=== PATIENT | female | born 1980 | race Caucasian/White ===

== ENCOUNTER 2016-12-12 12:02 | Inpatient (IN) | payer MEDICAID, OTHER ==
[2016-12-12] MEDS ORDERED: Sodium Chloride 0.9% 1,000 ML IV ONE ×2 (14:38→16:51)
--- NOTE | 2016-12-12 15:02 | RAD ---
HISTORY: lethargy COMPARISON: No prior. TECHNIQUE: Chest PA and lateral FINDINGS: LUNGS: No active pulmonary disease. PLEURA: No significant pleural effusion identified. No pneumothorax apparent. CARDIOVASCULAR: Normal. OSSEOUS STRUCTURES: No significant abnormalities. VISUALIZED UPPER ABDOMEN: Normal. OTHER FINDINGS: None. IMPRESSION: No active disease.
--- NOTE | 2016-12-12 15:08 | C.PDOC ---
History Of Present Illness 36 y/o transgender, genetically male, presents to the ED complaining of leg weakness and body aches x 2 weeks. Patient reports seen here 2 weeks prior for right shoulder injury s/p falling in apartment. Imaging studies at the time revealed no acute findings and patient reports that shoulder pain has resolved. Patient notes difficulty ambulating secondary to thigh pain and weakness. Denies trauma, numbness, or other complaints. Time Seen by Provider: 12/12/16 14:24 Chief Complaint (Nursing): Lower Extremity Problem/Injury Onset/Duration Of Symptoms: Days (14), Gradual, Persistent Current Symptoms Are (Timing): Still Present Recent travel outside of the [place]: No Past Medical History Reviewed: Historical Data, Nursing Documentation, Vital Signs Vital Signs: Last Vital Signs Temp 97.6 F 12/12/16 16:54 Pulse 86 12/12/16 16:54 Resp 18 12/12/16 16:54 BP 115/72 12/12/16 16:54 Pulse Ox 100 12/12/16 17:08 - Medical History PMH: No Chronic Diseases Surgical History: No Surg Hx Family History: States: Unknown Family Hx - Social History Hx Tobacco Use: No Hx Alcohol Use: No Hx Substance Use: No - Immunization History Hx Tetanus Toxoid Vaccination: No Hx Influenza Vaccination: No Hx Pneumococcal Vaccination: No Review Of Systems Except As Marked, All Systems Reviewed And Found Negative. Constitutional: Positive for: Other (body aches, subjective fevers, vomiting "every night and every morning after breakfast") Musculoskeletal: Positive for: Leg Pain Neurological: Positive for: Weakness (lower extremities). Negative for: Numbness Physical Exam - Physical Exam Appears: Non-toxic, No Acute Distress, Chronically Ill, Other (thin) Skin: Warm, Dry, No Rash Head: Atraumatic, Normacephalic Eye(s): bilateral: Normal Inspection, PERRL, EOMI Neck: Normal ROM, Supple Chest: Symmetrical Cardiovascular: Rhythm Regular Respiratory: Normal Breath Sounds, No Rales, No Rhonchi, No Wheezing Gastrointestinal/Abdominal: Normal Exam, Soft, No Tenderness Back: Normal Inspection, No CVA Tenderness, No Vertebral Tenderness Extremity: Normal ROM, No Tenderness, Capillary Refill (< 2 seconds), No Deformity, No Swelling, Other (patient is able to sit and stand w/ obvious discomfort) Pulses: Left Dorsalis Pedis: Normal, Right Dorsalis Pedis: Normal Neurological/Psych: Oriented x3, Normal Speech, Normal Cognition, Normal Sensation ED Course And Treatment - Laboratory Results Result Diagrams: 12/12/16 15:25 12/12/16 15:19 Lab Interpretation: Abnormal (d-dimer 402 slight elev) ECG: Interpreted By Me ECG Rhythm: Sinus Rhythm ECG Interpretation: Normal Rate From EC O2 Sat by Pulse Oximetry: 100 (ra) Pulse Ox Interpretation: Normal - Radiology CXR: Interpreted by Me CXR Interpretation: Yes: No Acute Disease - Other Rad Chest X-Ray X-Ray: Viewed By Me, Read By Radiologist (Jareth Salazar MD) Interpretation: FINDINGS: LUNGS: No active pulmonary disease. PLEURA: No significant pleural effusion identified. No pneumothorax apparent. CARDIOVASCULAR: Normal. OSSEOUS STRUCTURES: No significant abnormalities. VISUALIZED UPPER ABDOMEN: Normal. OTHER FINDINGS: None. IMPRESSION: No active disease. Reevaluation Time: 17:13 Reassessment Condition: Improved (thigh pain improved, again denies any diuretic use, no transgender steroid use in >5 yrs.) - Physician Consult Information Outcome Of Conversation: 1715: d/w Dr. Lora- Hospitalist [employer]- ok to Med Surg Obs. continue hydration, consider neuro eval. Medical Decision Making Medical Decision Making: Plan: * EKG * CXR * Blood Work * D-Dimer * Troponin * Urinalysis * Urine HCG * Toradol, Ultram, IV Fluids dehydration due to ? vomiting, normal glu and renal fxn. Disposition Doctor Will See Patient In The: Hospital Counseled Patient/Family Regarding: Studies Performed, Diagnosis - Disposition Disposition: HOSPITALIZED Disposition Time: 17:04 Condition: FAIR - Clinical Impression Clinical Impression: Leg pain, bilateral, Dehydration - Scribe Statement The provider has reviewed the documentation as recorded by the Scribe (Fiordaliza Miller) Provider Attestation: All medical record entries made by the Scribe were at my direction and personally dictated by me. I have reviewed the chart and agree that the record accurately reflects my personal performance of the history, physical exam, medical decision making, and the department course for this patient. I have also personally directed, reviewed, and agree with the discharge instructions and disposition.
[2016-12-12] MEDS ORDERED: Sodium Chloride 0.9% 1,000 ML ONE (15:12)
[2016-12-12 15:30] LABS: BASO # 0.1 K/uL (0.0-0.2); BASO % 0.8 % (0.0-2.0); EOS # 0.1 K/uL (0.0-0.7); EOS % 0.4 % (0.0-4.0); HEMATOCRIT 34.2 % (34.0-47.0); LYMPH # 1.8 K/uL (1.0-4.3); LYMPH % 10.2 % (20.0-40.0); MEAN CELL VOLUME 90.1 fL (81.0-99.0); MEAN CORPUSCULAR HEMOGLOBIN 30.1 pg (27.0-31.0); MEAN CORPUSCULAR HGB CONC 33.4 g/dL (33.0-37.0); MEAN PLATELET VOLUME 7.6 fL (7.2-11.7); MONO % 11.1 % (0.0-10.0); WHITE BLOOD COUNT 17.6 K/uL (4.8-10.8)
[2016-12-12 15:40] LABS: CHLORIDE 93 mmol/L (98-107)
[2016-12-12 15:41] LABS: POTASSIUM 4.2 mmol/L (3.6-5.2)
[2016-12-12 15:43] LABS: ALB/GLOB RATIO 0.6 (1.0-2.1); ALKALINE PHOSPHATASE 201 U/L (38-126); AST/SGOT 35 U/L (14-36); BILIRUBIN,TOTAL 1.7 mg/dL (0.2-1.3); BLOOD UREA NITROGEN 10 mg/dL (7-17); CARBON DIOXIDE 22 mmol/L (22-30); GFR AFRICAN-AMERICAN > 60; TOTAL PROTEIN 7.8 g/dL (6.3-8.3)
[2016-12-12 15:44] LABS: ALCOHOL SERUM < 10 mg/dl (0-10); ALT/SGPT 23 U/L (9-52); CALCIUM 7.7 mg/dl (8.6-10.4); GLUCOSE,RANDOM 222 mg/dL (65-105)
[2016-12-12 15:48] LABS: SODIUM 126 mmol/L (132-148)
[2016-12-12 17:39] LABS: RBC URINE 3 /hpf (0-3); URINE BACTERIA RARE (<OCC); URINE BILIRUBIN 1+ (NEGATIVE); URINE BLOOD NEGATIVE (NEGATIVE); URINE GLUCOSE (UA) NORMAL (Normal); URINE HYALINE CAST >20 /lpf (0-2); URINE KETONE NEGATIVE (NEGATIVE); URINE LEUKOCYTE ESTERASE NEG Leu/uL (Negative); URINE PROTEIN 2+ mg/dL (NEGATIVE); WBC URINE 25 /hpf (0-5)
[2016-12-12 17:40] LABS: URINE COLOR YELLOW (YELLOW)
--- NOTE | 2016-12-12 22:06 | CP.PCM.HP ---
History of Present Illness - History of Present Illness History of Present Illness: Internal Medicine H&P Dr. Lora CC: Weakness/Inability to walk x 2 weeks HPI: This is a 36yo female with a PMH notable for DM presenting with weakness and an inability to walk x 2 weeks. The patient also notes that she has right ear pain, throat pain, fever, vomiting, chills, and trouble swallowing. She is unable to provide an adequate timeline for these additional complaints. The patient is Serbian speaking only. Telecommunication was used for the patient encounter with site interpreter Jeremy Mcdaniels #[id number]. The patient provided vague details about the extent of her lower extremity weakness and pain. Initially the patient described a stabbing pain located on the plantar aspect of her left foot, but when questioned, the patient continued to describe left hip and knee pain which extended into B/L hip and knee pain. She states that she has been unable to ascend and descend stairs and finally the pain has become too much for her to bear. The patient has never had an occurrence like this before. The patient notes that weight bearing and motion make the pain worse. The patient describes no relieving factors. The patient notes a fall on 11/28/16. This fall is unrelated to her weakness. The patient says that she slipped on ice and injured her right shoulder. She was seen in the [facility] ED for this incident. The patient notes no time of day when the weakness is more pronounced. The patient denies all skin changes. With respect to the ear pain, the patient notes that she has tinnitus and pain especially at night without associated hearing issues. The patient notes that she had a tactile fever. She did not take her temperature at home. The patient reports 8 episodes of vomiting in the last week. The patient last vomited this morning at 8am. The vomitus was non-bilious and non-bloody. She has had 0 emetic episodes since, and she has been able to tolerate PO intake during that time. The patient denies headache, chest pain, shortness of breath , abdominal pain, changes in bowel/bladder, skin rash, skin changes, pruritis, extremity paresthesias, and any insect/animal bites. PMH: DM Sur10/29/16 Cyst removal right posterior shoulder Allergy: NKDA Social: Originally from [place]. Immigated to [place] ([facility] 7 years ago No travel outside [place] since immigration no family in [place] Social EtOH Denies Tobacco/Illicit Drugs Occupation: [employer] PMD: None Present on Admission - Present on Admission Any Indicators Present on Admission: No History of DVT/PE: No History of Uncontrolled Diabetes: No Urinary Catheter: No Decubitus Ulcer Present: No Review of Systems - Constitutional Constitutional: Chills, Fever, Weakness. absent: Headache - EENT Eyes: absent: Blurred Vision, Change in Vision Ears: Ear Pain, Tinnitus. absent: Decreased Hearing, Ear Discharge, Abnormal Hearing, Disequilibrium Nose/Mouth/Throat: Sore Throat. absent: Mouth Lesions, Facial Pain, Neck Pain - Cardiovascular Cardiovascular: absent: Chest Pain, Chest Pain with Activity, Pedal Edema - Respiratory Respiratory: absent: Cough, Dyspnea, Hemoptysis - Gastrointestinal Gastrointestinal: Nausea, Vomiting. absent: Abdominal Pain, Constipation, Diarrhea - Genitourinary Genitourinary: absent: Change in Urinary Stream, Difficulty Urinating - Musculoskeletal Musculoskeletal: Abnormal Gait, Arthralgias, Muscle Weakness, Myalgias. absent : Atrophy, Deformity, Joint Swelling, Neck Pain - Integumentary Integumentary: absent: Lesions, Pruritus, Rash, Skin Pain, Skin Ulcer, Sores, Jaundice - Neurological Neurological: Weakness. absent: Numbness, Focal Weakness, Frequent Falls, Headaches - Endocrine Endocrine: absent: Cold Intolorance, Heat Intolorance Past Patient History - Infectious Disease Hx of Infectious Diseases: None - Past Social History Smoking Status: Never Smoked - ENDOCRINE/METABOLIC Hx Endocrine Disorders: Yes Hx Diabetes Mellitus Type 2: Yes - MUSCULOSKELETAL/RHEUMATOLOGICAL Hx Falls: Yes - PSYCHIATRIC Hx Substance Use: No - SURGICAL HISTORY Hx Surgeries: No Meds Allergies/Adverse Reactions: Allergies Allergy/AdvReac Type Severity Reaction Status Date / Time No Known Allergies Allergy Verified 12/12/16 12:26 Physical Exam - Constitutional Appears: Non-toxic, No Acute Distress - Head Exam Head Exam: ATRAUMATIC, NORMAL INSPECTION, NORMOCEPHALIC - Eye Exam Eye Exam: EOMI, Normal appearance Pupil Exam: NORMAL ACCOMODATION - ENT Exam ENT Exam: Mucous Membranes Moist, Normal Exam, Normal External Ear Exam, Normal Oropharynx, TM's Normal Bilaterally. absent: Mucous Membranes Dry - Neck Exam Neck exam: Positive for: Full Rom, Normal Inspection. Negative for: Lymphadenopathy - Respiratory Exam Respiratory Exam: Clear to Auscultation Bilateral, NORMAL BREATHING PATTERN. absent: Rales, Rhonchi, Wheezes, Respiratory Distress - Cardiovascular Exam Cardiovascular Exam: REGULAR RHYTHM, RRR, +S1, +S2. absent: Diastolic murmur, Systolic Murmur - GI/Abdominal Exam GI & Abdominal Exam: Normal Bowel Sounds, Soft. absent: Distended, Firm, Guarding, Hernia, Tenderness - Extremities Exam Extremities exam: Positive for: calf tenderness, full ROM, normal capillary refill, normal inspection, pedal edema, tenderness, pedal pulses present. Negative for: joint swelling Additional comments: 1+ edema b/l pain with passive ROM Patient able to weight bear fully on both lower extremities Patient able to stand on tip-toes [place] B/L Sensation intact throughout all distal dermatomes B/L Motor Strength intact distally 5/5 B/L Right Leg: Tenderness on bony prominences (Greater trochanter, medal/lateral epicondyle, medial/lateral maleoli, calcaneous) Tenderness about gastroc, quad, and hamstring muscle groups Limited A/P-ROM 2/2 to pain Left Leg: Tenderness on bony prominences (Greater trochanter, medal/lateral epicondyle, medial/lateral maleoli, calcaneous) Tenderness about gastroc, quad, and hamstring muscle groups Limited A/P-ROM 2/2 to pain - Neurological Exam Neurological exam: Alert, CN II-XII Intact - Skin Skin Exam: Dry, Intact, Normal Color, Warm Results - Vital Signs Recent Vital Signs: Last Vital Signs Temp 97.6 F 12/12/16 16:54 Pulse 86 12/12/16 16:54 Resp 18 12/12/16 16:54 BP 115/72 12/12/16 16:54 Pulse Ox 100 12/12/16 17:14 - Labs Result Diagrams: 12/12/16 15:25 12/12/16 15:19 Labs: Laboratory Results - last 24 hr 12/12/16 21:06 POC Glucose (mg/dL) 224 H Assessment & Plan - Assessment and Plan (Free Text) Plan: 1.) B/L Lower Extremity Pain/Weakness- Likely 2/2 to Osteoarthritis vs Myositis vs Myopathy vs dehydration - AM Labs: CBC/CMP/Mg/Phos/Iron Panel/Sodium Random Urine/Creatinine Random Urine/Urine Osm/Folate/A1C/Hep Panel/Lactic Acid/Serum Osm/Testosterone/Aldolase /Uric Acid/B12/ ESR/CRP/HIV/B1/JOYCE/Lyme titer/RPR/Rheumatoid Factor - Blood Culture Ordered - Urine Culture Ordered - Throat Culture Ordered - Rapid Strep Ordered - Neuro Consult- Dr. Mix - Endo Consult- Dr. Spring - Rheumatology Consult- Dr. Wiggins - Imaging - B/L 2 view knees - 1 view pelvis - B/L Arterial and Venous Dopplers - Lumbar Spine XR - Pain Control- Morphine 1mg IV q4 prn pain 8-10 - IV Abx- Ceftriaxone 1g IV q24 - D-Dimer elevated at 402 - CPK normal at 38 - troponin negative x1 - negative urine tox screen 2.) Dehydration - s/p 2 1L boluses of NS in ED - monitor - currently normotensive without tachycardia 3.) DM - accucheck ACHS - Insulin sliding scale Low - diabetic diet 4.) Hypotonic Hyponatremia - corrected Na = 126 - Serum osm calc= 268 - f/u urine studies - BNP elevated at 908 5.) Prophylaxis - DVT- lovenox 40mg SC daily - GI- Pepcid 20mg PO daily - Nausea- Zofran 4mg q4 prn nausea Ferny Hunt PGY1 - Date & Time Date: 12/12/16 Time: 20:31 Decision To Admit - Pt Status Changed To: Hospital Disposition Of: Observation - . Bed Request Type: Regular Admitting Physician: Ragini Lora
[2016-12-12] MEDS: (Novolin R) Insulin Human Regular 100 units/ml vial SC SCH (22:35)
[2016-12-13 07:50] LABS: BASO # 0.1 K/uL (0.0-0.2); BASO % 0.4 % (0.0-2.0); EOS # 0.1 K/uL (0.0-0.7); EOS % 0.4 % (0.0-4.0); HEMATOCRIT 31.5 % (34.0-47.0); LYMPH # 2.6 K/uL (1.0-4.3); LYMPH % 13.1 % (20.0-40.0); MEAN CELL VOLUME 88.8 fL (81.0-99.0); MEAN CORPUSCULAR HEMOGLOBIN 30.3 pg (27.0-31.0); MEAN CORPUSCULAR HGB CONC 34.1 g/dL (33.0-37.0); MEAN PLATELET VOLUME 7.5 fL (7.2-11.7); MONO # 2.2 K/uL (0.0-0.8); RED CELL DISTRIBUTION WIDTH 14.8 % (11.5-14.5); WHITE BLOOD COUNT 20.2 K/uL (4.8-10.8)
[2016-12-13 08:01] LABS: IRON 30 ug/dL (37-170)
[2016-12-13 08:05] LABS: CHLORIDE 98 mmol/L (98-107); POTASSIUM 4.5 mmol/L (3.6-5.2); SODIUM 128 mmol/L (132-148)
[2016-12-13 08:07] LABS: ALB/GLOB RATIO 0.5 (1.0-2.1); ALKALINE PHOSPHATASE 169 U/L (38-126); AST/SGOT 31 U/L (14-36); BILIRUBIN,TOTAL 1.8 mg/dL (0.2-1.3); BLOOD UREA NITROGEN 9 mg/dL (7-17); CARBON DIOXIDE 22 mmol/L (22-30); GFR AFRICAN-AMERICAN > 60; TOTAL PROTEIN 7.6 g/dL (6.3-8.3)
[2016-12-13 08:08] LABS: ALT/SGPT 25 U/L (9-52); CALCIUM 7.3 mg/dl (8.6-10.4); GLUCOSE,RANDOM 165 mg/dL (65-105); URIC ACID 5.2 mg/dL (2.2-7.5)
[2016-12-13] MEDS: (Novolin R) Insulin Human Regular 100 units/ml vial SC SCH ×4 (08:22→21:47)
[2016-12-13 08:33] LABS: THYROID STIMULATING HORMONE 1.55 mIU/L (0.46-4.68)
[2016-12-13 08:36] LABS: RBC URINE 1 /hpf (0-3); URINE BILIRUBIN NEGATIVE (NEGATIVE); URINE BLOOD NEGATIVE (NEGATIVE); URINE COLOR Amber (YELLOW); URINE GLUCOSE (UA) NORMAL (Normal); URINE HYALINE CAST 0-2 /lpf (0-2); URINE KETONE NEGATIVE (NEGATIVE); URINE LEUKOCYTE ESTERASE NEG Leu/uL (Negative); URINE PROTEIN 1+ mg/dL (NEGATIVE); WBC URINE 4 /hpf (0-5)
[2016-12-13 09:07] LABS: FOLATE 3.9 ng/mL
[2016-12-13 09:39] LABS: OSMOLALITY,SERUM 272 mosm/kg (272-300)
[2016-12-13 09:59] LABS: CREATININE, RANDOM URINE 148.1 mg/dL
[2016-12-13] MEDS: Enoxaparin 40 mg Syringe SC SCH (10:07)
[2016-12-13] MEDS: Ferrous Sulfate 300 mg/5 mL Liq UD PO SCH ×2 (10:31→17:24)
[2016-12-13 11:10] LABS: TESTOSTERONE 63.3 ng/mL
[2016-12-13] MEDS ORDERED: Iodixanol 320 MG/ML 100 ML BOTTLE IV ONE (11:17)
[2016-12-13] MEDS ORDERED: MethylPREDNISolone 40 mg Vial IVP SCH (11:30)
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
--- NOTE | 2016-12-13 12:29 | RAD ---
PROCEDURE: Radiographs of the pelvis. HISTORY: b/l hip pain COMPARISON: None. FINDINGS: BONES: Pelvic Bones: Unremarkable. Hips: Bilateral superolateral hip joint space narrowing with acetabular and femoral head tiny coalescence subchondral cyst left greater than right there is shallow convexity to the superior femoral head neck junctions this morphology can be seen with femoral acetabular impingement syndromes. Right hip varus orientation JOINTS: Sacroiliac Joints: Unremarkable. Pubic Symphysis: Minimal sclerotic arthropathic changes here OTHER FINDINGS: None. IMPRESSION: Bilateral hip osteoarthrosis -possible femoral acetabular impingement - per morphology. No fracture apparent
--- NOTE | 2016-12-13 12:30 | RAD ---
PROCEDURE: Bilateral Knee Radiographs. HISTORY: knee pain COMPARISON: None. FINDINGS: BONES: Right Knee: Normal. No fracture. Left Knee: Normal. No fracture. JOINTS: Right Knee: Normal. No osteoarthritis. Left knee: Normal. No osteoarthritis. SOFT TISSUES: Right Knee: Normal. Left Knee: Normal. JOINT EFFUSION: Right Knee: None. Left Knee: None. OTHER FINDINGS: None. IMPRESSION: Normal radiographs of the knees.
--- NOTE | 2016-12-13 12:34 | RAD ---
PROCEDURE: Radiographs of the Lumbar Spine. HISTORY: b/l leg pain COMPARISON: No prior. FINDINGS: BONES: Normal alignment. No listhesis. No fracture. Right L4-5 facet hypertrophic arthrosis and right L5 transverse process transitional appearing DISC SPACES: Unremarkable. OTHER FINDINGS: Apparent vascular calcifications noted in this young patient 36 years of age. Correlate clinically IMPRESSION: No fracture. Right facet L4-5 hypertrophic arthrosis and other findings as above.
--- NOTE | 2016-12-13 12:53 | CT ---
CT chest pulmonary angiogram History: Elevated D-dimer. Comparison: None available. Technique: Multiple contiguous axial images were performed through the chest with the use of intravenous contrast according to a chest pulmonary angiogram protocol. Subsequently, sagittal and coronal reformatted images were obtained. Findings: Suboptimal evaluation for pulmonary emboli given the suboptimal contrast timing bolus. Repeat study and or further evaluation with dedicated V/Q study is recommended for further evaluation. For example, extensive low attenuation is seen throughout segmental vessels in the right upper lobe, right middle lobe as well as a portion of the right lower lobe. In addition, questionable filling defects are noted in the anterior left upper lobe as well as posterior left lower lobe. Right lung: Few scattered ground-glass and tree-in-bud nodular opacities seen within the posterior aspect of the inferior right upper lobe. Additional patchy ground-glass opacities in the right middle lobe. More dense focal consolidative changes in the posterior aspect of the right lower lobe. Left lun millimeter pulmonary nodule in the lateral aspect of the left upper lobe and more inferiorly an additional 4 millimeter pulmonary nodule in the right left upper lobe. Mild atelectatic changes in the left lower lobe. Trachea thru central airways are patent. No significant axillary adenopathy. Heterogeneous thyroid. 2 centimeter prevascular lymph node. Additional prominent mediastinal lymph nodes including a 2.5 x 2.3 centimeter and left paratracheal and 2.3 x 1.7 centimeter right paratracheal lymph node. No pleural or pericardial effusion. Prominent liver with fatty infiltration. Prominent spleen. Splenule. Nodular thickening of the adrenal glands. Pancreas preserved. Degenerative changes in the spine. Visualized aorta grossly preserved. Incidentally noted is a peripheral low attenuation lesion measuring 1.2 centimeters demonstrating a Hounsfield unit attenuation of 22 in the midpole of the right kidney, indeterminate. Correlation with renal ultrasound may be helpful if clinically indicated. Impression: 1. Suboptimal evaluation for pulmonary emboli given the suboptimal contrast timing bolus. Repeat study and or further evaluation with dedicated V/Q study is recommended for further evaluation. For example, extensive low attenuation is seen throughout segmental vessels in the right upper lobe, right middle lobe as well as a portion of the right lower lobe. In addition, questionable filling defects are noted in the anterior left upper lobe as well as posterior left lower lobe. 2. Few scattered ground-glass and tree-in-bud nodular opacities seen within the posterior aspect of the inferior right upper lobe. Additional patchy ground-glass opacities in the right middle lobe. More dense focal consolidative changes in the posterior aspect of the right lower lobe. 3. 3 millimeter pulmonary nodule in the lateral aspect of the left upper lobe and more inferiorly an additional 4 millimeter pulmonary nodule in the right left upper lobe. Mild atelectatic changes in the left lower lobe. 4. 2 centimeter prevascular lymph node. Additional prominent mediastinal lymph nodes including a 2.5 x 2.3 centimeter and left paratracheal and 2.3 x 1.7 centimeter right paratracheal lymph node. 5. Prominent liver with fatty infiltration. Prominent spleen. Splenule. 6. Nodular thickening of the adrenal glands. 7. Incidentally noted is a peripheral low attenuation lesion measuring 1.2 centimeters demonstrating a Hounsfield unit attenuation of 22 in the midpole of the right kidney, indeterminate. Correlation with renal ultrasound may be helpful if clinically indicated.
--- NOTE | 2016-12-13 13:06 | CARD ---
APPROVED REPORT EKG Measurement Heart [id number] <Conclusion> Normal sinus rhythm Normal ECG
[2016-12-13] MEDS: Sodium Chloride 0.9% 1,000 ML IV SCH ×2 (13:43→20:43)
[2016-12-13] MEDS ORDERED: Saccharomyces Boulardi 250 mg Cap PO SCH (14:00)
--- NOTE | 2016-12-13 14:16 | CON ---
DATE: 12/13/2016 ROOM: 566 This is a 36-year-old transgender female sent here with generalized body weakness and especially in t he lower extremities and is being referred for transgender status at this time. PAST MEDICAL HISTORY: The patient is genetically male and has received hormonal replacement in the p ast and is currently a transgender female by orientation and choice. She also has history of type 2 d iabetes and hypertension and currently taking metformin at 500 mg b.i.d. FAMILY HISTORY: Positive for hypertension and heart disease. SOCIAL HISTORY: The patient has a supportive family. No known substance use. REVIEW OF SYSTEMS: Admits to generalized body weakness with episodic bouts of dizziness and lighthea dedness. No chest pains or palpitations or PNDs. Her oral intake is satisfactory otherwise with occ asional bouts of dyspepsia ____ alterations of bowel or urinary patterns. PHYSICAL EXAMINATION: GENERAL: This is an average built female, in no apparent distress. VITAL SIGNS: Blood pressure of 150/80, pulse of 70 beats per minute and regular, temperature ____, r espirations 20. Height is 5 feet, weight is 120 pounds. HEENT: Head normocephalic. Eyes anicteric with pink conjunctivae. Fundoscopy not possible at this time. Ears, nose and throat otherwise normal. NECK: Supple. Thyroid gland is normal size. No carotid bruits or any cervical adenopathy. CARDIOPULMONARY: Some adynamic precordium. S1, S2 is rapid and regular. LUNGS: Clear to auscultation. ABDOMEN: Flat, soft with positive bowel sounds. EXTREMITIES: No peripheral edema. Pulses are +2 bilaterally. LABORATORIES: Her chemistries showed a BUN of 10, sodium 126, potassium 4.2, chloride 93, CO2 22, gl ucose 222 and creatinine 0.9. Her proBNP is 908. ASSESSMENT: This is a 36-year-old transgender female admitted here with a sudden fall and supervenin g lower extremity ____ and is being referred now for ____ and management. PLAN OF MANAGEMENT: We will obtain baseline hemoglobin A1c to confirm prior glycemic control and sta rt her right away on oral hypoglycemic drug therapy ____. We will also order a comprehensive hormona l profile ____ and free testosterone and a serum estradiol level with an LH, FSH ____ also to be ____ serum cortisol level will also be ____. We will follow and advise accordingly ____ evidence of ____ of diuretic therapy . Daiana Spring MD cc: [id number] TT: 12/13/2016 11:08:25 Confirmation # [id number] Dictation # [id number] en
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
[2016-12-13] MEDS: Piperacill/Tazo 3.375gm in Dex 50 ML IVPB SCH ×2 (15:07→20:43)
--- NOTE | 2016-12-13 17:32 | US ---
HISTORY: Hepatitis C COMPARISON: None. TECHNIQUE: Sonographic evaluation of the abdomen. FINDINGS: LIVER: Measures 18.3 cm. Hepatopedal blood flow. Fatty infiltration manifest ultrasonographically as increased echogenicity of the liver parenchyma. No mass. No intrahepatic bile duct dilatation. GALLBLADDER: Sludge identified within the gallbladder. No stones identified. COMMON BILE DUCT: Measures 4.3 mm. No stones. No dilatation. PANCREAS: Unremarkable as visualized. No mass. No ductal dilatation. Portions of the distal body and tail obscured by RIGHT KIDNEY: Measures 6.1 x 12.7cm. Normal echogenicity. No calculus, mass, or hydronephrosis. LEFT KIDNEY: Measures 5.8 x 15cm. Normal echogenicity. No calculus, mass, or hydronephrosis. SPLEEN: Splenomegaly. Orthogonal measurements 6.8 x 16.9 cm. AORTA: No aneurysmal dilatation. IVC: Unremarkable. OTHER FINDINGS: Overlying bowel gas None. IMPRESSION: Mildly enlarged liver hepatic steatosis. Splenomegaly.
[2016-12-13 17:54] LABS: RAPID PLASMA REAGIN REACTIVE (NONREACTIVE)
--- NOTE | 2016-12-13 18:40 | CP.PCM.CON ---
History of Present Illness - History of Present Illness History of Present Illness: 36 yo with hx DM admitted for severe weakness and possible myopathy referred for ID eval for bacteremia + RPR source unclear at this time Started on appropriate IV antibiotics PMH noted - + DM Hep C Transexual male==> female / male genitals in tact Ex IVDU FH N/C NKA Review of Systems - Constitutional Constitutional: As Per HPI - EENT Eyes: absent: As Per HPI, Blind Spots, Blurred Vision, Change in Vision, Decreased Night Vision, Diplopia, Discharge, Dry Eye, Exophthalmos, Floaters, Irritation, Itchy Eyes, Loss of Peripheral Vision, Pain, Photophobia, Requires Corrective Lenses, Sees Flashes, Spots in Vision, Tunnel Vision, Other Visual Disturbances, Loss of Vision, Other Ears: absent: As Per HPI, Decreased Hearing, Ear Discharge, Ear Pain, Tinnitus, Abnormal Hearing, Disequilibrium, Dizziness, Other Nose/Mouth/Throat: absent: As Per HPI, Epistaxis, Nasal Congestion, Nasal Discharge, Nasal Obstruction, Nasal Trauma, Nose Pain, Post Nasal Drip, Sinus Pain, Sinus Pressure, Bleeding Gums, Change in Voice, Dental Pain, Dry Mouth, Dysphagia, Halitosis, Hoarsness, Lip Swelling, Mouth Lesions, Mouth Pain, Odynophagia, Sore Throat, Throat Swelling, Tongue Swelling, Facial Pain, Neck Pain, Neck Mass, Other - Breasts Breasts: absent: As Per HPI, Change in Shape, Mass, Pain, Nipple Discharge, Nipple Inversion, Skin Changes, Swelling, Other - Cardiovascular Cardiovascular: absent: As Per HPI, Acrocyanosis, Chest Pain, Chest Pain at Rest , Chest Pain with Activity, Claudication, Diaphoresis, Dyspnea, Dyspnea on Exertion, Edema, Irregular Heart Rhythm, Pain Radiating to Arm/Neck/Jaw, Leg Edema, Leg Ulcers, Lightheadedness, Orthopnea, Palpitations, Paroxysmal Nocturnal Dyspnea, Pedal Edema, Radiating Pain, Rapid Heart Rate, Slow Heart Rate, Syncope, Other - Respiratory Respiratory: absent: As Per HPI, Cough, Dyspnea, Hemoptysis, Dyspnea on Exertion , Wheezing, Snoring, Stridor, Pain on Inspiration, Chest Congestion, Excessive Mucous Production, Change in Mucous Color, Pain with Coughing, Other - Gastrointestinal Gastrointestinal: absent: As Per HPI, Abdominal Pain, Belching, Bloating, Change in Bowel Habits, Change in Stool Character, Coffee Ground Emesis, Constipation, Cramping, Diarrhea, Dyspepsia, Dysphagia, Early Satiety, Excessive Flatus, Fecal Incontinence, Heartburn, Hematemesis, Hematochezia, Loose Stools, Melena, Nausea, Odynophagia, Temesmus, Vomiting, Other - Genitourinary Genitourinary: absent: As Per HPI, Change in Urinary Stream, Difficulty Urinating, Dysuria, Flank Pain, Hematuria, Pyuria, Nocturia, Urinary Incontinence, Urinary Frequency, Urinary Hesitance, Urinary Urgency, Voiding Freq/Small Amts, Freq UTI, Hx Renal/Bladder Calculi, Hx /Renal Surgery, Bladder Distension, Other - Reproductive: Female Reproductive:Female: absent: As Per HPI, Amenorrhea, Amenorrhea/ Control, Currently Menstual, Cycle <21 Days, Cycle >35 Days, Cycle Variable, Menses 1-7 Days, Menses >/= 8 Days, Menses Variable, Cycle > 4 Weeks Between, No Menses for 6 Months, Heavy Menses, Light Menses, Normal Menses, Spotting Between Cycles , S/P Hysterectomy, Menopausal, Post Menopausal, Premenarche, Abnormal Vaginal Bleeding, Dysmenorrhea, Dyspareunia, Genital Lesions, Genital Pruritis, Pelvic Pain, Prolapse Symptoms, Sexual Dysfunction, Vaginal Discharge, Vaginal Dryness , Vaginal Odor, Vaginal Pruritis, Other - Menstruation Menstruation: absent: As Per HPI, Amenorrhea, Amenorrhea/ Control, Currently Menstual, Cycle <21 Days, Cycle >35 Days, Cycle Variable, Menses 1-7 Days, Menses >/= 8 Days, Menses Variable, Cycle > 4 Weeks Between, No Menses for 6 Months, Heavy Menses, Light Menses, Normal Menses, Spotting Between Cycles , S/P Hysterectomy, Menopausal, Post Menopausal, Premenarche, Abnormal Vaginal Bleeding, Dysmenorrhea, Other - Musculoskeletal Musculoskeletal: absent: As Per HPI, Abnormal Gait, Arthralgias, Atrophy, Back Pain, Deformity, Joint Swelling, Limited Range of Motion, Loss of Height, Muscle Cramps, Muscle Weakness, Myalgias, Neck Pain, Numbness, Radiating Pain into Limb, Stiffness, Tingling, Other - Integumentary Integumentary: absent: As Per HPI, Acne, Alopecia, Bleeding Lesions, Change in Hair, Change in Nails, Change in Pigmentation, Changing Lesions, Dry Skin, Erythema, Furuncle, Hirsutism, Lesions, New Lesions, Non-Healing Lesions, Photosensitivity, Pruritus, Rash, Skin Pain, Skin Ulcer, Sores, Striae, Swelling , Unusual Bruising, Wounds, Jaundice, Other - Neurological Neurological: absent: As Per HPI, Abnormal Gait, Abnormal Hearing, Abnormal Movements, Abnormal Speech, Behavioral Changes, Burning Sensations, Confusion, Convulsions, Disequilibrium, Dizziness, Numbness, Focal Weakness, Frequent Falls , Headaches, Lack of Coordination, Loss of Vision, Memory Loss, Paresthesias, Radicular Pain, Restless Legs, Sensory Deficit, Syncope, Tingling, Tremor, Vertigo, Weakness, Other Visual Disturbances, Other - Psychiatric Psychiatric: absent: As Per HPI, Abnormal Sleep Pattern, Anhedonia, Anxiety, Auditory Hallucinations, Behavioral Changes, Change in Appetite, Change in Libido, Confusion, Depression, Difficulty Concentrating, Hallucinations, Homicidal Ideation, Hopelessness, Irritability, Memory Loss, Mood Swings, Panic Attacks, Paranoia, Suicidal Ideation, Visual Hallucinations, Tactile Hallucinations, Other - Endocrine Endocrine: absent: As Per HPI, Change in Body Appearance, Change in Libido, Cold Intolorance, Deepening of Voice, Excessive Sweating, Fatigue, Flushing, Heat Intolorance, Increase in Ring/Shoe/Hat Size, Palpitations, Polydipsia, Polyphagia, Polyuria, Other - Hematologic/Lymphatic Hematologic: absent: As Per HPI, Easy Bleeding, Easy Bruising, Lymphadenopathy, Other Past Patient History - Infectious Disease Hx of Infectious Diseases: None - Past Medical History & Family History Past Medical History?: Yes - Past Social History Smoking Status: Never Smoked - CARDIAC Hx Hypertension: Yes - PULMONARY Hx Respiratory Disorders: No Hx Asthma: No Hx Bronchitis: No Hx Chronic Obstructive Pulmonary Disease (COPD): No Hx Emphysema: No Hx Lung Cancer: No Hx Pneumonia: No Hx Pulmonary Edema: No Hx Pulmonary Embolism: No Hx Respiratory Aspiration: No Hx Respiratory Tract Infection: No Hx Sleep Apnea: No Hx Tuberculosis: No - NEUROLOGICAL Hx Neurological Disorder: No Hx Alzheimer's Disease: No HX Cerebrovascular Accident: No Hx Dementia: No Hx Dizziness: No Hx Meningitis: No Hx Migraine: No Hx Multiple Sclerosis: No Hx Paralysis: No Hx Parkinson's Disease: No Hx Seizures: Yes (Epilepsy) Hx Syncope: No Hx Transient Ischemic Attacks (TIA): No Hx Vertigo: No - HEENT Hx HEENT Problems: No Hx Blind: No Hx Cataracts: No Hx Deafness: No Hx Difficulty Chewing: No Hx Epistaxis: No Hx Glaucoma: No Hx Macular Degeneration: No Hx Sinusitis: No - RENAL Hx Chronic Kidney Disease: No Hx Dialysis: No Hx Kidney Stones: No Hx Neurogenic Bladder: No Hx Pyelonephritis: No Hx Renal (Kidney) Cancer: No Hx Renal Failure: No - ENDOCRINE/METABOLIC Hx Diabetes Mellitus Type 1: Yes - HEMATOLOGICAL/ONCOLOGICAL Hx Blood Disorders: No Hx AIDS: No Hx Anemia: No Hx Blood Transfusions: No Hx Blood Transfusion Reaction: No Hx Bruising: No Hx Cancer: No Hx Chemotherapy: No Hx Cirrhosis: No Hx Gum Bleeding: No Hx Hemophilia: No Hx Hepatitis A: No Hx Hepatitis B: No Hx Hepatitis C: No Hx Human Immunodeficiency Virus (HIV): No Hx Leukemia: No Hx Metastesis: No Hx Shingles: No Hx Sickle Cell Disease: No Hx Unexplained Bleeding: No Hx von Willebrand's Disease: No - INTEGUMENTARY Hx Dermatological Problems: No Hx Basil Cell: No Hx Rg: No Hx Cellulitis: No Hx Eczema: No Hx Melanoma: No Hx Psoriasis: No Hx Squamous Cell: No - MUSCULOSKELETAL/RHEUMATOLOGICAL Hx Falls: Yes - GASTROINTESTINAL Hx Gastrointestinal Disorders: No Hx Bowel Surgery: No Hx Clostridium Difficile: No Hx Colitis: No Hx Colostomy: No Hx Constipation: No Hx Crohn's Disease: No Hx Diarrhea: No Hx Diverticulitis: No Hx Esophageal Varices: No Hx Fatty Liver Disease: No Hx Gall Bladder Disease: No Hx Gastritis: No Hx Gastroesophageal Reflux: No Hx Hemorrhoids: No Hx Ileostomy: No Hx Irritable Bowel: No Hx Liver Failure: No Hx Nausea: No Hx Pancreatitis: No HX Swallowing Problems: No Hx Ulcer: No Hx Vomiting: No - GENITOURINARY/GYNECOLOGICAL Hx Genitourinary Disorders: No Hx Bladder Cancer: No Hx Bladder Stone: No Hx Cervical Cancer: No Hx Hematuria: No Hx Incontinence: No Hx Ovarian Cancer: No Hx Postmenopausal Bleeding: No Hx Reproductive Disorders: No Hx Sexually Transmitted Disorders: No Hx Uterine Cancer: No Hx Urinary Tract Infection: No - PSYCHIATRIC Hx Substance Use: No - SURGICAL HISTORY Hx Surgeries: No - ANESTHESIA Hx Anesthesia: Yes Hx Anesthesia Reactions: No Hx Malignant Hyperthermia: No Has any member of the family had a problem w/ anesthesia?: No Meds Allergies/Adverse Reactions: Allergies Allergy/AdvReac Type Severity Reaction Status Date / Time No Known Allergies Allergy Verified 12/12/16 12:26 - Medications Medications: Current Medications Docusate Sodium (Colace) 100 mg PO BID [facility] Last Admin: 12/13/16 17:25 Dose: 100 mg Enoxaparin Sodium (Lovenox) 40 mg SC DAILY [facility] Last Admin: 12/13/16 10:07 Dose: 40 mg Escitalopram Oxalate (Lexapro) 10 mg PO DAILY [facility] Last Admin: 12/13/16 17:25 Dose: 10 mg Famotidine (Pepcid) 20 mg PO DAILY [facility] Last Admin: 12/13/16 10:07 Dose: 20 mg Ferrous Sulfate (Feosol Liq) 300 mg PO BID [facility] Last Admin: 12/13/16 17:24 Dose: 300 mg Gabapentin (Neurontin) 100 mg PO TID [facility] Last Admin: 12/13/16 17:25 Dose: 100 mg Sodium Chloride (Sodium Chloride 0.9%) 1,000 mls @ 100 mls/hr IV .Q10H [facility] Last Admin: 12/13/16 13:43 Dose: 100 mls/hr Piperacillin Sod/Tazobactam Sod (Zosyn 3.375 Gm Iv Premix) 50 mls @ 100 mls/hr IVPB Q6H [facility] Last Admin: 12/13/16 15:07 Dose: 100 mls/hr Vancomycin HCl 1 gm/ Sodium (Chloride) 250 mls @ 166.667 mls/hr IVPB Q12H [facility] Influenza Virus Vaccine (Afluria) 45 mcg IM .ONCE ONE Stop: 12/14/16 10:01 Insulin Human Regular (Novolin R) 0 unit SC ACHS [facility] PRN Reason: Protocol Last Admin: 12/13/16 17:24 Dose: 2 unit Morphine Sulfate (Morphine) 1 mg IVP Q4 PRN PRN Reason: Pain, severe (8-10) Last Admin: 12/13/16 08:21 Dose: 1 mg Ondansetron HCl (Zofran Inj) 8 mg IVP Q6H PRN PRN Reason: Nausea/Vomiting Pneumococcal Polyvalent Vaccine (Pneumovax 23 Vaccine) 0.5 ml IM .ONCE ONE Stop: 12/14/16 10:01 Saccharomyces Boulardii (Florastor) 250 mg PO DAILY [facility] Last Admin: 12/13/16 17:26 Dose: 250 mg Trazodone HCl (Desyrel) 50 mg PO [facility] Physical Exam - Constitutional Appears: Non-toxic, Chronically Ill - Head Exam Head Exam: NORMOCEPHALIC - Eye Exam Eye Exam: PERRL. absent: Scleral icterus - ENT Exam ENT Exam: Mucous Membranes Dry, Normal External Ear Exam, Normal Oropharynx - Neck Exam Neck exam: Negative for: Lymphadenopathy, Thyromegaly - Respiratory Exam Respiratory Exam: Decreased Breath Sounds, Clear to Auscultation Bilateral - Cardiovascular Exam Cardiovascular Exam: REGULAR RHYTHM, +S1, +S2 - GI/Abdominal Exam GI & Abdominal Exam: Diminished Bowel Sounds, Soft. absent: Tenderness - Rectal Exam Rectal Exam: Deferred - Exam Exam: NORMAL INSPECTION - Extremities Exam Extremities exam: Negative for: pedal edema - Back Exam Back exam: absent: CVA tenderness (L), CVA tenderness (R) - Neurological Exam Neurological exam: Alert, CN II-XII Intact, Oriented x3, Reflexes Normal - Psychiatric Exam Psychiatric exam: Normal Mood - Skin Skin Exam: Dry Results - Vital Signs Recent Vital Signs: Last Vital Signs Temp 97.8 F 12/13/16 15:31 Pulse 87 12/13/16 15:31 Resp 18 12/13/16 15:31 BP 149/92 H 12/13/16 15:31 Pulse Ox 97 12/13/16 15:31 - Labs Result Diagrams: 12/13/16 07:27 12/13/16 07:27 Labs: Laboratory Results - last 24 hr 12/12/16 12/13/16 12/13/16 21:06 07:27 07:57 WBC 20.2 H RBC 3.55 L Hgb 10.8 L Hct 31.5 L MCV 88.8 MCH 30.3 MCHC 34.1 RDW 14.8 H Plt Count 192 MPV 7.5 Neut % (Auto) 75.1 H Lymph % (Auto) 13.1 L [place] % (Auto) 11.0 H Eos % (Auto) 0.4 Baso % (Auto) 0.4 Neut # 15.1 H Lymph # 2.6 [place] # 2.2 H Eos # 0.1 Baso # 0.1 ESR 108 H Sodium 128 L Potassium 4.5 Chloride 98 Carbon Dioxide 22 Anion Gap 13 BUN 9 Creatinine 0.5 L Est GFR ( Amer) > 60 Est GFR (Non-Af Amer) > 60 POC Glucose (mg/dL) 224 H Random Glucose 165 H Hemoglobin A1c 7.6 H Serum Osmolality 272 Lactic Acid 1.3 Uric Acid 5.2 Calcium 7.3 L Iron 30 L TIBC 209 L % Saturation 14 L Ferritin 423.0 Total Bilirubin 1.8 H AST 31 ALT 25 Alkaline Phosphatase 169 H C-React Prot High Sens > 15.00 H Total Protein 7.6 Albumin 2.6 L Globulin 5.0 H Albumin/Globulin Ratio 0.5 L Vitamin B12 839 Folate 3.9 Procalcitonin TSH 3rd Generation 1.55 Testosterone Level 63.3 Urine Color Mariya Urine Clarity Hazy Urine pH 5.0 Ur Specific Agate 1.014 Urine Protein 1+ H Urine Glucose (UA) Normal Urine Ketones Negative Urine Blood Negative Urine Nitrate Negative Urine Bilirubin Negative Urine Urobilinogen 4.0 H Ur Leukocyte Esterase Neg Urine WBC (Auto) 4 Urine RBC (Auto) 1 Ur Squamous Epith Cells < 1 Hyaline Casts 0-2 Urine Osmolality 397 Ur Random Creatinine 148.1 Ur Random Sodium 17 Rheum Arthritis Panel Negative JOYCE 6 Profile Negative RPR Titer 1:4 H RPR Reactive H Hepatitis A IgM Ab Negative Hep Bs Antigen Negative Hep B Core IgM Ab Negative Hepatitis C Antibody Reactive H 12/13/16 12/13/16 12/13/16 08:35 13:32 16:58 WBC RBC Hgb Hct MCV MCH MCHC RDW Plt Count MPV Neut % (Auto) Lymph % (Auto) [place] % (Auto) Eos % (Auto) Baso % (Auto) Neut # Lymph # [place] # Eos # Baso # ESR Sodium Potassium Chloride Carbon Dioxide Anion Gap BUN Creatinine Est GFR ( Amer) Est GFR (Non-Af Amer) POC Glucose (mg/dL) 197 H 245 H 236 H Random Glucose Hemoglobin A1c Serum Osmolality Lactic Acid Uric Acid Calcium Iron TIBC % Saturation Ferritin Total Bilirubin AST ALT Alkaline Phosphatase C-React Prot High Sens Total Protein Albumin Globulin Albumin/Globulin Ratio Vitamin B12 Folate Procalcitonin TSH 3rd Generation Testosterone Level Urine Color Urine Clarity Urine pH Ur Specific Agate Urine Protein Urine Glucose (UA) Urine Ketones Urine Blood Urine Nitrate Urine Bilirubin Urine Urobilinogen Ur Leukocyte Esterase Urine WBC (Auto) Urine RBC (Auto) Ur Squamous Epith Cells Hyaline Casts Urine Osmolality Ur Random Creatinine Ur Random Sodium Rheum Arthritis Panel JOYCE 6 Profile RPR Titer RPR Hepatitis A IgM Ab Hep Bs Antigen Hep B Core IgM Ab Hepatitis C Antibody 12/13/16 Unknown WBC RBC Hgb Hct MCV MCH MCHC RDW Plt Count MPV Neut % (Auto) Lymph % (Auto) [place] % (Auto) Eos % (Auto) Baso % (Auto) Neut # Lymph # [place] # Eos # Baso # ESR Sodium Potassium Chloride Carbon Dioxide Anion Gap BUN Creatinine Est GFR ( Amer) Est GFR (Non-Af Amer) POC Glucose (mg/dL) Random Glucose Hemoglobin A1c Serum Osmolality Lactic Acid Uric Acid Calcium Iron TIBC % Saturation Ferritin Total Bilirubin AST ALT Alkaline Phosphatase C-React Prot High Sens Total Protein Albumin Globulin Albumin/Globulin Ratio Vitamin B12 Folate Procalcitonin 0.59 H TSH 3rd Generation Testosterone Level Urine Color Urine Clarity Urine pH Ur Specific Agate Urine Protein Urine Glucose (UA) Urine Ketones Urine Blood Urine Nitrate Urine Bilirubin Urine Urobilinogen Ur Leukocyte Esterase Urine WBC (Auto) Urine RBC (Auto) Ur Squamous Epith Cells Hyaline Casts Urine Osmolality Ur Random Creatinine Ur Random Sodium Rheum Arthritis Panel JOYCE 6 Profile RPR Titer RPR Hepatitis A IgM Ab Hep Bs Antigen Hep B Core IgM Ab Hepatitis C Antibody Assessment & Plan (1) Dehydration Status: Acute (2) Leg pain, bilateral Status: Acute - Assessment and Plan (Free Text) Assessment: r/o endocarditis Hep C + RPR await fta-abs await id and sensi HIV pending dr james on consult
[2016-12-14] MEDS: Piperacill/Tazo 3.375gm in Dex 50 ML IVPB SCH ×4 (02:05→21:27)
[2016-12-14] MEDS: Sodium Chloride 0.9% 1,000 ML IV SCH ×2 (06:19→15:45)
[2016-12-14 07:24] LABS: BASO % 0.1 % (0.0-2.0); HEMATOCRIT 30.9 % (34.0-47.0); LYMPH # 1.8 K/uL (1.0-4.3); LYMPH % 10.1 % (20.0-40.0); MEAN CELL VOLUME 88.4 fL (81.0-99.0); MEAN CORPUSCULAR HEMOGLOBIN 31.2 pg (27.0-31.0); MEAN CORPUSCULAR HGB CONC 35.3 g/dL (33.0-37.0); MEAN PLATELET VOLUME 7.4 fL (7.2-11.7); MONO # 1.3 K/uL (0.0-0.8); MONO % 7.5 % (0.0-10.0); RED CELL DISTRIBUTION WIDTH 15.3 % (11.5-14.5); WHITE BLOOD COUNT 17.7 K/uL (4.8-10.8)
[2016-12-14 07:35] LABS: CHLORIDE 102 mmol/L (98-107); POTASSIUM 4.5 mmol/L (3.6-5.2); SODIUM 132 mmol/L (132-148)
[2016-12-14 07:37] LABS: ALB/GLOB RATIO 0.6 (1.0-2.1); ALKALINE PHOSPHATASE 162 U/L (38-126); AST/SGOT 24 U/L (14-36); BILIRUBIN,TOTAL 1.5 mg/dL (0.2-1.3); BLOOD UREA NITROGEN 12 mg/dL (7-17); CARBON DIOXIDE 22 mmol/L (22-30); GFR AFRICAN-AMERICAN > 60; TOTAL PROTEIN 6.5 g/dL (6.3-8.3)
[2016-12-14 07:38] LABS: ALT/SGPT 23 U/L (9-52); CALCIUM 7.5 mg/dl (8.6-10.4); GLUCOSE,RANDOM 301 mg/dL (65-105)
[2016-12-14 08:08] LABS: CORTISOL AM 10.2 ug/dL (4.46-22.7)
[2016-12-14 08:13] LABS: ESTRADIOL (E2) 125.1 pg/mL
[2016-12-14] MEDS: (Novolin R) Insulin Human Regular 100 units/ml vial SC SCH ×4 (08:21→21:26)
[2016-12-14 08:49] LABS: FSH 7.1 mIU/mL
--- NOTE | 2016-12-14 09:59 | VASCLAB ---
PROCEDURE: Lower Extremity Venous Duplex Exam. HISTORY: elevated d-dimer + b/l leg pain PRIORS: None. TECHNIQUE: Bilateral common femoral, femoral, popliteal and posterior tibial, peroneal and great saphenous veins were evaluated. Flow was assessed with color Doppler, compressibility, assessment of phasic flow and augmentation response. Report prepared by Michael Cary, CARMEN, RVT FINDINGS: RIGHT: 1. Common Femoral Vein: 1.1. Compressibility - Fully compressible: Thrombus - None : Flow - Phasic: Augmentation -Normal: Reflux - None. 2. Femoral Vein: 2.1. Compressibility - Fully compressible: Thrombus - None : Flow - Phasic: Augmentation -Normal: Reflux - None. 3. Popliteal Vein: 3.1. Compressibility - Fully compressible: Thrombus - None : Flow - Phasic: Augmentation -Normal: Reflux - None. 4. Posterior Tibial Vein: 4.1. Compressibility - Fully compressible: Thrombus - None: Flow - Phasic: Augmentation -Normal: Reflux - None. 5. Peroneal Vein: 5.1. Compressibility - Fully compressible: Thrombus - None: Flow - Phasic: Augmentation -Normal: Reflux - None. 6. Great Saphenous Vein: 6.1. Compressibility - Fully compressible: Thrombus - None: Flow - Phasic: Augmentation - Normal: Reflux - None. LEFT: 1. Common Femoral Vein: 1.1. Compressibility - Fully compressible: Thrombus - None: Flow - Phasic: Augmentation -Normal: Reflux - None. 2. Femoral Vein: 2.1. Compressibility - Fully compressible: Thrombus - None: Flow - Phasic: Augmentation -Normal: Reflux - None. 3. Popliteal Vein: 3.1. Compressibility - Fully compressible: Thrombus - None : Flow - Phasic: Augmentation -Normal: Reflux - None. 4. Posterior Tibial Vein: 4.1. Compressibility - Fully compressible: Thrombus - None: Flow - Phasic: Augmentation -Normal: Reflux - None. 5. Peroneal Vein: 5.1. Compressibility - Fully compressible: Thrombus - None: Flow - Phasic: Augmentation -Normal: Reflux - None. 6. Great Saphenous Vein: 6.1. Compressibility - Fully compressible: Thrombus - None: Flow - Phasic: Augmentation - Normal: Reflux - None. OTHER FINDINGS: Right: None significant. Left: None significant. IMPRESSION: Right: No evidence of deep or superficial vein thrombosis of the right lower extremity. Normal valve function noted of the right side. Left: No evidence of deep or superficial vein thrombosis of the left lower extremity. Normal valve function noted of the left side.
[2016-12-14] MEDS ORDERED: Influenza Virus Vaccine 45 mcg/0.5 ml Syr IM ONE (10:00)
[2016-12-14] MEDS ORDERED: Pneumococcal 23-Valent Vaccine IM ONE (10:00)
--- NOTE | 2016-12-14 11:30 | PN ---
DATE: 12/14/2016 LOCATION: [address] [place] [address]. This is a 36-year-old ____ gender female presenting here with dehydration and lower extremity weaknes s and she is now being evaluated to have dehydration with lower extremity weakness, and is also being followed closely for management of hyponatremia as noted thereof. She remains clinically euadrenal at this time. Her cortisol level is 10 with an estrogen level of 175. Her other hormones are pending and have been sent to a reference lab for further test otherwise. Will follow and advise accordingly. Daiana Spring MD cc: [id number] TT: 12/14/2016 11:29:06 Confirmation # [id number] Dictation # [id number] mn
[2016-12-14] MEDS: Ferrous Sulfate 300 mg/5 mL Liq UD PO SCH ×2 (12:10→18:08)
[2016-12-14] MEDS: Saccharomyces Boulardi 250 mg Cap PO SCH (12:11)
[2016-12-14] MEDS: Enoxaparin 40 mg Syringe SC SCH (12:11)
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
[2016-12-14] MEDS: GlipiZIDE 10 mg SR Tab PO SCH (15:46)
--- NOTE | 2016-12-14 16:18 | VASCLAB ---
STUDY DESCRIPTION: HISTORY: b/l leg pain PRIORS: None. TECHNIQUE: Pulse volume recording waveforms and segmental pressures of bilateral lower extremities at multiple levels were obtained. Ankle Brachial Indices (ABIs) were calculated. Report prepared by CARMEN Islas, RVT RIGHT LOWER EXTREMITY: * Brachial artery: Pressure - 128 mmHg. * High thigh: Pressure - 154 mmHg: Ratio - 1.20: PVR waveform - Pulsatile * Low thigh: Pressure - 155 mmHg: Ratio - 1.21 PVR waveform: Pulsatile * Calf: Pressure - 167 mmHg: Ratio - 1.30 PVR waveform: Pulsatile * Posterior tibial Artery: Pressure - 161 mmHg: Ratio - 1.26 PVR waveform: Pulsatile * Dorsalis pedis Artery: Pressure - 155 mmHg: Ratio - 1.21 PVR waveform: Pulsatile * Great toe: Pressure - Not optimally obtained. Ankle brachial index (XAVI): 1.26 LEFT LOWER EXTREMITY: * Brachial artery: Pressure - 123 mmHg. * High thigh: Pressure - 151 mmHg: Ratio - 1.18: PVR waveform - Pulsatile * Low thigh: Pressure - 158 mmHg: Ratio - 1.23 PVR waveform: Pulsatile * Calf: Pressure - 154 mmHg: Ratio - 1.20 PVR waveform: Pulsatile * Posterior tibial Artery: Pressure - 157 mmHg: Ratio - 1.23 PVR waveform: Pulsatile * Dorsalis pedis Artery: Pressure - 148 mmHg: Ratio - 1.16 PVR waveform: Pulsatile * Great toe: Pressure - Not optimally obtained. Ankle brachial index (XAVI): 1.23 OTHER FINDINGS: Right: None. Left: None. IMPRESSION: Right: There was no evidence of hemodynamically significant arterial insufficiency in the right lower extremity. Left: There was no evidence of hemodynamically significant arterial insufficiency in the left lower extremity.
--- NOTE | 2016-12-14 18:37 | PCM.PYCHPN ---
Psychiatric Progress Note - Psychiatric Progress Note Patient seen today, length of contact: 16 min Patient Chief Complaint: "A little better" Problems Identified/Issues Discussed: She is seen, chart reviewed, translation is done by staff No new complaints No SEs from meds Not suicidal-homicidal. Affect is slightly brighter. Support given. Medication Change: No Medical Record Reviewed: Yes Mental Status Examination - Cognitive Function Orientation: Person, Place, Situation, Time Memory: Intact Attention: Poor Concentration: Poor Association: WNL Fund of Knowledge: Poor - Mood Mood: Depressed - Affect Affect: Constricted - Speech Speech: Appropriate - Formal Thought Process Formal Thought Process: No Impairment - Suicidal Ideation Suicidal Ideation: No - Homicidal Ideation Homicidal Ideation: No Goal/Treatment Plan - Goal/Treatment Plan Need for Continued Stay: Discharge may exacerbated symptoms, Other (medical w/u) Progress Toward Problem(s) and Goals/Treatment Plan: Lexapro for depression Gabapentin for anxiety Monitor sxs Support and psychoeducation Refer to outpt clinic at [facility]
[2016-12-14] MEDS ORDERED: Penicillin G Benzathine 2.4 Mill Unit/4 ml Syr IM ONE (19:15)
--- NOTE | 2016-12-14 19:19 | CP.PCM.PN ---
Subjective - Date & Time of Evaluation Date of Evaluation: 12/14/16 Time of Evaluation: 07:00 - Subjective Subjective: less depressed afebrile RPR + however FTA-ABS pending await results states no hx syphilis and never treated source of bacteremia unclear await I andD of organism may need echo /TREVOR Objective - Vital Signs/Intake and Output Vital Signs (last 24 hours): Temp Pulse Resp BP Pulse Ox 97.2 F L 69 20 111/71 92 L 12/14/16 16:00 12/14/16 16:00 12/14/16 16:00 12/14/16 16:00 12/14/16 16:00 - Medications Medications: Current Medications Docusate Sodium (Colace) 100 mg PO BID [facility] Last Admin: 12/14/16 18:08 Dose: 100 mg Enoxaparin Sodium (Lovenox) 40 mg SC DAILY [facility] Last Admin: 12/14/16 12:11 Dose: 40 mg Escitalopram Oxalate (Lexapro) 10 mg PO DAILY [facility] Last Admin: 12/14/16 12:11 Dose: 10 mg Famotidine (Pepcid) 20 mg PO DAILY [facility] Last Admin: 12/14/16 12:11 Dose: 20 mg Ferrous Sulfate (Feosol Liq) 300 mg PO BID [facility] Last Admin: 12/14/16 18:08 Dose: 300 mg Gabapentin (Neurontin) 100 mg PO TID [facility] Last Admin: 12/14/16 18:08 Dose: 100 mg Glipizide (Glucotrol Xl) 10 mg PO ACBD [facility] Last Admin: 12/14/16 15:46 Dose: 10 mg Sodium Chloride (Sodium Chloride 0.9%) 1,000 mls @ 100 mls/hr IV .Q10H [facility] Last Admin: 12/14/16 15:45 Dose: Not Given Piperacillin Sod/Tazobactam Sod (Zosyn 3.375 Gm Iv Premix) 50 mls @ 100 mls/hr IVPB Q6H [facility] Last Admin: 12/14/16 14:55 Dose: 100 mls/hr Vancomycin HCl 1 gm/ Sodium (Chloride) 250 mls @ 166.667 mls/hr IVPB Q12H [facility] Last Admin: 12/14/16 15:46 Dose: 166.667 mls/hr Insulin Human Regular (Novolin R) 0 unit SC ACHS [facility] PRN Reason: Protocol Last Admin: 12/14/16 18:09 Dose: 3 unit Morphine Sulfate (Morphine) 1 mg IVP Q4 PRN PRN Reason: Pain, severe (8-10) Last Admin: 12/14/16 15:56 Dose: 1 mg Ondansetron HCl (Zofran Inj) 8 mg IVP Q6H PRN PRN Reason: Nausea/Vomiting Saccharomyces Boulardii (Florastor) 250 mg PO BID [facility] Last Admin: 12/14/16 12:11 Dose: 250 mg Trazodone HCl (Desyrel) 50 mg PO HS [facility] Last Admin: 12/13/16 21:16 Dose: 50 mg - Labs Labs: 12/14/16 07:11 12/14/16 07:11 - Constitutional Appears: Non-toxic - Head Exam Head Exam: NORMOCEPHALIC - Eye Exam Eye Exam: absent: Scleral icterus - ENT Exam ENT Exam: Mucous Membranes Dry - Neck Exam Neck Exam: absent: Lymphadenopathy - Respiratory Exam Respiratory Exam: Decreased Breath Sounds - Cardiovascular Exam Cardiovascular Exam: REGULAR RHYTHM - GI/Abdominal Exam GI & Abdominal Exam: Distended, Soft Assessment and Plan (1) Dehydration Status: Acute (2) Leg pain, bilateral Status: Acute - Assessment and Plan (Free Text) Assessment: r/o endocarditis r/o syphilis ? acute HCV severe myalgia/ weakness
--- NOTE | 2016-12-14 22:42 | CON ---
DATE: 12/14/2016 HISTORY OF PRESENT ILLNESS: This is a 36-year-old transgender ____ and came to the Emergency Room wi th generalized weakness and body aches for 2 weeks. The patient also had a right shoulder injury fro m a fall in the apartment and no acute findings were obtained on the imaging and called to evaluate t he patient. PAST MEDICAL HISTORY: No chronic disease. Blood pressure was 115/72. X-ray was done, did not show any active pulmonary disease. RPR was posit daisha. I was called to evaluate the patient. REVIEW OF SYSTEMS: A 10-point review of systems was negative except pain in the right shoulder. PHYSICAL EXAMINATION: HEENT: Normocephalic, atraumatic. NECK: Supple. NEUROLOGIC: Awake, oriented to self. Cranial nerves II through XII were tested. Pupils reactive. Spontaneous movement of all the extremities noted. Deep tendon reflexes 1+. Both plantars are downg oing. Sensory appears intact. Cerebellar gait deferred. IMPRESSION: Generalized weakness and the patient RPR positive. The patient also has diabetes and he patitis C. We will do CAT scan of the head without contrast and further management after the results of above te sts. Arnaldo Burch MD cc: [id number] TT: 12/14/2016 22:41:00 Confirmation # [id number] Dictation # [id number]
[2016-12-15] MEDS: Piperacill/Tazo 3.375gm in Dex 50 ML IVPB SCH ×4 (02:10→20:00)
[2016-12-15] MEDS: Sodium Chloride 0.9% 1,000 ML IV SCH ×3 (03:06→21:40)
[2016-12-15] MEDS: (Novolin R) Insulin Human Regular 100 units/ml vial SC SCH ×4 (08:00→21:37)
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
[2016-12-15 09:21] LABS: BASO % 0.2 % (0.0-2.0); EOS # 0.1 K/uL (0.0-0.7); EOS % 0.9 % (0.0-4.0); HEMATOCRIT 30.3 % (34.0-47.0); LYMPH # 2.3 K/uL (1.0-4.3); LYMPH % 20.2 % (20.0-40.0); MEAN CELL VOLUME 90.9 fL (81.0-99.0); MEAN CORPUSCULAR HEMOGLOBIN 31.5 pg (27.0-31.0); MEAN CORPUSCULAR HGB CONC 34.6 g/dL (33.0-37.0); MEAN PLATELET VOLUME 7.4 fL (7.2-11.7); MONO # 1.4 K/uL (0.0-0.8); MONO % 12.2 % (0.0-10.0); RED CELL DISTRIBUTION WIDTH 15.4 % (11.5-14.5); WHITE BLOOD COUNT 11.4 K/uL (4.8-10.8)
[2016-12-15 09:38] LABS: CHLORIDE 103 mmol/L (98-107); SODIUM 134 mmol/L (132-148)
[2016-12-15 09:40] LABS: GFR AFRICAN-AMERICAN > 60
[2016-12-15] MEDS: Enoxaparin 40 mg Syringe SC SCH (09:40)
[2016-12-15] MEDS: Ferrous Sulfate 300 mg/5 mL Liq UD PO SCH ×2 (09:40→17:43)
[2016-12-15 09:41] LABS: ALB/GLOB RATIO 0.6 (1.0-2.1); ALKALINE PHOSPHATASE 142 U/L (38-126); ALT/SGPT 25 U/L (9-52); AST/SGOT 38 U/L (14-36); BILIRUBIN,TOTAL 1.2 mg/dL (0.2-1.3); BLOOD UREA NITROGEN 13 mg/dL (7-17); CALCIUM 7.7 mg/dl (8.6-10.4); CARBON DIOXIDE 25 mmol/L (22-30); GLUCOSE,RANDOM 116 mg/dL (65-105); TOTAL PROTEIN 6.8 g/dL (6.3-8.3)
[2016-12-15] MEDS: GlipiZIDE 10 mg SR Tab PO SCH ×2 (09:41→16:42)
--- NOTE | 2016-12-15 10:00 | CT ---
PROCEDURE: CT HEAD WITHOUT CONTRAST. HISTORY: weakness COMPARISON: None available. TECHNIQUE: Axial computed tomography images were obtained through the head/brain without intravenous contrast. Radiation dose: Total exam DLP = 836.09 mGy-cm. FINDINGS: HEMORRHAGE: No acute parenchymal, subarachnoid or extra-axial hemorrhage. BRAIN: Mild generalized volume loss. There is a small arachnoid cyst seen in the left anterior middle cranial fossa with associated with some scalloping of the adjacent inner table. . VENTRICLES: No evidence of obstructive hydrocephalus. Incidental note made of a tiny cavum velum interpositum CALVARIUM: The no acute calvarial fracture seen. PARANASAL SINUSES: Unremarkable as visualized. No significant inflammatory changes. MASTOID AIR CELLS: Unremarkable as visualized. No inflammatory changes. OTHER FINDINGS: None. IMPRESSION: No acute intracranial hemorrhage. Mild generalized volume loss. Small arachnoid cyst left middle cranial fossa.
[2016-12-15 10:31] LABS: RBC URINE 2 /hpf (0-3); URINE BACTERIA RARE (<OCC); URINE BILIRUBIN NEGATIVE (NEGATIVE); URINE BLOOD NEGATIVE (NEGATIVE); URINE COLOR Amber (YELLOW); URINE GLUCOSE (UA) 3+ mg/dL (Normal); URINE KETONE NEGATIVE (NEGATIVE); URINE LEUKOCYTE ESTERASE TRACE Leu/uL (Negative); URINE PROTEIN NEGATIVE (NEGATIVE); WBC URINE 17 /hpf (0-5)
--- NOTE | 2016-12-15 12:20 | CP.PCM.PCO ---
Assessment & Plan - Assessment and Plan (Free Text) Assessment: NEURO COMMUNICATION NOTE ADDENDUM: LOWER EXTREMITY WEAKNESS LIKELY SECONDARY TO A COMBINATION OF ELECTROLYTE DISTURBANCES, DIABETES SUPERIMPOSED UNDERLYING NEW DIAGNOSED LYMES WHICH CAN GIVE MYALGIAS AND LOWER EXTREMITY WEAKNESS. RPR IS POSITIVE, FTA ABS PENDING. RECOMMEND: 1. PHYSICAL THERAPY WITH MYOFACIAL RELEASE TECHNIQUES TO THE LOWER EXTREMITIES. 2. INCREASE GABAPENTIN TO 300MG PO BID AND ADD BACLOFEN 20 MG PO BID. 3. OUT PATIENT EMG/NCV TO ASSESS MYOPATHY. IF SYMPTOMS GETS WORSE THEN LOWER EXTREMITY BIOPSY. WILL SIGN OFF FOR NOW, RECONSULT NEURO HAIR DESIGNER NEEDED. THANK YOU Sirena BALLARD MD.
--- NOTE | 2016-12-15 13:52 | PN ---
DATE: 12/15/2016 ____. This is a 36-year-old transgender female presenting here with dehydration and lower extremity weaknes s and is now being followed closely for metabolic management. Her repeat estradiol level showed a va lue of 125 with an FSH of 7.1 and LH of 3.2. The thyroid studies are normal as noted. ASSESSMENT: This is a 36-year-old female, transgender in orientation, who presents here with general ized body weakness and lower extremity pain and is now being evaluated by neurology for further manag ement thereof. Her glycemic values are much improved at this time and the latest chemistries showed a BUN of 13, sodium 134, potassium 4.0, chloride 103, CO2 25, glucose 116, and creatinine 0.6. So, at this time, we will continue the same dosing regimen as ordered and continue the glipizide give n as 10 mg b.i.d. before meals as ordered. We will titrate incrementally as indicated to optimize me tabolic control. We will follow. Daiana Spring MD cc: [id number] TT: 12/15/2016 13:51:30 Confirmation # [id number] Dictation # [id number]
--- NOTE | 2016-12-15 14:22 | CARD ---
APPROVED REPORT EXAM: Two-dimensional and M-mode echocardiogram with Doppler and color Doppler. Other Information Quality : [employer] : INDICATION R/O ENDOCARDITIS RISK FACTORS Diabetes M-Mode DIMENSIONS RVDd1.70 (2.1-3.2cm)Left Atrium (MM)3.13 (2.5-4.0cm) IVSd0.70 (0.7-1.1cm)Aortic Root2.98 (2.2-3.7cm) LVDd4.98 (4.0-5.6cm)Aortic Cusp Exc.1.76 (1.5-2.0cm) PWd0.85 (0.7-1.1cm)FS (%) 63 % LVDs1.85 (2.0-3.8cm)LVEF (%)91 (>50%) Mitral Valve MV E Vfmdqxdh059.8cm/sMV A Gqkomidc311.4cm/sE/A ratio1.3 TDI E/Lateral E'0.0E/Medial E'0.0 Tricuspid Valve TR Peak [id number]/sTR Peak [id number] <Conclusion> normal size la,lv & ra rv. normal lv wall motion,thickness,systolic & diastolic function with lvef of more than 70%. mildly thickened mitral leaflets with mild mr. mild tr with calculated pulmonary systolic pressures of 40 mm of hg, c/w mild pulmonary hypertension. normal aortic & pv. no pericardial effusion. normal size aortic root.
[2016-12-15] MEDS: Saccharomyces Boulardi 250 mg Cap PO SCH ×2 (14:34→21:35)
[2016-12-16] MEDS: Piperacill/Tazo 3.375gm in Dex 50 ML IVPB SCH ×4 (01:37→19:51)
[2016-12-16 07:36] LABS: CHLORIDE 103 mmol/L (98-107)
[2016-12-16 07:37] LABS: POTASSIUM 3.5 mmol/L (3.6-5.2); SODIUM 135 mmol/L (132-148)
[2016-12-16 07:38] LABS: BASO # 0.1 K/uL (0.0-0.2); BASO % 0.4 % (0.0-2.0); EOS % 0.2 % (0.0-4.0); HEMATOCRIT 31.1 % (34.0-47.0); LYMPH # 2.9 K/uL (1.0-4.3); LYMPH % 22.1 % (20.0-40.0); MEAN CELL VOLUME 88.7 fL (81.0-99.0); MEAN CORPUSCULAR HEMOGLOBIN 30.7 pg (27.0-31.0); MEAN CORPUSCULAR HGB CONC 34.7 g/dL (33.0-37.0); MEAN PLATELET VOLUME 7.1 fL (7.2-11.7); MONO # 1.8 K/uL (0.0-0.8); MONO % 13.5 % (0.0-10.0); RED CELL DISTRIBUTION WIDTH 15.3 % (11.5-14.5)
[2016-12-16 07:39] LABS: GFR AFRICAN-AMERICAN > 60
[2016-12-16 07:40] LABS: ALB/GLOB RATIO 0.5 (1.0-2.1); ALKALINE PHOSPHATASE 138 U/L (38-126); ALT/SGPT 25 U/L (9-52); AST/SGOT 41 U/L (14-36); BILIRUBIN,TOTAL 1.5 mg/dL (0.2-1.3); BLOOD UREA NITROGEN 7 mg/dL (7-17); CARBON DIOXIDE 23 mmol/L (22-30); GLUCOSE,RANDOM 87 mg/dL (65-105); PHOSPHOROUS 4.3 mg/dL (2.5-4.5)
[2016-12-16 07:41] LABS: CALCIUM 7.7 mg/dl (8.6-10.4); MAGNESIUM 1.3 mg/dL (1.6-2.3)
[2016-12-16] MEDS: (Novolin R) Insulin Human Regular 100 units/ml vial SC SCH ×4 (08:00→22:06)
[2016-12-16] MEDS: GlipiZIDE 10 mg SR Tab PO SCH ×3 (08:00→16:40)
[2016-12-16] MEDS: Sodium Chloride 0.9% 1,000 ML IV SCH ×2 (09:00→19:50)
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
[2016-12-16] MEDS: Enoxaparin 40 mg Syringe SC SCH (10:07)
[2016-12-16] MEDS: Saccharomyces Boulardi 250 mg Cap PO SCH ×2 (10:07→17:50)
[2016-12-16] MEDS: Ferrous Sulfate 300 mg/5 mL Liq UD PO SCH ×2 (10:09→17:50)
--- NOTE | 2016-12-16 12:08 | PCM.PYCHPN ---
Psychiatric Progress Note - Psychiatric Progress Note Patient seen today, length of contact: 16 min Patient Chief Complaint: "I am not well yet" Problems Identified/Issues Discussed: She is seen, chart reviewed, translation is done by staff Improving Support given Sx management discussed Not ranulfo/homi No SEs from meds Medication Change: No Medical Record Reviewed: Yes Mental Status Examination - Cognitive Function Orientation: Person, Place, Situation, Time Memory: Intact Attention: Poor Concentration: Poor Association: WNL Fund of Knowledge: Poor - Mood Mood: Depressed - Affect Affect: Constricted - Speech Speech: Appropriate - Formal Thought Process Formal Thought Process: No Impairment - Suicidal Ideation Suicidal Ideation: No - Homicidal Ideation Homicidal Ideation: No Goal/Treatment Plan - Goal/Treatment Plan Need for Continued Stay: Discharge may exacerbated symptoms, Other (medical w/u) Progress Toward Problem(s) and Goals/Treatment Plan: Lexapro for depression Gabapentin for anxiety Monitor sxs Support and psychoeducation Refer to outpt clinic at [facility]
[2016-12-16] MEDS ORDERED: Tuberculin 5 Units/0.1 ml Inj ID ONE (16:15)
--- NOTE | 2016-12-16 17:18 | CP.PCM.PN ---
Subjective - Date & Time of Evaluation Date of Evaluation: 12/16/16 Time of Evaluation: 08:00 - Subjective Subjective: + MRSA bacteremia / sepsis r/o endocarditis consider TREVOR Objective - Vital Signs/Intake and Output Vital Signs (last 24 hours): Temp Pulse Resp BP Pulse Ox 99.5 F 76 20 147/93 H 95 12/16/16 15:35 12/16/16 15:35 12/16/16 15:35 12/16/16 15:35 12/16/16 15:35 Intake and Output: 12/16/16 12/16/16 06:59 18:59 Intake Total 1400 Balance 1400 - Medications Medications: Current Medications Baclofen (Lioresal) 20 mg PO BID [facility] Last Admin: 12/16/16 12:00 Dose: 20 mg Docusate Sodium (Colace) 100 mg PO BID [facility] Last Admin: 12/16/16 10:07 Dose: 100 mg Enoxaparin Sodium (Lovenox) 40 mg SC DAILY [facility] Last Admin: 12/16/16 10:07 Dose: 40 mg Escitalopram Oxalate (Lexapro) 10 mg PO DAILY [facility] Last Admin: 12/16/16 10:08 Dose: 10 mg Famotidine (Pepcid) 20 mg PO DAILY [facility] Last Admin: 12/16/16 10:08 Dose: 20 mg Ferrous Sulfate (Feosol Liq) 300 mg PO BID [facility] Last Admin: 12/16/16 10:09 Dose: 300 mg Gabapentin (Neurontin) 300 mg PO TID [facility] Last Admin: 12/16/16 14:05 Dose: 300 mg Glipizide (Glucotrol Xl) 10 mg PO ACBD [facility] Last Admin: 12/16/16 16:40 Dose: Not Given Sodium Chloride (Sodium Chloride 0.9%) 1,000 mls @ 100 mls/hr IV .Q10H [facility] Last Admin: 12/16/16 09:00 Dose: Not Given Piperacillin Sod/Tazobactam Sod (Zosyn 3.375 Gm Iv Premix) 50 mls @ 100 mls/hr IVPB Q6H [facility] Last Admin: 12/16/16 14:02 Dose: 100 mls/hr Vancomycin HCl 1 gm/ Sodium (Chloride) 250 mls @ 166.667 mls/hr IVPB Q12H [facility] Last Admin: 12/16/16 15:50 Dose: 166.667 mls/hr Insulin Human Regular (Novolin R) 0 unit SC ACHS [facility] PRN Reason: Protocol Last Admin: 12/16/16 16:40 Dose: Not Given Morphine Sulfate (Morphine) 1 mg IVP Q4 PRN PRN Reason: Pain, severe (8-10) Last Admin: 12/16/16 01:34 Dose: 1 mg Ondansetron HCl (Zofran Inj) 8 mg IVP Q6H PRN PRN Reason: Nausea/Vomiting Saccharomyces Boulardii (Florastor) 250 mg PO BID [facility] Last Admin: 12/16/16 10:07 Dose: 250 mg Trazodone HCl (Desyrel) 50 mg PO HS [facility] Last Admin: 12/15/16 21:35 Dose: 50 mg - Labs Labs: 12/16/16 07:25 12/16/16 07:25 - Constitutional Appears: Non-toxic, Chronically Ill - Head Exam Head Exam: NORMOCEPHALIC - Eye Exam Eye Exam: PERRL. absent: Scleral icterus - ENT Exam ENT Exam: Mucous Membranes Dry, Normal External Ear Exam - Neck Exam Neck Exam: absent: Lymphadenopathy - Respiratory Exam Respiratory Exam: Decreased Breath Sounds, Clear to Ausculation Bilateral - Cardiovascular Exam Cardiovascular Exam: REGULAR RHYTHM, +S1, +S2 - GI/Abdominal Exam GI & Abdominal Exam: Distended, Soft Assessment and Plan (1) Dehydration Status: Acute (2) Leg pain, bilateral Status: Acute (3) MRSA (methicillin resistant Staphylococcus aureus) septicemia Status: Acute
[2016-12-17] MEDS: Piperacill/Tazo 3.375gm in Dex 50 ML IVPB SCH ×4 (02:17→21:02)
[2016-12-17 07:47] LABS: BASO % 0.3 % (0.0-2.0); EOS # 0.1 K/uL (0.0-0.7); EOS % 1.3 % (0.0-4.0); HEMATOCRIT 27.5 % (34.0-47.0); LYMPH % 28.6 % (20.0-40.0); MEAN CELL VOLUME 88.6 fL (81.0-99.0); MEAN CORPUSCULAR HEMOGLOBIN 31.1 pg (27.0-31.0); MEAN CORPUSCULAR HGB CONC 35.1 g/dL (33.0-37.0); MONO # 1.1 K/uL (0.0-0.8); MONO % 16.1 % (0.0-10.0); RED CELL DISTRIBUTION WIDTH 14.9 % (11.5-14.5); WHITE BLOOD COUNT 7.1 K/uL (4.8-10.8)
[2016-12-17 08:15] LABS: CHLORIDE 102 mmol/L (98-107)
[2016-12-17 08:16] LABS: POTASSIUM 3.6 mmol/L (3.6-5.2); SODIUM 135 mmol/L (132-148)
[2016-12-17 08:18] LABS: AST/SGOT 42 U/L (14-36); BILIRUBIN,TOTAL 1.5 mg/dL (0.2-1.3); CARBON DIOXIDE 25 mmol/L (22-30); GFR AFRICAN-AMERICAN > 60
[2016-12-17 08:19] LABS: ALB/GLOB RATIO 0.5 (1.0-2.1); ALKALINE PHOSPHATASE 113 U/L (38-126); ALT/SGPT 27 U/L (9-52); BLOOD UREA NITROGEN 4 mg/dL (7-17); CALCIUM 7.3 mg/dl (8.6-10.4); GLUCOSE,RANDOM 95 mg/dL (65-105); MAGNESIUM 1.3 mg/dL (1.6-2.3); TOTAL PROTEIN 7.5 g/dL (6.3-8.3)
[2016-12-17] MEDS: (Novolin R) Insulin Human Regular 100 units/ml vial SC SCH ×4 (08:32→21:51)
[2016-12-17] MEDS: GlipiZIDE 10 mg SR Tab PO SCH ×2 (08:47→17:10)
[2016-12-17] MEDS: Sodium Chloride 0.9% 1,000 ML IV SCH (08:47)
[2016-12-17] MEDS: Saccharomyces Boulardi 250 mg Cap PO SCH ×2 (10:23→18:50)
[2016-12-17] MEDS: Ferrous Sulfate 300 mg/5 mL Liq UD PO SCH ×2 (10:23→18:23)
[2016-12-17] MEDS: Enoxaparin 40 mg Syringe SC SCH (10:23)
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
[2016-12-17] MEDS ORDERED: Heparin25000 units/250ml 1/2NS 250 ML IV PRN (12:48)
--- NOTE | 2016-12-17 15:32 | PCM.SURG1 ---
Surgeon's Initial Post Op Note - Surgeon's Notes Surgeon: Isi Corncob Pipes Assembler: Sivakumar Type of Anesthesia: Local Pre-Operative Diagnosis: IV antibiotics Operative Findings: Patent left brasilic vein. Post-Operative Diagnosis: IV antibiotics Operation Performed: LEft basilic vein 4F 40cm SL PICC placed. Specimen/Specimens Removed: None Estimated Blood Loss: EBL {In ML}: 1 Date of Surgery/Procedure: 12/17/16 Time of Surgery/Procedure: 15:20
[2016-12-17] MEDS: Enoxaparin 60 mg Syringe SC SCH (18:23)
--- NOTE | 2016-12-17 19:07 | MRI ---
PROCEDURE: MRI BRAIN WITHOUT CONTRAST HISTORY: right blurry vision COMPARISON: Comparison is made to the previous CT dated 12/14/2016 TECHNIQUE: Multiplanar, multisequence MR images of the brain were obtained without intravenous contrast enhancement. FINDINGS: Limited assessment of bifrontal lobes due to artifact. HEMORRHAGE: None DWI: No evidence of diffusion restriction in the visualized portion of the brain. BRAIN PARENCHYMA: Extra-axial cyst seen at the anterior aspect of the left middle fossa likely represent arachnoid cyst. No atrophy or chronic microvascular ischemic changes. VENTRICLES: Unremarkable. No hydrocephalus. CRANIUM: Unremarkable. ORBITS: Grossly unremarkable. PARANASAL SINUSES/MASTOIDS: Clear VASCULAR SYSTEM: Skull base flow voids intact. OTHER FINDINGS: None. IMPRESSION: Limited study due to artifact at the anterior portion of the head. No evidence of acute or subacute infarct in the visualized portion of the brain. If clinically warranted follow-up reassessment by CT may be obtained.
[2016-12-18 02:17] LABS: RBC URINE 1 /hpf (0-3); URINE BILIRUBIN NEGATIVE (NEGATIVE); URINE BLOOD NEGATIVE (NEGATIVE); URINE COLOR Yellow (YELLOW); URINE GLUCOSE (UA) NORMAL (Normal); URINE KETONE NEGATIVE (NEGATIVE); URINE LEUKOCYTE ESTERASE NEG Leu/uL (Negative); URINE PROTEIN NEGATIVE (NEGATIVE); WBC URINE 5 /hpf (0-5)
[2016-12-18] MEDS: Piperacill/Tazo 3.375gm in Dex 50 ML IVPB SCH ×2 (02:38→08:52)
[2016-12-18] MEDS: Enoxaparin 60 mg Syringe SC SCH ×2 (05:49→18:00)
[2016-12-18 07:55] LABS: BASO # 0.1 K/uL (0.0-0.2); BASO % 0.8 % (0.0-2.0); EOS # 0.1 K/uL (0.0-0.7); EOS % 1.5 % (0.0-4.0); HEMATOCRIT 27.4 % (34.0-47.0); LYMPH # 1.4 K/uL (1.0-4.3); MEAN CELL VOLUME 89.6 fL (81.0-99.0); MEAN CORPUSCULAR HEMOGLOBIN 31.9 pg (27.0-31.0); MEAN CORPUSCULAR HGB CONC 35.5 g/dL (33.0-37.0); MEAN PLATELET VOLUME 7.4 fL (7.2-11.7); MONO # 0.9 K/uL (0.0-0.8); MONO % 14.2 % (0.0-10.0); RED CELL DISTRIBUTION WIDTH 15.4 % (11.5-14.5); WHITE BLOOD COUNT 6.1 K/uL (4.8-10.8)
[2016-12-18 08:06] LABS: CHLORIDE 104 mmol/L (98-107); POTASSIUM 3.9 mmol/L (3.6-5.2); SODIUM 138 mmol/L (132-148)
[2016-12-18 08:08] LABS: AST/SGOT 34 U/L (14-36); BILIRUBIN,TOTAL 1.6 mg/dL (0.2-1.3); GFR AFRICAN-AMERICAN > 60
[2016-12-18 08:09] LABS: ALB/GLOB RATIO 0.6 (1.0-2.1); ALKALINE PHOSPHATASE 106 U/L (38-126); ALT/SGPT 29 U/L (9-52); BLOOD UREA NITROGEN 5 mg/dL (7-17); CALCIUM 7.6 mg/dl (8.6-10.4); CARBON DIOXIDE 27 mmol/L (22-30); GLUCOSE,RANDOM 86 mg/dL (65-105); MAGNESIUM 1.5 mg/dL (1.6-2.3); PHOSPHOROUS 4.5 mg/dL (2.5-4.5); TOTAL PROTEIN 6.7 g/dL (6.3-8.3)
[2016-12-18] MEDS: (Novolin R) Insulin Human Regular 100 units/ml vial SC SCH ×4 (08:12→21:44)
[2016-12-18] MEDS: GlipiZIDE 10 mg SR Tab PO SCH ×2 (08:52→18:01)
--- NOTE | 2016-12-18 09:43 | VASCLAB ---
PROCEDURE: Right Upper Extremity Venous Duplex Exam HISTORY: swelling PRIORS: None. TECHNIQUE: Right upper extremity, internal jugular, subclavian, axillary, brachial, ulnar, radial, basilic and upper cephalic veins were evaluated. Flow was assessed with color Doppler, compressibility, assessment of phasic flow and augmentation response. Report prepared by CARMEN Islas, RVT FINDINGS: RIGHT: 1. Internal Jugular: 1.1. Compressibility - Fully compressible: Thrombus - None : Flow - Phasic: Augmentation -Normal: Reflux - None. 2. Subclavian: 2.1. Compressibility - Fully compressible: Thrombus - None : Flow - Phasic: Augmentation -Normal: Reflux - None. 3. Axillary: 3.1. Compressibility - Fully compressible: Thrombus - None : Flow - Phasic: Augmentation -Normal: Reflux - None. 4. Brachial: 4.1. Compressibility - Fully compressible: Thrombus - None: Flow - Phasic: Augmentation -Normal: Reflux - None. 5. Ulnar: 5.1. Compressibility - Fully compressible: Thrombus - None: Flow - Phasic: Augmentation -Normal: Reflux - None. 6. Radial: 6.1. Compressibility - Fully compressible: Thrombus - None: Flow - Phasic: Augmentation - Normal: Reflux - None. 7. Cephalic: 7.1. Compressibility - Partial: Thrombus - Acute: Flow - Reduced : Augmentation -None: Reflux - None. 8. Basilic: 8.1. Compressibility - Fully compressible: Thrombus - None: Flow - Phasic: Augmentation -Normal: Reflux - None. OTHER FINDINGS: Right: RN Saritha notified about the finding. IMPRESSION: Right: Acute localized thrombosis of the right cephalic vein at the antecubital fossa with reduction of the venous return. Normal venous flow noted in the left internal jugular and left subclavian veins.
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
[2016-12-18] MEDS: Saccharomyces Boulardi 250 mg Cap PO SCH ×2 (09:53→18:00)
[2016-12-18] MEDS: Ferrous Sulfate 300 mg/5 mL Liq UD PO SCH ×2 (09:53→18:00)
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
--- NOTE | 2016-12-18 11:53 | CP.PCM.PN ---
Subjective - Date & Time of Evaluation Date of Evaluation: 12/18/16 Time of Evaluation: 08:00 - Subjective Subjective: + RPR may have false + lyme secondary to spirochete infection IM benzathene pcn for 3 weeks cont iv vanco Objective - Vital Signs/Intake and Output Vital Signs (last 24 hours): Temp Pulse Resp BP Pulse Ox 98.7 F 80 20 151/92 H 96 12/18/16 08:16 12/18/16 08:16 12/18/16 08:16 12/18/16 08:16 12/18/16 08:16 Intake and Output: 12/18/16 12/18/16 06:59 18:59 Intake Total 1150 Output Total 400 Balance 750 - Medications Medications: Current Medications Baclofen (Lioresal) 20 mg PO BID [facility] Last Admin: 12/18/16 09:53 Dose: 20 mg Docusate Sodium (Colace) 100 mg PO BID [facility] Last Admin: 12/18/16 09:53 Dose: 100 mg Enoxaparin Sodium (Lovenox) 50 mg SC Q12H [facility] Last Admin: 12/18/16 05:49 Dose: 50 mg Escitalopram Oxalate (Lexapro) 10 mg PO DAILY [facility] Last Admin: 12/18/16 09:53 Dose: 10 mg Famotidine (Pepcid) 20 mg PO DAILY [facility] Last Admin: 12/18/16 09:53 Dose: 20 mg Ferrous Sulfate (Feosol Liq) 300 mg PO BID [facility] Last Admin: 12/18/16 09:53 Dose: 300 mg Gabapentin (Neurontin) 300 mg PO TID [facility] Last Admin: 12/18/16 09:53 Dose: 300 mg Glipizide (Glucotrol Xl) 10 mg PO ACBD [facility] Last Admin: 12/18/16 08:52 Dose: 10 mg Piperacillin Sod/Tazobactam Sod (Zosyn 3.375 Gm Iv Premix) 50 mls @ 100 mls/hr IVPB Q6H [facility] Last Admin: 12/18/16 08:52 Dose: 100 mls/hr Vancomycin HCl 1 gm/ Sodium (Chloride) 250 mls @ 166.667 mls/hr IVPB Q12H [facility] Last Admin: 12/18/16 04:03 Dose: 166.667 mls/hr Insulin Human Regular (Novolin R) 0 unit SC ACHS [facility] PRN Reason: Protocol Last Admin: 12/18/16 08:12 Dose: Not Given Morphine Sulfate (Morphine) 1 mg IVP Q4 PRN PRN Reason: Pain, severe (8-10) Last Admin: 12/16/16 01:34 Dose: 1 mg Ondansetron HCl (Zofran Inj) 8 mg IVP Q6H PRN PRN Reason: Nausea/Vomiting Saccharomyces Boulardii (Florastor) 250 mg PO BID [facility] Last Admin: 12/18/16 09:53 Dose: 250 mg Trazodone HCl (Desyrel) 50 mg PO HS [facility] Last Admin: 12/17/16 21:53 Dose: 50 mg - Labs Labs: 12/18/16 07:51 12/18/16 07:51 Assessment and Plan (1) Dehydration Status: Acute (2) Leg pain, bilateral Status: Acute (3) MRSA (methicillin resistant Staphylococcus aureus) septicemia Status: Acute
[2016-12-19] MEDS: Enoxaparin 60 mg Syringe SC SCH ×2 (05:50→18:22)
[2016-12-19 07:53] LABS: BASO % 0.6 % (0.0-2.0); EOS # 0.1 K/uL (0.0-0.7); EOS % 1.1 % (0.0-4.0); HEMATOCRIT 26.4 % (34.0-47.0); LYMPH # 1.8 K/uL (1.0-4.3); LYMPH % 27.1 % (20.0-40.0); MEAN CELL VOLUME 89.8 fL (81.0-99.0); MEAN CORPUSCULAR HGB CONC 35.6 g/dL (33.0-37.0); MEAN PLATELET VOLUME 7.2 fL (7.2-11.7); MONO % 15.1 % (0.0-10.0); RED CELL DISTRIBUTION WIDTH 15.6 % (11.5-14.5); WHITE BLOOD COUNT 6.8 K/uL (4.8-10.8)
[2016-12-19] MEDS: (Novolin R) Insulin Human Regular 100 units/ml vial SC SCH ×4 (08:14→22:00)
[2016-12-19 08:15] LABS: CHLORIDE 101 mmol/L (98-107)
[2016-12-19 08:16] LABS: POTASSIUM 3.7 mmol/L (3.6-5.2); SODIUM 134 mmol/L (132-148)
[2016-12-19 08:18] LABS: ALB/GLOB RATIO 0.4 (1.0-2.1); ALKALINE PHOSPHATASE 105 U/L (38-126); ALT/SGPT 26 U/L (9-52); AST/SGOT 35 U/L (14-36); BILIRUBIN,TOTAL 0.8 mg/dL (0.2-1.3); BLOOD UREA NITROGEN 4 mg/dL (7-17); CARBON DIOXIDE 27 mmol/L (22-30); GFR AFRICAN-AMERICAN > 60; TOTAL PROTEIN 7.6 g/dL (6.3-8.3)
[2016-12-19 08:19] LABS: CALCIUM 7.1 mg/dl (8.6-10.4); GLUCOSE,RANDOM 74 mg/dL (65-105); MAGNESIUM 1.5 mg/dL (1.6-2.3); PHOSPHOROUS 3.4 mg/dL (2.5-4.5)
[2016-12-19] MEDS: GlipiZIDE 10 mg SR Tab PO SCH ×2 (08:45→16:42)
[2016-12-19] MEDS: Saccharomyces Boulardi 250 mg Cap PO SCH ×2 (10:31→18:23)
[2016-12-19] MEDS: Ferrous Sulfate 300 mg/5 mL Liq UD PO SCH ×2 (10:31→18:22)
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
[2016-12-19] MEDS: Penicillin G Benzathine 2.4 Mill Unit/4 ml Syr IM SCH (14:55)
[2016-12-19 18:29] LABS: DACLATASVIR RESISTANCE NOT PREDICTED (()); ELBASVIR RESISTANCE NOT PREDICTED (()); HCV NS5A SUBTYPE 1a (()); LIPIDASVIR RESISTANCE NOT PREDICTED (()); OMBITASVIR RESISTANCE NOT PREDICTED (()); VELPATASVIR RESISTANCE NOT PREDICTED (())
--- NOTE | 2016-12-19 19:39 | CP.PCM.PN ---
Subjective - Date & Time of Evaluation Date of Evaluation: 12/19/16 Time of Evaluation: 10:00 - Subjective Subjective: rx in progress chronic hep c syphilis - r/o latent ? bacteremia/ endocarditis check vanco level Objective - Vital Signs/Intake and Output Vital Signs (last 24 hours): Temp Pulse Resp BP Pulse Ox 97.8 F 80 20 146/91 H 96 12/19/16 16:21 12/19/16 19:16 12/19/16 16:21 12/19/16 16:21 12/19/16 16:21 - Medications Medications: Current Medications Baclofen (Lioresal) 20 mg PO BID [facility] Last Admin: 12/19/16 18:22 Dose: 20 mg Docusate Sodium (Colace) 100 mg PO BID [facility] Last Admin: 12/19/16 18:22 Dose: 100 mg Enoxaparin Sodium (Lovenox) 50 mg SC Q12H [facility] Last Admin: 12/19/16 18:22 Dose: 50 mg Escitalopram Oxalate (Lexapro) 10 mg PO DAILY [facility] Last Admin: 12/19/16 10:31 Dose: 10 mg Famotidine (Pepcid) 20 mg PO DAILY [facility] Last Admin: 12/19/16 10:31 Dose: 20 mg Ferrous Sulfate (Feosol Liq) 300 mg PO BID [facility] Last Admin: 12/19/16 18:22 Dose: 300 mg Gabapentin (Neurontin) 300 mg PO TID [facility] Last Admin: 12/19/16 18:22 Dose: 300 mg Glipizide (Glucotrol Xl) 10 mg PO ACBD [facility] Last Admin: 12/19/16 16:42 Dose: 10 mg Vancomycin HCl 1 gm/ Sodium (Chloride) 250 mls @ 166.667 mls/hr IVPB Q12H [facility] Last Admin: 12/19/16 16:42 Dose: 166.667 mls/hr Insulin Human Regular (Novolin R) 0 unit SC ACHS [facility] PRN Reason: Protocol Last Admin: 12/19/16 17:26 Dose: Not Given Morphine Sulfate (Morphine) 1 mg IVP Q4 PRN PRN Reason: Pain, severe (8-10) Last Admin: 12/19/16 15:05 Dose: 1 mg Ondansetron HCl (Zofran Inj) 8 mg IVP Q6H PRN PRN Reason: Nausea/Vomiting Penicillin G Benzathine (Bicillin L-A Inj) 2,400,000 units IM QWK [facility] Stop: 01/01/17 14:46 Last Admin: 12/19/16 14:55 Dose: 2,400,000 units Saccharomyces Boulardii (Florastor) 250 mg PO BID [facility] Last Admin: 12/19/16 18:23 Dose: 250 mg Trazodone HCl (Desyrel) 50 mg PO HS [facility] Last Admin: 12/18/16 21:42 Dose: 50 mg - Labs Labs: 12/19/16 07:37 12/19/16 07:37 Assessment and Plan (1) Dehydration Status: Acute (2) Leg pain, bilateral Status: Acute (3) MRSA (methicillin resistant Staphylococcus aureus) septicemia Status: Acute
[2016-12-20 07:22] LABS: BASO % 0.6 % (0.0-2.0); EOS # 0.1 K/uL (0.0-0.7); EOS % 1.1 % (0.0-4.0); HEMATOCRIT 26.9 % (34.0-47.0); LYMPH # 1.8 K/uL (1.0-4.3); LYMPH % 22.5 % (20.0-40.0); MEAN CELL VOLUME 90.8 fL (81.0-99.0); MEAN CORPUSCULAR HEMOGLOBIN 31.6 pg (27.0-31.0); MEAN CORPUSCULAR HGB CONC 34.7 g/dL (33.0-37.0); MEAN PLATELET VOLUME 6.8 fL (7.2-11.7); MONO # 1.1 K/uL (0.0-0.8); MONO % 13.7 % (0.0-10.0); RED CELL DISTRIBUTION WIDTH 15.6 % (11.5-14.5); WHITE BLOOD COUNT 7.8 K/uL (4.8-10.8)
[2016-12-20 07:39] LABS: CHLORIDE 96 mmol/L (98-107)
[2016-12-20 07:40] LABS: POTASSIUM 3.5 mmol/L (3.6-5.2); SODIUM 136 mmol/L (132-148)
[2016-12-20 07:42] LABS: AST/SGOT 38 U/L (14-36); BILIRUBIN,TOTAL 0.7 mg/dL (0.2-1.3); BLOOD UREA NITROGEN 3 mg/dL (7-17); CARBON DIOXIDE 28 mmol/L (22-30); GFR AFRICAN-AMERICAN > 60; TOTAL PROTEIN 6.8 g/dL (6.3-8.3)
[2016-12-20 07:43] LABS: ALB/GLOB RATIO 0.5 (1.0-2.1); ALKALINE PHOSPHATASE 113 U/L (38-126); ALT/SGPT 21 U/L (9-52); CALCIUM 7.4 mg/dl (8.6-10.4); GLUCOSE,RANDOM 60 mg/dL (65-105)
[2016-12-20] MEDS ORDERED: Potassium Chloride 20 mEq ER Tab PO ONE (07:50)
[2016-12-20] MEDS: (Novolin R) Insulin Human Regular 100 units/ml vial SC SCH ×4 (08:05→21:58)
[2016-12-20] MEDS: GlipiZIDE 10 mg SR Tab PO SCH (08:05)
[2016-12-20] MEDS ORDERED: Potassium Chloride 20 mEq ER Tab PO STA (10:04)
[2016-12-20] MEDS ORDERED: GlipiZIDE 5 mg SR Tab PO SCH (10:21)
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
[2016-12-20] MEDS: Saccharomyces Boulardi 250 mg Cap PO SCH ×2 (10:31→17:22)
[2016-12-20] MEDS: Ferrous Sulfate 300 mg/5 mL Liq UD PO SCH ×2 (10:31→17:22)
[2016-12-20] MEDS: Enoxaparin 60 mg Syringe SC SCH ×2 (10:34→21:55)
[2016-12-20] MEDS ORDERED: Dextrose 50% SYRINGE Inj (50 ml) IV STA (11:51)
[2016-12-21 07:32] LABS: BASO % 0.6 % (0.0-2.0); EOS # 0.1 K/uL (0.0-0.7); EOS % 1.7 % (0.0-4.0); LYMPH # 1.7 K/uL (1.0-4.3); LYMPH % 24.6 % (20.0-40.0); MEAN CELL VOLUME 90.6 fL (81.0-99.0); MEAN CORPUSCULAR HEMOGLOBIN 31.5 pg (27.0-31.0); MEAN CORPUSCULAR HGB CONC 34.8 g/dL (33.0-37.0); MEAN PLATELET VOLUME 6.9 fL (7.2-11.7); MONO % 13.9 % (0.0-10.0); RED CELL DISTRIBUTION WIDTH 16.2 % (11.5-14.5); WHITE BLOOD COUNT 6.9 K/uL (4.8-10.8)
[2016-12-21 07:40] LABS: CHLORIDE 98 mmol/L (98-107); POTASSIUM 3.8 mmol/L (3.6-5.2); SODIUM 131 mmol/L (132-148)
[2016-12-21 07:42] LABS: GFR AFRICAN-AMERICAN > 60
[2016-12-21 07:43] LABS: ALB/GLOB RATIO 0.5 (1.0-2.1); ALKALINE PHOSPHATASE 99 U/L (38-126); ALT/SGPT 20 U/L (9-52); AST/SGOT 35 U/L (14-36); BILIRUBIN,TOTAL 0.7 mg/dL (0.2-1.3); BLOOD UREA NITROGEN 3 mg/dL (7-17); CARBON DIOXIDE 28 mmol/L (22-30); GLUCOSE,RANDOM 117 mg/dL (65-105); TOTAL PROTEIN 7.3 g/dL (6.3-8.3)
[2016-12-21 07:44] LABS: CALCIUM 7.6 mg/dl (8.6-10.4)
[2016-12-21] MEDS: (Novolin R) Insulin Human Regular 100 units/ml vial SC SCH ×4 (08:44→23:26)
[2016-12-21] MEDS: Ferrous Sulfate 300 mg/5 mL Liq UD PO SCH ×2 (09:36→17:13)
[2016-12-21] MEDS: Enoxaparin 60 mg Syringe SC SCH ×2 (09:36→21:28)
[2016-12-21] MEDS: Saccharomyces Boulardi 250 mg Cap PO SCH ×2 (09:36→17:13)
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
[2016-12-21 18:24] LABS: C DIFF TOXIN A B NEGATIVE (NEGATIVE)
[2016-12-21 19:38] LABS: FECAL LEUKOCYTES NEGATIVE (NEGATIVE)
[2016-12-22 07:18] LABS: BASO # 0.1 K/uL (0.0-0.2); BASO % 0.9 % (0.0-2.0); EOS # 0.1 K/uL (0.0-0.7); EOS % 2.2 % (0.0-4.0); LYMPH % 31.7 % (20.0-40.0); MEAN CELL VOLUME 88.9 fL (81.0-99.0); MEAN CORPUSCULAR HEMOGLOBIN 31.4 pg (27.0-31.0); MEAN CORPUSCULAR HGB CONC 35.4 g/dL (33.0-37.0); MONO # 0.8 K/uL (0.0-0.8); NRBC % 0.1 % (0.0-2.0); RED CELL DISTRIBUTION WIDTH 16.1 % (11.5-14.5); WHITE BLOOD COUNT 6.2 K/uL (4.8-10.8)
[2016-12-22 07:38] LABS: CHLORIDE 94 mmol/L (98-107); SODIUM 135 mmol/L (132-148)
[2016-12-22 07:39] LABS: POTASSIUM 3.9 mmol/L (3.6-5.2)
[2016-12-22 07:41] LABS: ALB/GLOB RATIO 0.4 (1.0-2.1); ALKALINE PHOSPHATASE 110 U/L (38-126); ALT/SGPT 26 U/L (9-52); AST/SGOT 37 U/L (14-36); BILIRUBIN,TOTAL 0.7 mg/dL (0.2-1.3); BLOOD UREA NITROGEN 3 mg/dL (7-17); CARBON DIOXIDE 28 mmol/L (22-30); GFR AFRICAN-AMERICAN > 60; GLUCOSE,RANDOM 149 mg/dL (65-105); TOTAL PROTEIN 7.8 g/dL (6.3-8.3)
[2016-12-22 07:42] LABS: CALCIUM 7.4 mg/dl (8.6-10.4)
[2016-12-22] MEDS: (Novolin R) Insulin Human Regular 100 units/ml vial SC SCH ×4 (07:51→21:27)
[2016-12-22] MEDS: Ferrous Sulfate 300 mg/5 mL Liq UD PO SCH ×2 (10:46→18:03)
[2016-12-22] MEDS: Saccharomyces Boulardi 250 mg Cap PO SCH ×2 (10:46→18:03)
[2016-12-22] MEDS: Enoxaparin 60 mg Syringe SC SCH ×2 (10:47→21:28)
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
[2016-12-23 07:44] LABS: BASO # 0.1 K/uL (0.0-0.2); BASO % 1.2 % (0.0-2.0); EOS # 0.1 K/uL (0.0-0.7); EOS % 1.6 % (0.0-4.0); HEMATOCRIT 26.6 % (34.0-47.0); LYMPH # 1.8 K/uL (1.0-4.3); LYMPH % 27.8 % (20.0-40.0); MEAN CELL VOLUME 88.6 fL (81.0-99.0); MEAN CORPUSCULAR HEMOGLOBIN 32.1 pg (27.0-31.0); MEAN CORPUSCULAR HGB CONC 36.2 g/dL (33.0-37.0); MONO # 0.9 K/uL (0.0-0.8); MONO % 14.5 % (0.0-10.0); NRBC % 0.1 % (0.0-2.0); RED CELL DISTRIBUTION WIDTH 16.4 % (11.5-14.5); WHITE BLOOD COUNT 6.4 K/uL (4.8-10.8)
[2016-12-23 07:56] LABS: CHLORIDE 97 mmol/L (98-107)
[2016-12-23 07:57] LABS: POTASSIUM 3.8 mmol/L (3.6-5.2); SODIUM 138 mmol/L (132-148)
[2016-12-23 07:59] LABS: ALB/GLOB RATIO 0.4 (1.0-2.1); ALKALINE PHOSPHATASE 99 U/L (38-126); ALT/SGPT 27 U/L (9-52); AST/SGOT 32 U/L (14-36); BLOOD UREA NITROGEN 4 mg/dL (7-17); CARBON DIOXIDE 31 mmol/L (22-30); GFR AFRICAN-AMERICAN > 60; GLUCOSE,RANDOM 130 mg/dL (65-105)
[2016-12-23 08:00] LABS: CALCIUM 7.8 mg/dl (8.6-10.4)
[2016-12-23] MEDS: (Novolin R) Insulin Human Regular 100 units/ml vial SC SCH ×4 (08:39→21:34)
[2016-12-23] MEDS: Ferrous Sulfate 300 mg/5 mL Liq UD PO SCH ×2 (09:50→17:30)
[2016-12-23] MEDS: Enoxaparin 60 mg Syringe SC SCH ×2 (09:53→21:30)
[2016-12-23] MEDS: Saccharomyces Boulardi 250 mg Cap PO SCH ×2 (09:54→17:31)
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
[2016-12-24 07:31] LABS: BASO # 0.1 K/uL (0.0-0.2); BASO % 0.8 % (0.0-2.0); EOS # 0.1 K/uL (0.0-0.7); EOS % 0.7 % (0.0-4.0); LYMPH # 1.8 K/uL (1.0-4.3); MEAN CORPUSCULAR HGB CONC 35.9 g/dL (33.0-37.0); MEAN PLATELET VOLUME 7.4 fL (7.2-11.7); MONO # 1.3 K/uL (0.0-0.8); MONO % 14.2 % (0.0-10.0); NRBC % 0.2 % (0.0-2.0)
[2016-12-24 07:58] LABS: CHLORIDE 94 mmol/L (98-107)
[2016-12-24 07:59] LABS: POTASSIUM 3.7 mmol/L (3.6-5.2); SODIUM 132 mmol/L (132-148)
[2016-12-24 08:02] LABS: ALB/GLOB RATIO 0.4 (1.0-2.1); ALKALINE PHOSPHATASE 110 U/L (38-126); ALT/SGPT 23 U/L (9-52); AST/SGOT 34 U/L (14-36); BLOOD UREA NITROGEN 5 mg/dL (7-17); CARBON DIOXIDE 29 mmol/L (22-30); GFR AFRICAN-AMERICAN > 60; GLUCOSE,RANDOM 155 mg/dL (65-105); TOTAL PROTEIN 7.9 g/dL (6.3-8.3)
[2016-12-24 08:03] LABS: CALCIUM 7.4 mg/dl (8.6-10.4)
[2016-12-24] MEDS: (Novolin R) Insulin Human Regular 100 units/ml vial SC SCH ×4 (08:12→21:36)
[2016-12-24] MEDS: Enoxaparin 60 mg Syringe SC SCH ×2 (11:35→21:28)
[2016-12-24] MEDS: Saccharomyces Boulardi 250 mg Cap PO SCH ×2 (11:36→17:48)
[2016-12-24] MEDS: Ferrous Sulfate 300 mg/5 mL Liq UD PO SCH (11:37)
--- NOTE | 2016-12-24 12:09 | RAD ---
HISTORY: cough COMPARISON: Chest x-ray performed 12/12/16 TECHNIQUE: Chest, one view. FINDINGS: Left-sided PICC extends expected location of the proximal right atrium. Examination limited by habitus and hypoinflation. LUNGS: Subsegmental bibasilar atelectasis. Please note that chest x-ray has limited sensitivity for the detection of pulmonary masses. PLEURA: No significant pleural effusion identified. No definite pneumothorax . CARDIOVASCULAR: Cardiomegaly. OSSEOUS STRUCTURES: No acute osseous abnormality identified. VISUALIZED UPPER ABDOMEN: Unremarkable. OTHER FINDINGS: None. IMPRESSION: Left-sided PICC extends expected location of the proximal right atrium. Cardiomegaly. Subsegmental bibasilar atelectasis.
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
--- NOTE | 2016-12-24 14:00 | SPECPROC ---
PROCEDURE: Date of procedure: 12/17/2016 Procedure: 1. Placement of a left arm PICC with ultrasound and fluoroscopic guidance, CPT 69366 2. PICC tip confirmation with spot radiograph and is in the superior vena cava Medications: 1 percent lidocaine HISTORY: Bacteremia requiring long-term IV antibiotics TECHNIQUE: Following informed consent and procedure time-out, the patient placed supine on the interventional table and the left arm prepped and draped in the usual sterile fashion. Ultrasound showed a patent and compressible left basilic vein. After the skin was anesthetized with lidocaine, the basilic vein was accessed with micro micropuncture technique using ultrasound guidance. A guidewire was then advanced under fluoroscopic guidance into the superior vena cava. An image documenting ultrasound guidance for vascular access was permanently saved. The length of the single-lumen 4 Lebanese PICC was trimmed to 40 centimeters and advanced through a peel-away sheath. The PICC was position with tip of PICC confirm a spot radiograph the superior vena cava. The PICC was secured to the patient's skin. The PICC was flushed. A biopatch and sterile dressing was applied. IMPRESSION: Placement of a single-lumen 4 Lebanese PICC left basilic vein trimmed to 40 cm. The tip of the PICC is confirmed with spot radiograph and is in the superior vena cava.
[2016-12-24] MEDS ORDERED: Vancomycin 125 MG/5 ML SOLN (ORAL/RECTAL) PO SCH (18:00)
[2016-12-24] MEDS: Vancomycin 125 MG/5 ML SOLN (ORAL/RECTAL) PO SCH ×2 (18:05→21:37)
--- NOTE | 2016-12-24 19:08 | CP.PCM.PN ---
Subjective - Date & Time of Evaluation Date of Evaluation: 12/24/16 Time of Evaluation: 06:00 - Subjective Subjective: No acute complaints or events today. She does complain of chronic generalized weakness. Objective - Vital Signs/Intake and Output Vital Signs (last 24 hours): Temp Pulse Resp BP Pulse Ox 100.6 F H 71 20 111/69 97 12/24/16 15:25 12/24/16 18:52 12/24/16 15:25 12/24/16 15:25 12/24/16 15:25 Intake and Output: 12/24/16 12/25/16 18:59 06:59 Intake Total 750 Balance 750 - Medications Medications: Current Medications Baclofen (Lioresal) 20 mg PO BID [facility] Last Admin: 12/24/16 17:49 Dose: 20 mg Clonazepam (Klonopin) 1 mg PO HS [facility] Last Admin: 12/23/16 21:30 Dose: 1 mg Docusate Sodium (Colace) 100 mg PO BID [facility] Last Admin: 12/24/16 17:48 Dose: 100 mg Enoxaparin Sodium (Lovenox) 50 mg SC Q12H [facility] Last Admin: 12/24/16 11:35 Dose: 50 mg Escitalopram Oxalate (Lexapro) 10 mg PO DAILY [facility] Last Admin: 12/24/16 11:36 Dose: 10 mg Famotidine (Pepcid) 20 mg PO DAILY [facility] Last Admin: 12/24/16 11:37 Dose: 20 mg Ferrous Sulfate (Feosol) 325 mg PO TID [facility] Last Admin: 12/24/16 17:48 Dose: 325 mg Gabapentin (Neurontin) 300 mg PO TID [facility] Last Admin: 12/24/16 17:50 Dose: 300 mg Vancomycin HCl 1,250 mg/ (Sodium Chloride) 250 mls @ 166.6 mls/hr IVPB Q12H [facility] Last Admin: 12/24/16 12:13 Dose: 166.6 mls/hr Insulin Human Regular (Novolin R) 0 unit SC ACHS [facility] PRN Reason: Protocol Last Admin: 12/24/16 16:30 Dose: Not Given Ondansetron HCl (Zofran Inj) 8 mg IVP Q6H PRN PRN Reason: Nausea/Vomiting Penicillin G Benzathine (Bicillin L-A Inj) 2,400,000 units IM QWK [facility] Stop: 01/01/17 14:46 Last Admin: 12/19/16 14:55 Dose: 2,400,000 units Saccharomyces Boulardii (Florastor) 250 mg PO BID [facility] Last Admin: 12/24/16 17:48 Dose: 250 mg Trazodone HCl (Desyrel) 50 mg PO HS [facility] Last Admin: 12/23/16 21:30 Dose: 50 mg Vancomycin HCl (Vancocin (Oral Or Rectal Use)) 125 mg PO QID [facility] Stop: 12/30/16 23:55 - Labs Labs: 12/24/16 07:00 12/24/16 07:00 - Constitutional Appears: Non-toxic - Head Exam Head Exam: NORMOCEPHALIC - Eye Exam Eye Exam: absent: Scleral icterus - Neck Exam Neck Exam: absent: Lymphadenopathy - Respiratory Exam Respiratory Exam: Decreased Breath Sounds, Prolonged Expiratory Phase - Cardiovascular Exam Cardiovascular Exam: Tachycardia, REGULAR RHYTHM, +S1, +S2 - GI/Abdominal Exam GI & Abdominal Exam: Distended, Soft. absent: Tenderness - Rectal Exam Rectal Exam: Deferred Assessment and Plan (1) Dehydration Status: Acute (2) Leg pain, bilateral Status: Acute (3) MRSA (methicillin resistant Staphylococcus aureus) septicemia Status: Acute
[2016-12-25] MEDS: metroNIDAZOLE IV 500 mg/100 ml 100 ML IVPB SCH ×3 (07:17→22:38)
[2016-12-25 07:38] LABS: BASO # 0.1 K/uL (0.0-0.2); BASO % 1.2 % (0.0-2.0); EOS # 0.1 K/uL (0.0-0.7); EOS % 1.2 % (0.0-4.0); HEMATOCRIT 26.7 % (34.0-47.0); LYMPH # 2.6 K/uL (1.0-4.3); LYMPH % 23.9 % (20.0-40.0); MEAN CELL VOLUME 90.3 fL (81.0-99.0); MEAN CORPUSCULAR HEMOGLOBIN 31.7 pg (27.0-31.0); MEAN CORPUSCULAR HGB CONC 35.1 g/dL (33.0-37.0); MEAN PLATELET VOLUME 7.6 fL (7.2-11.7); MONO # 1.4 K/uL (0.0-0.8); MONO % 12.7 % (0.0-10.0); NRBC % 0.1 % (0.0-2.0); WHITE BLOOD COUNT 10.7 K/uL (4.8-10.8)
[2016-12-25] MEDS: (Novolin R) Insulin Human Regular 100 units/ml vial SC SCH ×4 (07:48→21:54)
[2016-12-25 08:18] LABS: CHLORIDE 99 mmol/L (98-107); POTASSIUM 3.5 mmol/L (3.6-5.2); SODIUM 133 mmol/L (132-148)
[2016-12-25 08:21] LABS: ALB/GLOB RATIO 0.5 (1.0-2.1); ALKALINE PHOSPHATASE 88 U/L (38-126); ALT/SGPT 20 U/L (9-52); AST/SGOT 32 U/L (14-36); BILIRUBIN,TOTAL 1.1 mg/dL (0.2-1.3); BLOOD UREA NITROGEN 6 mg/dL (7-17); CALCIUM 6.8 mg/dl (8.6-10.4); CARBON DIOXIDE 22 mmol/L (22-30); GFR AFRICAN-AMERICAN > 60; GLUCOSE,RANDOM 108 mg/dL (65-105); TOTAL PROTEIN 7.3 g/dL (6.3-8.3)
[2016-12-25] MEDS ORDERED: Sodium Chloride 0.9% 1,000 ML IV ONE (09:11)
[2016-12-25] MEDS: Saccharomyces Boulardi 250 mg Cap PO SCH ×2 (10:35→18:29)
[2016-12-25] MEDS: Vancomycin 125 MG/5 ML SOLN (ORAL/RECTAL) PO SCH ×4 (10:35→21:53)
[2016-12-25] MEDS: Enoxaparin 60 mg Syringe SC SCH ×2 (10:38→21:55)
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
[2016-12-25] MEDS ORDERED: Penicillin G Benzathine 2.4 Mill Unit/4 ml Syr IM SCH (14:45)
[2016-12-25] MEDS ORDERED: Iohexol 240 (50 ml) PO ONE (17:25)
[2016-12-25] MEDS ORDERED: Iohexol 350mg/ml 100 ML ONE (18:30)
--- NOTE | 2016-12-25 20:29 | CT ---
EXAM: CT Abdomen and Pelvis With Intravenous Contrast. CLINICAL HISTORY: 36 years old, female; Pain and signs and symptoms; Other: Diarrhea; Abdominal pain; Generalized; Mass, lump, or swelling in the chest; Chest wall pain TECHNIQUE: Axial computed tomography images of the abdomen and pelvis with intravenous contrast. This CT exam was performed using one or more of the following dose reduction techniques: automated exposure control, adjustment of the mA and/or kV according to patient size, and/or use of iterative reconstruction technique. Coronal and sagittal reformatted images were created and reviewed. CONTRAST: 100 mL of visipaque 320 administered intravenously. COMPARISON: There are no prior studies for comparison. FINDINGS: Lower thorax: Refer to following report for chest findings ABDOMEN: Liver: There is fatty infiltration of the liver. Gallbladder and bile ducts: Gallbladder is partially distended. Common bile duct is unremarkable. There is minimal pericholecystic fluid/edema. Pancreas: Pancreas is unremarkable. Spleen: The spleen is enlarged. There is an accessory spleen in the left upper quadrant. Adrenals: Adrenals are unremarkable. Kidneys and ureters: There is a low attenuation right renal lesion not a simple cyst by CT criteria.Kidneys and ureters are otherwise unremarkable. Stomach and bowel: Stomach is almost empty. Rotation is normal. There is no obstruction. Small bowel is mildly distended with fluid, contrast and air. There is mild distal small bowel fold thickening. There is terminal ileal wall thickening. Appendix is unremarkable. There is colonic wall thickening at the hepatic flexure. There is descending colon wall thickening. There is marked sigmoid wall thickening. Appendix: See stomach and bowel PELVIS: Bladder: There is bladder wall thickening. Reproductive: Seminal vesicles and prostate are unremarkable. ABDOMEN and PELVIS: Intraperitoneal space: There is no free air. There is no definite free fluid in the pelvis. Bones/joints: There are degenerative changes in the spine. There is L5 spondylolysis without spondylolisthesis. There is L5-S1 disc bulging. Soft tissues: There are injection sites in the abdominal wall. There is abdominal wall edema. Vasculature: There are vascular calcifications. Lymph nodes: There is adenopathy in the root of the mesentery. There is shotty para-aortic adenopathy. IMPRESSION: Enterocolitis; shotty adenopathy; fatty liver; splenomegaly; bladder wall thickening, underdistention versus inflammation; minimal pericholecystic fluid Additional findings as described above. EXAM: CT Chest With Intravenous Contrast. CLINICAL HISTORY: 36 years old, female; Pain and signs and symptoms; Other: Diarrhea; Abdominal pain; Generalized; Mass, lump, or swelling in the chest; Chest wall pain TECHNIQUE: Axial computed tomography images of the chest with intravenous contrast. This CT exam was performed using one or more of the following dose reduction techniques: automated exposure control, adjustment of the mA and/or kV according to patient size, and/or use of iterative reconstruction technique. Coronal and sagittal reformatted images were created and reviewed. CONTRAST: 100 mL of visipaque 320 administered intravenously. EXAM DATE/TIME: 12/25/2016 11:25 AM COMPARISON: CTA chest 12/13/16 not available for review FINDINGS: Lungs and pleural spaces: Trachea and main bronchi are patent. There are asymmetric groundglass opacities in both upper lobes. There is minimal patchy opacity in the middle lobe. There is a 3.3 mm nodule in the lingula. There is airspace disease at both lung bases. There is bilateral dependent atelectasis bilaterally. There is elevation of right diaphragm. There are bilateral pleural effusions. Heart and Vasculature: Heart size is at the upper limits of normal. There is fluid in the pericardial recesses. There are coronary artery calcifications. There is no aneurysm or dissection. Technique limits evaluation of pulmonary arteries. Filling defect in the left lower lobe pulmonary artery cannot be excluded. Mediastinum: There is mediastinal and right hilar adenopathy. There is a 2.2 x 1.5 cm right hilar node, image 46 series 3. There is a 2.4 x 2.3 cm right paratracheal node, image 36 series 3. Thyroid: Thyroid is unremarkable Bones/joints: Bony structures are unremarkable. Soft tissues: There is a 4.6 x 7 x 6.5 cm complex heterogeneous mass in the right chest wall inferior to the clavicle. There is involvement/infiltration of the overlying muscles. Lymph nodes: There is shotty right axillary adenopathy. Upper abdomen: Refer to prior report for abdominal findings Tubes, lines and devices: There is a left PICC line with the tip at the cavoatrial junction. IMPRESSION: 4.6 x 7 x 6.5 cm complex right upper chest wall mass infection/abscess versus neoplasm; bilateral pleural effusions with bibasilar airspace disease; mediastinal and right hilar adenopathy ; PICC line; possible filling defect in the left lower lobe pulmonary artery Additional findings as described above.
[2016-12-26] MEDS: metroNIDAZOLE IV 500 mg/100 ml 100 ML IVPB SCH ×3 (06:12→22:30)
[2016-12-26 07:27] LABS: BASO # 0.1 K/uL (0.0-0.2); BASO % 1.1 % (0.0-2.0); EOS # 0.2 K/uL (0.0-0.7); EOS % 2.7 % (0.0-4.0); HEMATOCRIT 24.9 % (34.0-47.0); LYMPH # 1.5 K/uL (1.0-4.3); LYMPH % 21.4 % (20.0-40.0); MEAN CELL VOLUME 90.9 fL (81.0-99.0); MEAN CORPUSCULAR HEMOGLOBIN 31.7 pg (27.0-31.0); MEAN CORPUSCULAR HGB CONC 34.9 g/dL (33.0-37.0); MEAN PLATELET VOLUME 7.4 fL (7.2-11.7); MONO # 1.1 K/uL (0.0-0.8); MONO % 16.2 % (0.0-10.0); NRBC % 0.1 % (0.0-2.0); WHITE BLOOD COUNT 6.9 K/uL (4.8-10.8)
[2016-12-26] MEDS: (Novolin R) Insulin Human Regular 100 units/ml vial SC SCH ×4 (07:51→22:00)
[2016-12-26 08:05] LABS: CHLORIDE 99 mmol/L (98-107)
[2016-12-26 08:06] LABS: POTASSIUM 3.3 mmol/L (3.6-5.2); SODIUM 133 mmol/L (132-148)
[2016-12-26 08:08] LABS: ALB/GLOB RATIO 0.4 (1.0-2.1); ALKALINE PHOSPHATASE 82 U/L (38-126); ALT/SGPT 19 U/L (9-52); AST/SGOT 34 U/L (14-36); BILIRUBIN,TOTAL 1.4 mg/dL (0.2-1.3); BLOOD UREA NITROGEN 6 mg/dL (7-17); CARBON DIOXIDE 21 mmol/L (22-30); GFR AFRICAN-AMERICAN > 60; TOTAL PROTEIN 7.9 g/dL (6.3-8.3)
[2016-12-26 08:09] LABS: CALCIUM 7.1 mg/dl (8.6-10.4); GLUCOSE,RANDOM 123 mg/dL (65-105); MAGNESIUM 1.6 mg/dL (1.6-2.3)
[2016-12-26] MEDS: Saccharomyces Boulardi 250 mg Cap PO SCH ×2 (09:51→17:50)
[2016-12-26] MEDS: Enoxaparin 60 mg Syringe SC SCH (09:51)
[2016-12-26] MEDS: Vancomycin 125 MG/5 ML SOLN (ORAL/RECTAL) PO SCH ×3 (09:51→22:35)
[2016-12-26] MEDS: Penicillin G Benzathine 2.4 Mill Unit/4 ml Syr IM SCH (09:52)
[2016-12-26] MEDS ORDERED: Potassium Chloride 20 mEq/15 ml LIQ UD PO ONE (10:15)
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
--- NOTE | 2016-12-26 15:09 | CP.PCM.CON ---
History of Present Illness - History of Present Illness History of Present Illness: Surgery consult note Re: "mass of chest" HPI: Patient is a 36 transgender female who is biologically male who presents with 5 day history hard, painful, swollen mass to right chest. States she feels like she cannot lift her right arm from the pain. Denies fever, chills, abdominal pain, nausea, vomiting, leg pain. Admits to recent diarrhea. PMH: DM, Hep C, untreated syphilis, MRSA, C diff PSH: abscess of back Social hx: Lives in [place]. Denies smoking. Admits to drinking ETOH socially (3-4 beers). Denies IVDA Meds: Metformin Allergies: NKDA Review of Systems - Review of Systems All systems: reviewed and no additional remarkable complaints except Past Patient History - Infectious Disease Hx of Infectious Diseases: None - Past Medical History & Family History Past Medical History?: Yes - Past Social History Smoking Status: Never Smoked - CARDIAC Hx Hypertension: Yes - PULMONARY Hx Respiratory Disorders: No Hx Asthma: No Hx Bronchitis: No Hx Chronic Obstructive Pulmonary Disease (COPD): No Hx Emphysema: No Hx Lung Cancer: No Hx Pneumonia: No Hx Pulmonary Edema: No Hx Pulmonary Embolism: No Hx Respiratory Aspiration: No Hx Respiratory Tract Infection: No Hx Sleep Apnea: No Hx Tuberculosis: No - NEUROLOGICAL Hx Neurological Disorder: No Hx Alzheimer's Disease: No HX Cerebrovascular Accident: No Hx Dementia: No Hx Dizziness: No Hx Meningitis: No Hx Migraine: No Hx Multiple Sclerosis: No Hx Paralysis: No Hx Parkinson's Disease: No Hx Seizures: Yes (Epilepsy) Hx Syncope: No Hx Transient Ischemic Attacks (TIA): No Hx Vertigo: No - HEENT Hx HEENT Problems: No Hx Blind: No Hx Cataracts: No Hx Deafness: No Hx Difficulty Chewing: No Hx Epistaxis: No Hx Glaucoma: No Hx Macular Degeneration: No Hx Sinusitis: No - RENAL Hx Chronic Kidney Disease: No Hx Dialysis: No Hx Kidney Stones: No Hx Neurogenic Bladder: No Hx Pyelonephritis: No Hx Renal (Kidney) Cancer: No Hx Renal Failure: No - ENDOCRINE/METABOLIC Hx Diabetes Mellitus Type 1: Yes - HEMATOLOGICAL/ONCOLOGICAL Hx Blood Disorders: No Hx AIDS: No Hx Anemia: No Hx Blood Transfusions: No Hx Blood Transfusion Reaction: No Hx Bruising: No Hx Cancer: No Hx Chemotherapy: No Hx Cirrhosis: No Hx Gum Bleeding: No Hx Hemophilia: No Hx Hepatitis A: No Hx Hepatitis B: No Hx Hepatitis C: No Hx Human Immunodeficiency Virus (HIV): No Hx Leukemia: No Hx Metastesis: No Hx Shingles: No Hx Sickle Cell Disease: No Hx Unexplained Bleeding: No Hx von Willebrand's Disease: No - INTEGUMENTARY Hx Dermatological Problems: No Hx Basil Cell: No Hx Rg: No Hx Cellulitis: No Hx Eczema: No Hx Melanoma: No Hx Psoriasis: No Hx Squamous Cell: No - MUSCULOSKELETAL/RHEUMATOLOGICAL Hx Falls: Yes - GASTROINTESTINAL Hx Gastrointestinal Disorders: No Hx Bowel Surgery: No Hx Clostridium Difficile: No Hx Colitis: No Hx Colostomy: No Hx Constipation: No Hx Crohn's Disease: No Hx Diarrhea: No Hx Diverticulitis: No Hx Esophageal Varices: No Hx Fatty Liver Disease: No Hx Gall Bladder Disease: No Hx Gastritis: No Hx Gastroesophageal Reflux: No Hx Hemorrhoids: No Hx Ileostomy: No Hx Irritable Bowel: No Hx Liver Failure: No Hx Nausea: No Hx Pancreatitis: No HX Swallowing Problems: No Hx Ulcer: No Hx Vomiting: No - GENITOURINARY/GYNECOLOGICAL Hx Genitourinary Disorders: No Hx Bladder Cancer: No Hx Bladder Stone: No Hx Cervical Cancer: No Hx Hematuria: No Hx Incontinence: No Hx Ovarian Cancer: No Hx Postmenopausal Bleeding: No Hx Reproductive Disorders: No Hx Sexually Transmitted Disorders: No Hx Uterine Cancer: No Hx Urinary Tract Infection: No - PSYCHIATRIC Hx Substance Use: No - SURGICAL HISTORY Hx Surgeries: No - ANESTHESIA Hx Anesthesia: Yes Hx Anesthesia Reactions: No Hx Malignant Hyperthermia: No Has any member of the family had a problem w/ anesthesia?: No Meds Allergies/Adverse Reactions: Allergies Allergy/AdvReac Type Severity Reaction Status Date / Time No Known Allergies Allergy Verified 12/12/16 12:26 - Medications Medications: Current Medications Baclofen (Lioresal) 20 mg PO BID [facility] Last Admin: 12/26/16 09:51 Dose: 20 mg Clonazepam (Klonopin) 1 mg PO HS [facility] Last Admin: 12/25/16 21:55 Dose: 1 mg Enoxaparin Sodium (Lovenox) 50 mg SC Q12H [facility] Last Admin: 12/26/16 09:51 Dose: 50 mg Escitalopram Oxalate (Lexapro) 10 mg PO DAILY [facility] Last Admin: 12/26/16 09:51 Dose: 10 mg Famotidine (Pepcid) 20 mg PO DAILY [facility] Last Admin: 12/26/16 09:51 Dose: 20 mg Ferrous Sulfate (Feosol) 325 mg PO TID [facility] Last Admin: 12/26/16 14:39 Dose: 325 mg Gabapentin (Neurontin) 300 mg PO TID [facility] Last Admin: 12/26/16 14:39 Dose: 300 mg Vancomycin HCl 1,250 mg/ (Sodium Chloride) 250 mls @ 166.6 mls/hr IVPB Q12H [facility] Last Admin: 12/26/16 11:16 Dose: 166.6 mls/hr Metronidazole (Flagyl) 100 mls @ 100 mls/hr IVPB Q8H [facility] Last Admin: 12/26/16 14:40 Dose: 100 mls/hr Insulin Human Regular (Novolin R) 0 unit SC ACHS [facility] PRN Reason: Protocol Last Admin: 12/26/16 12:01 Dose: Not Given Ondansetron HCl (Zofran Inj) 8 mg IVP Q6H PRN PRN Reason: Nausea/Vomiting Penicillin G Benzathine (Bicillin L-A Inj) 2,400,000 units IM QWK [facility] Stop: 01/01/17 14:46 Last Admin: 12/26/16 09:52 Dose: 2,400,000 units Saccharomyces Boulardii (Florastor) 250 mg PO BID [facility] Last Admin: 12/26/16 09:51 Dose: 250 mg Trazodone HCl (Desyrel) 50 mg PO HS [facility] Last Admin: 12/25/16 21:56 Dose: 50 mg Vancomycin HCl (Vancocin (Oral Or Rectal Use)) 125 mg PO QID [facility] Stop: 12/30/16 23:55 Last Admin: 12/26/16 09:51 Dose: 125 mg Physical Exam - Head Exam Head Exam: ATRAUMATIC, NORMOCEPHALIC - Eye Exam Eye Exam: Normal appearance - ENT Exam ENT Exam: Mucous Membranes Moist - Neck Exam Neck exam: Positive for: Normal Inspection - Respiratory Exam Respiratory Exam: NORMAL BREATHING PATTERN - Cardiovascular Exam Cardiovascular Exam: RRR - GI/Abdominal Exam GI & Abdominal Exam: Soft - Rectal Exam Rectal Exam: Deferred - Extremities Exam Extremities exam: Positive for: normal inspection - Skin Additional comments: 4x4 hard, indurated tender mass on right chest below right clavicle. No punctum visualized. No drainage seen. Results - Vital Signs Recent Vital Signs: Last Vital Signs Temp 98.2 F 12/26/16 08:00 Pulse 72 12/26/16 10:30 Resp 20 12/26/16 08:00 BP 133/83 12/26/16 08:00 Pulse Ox 96 12/26/16 08:00 - Labs Result Diagrams: 12/26/16 07:08 12/26/16 07:08 Labs: Laboratory Results - last 24 hr 12/25/16 12/25/16 12/25/16 16:27 21:11 Unknown WBC RBC Hgb Hct MCV MCH MCHC RDW Plt Count MPV Neut % (Auto) Lymph % (Auto) Bartholomew % (Auto) Eos % (Auto) Baso % (Auto) Neut # Lymph # Bartholomew # Eos # Baso # Sodium Potassium Chloride Carbon Dioxide Anion Gap BUN Creatinine Est GFR ( Amer) Est GFR (Non-Af Amer) POC Glucose (mg/dL) 151 H 169 H Random Glucose Calcium Phosphorus Magnesium Total Bilirubin AST ALT Alkaline Phosphatase Lactate Dehydrogenase Total Protein Albumin Globulin Albumin/Globulin Ratio C. difficile Ag & Toxin Negative 12/26/16 12/26/16 12/26/16 07:08 07:12 11:50 WBC 6.9 RBC 2.74 L Hgb 8.7 L Hct 24.9 L MCV 90.9 MCH 31.7 H MCHC 34.9 RDW 17.0 H Plt Count 119 L MPV 7.4 Neut % (Auto) 58.6 Lymph % (Auto) 21.4 Bartholomew % (Auto) 16.2 H Eos % (Auto) 2.7 Baso % (Auto) 1.1 Neut # 4.0 Lymph # 1.5 Bartholomew # 1.1 H Eos # 0.2 Baso # 0.1 Sodium 133 Potassium 3.3 L Chloride 99 Carbon Dioxide 21 L Anion Gap 16 BUN 6 L Creatinine 0.7 Est GFR ( Amer) > 60 Est GFR (Non-Af Amer) > 60 POC Glucose (mg/dL) 113 H 160 H Random Glucose 123 H Calcium 7.1 L Phosphorus 4.0 Magnesium 1.6 Total Bilirubin 1.4 H AST 34 ALT 19 Alkaline Phosphatase 82 Lactate Dehydrogenase 379 Total Protein 7.9 Albumin 2.4 L Globulin 5.5 H Albumin/Globulin Ratio 0.4 L C. difficile Ag & Toxin Assessment & Plan - Assessment and Plan (Free Text) Assessment: Mass of right chest Plan: OR tomorrow for incision and drainage of mass NPO Pain management IV abx d/w dr reji Knight [id number]
[2016-12-27] MEDS: metroNIDAZOLE IV 500 mg/100 ml 100 ML IVPB SCH ×2 (06:03→22:46)
[2016-12-27 07:08] LABS: INR 1.4
[2016-12-27 07:11] LABS: CHLORIDE 103 mmol/L (98-107)
[2016-12-27 07:12] LABS: POTASSIUM 3.8 mmol/L (3.6-5.2); SODIUM 135 mmol/L (132-148)
[2016-12-27 07:14] LABS: ALB/GLOB RATIO 0.4 (1.0-2.1); AST/SGOT 31 U/L (14-36); CARBON DIOXIDE 20 mmol/L (22-30); GFR AFRICAN-AMERICAN > 60; TOTAL PROTEIN 7.8 g/dL (6.3-8.3)
[2016-12-27 07:15] LABS: ALKALINE PHOSPHATASE 85 U/L (38-126); ALT/SGPT 26 U/L (9-52); BLOOD UREA NITROGEN 9 mg/dL (7-17); CALCIUM 7.1 mg/dl (8.6-10.4); GLUCOSE,RANDOM 124 mg/dL (65-105)
[2016-12-27 07:18] LABS: LYME DISEASE SCREEN 0.57 (0.00-0.90)
[2016-12-27 07:21] LABS: BASO # 0.1 K/uL (0.0-0.2); EOS # 0.2 K/uL (0.0-0.7); EOS % 3.6 % (0.0-4.0); HEMATOCRIT 25.3 % (34.0-47.0); LYMPH # 1.3 K/uL (1.0-4.3); LYMPH % 25.7 % (20.0-40.0); MEAN CELL VOLUME 92.2 fL (81.0-99.0); MEAN CORPUSCULAR HEMOGLOBIN 31.5 pg (27.0-31.0); MEAN CORPUSCULAR HGB CONC 34.2 g/dL (33.0-37.0); MEAN PLATELET VOLUME 7.3 fL (7.2-11.7); MONO # 0.9 K/uL (0.0-0.8); MONO % 17.4 % (0.0-10.0); NRBC % 0.1 % (0.0-2.0); RED CELL DISTRIBUTION WIDTH 17.3 % (11.5-14.5)
[2016-12-27] MEDS: (Novolin R) Insulin Human Regular 100 units/ml vial SC SCH ×4 (07:42→21:46)
[2016-12-27] MEDS: Sodium Chloride 0.9% 1,000 ML IV SCH ×2 (08:37→21:20)
[2016-12-27] MEDS: Saccharomyces Boulardi 250 mg Cap PO SCH ×2 (10:12→18:00)
[2016-12-27] MEDS: Vancomycin 125 MG/5 ML SOLN (ORAL/RECTAL) PO SCH ×4 (10:13→21:42)
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
[2016-12-27 12:00] LABS: CARDIOLIPIN AB (IGA) <11 APL (<=11)
[2016-12-27] MEDS ORDERED: Vancomycin 1 gm/D5W 200 ml 200 ML IVPB ONE (13:52)
[2016-12-27] MEDS ORDERED: Etomidate 20 mg/10ml Inj IV ONE (13:55)
[2016-12-27] MEDS ORDERED: Lactated Ringer's 1,000 ML IV ONE (13:55)
[2016-12-27] MEDS ORDERED: Midazolam 2 MG/2 ML VIAL ONE (13:56)
[2016-12-27] MEDS ORDERED: Propofol 10 mg/ml Inj (20 ML) ONE (13:57)
[2016-12-27] MEDS ORDERED: HYDROmorphone 0.5 mg/0.5 ml ISec IVP PRN (14:38)
--- NOTE | 2016-12-27 14:42 | PCM.SURG1 ---
Surgeon's Initial Post Op Note - Surgeon's Notes Surgeon: Buck Tar Heat Exchanger Cleaner: PGY3, Dolly MSIII Type of Anesthesia: General Endo, General LMA Pre-Operative Diagnosis: R Chest wall fluid collection Operative Findings: chest wall hematoma, 20cc old blood Post-Operative Diagnosis: R Chest wall hematoma Operation Performed: I&D of R Chest wall hematoma Specimen/Specimens Removed: Wound culture Estimated Blood Loss: EBL {In ML}: 30 Blood Products Given: N/A Drains Used: No Drains Post-Op Condition: Good Date of Surgery/Procedure: 12/27/16 Time of Surgery/Procedure: 13:45
[2016-12-27] MEDS: Lactated Ringer's 1,000 ML IV SCH (15:00)
--- NOTE | 2016-12-27 19:38 | CP.PCM.PN ---
Subjective - Date & Time of Evaluation Date of Evaluation: 12/27/16 Time of Evaluation: 09:00 - Subjective Subjective: blood c/s still positive may need to remove/ replace line will redraw blood cultures check vanco levels Objective - Vital Signs/Intake and Output Vital Signs (last 24 hours): Temp Pulse Resp BP Pulse Ox 98.7 F 72 7 L 135/67 98 12/27/16 15:45 12/27/16 17:03 12/27/16 15:45 12/27/16 16:29 12/27/16 16:29 - Medications Medications: Current Medications Baclofen (Lioresal) 20 mg PO BID [facility] Last Admin: 12/27/16 10:12 Dose: Not Given Clonazepam (Klonopin) 1 mg PO HS [facility] Last Admin: 12/26/16 22:31 Dose: 1 mg Enoxaparin Sodium (Lovenox) 50 mg SC Q12H [facility] Last Admin: 12/26/16 09:51 Dose: 50 mg Escitalopram Oxalate (Lexapro) 10 mg PO DAILY [facility] Last Admin: 12/27/16 10:12 Dose: Not Given Famotidine (Pepcid) 20 mg PO DAILY [facility] Last Admin: 12/27/16 10:13 Dose: Not Given Ferrous Sulfate (Feosol) 325 mg PO TID [facility] Last Admin: 12/27/16 13:23 Dose: Not Given Gabapentin (Neurontin) 300 mg PO TID [facility] Last Admin: 12/27/16 13:23 Dose: Not Given Vancomycin HCl 1,250 mg/ (Sodium Chloride) 250 mls @ 166.6 mls/hr IVPB Q12H [facility] Last Admin: 12/27/16 11:34 Dose: 166.6 mls/hr Metronidazole (Flagyl) 100 mls @ 100 mls/hr IVPB Q8H [facility] Last Admin: 12/27/16 06:03 Dose: 100 mls/hr Sodium Chloride (Sodium Chloride 0.9%) 1,000 mls @ 150 mls/hr IV .Q6H40M [facility] Stop: 12/27/16 23:55 Last Admin: 12/27/16 08:37 Dose: 150 mls/hr Lactated Ringer's (Lactated Ringer's) 1,000 mls @ 100 mls/hr IV .Q10H [facility] Insulin Human Regular (Novolin R) 0 unit SC ACHS [facility] PRN Reason: Protocol Last Admin: 12/27/16 11:37 Dose: Not Given Morphine Sulfate (Morphine) 4 mg IVP Q4H PRN PRN Reason: Pain, severe (8-10) Morphine Sulfate (Morphine) 2 mg IVP Q4 PRN PRN Reason: Pain, moderate (4-7) Ondansetron HCl (Zofran Inj) 8 mg IVP Q6H PRN PRN Reason: Nausea/Vomiting Penicillin G Benzathine (Bicillin L-A Inj) 2,400,000 units IM QWK [facility] Stop: 01/01/17 14:46 Last Admin: 12/26/16 09:52 Dose: 2,400,000 units Saccharomyces Boulardii (Florastor) 250 mg PO BID [facility] Last Admin: 12/27/16 10:12 Dose: Not Given Trazodone HCl (Desyrel) 50 mg PO HS [facility] Last Admin: 12/26/16 22:31 Dose: 50 mg Vancomycin HCl (Vancocin (Oral Or Rectal Use)) 125 mg PO QID [facility] Stop: 12/30/16 23:55 Last Admin: 12/27/16 13:23 Dose: Not Given - Labs Labs: 12/27/16 06:55 12/27/16 06:55 PT 15.3 SECONDS (9.7-12.2) H 12/27/16 06:55 INR 1.4 12/27/16 06:55 APTT 41 SECONDS (21-34) H 12/27/16 06:55 Assessment and Plan (1) Dehydration Status: Acute (2) Leg pain, bilateral Status: Acute (3) MRSA (methicillin resistant Staphylococcus aureus) septicemia Status: Acute
[2016-12-27] MEDS: Enoxaparin 60 mg Syringe SC SCH (21:39)
[2016-12-27] MEDS ORDERED: Morphine 4 MG/ML VIAL IVP PRN (23:02)
[2016-12-28] MEDS: Lactated Ringer's 1,000 ML IV SCH (03:16)
[2016-12-28] MEDS: metroNIDAZOLE IV 500 mg/100 ml 100 ML IVPB SCH ×3 (06:15→22:02)
[2016-12-28 07:30] LABS: BASO # 0.1 K/uL (0.0-0.2); BASO % 1.5 % (0.0-2.0); EOS # 0.2 K/uL (0.0-0.7); EOS % 3.3 % (0.0-4.0); HEMATOCRIT 23.6 % (34.0-47.0); LYMPH % 28.7 % (20.0-40.0); MEAN CELL VOLUME 91.9 fL (81.0-99.0); MEAN CORPUSCULAR HEMOGLOBIN 32.2 pg (27.0-31.0); MEAN CORPUSCULAR HGB CONC 35.1 g/dL (33.0-37.0); MEAN PLATELET VOLUME 7.2 fL (7.2-11.7); MONO % 14.1 % (0.0-10.0); NRBC % 0.1 % (0.0-2.0); RED CELL DISTRIBUTION WIDTH 17.3 % (11.5-14.5)
[2016-12-28 07:40] LABS: POTASSIUM 3.9 mmol/L (3.6-5.2)
[2016-12-28 07:43] LABS: ALB/GLOB RATIO 0.4 (1.0-2.1); BILIRUBIN,TOTAL 0.4 mg/dL (0.2-1.3); CALCIUM 6.9 mg/dl (8.6-10.4)
[2016-12-28] MEDS: (Novolin R) Insulin Human Regular 100 units/ml vial SC SCH ×4 (08:54→22:08)
[2016-12-28] MEDS: Enoxaparin 60 mg Syringe SC SCH ×2 (09:03→22:02)
[2016-12-28] MEDS: Saccharomyces Boulardi 250 mg Cap PO SCH ×2 (09:04→19:00)
--- NOTE | 2016-12-28 09:59 | CP.PCM.PN ---
Subjective - Date & Time of Evaluation Date of Evaluation: 12/28/16 Time of Evaluation: 09:56 - Subjective Subjective: Surgery: Dr. Jane Patient doing ok today. Pain controlled. Per nursing no acute events overnight. Patient tolerated diet. dressing became moderately saturated. Objective - Vital Signs/Intake and Output Vital Signs (last 24 hours): Temp Pulse Resp BP Pulse Ox 99.1 F 93 H 20 172/108 H 96 12/28/16 08:49 12/28/16 08:49 12/28/16 08:49 12/28/16 08:49 12/28/16 08:49 - Medications Medications: Current Medications Baclofen (Lioresal) 20 mg PO BID [facility] Last Admin: 12/28/16 09:04 Dose: 20 mg Clonazepam (Klonopin) 1 mg PO HS [facility] Last Admin: 12/27/16 21:45 Dose: 1 mg Enoxaparin Sodium (Lovenox) 50 mg SC Q12H [facility] Last Admin: 12/28/16 09:03 Dose: 50 mg Escitalopram Oxalate (Lexapro) 10 mg PO DAILY [facility] Last Admin: 12/28/16 09:04 Dose: 10 mg Famotidine (Pepcid) 20 mg PO DAILY [facility] Last Admin: 12/28/16 09:04 Dose: 20 mg Ferrous Sulfate (Feosol) 325 mg PO TID [facility] Last Admin: 12/28/16 09:03 Dose: 325 mg Gabapentin (Neurontin) 300 mg PO TID [facility] Last Admin: 12/28/16 09:04 Dose: 300 mg Vancomycin HCl 1,250 mg/ (Sodium Chloride) 250 mls @ 166.6 mls/hr IVPB Q12H [facility] Last Admin: 12/27/16 23:13 Dose: 166.6 mls/hr Metronidazole (Flagyl) 100 mls @ 100 mls/hr IVPB Q8H [facility] Last Admin: 12/28/16 06:15 Dose: 100 mls/hr Lactated Ringer's (Lactated Ringer's) 1,000 mls @ 100 mls/hr IV .Q10H [facility] Last Admin: 12/28/16 03:16 Dose: Not Given Insulin Human Regular (Novolin R) 0 unit SC ACHS [facility] PRN Reason: Protocol Last Admin: 12/28/16 08:54 Dose: Not Given Morphine Sulfate (Morphine) 2 mg IVP Q4 PRN PRN Reason: Pain, moderate (4-7) Last Admin: 12/27/16 22:30 Dose: 2 mg Morphine Sulfate (Morphine Sulfate) 4 mg IVP Q4H PRN PRN Reason: Pain, severe (8-10) Ondansetron HCl (Zofran Inj) 8 mg IVP Q6H PRN PRN Reason: Nausea/Vomiting Penicillin G Benzathine (Bicillin L-A Inj) 2,400,000 units IM QWK [facility] Stop: 01/01/17 14:46 Last Admin: 12/26/16 09:52 Dose: 2,400,000 units Saccharomyces Boulardii (Florastor) 250 mg PO BID [facility] Last Admin: 12/28/16 09:04 Dose: 250 mg Trazodone HCl (Desyrel) 50 mg PO HS [facility] Last Admin: 12/27/16 21:36 Dose: 50 mg Vancomycin HCl (Vancocin (Oral Or Rectal Use)) 125 mg PO QID [facility] Stop: 12/30/16 23:55 Last Admin: 12/27/16 21:42 Dose: 125 mg - Labs Labs: 12/28/16 07:06 12/28/16 07:06 PT 15.3 SECONDS (9.7-12.2) H 12/27/16 06:55 INR 1.4 12/27/16 06:55 APTT 41 SECONDS (21-34) H 12/27/16 06:55 - Constitutional Appears: Non-toxic, No Acute Distress - Head Exam Head Exam: ATRAUMATIC, NORMOCEPHALIC - Eye Exam Eye Exam: EOMI, Normal appearance - ENT Exam ENT Exam: Mucous Membranes Moist - Respiratory Exam Respiratory Exam: NORMAL BREATHING PATTERN. absent: Respiratory Distress Additional comments: chest wall apex on right dressing moderately saturated w/ blood tinged fluid. overlying dressing and gauze removed. Incision is clean w/o evidence of active drainage. Dressing changed. - Cardiovascular Exam Cardiovascular Exam: REGULAR RHYTHM. absent: Tachycardia Assessment and Plan - Assessment and Plan (Free Text) Assessment: 36 y/o F s/p I&D of chest wall abscess POD1 Plan: -daily packing changes -f/u culture -cont abx per ID -medical management per primary -no further surgical intervention at this time -will follow -further recs per Dr. Buck Lauren PGY1
[2016-12-28] MEDS ORDERED: Lactated Ringer's 1,000 ML IV SCH (11:42)
[2016-12-28] MEDS: Dextrose 5%/0.45% NS 1,000 ML IV SCH ×2 (13:54→22:09)
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
[2016-12-28] MEDS: Vancomycin 125 MG/5 ML SOLN (ORAL/RECTAL) PO SCH ×3 (15:31→22:04)
--- NOTE | 2016-12-28 16:27 | CP.PCM.PN ---
Subjective - Date & Time of Evaluation Date of Evaluation: 12/28/16 Time of Evaluation: 09:00 - Subjective Subjective: events noted MRSA bacteremia persists PICC is out IV Vanco d/c'd Tygacil started prognosis remains guarded Objective - Vital Signs/Intake and Output Vital Signs (last 24 hours): Temp Pulse Resp BP Pulse Ox 99.1 F 93 H 20 121/76 96 12/28/16 08:49 12/28/16 10:00 12/28/16 08:49 12/28/16 08:49 12/28/16 08:49 - Medications Medications: Current Medications Baclofen (Lioresal) 20 mg PO BID [facility] Last Admin: 12/28/16 09:04 Dose: 20 mg Clonazepam (Klonopin) 1 mg PO HS [facility] Last Admin: 12/27/16 21:45 Dose: 1 mg Enoxaparin Sodium (Lovenox) 50 mg SC Q12H [facility] Last Admin: 12/28/16 09:03 Dose: 50 mg Escitalopram Oxalate (Lexapro) 10 mg PO DAILY [facility] Last Admin: 12/28/16 09:04 Dose: 10 mg Famotidine (Pepcid) 20 mg PO DAILY [facility] Last Admin: 12/28/16 09:04 Dose: 20 mg Ferrous Sulfate (Feosol) 325 mg PO TID [facility] Last Admin: 12/28/16 13:54 Dose: 325 mg Gabapentin (Neurontin) 300 mg PO TID [facility] Last Admin: 12/28/16 13:55 Dose: 300 mg Metronidazole (Flagyl) 100 mls @ 100 mls/hr IVPB Q8H [facility] Last Admin: 12/28/16 15:01 Dose: 100 mls/hr Dextrose/Sodium Chloride (Dextrose 5%/0.45% Ns 1000 Ml) 1,000 mls @ 150 mls/hr IV .Q6H40M [facility] Last Admin: 12/28/16 13:54 Dose: 150 mls/hr Tigecycline 100 mg/ Sodium (Chloride) 100 mls @ 100 mls/hr IV ONCE ONE Stop: 12/28/16 16:59 Tigecycline 50 mg/ Sodium (Chloride) 100 mls @ 100 mls/hr IV Q12H [facility] Insulin Human Regular (Novolin R) 0 unit SC ACHS [facility] PRN Reason: Protocol Last Admin: 12/28/16 13:54 Dose: Not Given Morphine Sulfate (Morphine) 2 mg IVP Q4 PRN PRN Reason: Pain, moderate (4-7) Last Admin: 12/27/16 22:30 Dose: 2 mg Morphine Sulfate (Morphine Sulfate) 4 mg IVP Q4H PRN PRN Reason: Pain, severe (8-10) Ondansetron HCl (Zofran Inj) 8 mg IVP Q6H PRN PRN Reason: Nausea/Vomiting Penicillin G Benzathine (Bicillin L-A Inj) 2,400,000 units IM QWK [facility] Stop: 01/01/17 14:46 Last Admin: 12/26/16 09:52 Dose: 2,400,000 units Saccharomyces Boulardii (Florastor) 250 mg PO BID [facility] Last Admin: 12/28/16 09:04 Dose: 250 mg Trazodone HCl (Desyrel) 50 mg PO HS [facility] Last Admin: 12/27/16 21:36 Dose: 50 mg Vancomycin HCl (Vancocin (Oral Or Rectal Use)) 125 mg PO QID [facility] - Labs Labs: 12/28/16 07:06 12/28/16 07:06 PT 15.3 SECONDS (9.7-12.2) H 12/27/16 06:55 INR 1.4 12/27/16 06:55 APTT 41 SECONDS (21-34) H 12/27/16 06:55 Assessment and Plan (1) Dehydration Status: Acute (2) Leg pain, bilateral Status: Acute (3) MRSA (methicillin resistant Staphylococcus aureus) septicemia Status: Acute
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
[2016-12-29] MEDS: Dextrose 5%/0.45% NS 1,000 ML IV SCH ×5 (02:29→22:20)
[2016-12-29 04:07] LABS: B2 GLYCOPROTEIN I AB(IGA) <9 SAU (<=20); B2 GLYCOPROTEIN I AB(IGG) <9 SGU (<=20); B2 GLYCOPROTEIN I AB(IGM) <9 SMU (<=20)
[2016-12-29 04:24] LABS: CARDIOLIPIN AB (IGA) <11 APL (<=11)
[2016-12-29 04:51] LABS: PHOSPHATIDYLSERINE AB IGA <20 U/mL (<20); PHOSPHATIDYLSERINE AB IGM <25 U/mL (<25)
[2016-12-29] MEDS: metroNIDAZOLE IV 500 mg/100 ml 100 ML IVPB SCH ×3 (06:35→22:19)
[2016-12-29] MEDS: (Novolin R) Insulin Human Regular 100 units/ml vial SC SCH ×4 (08:12→21:50)
[2016-12-29 08:14] LABS: BASO # 0.1 K/uL (0.0-0.2); BASO % 2.2 % (0.0-2.0); EOS # 0.2 K/uL (0.0-0.7); HEMATOCRIT 25.3 % (34.0-47.0); LYMPH # 1.8 K/uL (1.0-4.3); LYMPH % 28.4 % (20.0-40.0); MEAN CELL VOLUME 91.8 fL (81.0-99.0); MEAN CORPUSCULAR HEMOGLOBIN 30.8 pg (27.0-31.0); MEAN CORPUSCULAR HGB CONC 33.6 g/dL (33.0-37.0); MEAN PLATELET VOLUME 7.1 fL (7.2-11.7); MONO # 0.9 K/uL (0.0-0.8); MONO % 13.9 % (0.0-10.0); RED CELL DISTRIBUTION WIDTH 17.2 % (11.5-14.5); WHITE BLOOD COUNT 6.3 K/uL (4.8-10.8)
[2016-12-29 08:45] LABS: POTASSIUM 3.8 mmol/L (3.6-5.2)
[2016-12-29 08:47] LABS: BILIRUBIN,TOTAL 0.4 mg/dL (0.2-1.3)
[2016-12-29 08:48] LABS: ALB/GLOB RATIO 0.4 (1.0-2.1); CALCIUM 6.8 mg/dl (8.6-10.4)
[2016-12-29] MEDS: Saccharomyces Boulardi 250 mg Cap PO SCH ×3 (09:57→18:19)
[2016-12-29] MEDS: Enoxaparin 60 mg Syringe SC SCH ×2 (09:58→21:47)
--- NOTE | 2016-12-29 10:21 | CP.PCM.PN ---
Subjective - Date & Time of Evaluation Date of Evaluation: 12/29/16 Time of Evaluation: 10:19 - Subjective Subjective: Surgery: Dr. Jane Patient more awake today and conversant. Patient denies pain to surgical area unless palpated. Denies f/c/n/v. Tolerating diet. Per nursing no acute events overnight. Objective - Vital Signs/Intake and Output Vital Signs (last 24 hours): Temp Pulse Resp BP Pulse Ox 98.3 F 77 20 152/89 H 97 12/29/16 08:01 12/29/16 08:01 12/29/16 08:01 12/29/16 08:01 12/29/16 08:01 Intake and Output: 12/29/16 12/29/16 06:59 18:59 Intake Total 1320 Output Total 600 Balance 720 - Medications Medications: Current Medications Baclofen (Lioresal) 20 mg PO BID [facility] Last Admin: 12/29/16 09:56 Dose: 20 mg Clonazepam (Klonopin) 1 mg PO HS [facility] Last Admin: 12/28/16 22:09 Dose: Not Given Enoxaparin Sodium (Lovenox) 50 mg SC Q12H [facility] Last Admin: 12/29/16 09:58 Dose: 50 mg Escitalopram Oxalate (Lexapro) 10 mg PO DAILY [facility] Last Admin: 12/29/16 09:56 Dose: 10 mg Famotidine (Pepcid) 20 mg PO DAILY [facility] Last Admin: 12/29/16 09:56 Dose: 20 mg Ferrous Sulfate (Feosol) 325 mg PO TID [facility] Last Admin: 12/29/16 09:56 Dose: 325 mg Gabapentin (Neurontin) 300 mg PO TID [facility] Last Admin: 12/29/16 09:56 Dose: 300 mg Metronidazole (Flagyl) 100 mls @ 100 mls/hr IVPB Q8H [facility] Last Admin: 12/29/16 06:35 Dose: 100 mls/hr Dextrose/Sodium Chloride (Dextrose 5%/0.45% Ns 1000 Ml) 1,000 mls @ 150 mls/hr IV .Q6H40M [facility] Last Admin: 12/29/16 09:56 Dose: 150 mls/hr Tigecycline 50 mg/ Sodium (Chloride) 100 mls @ 100 mls/hr IV Q12H [facility] Last Admin: 12/29/16 04:03 Dose: 100 mls/hr Insulin Human Regular (Novolin R) 0 unit SC ACHS [facility] PRN Reason: Protocol Last Admin: 12/29/16 08:12 Dose: Not Given Morphine Sulfate (Morphine) 2 mg IVP Q4 PRN PRN Reason: Pain, moderate (4-7) Last Admin: 12/27/16 22:30 Dose: 2 mg Morphine Sulfate (Morphine Sulfate) 4 mg IVP Q4H PRN PRN Reason: Pain, severe (8-10) Ondansetron HCl (Zofran Inj) 8 mg IVP Q6H PRN PRN Reason: Nausea/Vomiting Penicillin G Benzathine (Bicillin L-A Inj) 2,400,000 units IM QWK [facility] Stop: 01/01/17 14:46 Last Admin: 12/26/16 09:52 Dose: 2,400,000 units Saccharomyces Boulardii (Florastor) 250 mg PO BID [facility] Last Admin: 12/29/16 10:00 Dose: 250 mg Trazodone HCl (Desyrel) 50 mg PO HS [facility] Last Admin: 12/28/16 22:09 Dose: Not Given Vancomycin HCl (Vancocin (Oral Or Rectal Use)) 125 mg PO QID [facility] Last Admin: 12/28/16 22:04 Dose: 125 mg - Labs Labs: 12/29/16 08:06 12/29/16 08:06 PT 15.3 SECONDS (9.7-12.2) H 12/27/16 06:55 INR 1.4 12/27/16 06:55 APTT 41 SECONDS (21-34) H 12/27/16 06:55 - Constitutional Appears: Non-toxic, No Acute Distress - Head Exam Head Exam: ATRAUMATIC, NORMOCEPHALIC - Eye Exam Eye Exam: EOMI, Normal appearance - ENT Exam ENT Exam: Mucous Membranes Moist - Respiratory Exam Respiratory Exam: NORMAL BREATHING PATTERN. absent: Respiratory Distress Additional comments: packing chaged on apex right chest incision. area is clean and dry w/o drainage. - Cardiovascular Exam Cardiovascular Exam: REGULAR RHYTHM. absent: Tachycardia Assessment and Plan - Assessment and Plan (Free Text) Assessment: 36 y/o female s/p I&D of right chest wall hematoma POD1 Plan: -culture shows Gram + cocci -cont abx -change packing daily -no further surgical intervention at this time -further recs per Dr. Buck Laurne PGY1
[2016-12-29] MEDS: Vancomycin 125 MG/5 ML SOLN (ORAL/RECTAL) PO SCH ×4 (10:25→21:49)
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
[2016-12-30] MEDS: Dextrose 5%/0.45% NS 1,000 ML IV SCH ×3 (05:03→18:50)
[2016-12-30] MEDS: metroNIDAZOLE IV 500 mg/100 ml 100 ML IVPB SCH ×4 (06:02→22:11)
--- NOTE | 2016-12-30 06:55 | CP.PCM.PN ---
Subjective - Date & Time of Evaluation Date of Evaluation: 12/30/16 Time of Evaluation: 06:52 - Subjective Subjective: Surgery: Dr. Jane Patient seen and examined this am. patient resting comfortably. Denies pain the apex of chest wall on right. Tolerating diet. Denies f/c. Objective - Vital Signs/Intake and Output Vital Signs (last 24 hours): Temp Pulse Resp BP Pulse Ox 97.8 F 74 20 157/100 H 98 12/30/16 00:00 12/30/16 00:00 12/30/16 00:00 12/30/16 00:00 12/30/16 00:00 Intake and Output: 12/29/16 12/30/16 18:59 06:59 Intake Total 1320 Output Total 650 Balance 670 - Medications Medications: Current Medications Baclofen (Lioresal) 20 mg PO BID [facility] Last Admin: 12/29/16 18:19 Dose: 20 mg Clonazepam (Klonopin) 1 mg PO HS [facility] Last Admin: 12/29/16 21:49 Dose: 1 mg Enoxaparin Sodium (Lovenox) 50 mg SC Q12H [facility] Last Admin: 12/29/16 21:47 Dose: 50 mg Escitalopram Oxalate (Lexapro) 10 mg PO DAILY [facility] Last Admin: 12/29/16 09:56 Dose: 10 mg Famotidine (Pepcid) 20 mg PO DAILY [facility] Last Admin: 12/29/16 09:56 Dose: 20 mg Ferrous Sulfate (Feosol) 325 mg PO TID [facility] Last Admin: 12/29/16 18:19 Dose: 325 mg Gabapentin (Neurontin) 300 mg PO TID [facility] Last Admin: 12/29/16 18:19 Dose: 300 mg Metronidazole (Flagyl) 100 mls @ 100 mls/hr IVPB Q8H [facility] Last Admin: 12/30/16 06:02 Dose: 100 mls/hr Dextrose/Sodium Chloride (Dextrose 5%/0.45% Ns 1000 Ml) 1,000 mls @ 150 mls/hr IV .Q6H40M [facility] Last Admin: 12/30/16 05:03 Dose: 150 mls/hr Tigecycline 50 mg/ Sodium (Chloride) 100 mls @ 100 mls/hr IV Q12H [facility] Last Admin: 12/30/16 04:54 Dose: 100 mls/hr Insulin Human Regular (Novolin R) 0 unit SC ACHS [facility] PRN Reason: Protocol Last Admin: 12/29/16 21:50 Dose: Not Given Morphine Sulfate (Morphine) 2 mg IVP Q4 PRN PRN Reason: Pain, moderate (4-7) Last Admin: 12/27/16 22:30 Dose: 2 mg Morphine Sulfate (Morphine Sulfate) 4 mg IVP Q4H PRN PRN Reason: Pain, severe (8-10) Ondansetron HCl (Zofran Inj) 4 mg IVP Q6H PRN PRN Reason: Nausea/Vomiting Penicillin G Benzathine (Bicillin L-A Inj) 2,400,000 units IM QWK [facility] Stop: 01/01/17 14:46 Last Admin: 12/26/16 09:52 Dose: 2,400,000 units Saccharomyces Boulardii (Florastor) 250 mg PO BID [facility] Last Admin: 12/29/16 18:19 Dose: 250 mg Trazodone HCl (Desyrel) 50 mg PO HS [facility] Last Admin: 12/29/16 21:46 Dose: 50 mg Vancomycin HCl (Vancocin (Oral Or Rectal Use)) 125 mg PO QID [facility] Last Admin: 12/29/16 21:49 Dose: 125 mg - Labs Labs: 12/29/16 08:06 12/29/16 08:06 PT 15.3 SECONDS (9.7-12.2) H 12/27/16 06:55 INR 1.4 12/27/16 06:55 APTT 41 SECONDS (21-34) H 12/27/16 06:55 - Constitutional Appears: Non-toxic, No Acute Distress - Head Exam Head Exam: ATRAUMATIC, NORMOCEPHALIC - Eye Exam Eye Exam: EOMI, Normal appearance - ENT Exam ENT Exam: Mucous Membranes Moist - Respiratory Exam Respiratory Exam: NORMAL BREATHING PATTERN. absent: Respiratory Distress Additional comments: Right chest apex dressing w/ SA fluid drainage. Packing and dressing changed. Incision appears clean w/o sign of infxn - Cardiovascular Exam Cardiovascular Exam: REGULAR RHYTHM. absent: Tachycardia - Extremities Exam Extremities Exam: absent: Calf Tenderness - Skin Skin Exam: Dry, Intact, Warm Assessment and Plan - Assessment and Plan (Free Text) Assessment: 36 y/o F s/p I&D of right chest wall hematoma POD3 Plan: -cont daily packing changes -cont abx per ID -medical managment per primary team -no further surgical intervention at this time -further recs per Dr. Buck Lauren PGY1
[2016-12-30] MEDS: (Novolin R) Insulin Human Regular 100 units/ml vial SC SCH ×4 (08:30→22:13)
[2016-12-30 08:43] LABS: BASO # 0.1 K/uL (0.0-0.2); BASO % 2.2 % (0.0-2.0); EOS # 0.2 K/uL (0.0-0.7); EOS % 3.3 % (0.0-4.0); HEMATOCRIT 26.3 % (34.0-47.0); LYMPH # 1.5 K/uL (1.0-4.3); MEAN CELL VOLUME 90.6 fL (81.0-99.0); MEAN CORPUSCULAR HEMOGLOBIN 31.3 pg (27.0-31.0); MEAN CORPUSCULAR HGB CONC 34.5 g/dL (33.0-37.0); MEAN PLATELET VOLUME 7.2 fL (7.2-11.7); MONO # 0.9 K/uL (0.0-0.8); NRBC % 0.1 % (0.0-2.0); RED CELL DISTRIBUTION WIDTH 17.3 % (11.5-14.5); WHITE BLOOD COUNT 5.5 K/uL (4.8-10.8)
[2016-12-30 09:02] LABS: POTASSIUM 3.7 mmol/L (3.6-5.2)
[2016-12-30 09:04] LABS: ALB/GLOB RATIO 0.4 (1.0-2.1); BILIRUBIN,TOTAL 0.4 mg/dL (0.2-1.3)
[2016-12-30 09:05] LABS: CALCIUM 7.1 mg/dl (8.6-10.4); MAGNESIUM 1.7 mg/dL (1.6-2.3); PHOSPHOROUS 4.6 mg/dL (2.5-4.5)
[2016-12-30] MEDS: Saccharomyces Boulardi 250 mg Cap PO SCH ×2 (10:09→18:05)
[2016-12-30] MEDS: Enoxaparin 60 mg Syringe SC SCH ×2 (10:16→22:11)
[2016-12-30] MEDS: Vancomycin 125 MG/5 ML SOLN (ORAL/RECTAL) PO SCH ×4 (10:46→22:14)
--- NOTE | 2016-12-30 14:21 | CP.PCM.CON ---
History of Present Illness - History of Present Illness History of Present Illness: Consultation requested for evaluation and management of elevated creatinine. Patient presented 12/12/16 with report of weakness, decreased ability to walk, generalized pain,fever, nausea, and vomiting. Initial labs significant for normal renal function. Patients course complicated by finding of +hep c, +rpr and fta-abs, + bacteremia/sepsis, endocarditis, cdiff, dvt and pe. Patient treated with IV abx and po abx. required chest I and D of mass. Patient reports no known history of renal disease, no history of hematuria or proteinuria. No history of prostatic disease or nephrolithiasis. Review of Systems - Constitutional Constitutional: Fatigue, Fever, Lethargy, Malaise - EENT Eyes: absent: Blurred Vision, Change in Vision, Loss of Peripheral Vision Nose/Mouth/Throat: Dry Mouth, Sore Throat. absent: Nasal Congestion, Tongue Swelling - Cardiovascular Cardiovascular: absent: Dyspnea, Edema, Palpitations - Respiratory Respiratory: absent: Cough, Dyspnea, Dyspnea on Exertion - Gastrointestinal Gastrointestinal: Cramping, Diarrhea, Nausea, Vomiting. absent: Abdominal Pain - Genitourinary Genitourinary: absent: Change in Urinary Stream, Difficulty Urinating, Hematuria - Musculoskeletal Musculoskeletal: Arthralgias, Muscle Weakness. absent: Neck Pain - Integumentary Integumentary: Dry Skin. absent: Skin Ulcer - Neurological Neurological: absent: Convulsions, Memory Loss, Syncope - Psychiatric Psychiatric: Depression. absent: Anxiety, Confusion - Hematologic/Lymphatic Hematologic: absent: Easy Bleeding, Easy Bruising Past Patient History - Infectious Disease Hx of Infectious Diseases: None - Past Medical History & Family History Past Medical History?: Yes - Past Social History Smoking Status: Never Smoked - CARDIAC Hx Hypertension: Yes - PULMONARY Hx Respiratory Disorders: No Hx Asthma: No Hx Bronchitis: No Hx Chronic Obstructive Pulmonary Disease (COPD): No Hx Emphysema: No Hx Lung Cancer: No Hx Pneumonia: No Hx Pulmonary Edema: No Hx Pulmonary Embolism: No Hx Respiratory Aspiration: No Hx Respiratory Tract Infection: No Hx Sleep Apnea: No Hx Tuberculosis: No - NEUROLOGICAL Hx Neurological Disorder: No Hx Alzheimer's Disease: No HX Cerebrovascular Accident: No Hx Dementia: No Hx Dizziness: No Hx Meningitis: No Hx Migraine: No Hx Multiple Sclerosis: No Hx Paralysis: No Hx Parkinson's Disease: No Hx Seizures: Yes (Epilepsy) Hx Syncope: No Hx Transient Ischemic Attacks (TIA): No Hx Vertigo: No - HEENT Hx HEENT Problems: No Hx Blind: No Hx Cataracts: No Hx Deafness: No Hx Difficulty Chewing: No Hx Epistaxis: No Hx Glaucoma: No Hx Macular Degeneration: No Hx Sinusitis: No - RENAL Hx Chronic Kidney Disease: No Hx Dialysis: No Hx Kidney Stones: No Hx Neurogenic Bladder: No Hx Pyelonephritis: No Hx Renal (Kidney) Cancer: No Hx Renal Failure: No - ENDOCRINE/METABOLIC Hx Diabetes Mellitus Type 1: Yes - HEMATOLOGICAL/ONCOLOGICAL Hx Blood Disorders: No Hx AIDS: No Hx Anemia: No Hx Blood Transfusions: No Hx Blood Transfusion Reaction: No Hx Bruising: No Hx Cancer: No Hx Chemotherapy: No Hx Cirrhosis: No Hx Gum Bleeding: No Hx Hemophilia: No Hx Hepatitis A: No Hx Hepatitis B: No Hx Hepatitis C: No Hx Human Immunodeficiency Virus (HIV): No Hx Leukemia: No Hx Metastesis: No Hx Shingles: No Hx Sickle Cell Disease: No Hx Unexplained Bleeding: No Hx von Willebrand's Disease: No - INTEGUMENTARY Hx Dermatological Problems: No Hx Basil Cell: No Hx Rg: No Hx Cellulitis: No Hx Eczema: No Hx Melanoma: No Hx Psoriasis: No Hx Squamous Cell: No - MUSCULOSKELETAL/RHEUMATOLOGICAL Hx Falls: Yes - GASTROINTESTINAL Hx Gastrointestinal Disorders: No Hx Bowel Surgery: No Hx Clostridium Difficile: No Hx Colitis: No Hx Colostomy: No Hx Constipation: No Hx Crohn's Disease: No Hx Diarrhea: No Hx Diverticulitis: No Hx Esophageal Varices: No Hx Fatty Liver Disease: No Hx Gall Bladder Disease: No Hx Gastritis: No Hx Gastroesophageal Reflux: No Hx Hemorrhoids: No Hx Ileostomy: No Hx Irritable Bowel: No Hx Liver Failure: No Hx Nausea: No Hx Pancreatitis: No HX Swallowing Problems: No Hx Ulcer: No Hx Vomiting: No - GENITOURINARY/GYNECOLOGICAL Hx Genitourinary Disorders: No Hx Bladder Cancer: No Hx Bladder Stone: No Hx Cervical Cancer: No Hx Hematuria: No Hx Incontinence: No Hx Ovarian Cancer: No Hx Postmenopausal Bleeding: No Hx Reproductive Disorders: No Hx Sexually Transmitted Disorders: No Hx Uterine Cancer: No Hx Urinary Tract Infection: No - PSYCHIATRIC Hx Substance Use: No - SURGICAL HISTORY Hx Surgeries: No - ANESTHESIA Hx Anesthesia: Yes Hx Anesthesia Reactions: No Hx Malignant Hyperthermia: No Has any member of the family had a problem w/ anesthesia?: No Meds Allergies/Adverse Reactions: Allergies Allergy/AdvReac Type Severity Reaction Status Date / Time No Known Allergies Allergy Verified 12/12/16 12:26 - Medications Medications: Current Medications Baclofen (Lioresal) 20 mg PO BID [facility] Last Admin: 12/30/16 10:08 Dose: 20 mg Clonazepam (Klonopin) 1 mg PO HS [facility] Last Admin: 12/29/16 21:49 Dose: 1 mg Enoxaparin Sodium (Lovenox) 50 mg SC Q12H [facility] Last Admin: 12/30/16 10:16 Dose: 50 mg Escitalopram Oxalate (Lexapro) 10 mg PO DAILY [facility] Last Admin: 12/30/16 10:08 Dose: 10 mg Famotidine (Pepcid) 20 mg PO DAILY [facility] Last Admin: 12/30/16 10:08 Dose: 20 mg Ferrous Sulfate (Feosol) 325 mg PO TID [facility] Last Admin: 12/30/16 13:12 Dose: 325 mg Gabapentin (Neurontin) 300 mg PO TID [facility] Last Admin: 12/30/16 13:12 Dose: 300 mg Metronidazole (Flagyl) 100 mls @ 100 mls/hr IVPB Q8H [facility] Last Admin: 12/30/16 06:02 Dose: 100 mls/hr Dextrose/Sodium Chloride (Dextrose 5%/0.45% Ns 1000 Ml) 1,000 mls @ 150 mls/hr IV .Q6H40M [facility] Last Admin: 12/30/16 05:03 Dose: 150 mls/hr Tigecycline 50 mg/ Sodium (Chloride) 100 mls @ 100 mls/hr IV Q12H [facility] Last Admin: 12/30/16 04:54 Dose: 100 mls/hr Insulin Human Regular (Novolin R) 0 unit SC ACHS [facility] PRN Reason: Protocol Last Admin: 12/30/16 12:06 Dose: Not Given Morphine Sulfate (Morphine) 2 mg IVP Q4 PRN PRN Reason: Pain, moderate (4-7) Last Admin: 12/27/16 22:30 Dose: 2 mg Morphine Sulfate (Morphine Sulfate) 4 mg IVP Q4H PRN PRN Reason: Pain, severe (8-10) Ondansetron HCl (Zofran Inj) 4 mg IVP Q6H [facility] Last Admin: 12/30/16 13:12 Dose: 4 mg Penicillin G Benzathine (Bicillin L-A Inj) 2,400,000 units IM QWK [facility] Stop: 01/01/17 14:46 Last Admin: 12/26/16 09:52 Dose: 2,400,000 units Saccharomyces Boulardii (Florastor) 250 mg PO BID [facility] Last Admin: 12/30/16 10:09 Dose: 250 mg Trazodone HCl (Desyrel) 50 mg PO HS [facility] Last Admin: 12/29/16 21:46 Dose: 50 mg Vancomycin HCl (Vancocin (Oral Or Rectal Use)) 125 mg PO QID [facility] Last Admin: 12/30/16 13:12 Dose: 125 mg Physical Exam - Constitutional Appears: Non-toxic, Unkempt, Older Than Stated Age - Head Exam Head Exam: ATRAUMATIC, NORMAL INSPECTION - Eye Exam Eye Exam: EOMI, Normal appearance - ENT Exam ENT Exam: Mucous Membranes Dry Additional comments: poor dentition - Neck Exam Neck exam: Negative for: Lymphadenopathy, Thyromegaly - Respiratory Exam Respiratory Exam: absent: Rales, Rhonchi, Wheezes - Cardiovascular Exam Cardiovascular Exam: +S1, +S2, Systolic Murmur. absent: JVD - GI/Abdominal Exam GI & Abdominal Exam: Normal Bowel Sounds, Soft. absent: Tenderness - Extremities Exam Extremities exam: Negative for: joint swelling, pedal edema - Back Exam Back exam: absent: CVA tenderness (L), CVA tenderness (R), tenderness - Neurological Exam Neurological exam: Alert, Oriented x3 - Psychiatric Exam Psychiatric exam: Depressed, Flat Affect - Skin Skin Exam: Dry, Normal Color Results - Vital Signs Recent Vital Signs: Last Vital Signs Temp 97.8 F 12/30/16 08:00 Pulse 97 H 12/30/16 08:00 Resp 20 12/30/16 08:00 BP 136/98 H 12/30/16 08:00 Pulse Ox 97 12/30/16 08:00 - Labs Result Diagrams: 12/30/16 08:27 12/30/16 08:27 Labs: Laboratory Results - last 24 hr 12/29/16 12/29/16 12/29/16 13:56 16:27 21:46 WBC RBC Hgb Hct MCV MCH MCHC RDW Plt Count MPV Neut % (Auto) Lymph % (Auto) [place] % (Auto) Eos % (Auto) Baso % (Auto) Neut # Lymph # [place] # Eos # Baso # Sodium Potassium Chloride Carbon Dioxide Anion Gap BUN Creatinine Est GFR ( Amer) Est GFR (Non-Af Amer) POC Glucose (mg/dL) 194 H 201 H Random Glucose Calcium Phosphorus Magnesium Total Bilirubin AST ALT Alkaline Phosphatase Total Protein Albumin Globulin Albumin/Globulin Ratio Random Vancomycin 25.12 12/30/16 12/30/16 12/30/16 07:17 08:27 11:41 WBC 5.5 RBC 2.90 L Hgb 9.1 L Hct 26.3 L MCV 90.6 MCH 31.3 H MCHC 34.5 RDW 17.3 H Plt Count 140 MPV 7.2 Neut % (Auto) 50.5 Lymph % (Auto) 28.0 [place] % (Auto) 16.0 H Eos % (Auto) 3.3 Baso % (Auto) 2.2 H Neut # 2.8 Lymph # 1.5 [place] # 0.9 H Eos # 0.2 Baso # 0.1 Sodium 137 Potassium 3.7 Chloride 106 Carbon Dioxide 17 L Anion Gap 18 BUN 16 Creatinine 2.8 H Est GFR ( Amer) 23 Est GFR (Non-Af Amer) 19 POC Glucose (mg/dL) 209 H 167 H Random Glucose 189 H Calcium 7.1 L Phosphorus 4.6 H Magnesium 1.7 Total Bilirubin 0.4 AST 21 ALT 6 L D Alkaline Phosphatase 73 Total Protein 7.0 Albumin 2.0 L Globulin 5.0 H Albumin/Globulin Ratio 0.4 L Random Vancomycin Assessment & Plan (1) Dehydration Status: Acute (2) MRSA (methicillin resistant Staphylococcus aureus) septicemia Status: Acute (3) Acute kidney injury Status: Acute (4) C. difficile colitis Status: Acute (5) Diabetes Status: Acute (6) Anemia Status: Acute (7) Syphilis Status: Acute (8) Hep C w/o coma, chronic Status: Acute (9) Endocarditis Status: Acute - Assessment and Plan (Free Text) Assessment: Acute kidney injury multifactorial: Patient appears volume depleted clinically Recent contrast exposure - contrast induced nephropathy Nephrotoxicity due to prolonged vanco exposure Interstitial nephritis possible as well Initial eval to include renal ultrasound, ua, urine for na protein and creatinine, check c3, c4, urine eos Hold vanco IV Start IVF Strict I and O Serial chemistry
[2016-12-30] MEDS: Sodium Chloride 0.9% 1,000 ML IV SCH (14:45)
--- NOTE | 2016-12-30 14:54 | CP.PCM.PN ---
Subjective - Date & Time of Evaluation Date of Evaluation: 12/30/16 Time of Evaluation: 09:00 - Subjective Subjective: s/p chest wall drainage of hematoma recent blood c/s still + MRSA chest wall hematoma and picc line cath tip also + MRSA now with worsening renal failure off IV Vanco etiology of diarrhea unclear- repeat c diff neg renal on board iv antibiotics renewed Objective - Vital Signs/Intake and Output Vital Signs (last 24 hours): Temp Pulse Resp BP Pulse Ox 97.8 F 97 H 20 136/98 H 97 12/30/16 08:00 12/30/16 08:00 12/30/16 08:00 12/30/16 08:00 12/30/16 08:00 Intake and Output: 12/30/16 12/30/16 06:59 18:59 Intake Total 1320 Output Total 650 Balance 670 - Medications Medications: Current Medications Baclofen (Lioresal) 20 mg PO BID [facility] Last Admin: 12/30/16 10:08 Dose: 20 mg Clonazepam (Klonopin) 1 mg PO HS [facility] Last Admin: 12/29/16 21:49 Dose: 1 mg Enoxaparin Sodium (Lovenox) 50 mg SC Q12H [facility] Last Admin: 12/30/16 10:16 Dose: 50 mg Escitalopram Oxalate (Lexapro) 10 mg PO DAILY [facility] Last Admin: 12/30/16 10:08 Dose: 10 mg Famotidine (Pepcid) 20 mg PO DAILY [facility] Last Admin: 12/30/16 10:08 Dose: 20 mg Ferrous Sulfate (Feosol) 325 mg PO TID [facility] Last Admin: 12/30/16 13:12 Dose: 325 mg Gabapentin (Neurontin) 300 mg PO TID [facility] Last Admin: 12/30/16 13:12 Dose: 300 mg Metronidazole (Flagyl) 100 mls @ 100 mls/hr IVPB Q8H [facility] Last Admin: 12/30/16 06:02 Dose: 100 mls/hr Dextrose/Sodium Chloride (Dextrose 5%/0.45% Ns 1000 Ml) 1,000 mls @ 150 mls/hr IV .Q6H40M [facility] Last Admin: 12/30/16 05:03 Dose: 150 mls/hr Tigecycline 50 mg/ Sodium (Chloride) 100 mls @ 100 mls/hr IV Q12H [facility] Last Admin: 12/30/16 04:54 Dose: 100 mls/hr Sodium Chloride (Sodium Chloride 0.9%) 1,000 mls @ 75 mls/hr IV .[id number] [facility] Insulin Human Regular (Novolin R) 0 unit SC ACHS [facility] PRN Reason: Protocol Last Admin: 12/30/16 12:06 Dose: Not Given Morphine Sulfate (Morphine) 2 mg IVP Q4 PRN PRN Reason: Pain, moderate (4-7) Last Admin: 12/27/16 22:30 Dose: 2 mg Morphine Sulfate (Morphine Sulfate) 4 mg IVP Q4H PRN PRN Reason: Pain, severe (8-10) Ondansetron HCl (Zofran Inj) 4 mg IVP Q6H [facility] Last Admin: 12/30/16 13:12 Dose: 4 mg Penicillin G Benzathine (Bicillin L-A Inj) 2,400,000 units IM QWK [facility] Stop: 01/01/17 14:46 Last Admin: 12/26/16 09:52 Dose: 2,400,000 units Saccharomyces Boulardii (Florastor) 250 mg PO BID [facility] Last Admin: 12/30/16 10:09 Dose: 250 mg Trazodone HCl (Desyrel) 50 mg PO HS [facility] Last Admin: 12/29/16 21:46 Dose: 50 mg Vancomycin HCl (Vancocin (Oral Or Rectal Use)) 125 mg PO QID [facility] Last Admin: 12/30/16 13:12 Dose: 125 mg - Labs Labs: 12/30/16 08:27 12/30/16 08:27 PT 15.3 SECONDS (9.7-12.2) H 12/27/16 06:55 INR 1.4 12/27/16 06:55 APTT 41 SECONDS (21-34) H 12/27/16 06:55 - Constitutional Appears: Non-toxic, Chronically Ill - Head Exam Head Exam: NORMOCEPHALIC - Eye Exam Eye Exam: absent: Scleral icterus - ENT Exam ENT Exam: Mucous Membranes Dry, Normal External Ear Exam - Neck Exam Neck Exam: absent: Lymphadenopathy - Respiratory Exam Respiratory Exam: Decreased Breath Sounds, Clear to Ausculation Bilateral - Cardiovascular Exam Cardiovascular Exam: REGULAR RHYTHM, +S1, +S2 - GI/Abdominal Exam GI & Abdominal Exam: Distended, Soft. absent: Tenderness - Rectal Exam Rectal Exam: Deferred - Exam Exam: NORMAL INSPECTION - Extremities Exam Extremities Exam: absent: Calf Tenderness, Pedal Edema - Back Exam Back Exam: absent: CVA tenderness (L), CVA tenderness (R) - Neurological Exam Neurological Exam: Alert, Awake, Oriented x3 - Psychiatric Exam Psychiatric exam: Normal Mood - Skin Skin Exam: Dry Assessment and Plan (1) Dehydration Status: Acute (2) Leg pain, bilateral Status: Acute (3) MRSA (methicillin resistant Staphylococcus aureus) septicemia Status: Acute - Assessment and Plan (Free Text) Assessment: presented 12/12/16 with report of weakness, decreased ability to walk, generalized pain,fever, nausea, and vomiting. Initial labs significant for normal renal function. Patients course complicated by finding of +hep c, +rpr and fta-abs, + bacteremia/sepsis, endocarditis, cdiff, dvt and pe. Patient treated with IV abx and po abx. required chest I and D of mass. cultures still + MRSA may need to switch to cubicin
[2016-12-30 17:54] LABS: RBC URINE 2 /hpf (0-3); URINE BACTERIA FEW (<OCC); URINE BILIRUBIN NEGATIVE (NEGATIVE); URINE BLOOD NEGATIVE (NEGATIVE); URINE COLOR Yellow (YELLOW); URINE GLUCOSE (UA) NORMAL (Normal); URINE KETONE NEGATIVE (NEGATIVE); URINE LEUKOCYTE ESTERASE TRACE Leu/uL (Negative); URINE PROTEIN NEGATIVE (NEGATIVE); URINE UROBILINOGEN NORMAL mg/dL (0.2-1.0); WBC URINE 5 /hpf (0-5)
--- NOTE | 2016-12-30 18:45 | US ---
PROCEDURE: Ultrasound of the Kidneys HISTORY: acute renal failure COMPARISON: None available. TECHNIQUE: Sonogram of the kidneys. FINDINGS: RIGHT KIDNEY: Measures: 13.2 x 5.6 x 6.4 cm. The kidneys are echogenic. No stone, solid mass lesion or hydronephrosis visualized. LEFT KIDNEY: Measures: 14.8 x 5.9 x 5.6 cm. The kidneys are echogenic. No stone, solid mass lesion or hydronephrosis visualized. OTHER FINDINGS: Trace amount of free fluid seen in the abdomen. IMPRESSION: Echogenic kidneys suggestive of medical renal disease. No evidence of hydronephrosis. Trace amount of free fluid seen in the abdomen.
[2016-12-31] MEDS: Dextrose 5%/0.45% NS 1,000 ML IV SCH ×3 (04:35→14:10)
[2016-12-31] MEDS: Sodium Chloride 0.9% 1,000 ML IV SCH (04:35)
[2016-12-31] MEDS: metroNIDAZOLE IV 500 mg/100 ml 100 ML IVPB SCH ×3 (06:13→22:03)
[2016-12-31 06:20] LABS: BASO # 0.1 K/uL (0.0-0.2); BASO % 0.9 % (0.0-2.0); EOS # 0.2 K/uL (0.0-0.7); EOS % 2.7 % (0.0-4.0); HEMATOCRIT 26.6 % (34.0-47.0); LYMPH # 2.1 K/uL (1.0-4.3); LYMPH % 31.5 % (20.0-40.0); MEAN CELL VOLUME 91.5 fL (81.0-99.0); MEAN CORPUSCULAR HGB CONC 33.9 g/dL (33.0-37.0); MEAN PLATELET VOLUME 7.2 fL (7.2-11.7); MONO # 1.2 K/uL (0.0-0.8); MONO % 17.3 % (0.0-10.0); NRBC % 0.1 % (0.0-2.0); RED CELL DISTRIBUTION WIDTH 18.1 % (11.5-14.5); WHITE BLOOD COUNT 6.8 K/uL (4.8-10.8)
[2016-12-31 06:35] LABS: POTASSIUM 4.1 mmol/L (3.6-5.2)
[2016-12-31 06:37] LABS: ALB/GLOB RATIO 0.4 (1.0-2.1); BILIRUBIN,TOTAL 0.8 mg/dL (0.2-1.3); TOTAL PROTEIN 7.1 g/dL (6.3-8.3)
[2016-12-31 06:38] LABS: CALCIUM 7.2 mg/dl (8.6-10.4); MAGNESIUM 1.7 mg/dL (1.6-2.3); PHOSPHOROUS 5.2 mg/dL (2.5-4.5)
[2016-12-31] MEDS: (Novolin R) Insulin Human Regular 100 units/ml vial SC SCH ×4 (07:40→21:51)
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
[2016-12-31 07:46] LABS: RBC URINE < 1 /hpf (0-3); URINE BACTERIA OCC (<OCC); URINE BILIRUBIN NEGATIVE (NEGATIVE); URINE BLOOD NEGATIVE (NEGATIVE); URINE COLOR Yellow (YELLOW); URINE GLUCOSE (UA) NORMAL (Normal); URINE KETONE NEGATIVE (NEGATIVE); URINE LEUKOCYTE ESTERASE TRACE Leu/uL (Negative); URINE PROTEIN NEGATIVE (NEGATIVE); URINE UROBILINOGEN NORMAL mg/dL (0.2-1.0); WBC URINE 6 /hpf (0-5)
--- NOTE | 2016-12-31 08:03 | CP.PCM.PN ---
Subjective - Date & Time of Evaluation Date of Evaluation: 12/31/16 Time of Evaluation: 07:05 - Subjective Subjective: General Surgery Pt S&E, NAEO. No complaints at this time. Dressing and packing changed. Objective - Vital Signs/Intake and Output Vital Signs (last 24 hours): Temp Pulse Resp BP Pulse Ox 98.2 F 81 20 125/85 98 12/31/16 07:41 12/31/16 07:41 12/31/16 07:41 12/31/16 07:41 12/31/16 07:41 Intake and Output: 12/31/16 12/31/16 06:59 18:59 Intake Total 300 Balance 300 - Medications Medications: Current Medications Baclofen (Lioresal) 20 mg PO BID [facility] Last Admin: 12/30/16 18:10 Dose: 20 mg Clonazepam (Klonopin) 1 mg PO HS [facility] Last Admin: 12/30/16 22:13 Dose: 1 mg Enoxaparin Sodium (Lovenox) 50 mg SC Q12H [facility] Last Admin: 12/30/16 22:11 Dose: 50 mg Escitalopram Oxalate (Lexapro) 10 mg PO DAILY [facility] Last Admin: 12/30/16 10:08 Dose: 10 mg Famotidine (Pepcid) 20 mg PO DAILY [facility] Last Admin: 12/30/16 10:08 Dose: 20 mg Ferrous Sulfate (Feosol) 325 mg PO TID [facility] Last Admin: 12/30/16 18:05 Dose: 325 mg Gabapentin (Neurontin) 300 mg PO TID [facility] Last Admin: 12/30/16 18:15 Dose: 300 mg Metronidazole (Flagyl) 100 mls @ 100 mls/hr IVPB Q8H [facility] Last Admin: 12/31/16 06:13 Dose: 100 mls/hr Dextrose/Sodium Chloride (Dextrose 5%/0.45% Ns 1000 Ml) 1,000 mls @ 150 mls/hr IV .Q6H40M [facility] Last Admin: 12/31/16 04:35 Dose: Not Given Tigecycline 50 mg/ Sodium (Chloride) 100 mls @ 100 mls/hr IV Q12H [facility] Last Admin: 12/31/16 04:29 Dose: 100 mls/hr Sodium Chloride (Sodium Chloride 0.9%) 1,000 mls @ 75 mls/hr IV .[id number] [facility] Last Admin: 12/31/16 04:35 Dose: Not Given Insulin Human Regular (Novolin R) 0 unit SC ACHS [facility] PRN Reason: Protocol Last Admin: 12/31/16 07:40 Dose: Not Given Morphine Sulfate (Morphine) 2 mg IVP Q4 PRN PRN Reason: Pain, moderate (4-7) Last Admin: 12/27/16 22:30 Dose: 2 mg Morphine Sulfate (Morphine Sulfate) 4 mg IVP Q4H PRN PRN Reason: Pain, severe (8-10) Ondansetron HCl (Zofran Inj) 4 mg IVP Q6H [facility] Last Admin: 12/30/16 17:40 Dose: 4 mg Penicillin G Benzathine (Bicillin L-A Inj) 2,400,000 units IM QWK [facility] Stop: 01/01/17 14:46 Last Admin: 12/26/16 09:52 Dose: 2,400,000 units Saccharomyces Boulardii (Florastor) 250 mg PO BID [facility] Last Admin: 12/30/16 18:05 Dose: 250 mg Trazodone HCl (Desyrel) 50 mg PO HS [facility] Last Admin: 12/30/16 22:11 Dose: 50 mg Vancomycin HCl (Vancocin (Oral Or Rectal Use)) 125 mg PO QID [facility] Last Admin: 12/30/16 22:14 Dose: 125 mg - Labs Labs: 12/31/16 06:07 12/31/16 06:07 PT 15.3 SECONDS (9.7-12.2) H 12/27/16 06:55 INR 1.4 12/27/16 06:55 APTT 41 SECONDS (21-34) H 12/27/16 06:55 - Constitutional Appears: Non-toxic, No Acute Distress - Head Exam Head Exam: ATRAUMATIC, NORMOCEPHALIC - Eye Exam Eye Exam: EOMI. absent: Scleral icterus - Respiratory Exam Respiratory Exam: NORMAL BREATHING PATTERN. absent: Respiratory Distress Additional comments: Right chest apex dressing w/ SA fluid drainage. Packing and dressing changed. Incision clean. - Neurological Exam Neurological Exam: Alert, Awake - Skin Skin Exam: Dry, Warm Assessment and Plan - Assessment and Plan (Free Text) Assessment: 36M to F s/p I&D of right chest wall hematoma POD4 Plan: - cont daily packing changes - cont abx per ID D/W Dr Buck Lamar PGY3
[2016-12-31] MEDS: Vancomycin 125 MG/5 ML SOLN (ORAL/RECTAL) PO SCH ×4 (09:55→21:51)
[2016-12-31] MEDS: Enoxaparin 60 mg Syringe SC SCH ×2 (09:55→21:50)
[2016-12-31] MEDS: Saccharomyces Boulardi 250 mg Cap PO SCH ×2 (09:57→17:29)
[2016-12-31] MEDS ORDERED: Sodium Chloride 0.9% 1,000 ML IV SCH (12:58)
--- NOTE | 2016-12-31 13:15 | CP.PCM.PN ---
Subjective - Date & Time of Evaluation Date of Evaluation: 12/31/16 Time of Evaluation: 13:13 - Subjective Subjective: Very lethargic- cannot converse with patient Uo- moderate- ? recorded Renal US- no hydro; + echogenic kidneys Creat about same- being hydrated for LOYDA Objective - Vital Signs/Intake and Output Vital Signs (last 24 hours): Temp Pulse Resp BP Pulse Ox 98.2 F 81 20 125/85 98 12/31/16 07:41 12/31/16 11:01 12/31/16 07:41 12/31/16 07:41 12/31/16 07:41 Intake and Output: 12/31/16 12/31/16 06:59 18:59 Intake Total 300 Balance 300 - Medications Medications: Current Medications Baclofen (Lioresal) 20 mg PO BID [facility] Last Admin: 12/31/16 09:56 Dose: 20 mg Clonazepam (Klonopin) 1 mg PO HS [facility] Last Admin: 12/30/16 22:13 Dose: 1 mg Enoxaparin Sodium (Lovenox) 50 mg SC Q12H [facility] Last Admin: 12/31/16 09:55 Dose: 50 mg Escitalopram Oxalate (Lexapro) 10 mg PO DAILY [facility] Last Admin: 12/31/16 09:56 Dose: 10 mg Famotidine (Pepcid) 20 mg PO DAILY [facility] Last Admin: 12/31/16 09:56 Dose: 20 mg Ferrous Sulfate (Feosol) 325 mg PO TID [facility] Last Admin: 12/31/16 09:56 Dose: 325 mg Gabapentin (Neurontin) 300 mg PO TID [facility] Last Admin: 12/31/16 09:56 Dose: 300 mg Metronidazole (Flagyl) 100 mls @ 100 mls/hr IVPB Q8H [facility] Last Admin: 12/31/16 06:13 Dose: 100 mls/hr Dextrose/Sodium Chloride (Dextrose 5%/0.45% Ns 1000 Ml) 1,000 mls @ 150 mls/hr IV .Q6H40M [facility] Last Admin: 12/31/16 09:56 Dose: 150 mls/hr Tigecycline 50 mg/ Sodium (Chloride) 100 mls @ 100 mls/hr IV Q12H [facility] Last Admin: 12/31/16 04:29 Dose: 100 mls/hr Insulin Human Regular (Novolin R) 0 unit SC ACHS [facility] PRN Reason: Protocol Last Admin: 12/31/16 11:57 Dose: Not Given Morphine Sulfate (Morphine Sulfate) 4 mg IVP Q4H PRN PRN Reason: Pain, severe (8-10) Ondansetron HCl (Zofran Inj) 4 mg IVP Q6H [facility] Last Admin: 12/31/16 09:57 Dose: Not Given Penicillin G Benzathine (Bicillin L-A Inj) 2,400,000 units IM QWK [facility] Stop: 01/01/17 14:46 Last Admin: 12/26/16 09:52 Dose: 2,400,000 units Saccharomyces Boulardii (Florastor) 250 mg PO BID [facility] Last Admin: 12/31/16 09:57 Dose: 250 mg Trazodone HCl (Desyrel) 50 mg PO HS [facility] Last Admin: 12/30/16 22:11 Dose: 50 mg Vancomycin HCl (Vancocin (Oral Or Rectal Use)) 125 mg PO QID [facility] Last Admin: 12/31/16 09:55 Dose: 125 mg - Labs Labs: 12/31/16 06:07 12/31/16 06:07 PT 15.3 SECONDS (9.7-12.2) H 12/27/16 06:55 INR 1.4 12/27/16 06:55 APTT 41 SECONDS (21-34) H 12/27/16 06:55 - Constitutional Appears: Older Than Stated Age, Chronically Ill - Head Exam Head Exam: ATRAUMATIC, NORMAL INSPECTION - Neck Exam Neck Exam: absent: Tenderness - Respiratory Exam Respiratory Exam: Clear to Ausculation Bilateral, NORMAL BREATHING PATTERN - Cardiovascular Exam Cardiovascular Exam: REGULAR RHYTHM, +S1 - GI/Abdominal Exam GI & Abdominal Exam: Soft. absent: Tenderness - Extremities Exam Extremities Exam: Pedal Edema. absent: Tenderness - Neurological Exam Neurological Exam: Altered, CN II-XII Intact - Skin Skin Exam: Dry, Warm Assessment and Plan (1) Acute kidney injury Status: Acute (2) C. difficile colitis Status: Acute (3) Diabetes Status: Acute (4) Endocarditis Status: Acute (5) Syphilis Status: Acute (6) C. difficile enteritis Status: Acute - Assessment and Plan (Free Text) Plan: Consider stopping gabapentin IV hydration- decrease amount f/u serial labs Treat SBE
[2017-01-01] MEDS: Dextrose 5%/0.45% NS 1,000 ML IV SCH (00:02)
[2017-01-01 03:45] LABS: CREATININE, RANDOM URINE 46 mg/dL (20-320)
[2017-01-01] MEDS: metroNIDAZOLE IV 500 mg/100 ml 100 ML IVPB SCH (06:18)
[2017-01-01 07:37] LABS: POTASSIUM 4.3 mmol/L (3.6-5.2)
[2017-01-01 07:39] LABS: BILIRUBIN,TOTAL 0.5 mg/dL (0.2-1.3)
[2017-01-01 07:40] LABS: ALB/GLOB RATIO 0.4 (1.0-2.1); BASO # 0.1 K/uL (0.0-0.2); EOS % 0.3 % (0.0-4.0); HEMATOCRIT 26.9 % (34.0-47.0); LYMPH # 1.8 K/uL (1.0-4.3); MEAN CELL VOLUME 92.1 fL (81.0-99.0); MEAN CORPUSCULAR HEMOGLOBIN 30.8 pg (27.0-31.0); MEAN CORPUSCULAR HGB CONC 33.4 g/dL (33.0-37.0); MEAN PLATELET VOLUME 7.2 fL (7.2-11.7); NRBC % 0.1 % (0.0-2.0); RED CELL DISTRIBUTION WIDTH 18.6 % (11.5-14.5); TOTAL PROTEIN 7.5 g/dL (6.3-8.3); WHITE BLOOD COUNT 5.6 K/uL (4.8-10.8)
[2017-01-01 07:41] LABS: CALCIUM 7.3 mg/dl (8.6-10.4)
[2017-01-01] MEDS: (Novolin R) Insulin Human Regular 100 units/ml vial SC SCH ×4 (07:47→22:15)
--- NOTE | 2017-01-01 08:32 | CT ---
PROCEDURE: CT HEAD WITHOUT CONTRAST. HISTORY: Altered mental status COMPARISON: None available. TECHNIQUE: Axial computed tomography images were obtained through the head/brain without intravenous contrast. Radiation dose: Total exam DLP = 841 mGy-cm. FINDINGS: HEMORRHAGE: No intracranial hemorrhage. BRAIN: No mass effect or edema. Mild generalized volume loss. Punctate right basal ganglia calcification. VENTRICLES: Incidental note is made of a tiny cavum velum interpositum. CALVARIUM: Unremarkable. PARANASAL SINUSES: Unremarkable as visualized. No significant inflammatory changes. MASTOID AIR CELLS: Unremarkable as visualized. No inflammatory changes. OTHER FINDINGS: None. IMPRESSION: Mild generalized volume loss. Small arachnoid cyst seen in the left anterior middle cranial fossa with associated scalloping of the adjacent inner table. If focal neurologic deficit persists, consider MRI.
--- NOTE | 2017-01-01 08:34 | CP.PCM.PN ---
Subjective - Date & Time of Evaluation Date of Evaluation: 01/01/17 Time of Evaluation: 06:45 - Subjective Subjective: General Surgery Pt S&E, NAEO. Not answering questions at this time. Dressing and packing changed. Objective - Vital Signs/Intake and Output Vital Signs (last 24 hours): Temp Pulse Resp BP Pulse Ox 99.1 F 81 20 164/90 H 98 01/01/17 08:00 01/01/17 08:00 01/01/17 08:00 01/01/17 08:00 01/01/17 08:00 Intake and Output: 01/01/17 01/01/17 06:59 18:59 Intake Total 1360 Output Total 1300 Balance 60 - Medications Medications: Current Medications Baclofen (Lioresal) 20 mg PO BID [facility] Last Admin: 12/31/16 17:28 Dose: 20 mg Clonazepam (Klonopin) 1 mg PO HS [facility] Last Admin: 12/31/16 21:51 Dose: Not Given Enoxaparin Sodium (Lovenox) 50 mg SC Q12H [facility] Last Admin: 12/31/16 21:50 Dose: 50 mg Escitalopram Oxalate (Lexapro) 10 mg PO DAILY [facility] Last Admin: 12/31/16 09:56 Dose: 10 mg Famotidine (Pepcid) 20 mg PO DAILY [facility] Last Admin: 12/31/16 09:56 Dose: 20 mg Ferrous Sulfate (Feosol) 325 mg PO TID [facility] Last Admin: 12/31/16 17:28 Dose: 325 mg Metronidazole (Flagyl) 100 mls @ 100 mls/hr IVPB Q8H [facility] Last Admin: 01/01/17 06:18 Dose: 100 mls/hr Tigecycline 50 mg/ Sodium (Chloride) 100 mls @ 100 mls/hr IV Q12H [facility] Last Admin: 01/01/17 03:26 Dose: 100 mls/hr Dextrose/Sodium Chloride (Dextrose 5%/0.45% Ns 1000 Ml) 1,000 mls @ 100 mls/hr IV .Q10H [facility] Last Admin: 01/01/17 00:02 Dose: 100 mls/hr Insulin Human Regular (Novolin R) 0 unit SC ACHS [facility] PRN Reason: Protocol Last Admin: 01/01/17 07:47 Dose: Not Given Morphine Sulfate (Morphine Sulfate) 4 mg IVP Q4H PRN PRN Reason: Pain, severe (8-10) Ondansetron HCl (Zofran Inj) 4 mg IVP Q6H [facility] Last Admin: 01/01/17 04:56 Dose: Not Given Penicillin G Benzathine (Bicillin L-A Inj) 2,400,000 units IM QWK [facility] Stop: 01/01/17 14:46 Last Admin: 12/26/16 09:52 Dose: 2,400,000 units Saccharomyces Boulardii (Florastor) 250 mg PO BID [facility] Last Admin: 12/31/16 17:29 Dose: 250 mg Trazodone HCl (Desyrel) 50 mg PO HS [facility] Last Admin: 12/31/16 21:52 Dose: Not Given Vancomycin HCl (Vancocin (Oral Or Rectal Use)) 125 mg PO QID [facility] Last Admin: 12/31/16 21:51 Dose: Not Given - Labs Labs: 01/01/17 07:15 01/01/17 07:15 PT 15.3 SECONDS (9.7-12.2) H 12/27/16 06:55 INR 1.4 12/27/16 06:55 APTT 41 SECONDS (21-34) H 12/27/16 06:55 - Constitutional Appears: Non-toxic, No Acute Distress - Head Exam Head Exam: ATRAUMATIC, NORMOCEPHALIC - Eye Exam Eye Exam: EOMI. absent: Scleral icterus - Respiratory Exam Respiratory Exam: NORMAL BREATHING PATTERN. absent: Respiratory Distress Additional comments: Right chest apex dressing with minimal fluid drainage. Packing and dressing changed. Incision clean. - Neurological Exam Neurological Exam: Alert, Awake - Skin Skin Exam: Dry, Warm Assessment and Plan - Assessment and Plan (Free Text) Assessment: 36M to F s/p I&D of right chest wall hematoma POD#5 Plan: - cont daily packing changes using less packing each day D/W Dr Buck Lamar PGY3
[2017-01-01] MEDS: Saccharomyces Boulardi 250 mg Cap PO SCH ×3 (09:31→18:52)
[2017-01-01] MEDS: Enoxaparin 60 mg Syringe SC SCH ×3 (09:31→21:26)
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
--- NOTE | 2017-01-01 11:03 | MRI ---
PROCEDURE: MRI BRAIN WITHOUT CONTRAST HISTORY: Altered mental status COMPARISON: Noncontrast head CT from 01/01/2017 TECHNIQUE: Multiplanar, multisequence MR images of the brain were obtained without intravenous contrast enhancement. FINDINGS: HEMORRHAGE: None DWI: No evidence of an acute or early subacute infarction. BRAIN PARENCHYMA: There is normal parenchymal signal intensity. There is a 3.5 x 2.0 cm arachnoid cyst in the left middle cranial fossa. There is no extra-axial fluid collection. VENTRICLES: There is moderate global parenchymal volume loss and proportionate enlargement of the ventricles and cortical sulci. CRANIUM: There is T1 hypointense signal in the visualized bone marrow. ORBITS: Within normal limits. PARANASAL SINUSES/MASTOIDS: Predominantly clear. VASCULAR SYSTEM: There are normal signal voids in the larger intracranial arteries. OTHER FINDINGS: None. IMPRESSION: 1. No acute intracranial abnormality. 2. Moderate global parenchymal volume loss, advanced for the patient's age. 3. 3.5 x 2.0 cm left middle cranial fossa arachnoid cyst. 4. Diffuse low signal in the visualized bone marrow could be related to anemia of chronic disease or chronic smoking.
--- NOTE | 2017-01-01 12:42 | CP.PCM.PN ---
Subjective - Date & Time of Evaluation Date of Evaluation: 01/01/17 Time of Evaluation: 09:00 - Subjective Subjective: events noted agree with LP Neuro on board Objective - Vital Signs/Intake and Output Vital Signs (last 24 hours): Temp Pulse Resp BP Pulse Ox 98.4 F 83 8 L 156/100 H 98 01/01/17 09:30 01/01/17 12:03 01/01/17 09:30 01/01/17 12:03 01/01/17 09:30 Intake and Output: 01/01/17 01/01/17 06:59 18:59 Intake Total 1360 Output Total 1300 400 Balance 60 -400 - Medications Medications: Current Medications Baclofen (Lioresal) 20 mg PO BID [facility] Last Admin: 01/01/17 10:56 Dose: Not Given Enoxaparin Sodium (Lovenox) 50 mg SC Q12H [facility] Last Admin: 01/01/17 10:51 Dose: 50 mg Escitalopram Oxalate (Lexapro) 10 mg PO DAILY [facility] Last Admin: 01/01/17 10:55 Dose: Not Given Famotidine (Pepcid) 20 mg PO DAILY [facility] Last Admin: 01/01/17 10:56 Dose: Not Given Ferrous Sulfate (Feosol) 325 mg PO TID [facility] Last Admin: 01/01/17 10:55 Dose: Not Given Tigecycline 50 mg/ Sodium (Chloride) 100 mls @ 100 mls/hr IV Q12H [facility] Last Admin: 01/01/17 03:26 Dose: 100 mls/hr Dextrose/Sodium Chloride (Dextrose 5%/0.45% Ns 1000 Ml) 1,000 mls @ 100 mls/hr IV .Q10H [facility] Last Admin: 01/01/17 00:02 Dose: 100 mls/hr Insulin Human Regular (Novolin R) 0 unit SC ACHS [facility] PRN Reason: Protocol Last Admin: 01/01/17 11:47 Dose: Not Given Ondansetron HCl (Zofran Inj) 4 mg IVP Q6H [facility] Last Admin: 01/01/17 04:56 Dose: Not Given Penicillin G Benzathine (Bicillin L-A Inj) 2,400,000 units IM QWK [facility] Stop: 01/01/17 14:46 Last Admin: 12/26/16 09:52 Dose: 2,400,000 units Saccharomyces Boulardii (Florastor) 250 mg PO BID [facility] Last Admin: 01/01/17 10:55 Dose: Not Given - Labs Labs: 01/01/17 07:15 01/01/17 07:15 PT 15.3 SECONDS (9.7-12.2) H 12/27/16 06:55 INR 1.4 12/27/16 06:55 APTT 41 SECONDS (21-34) H 12/27/16 06:55 Assessment and Plan (1) Dehydration Status: Acute (2) Leg pain, bilateral Status: Acute (3) MRSA (methicillin resistant Staphylococcus aureus) septicemia Status: Acute
--- NOTE | 2017-01-01 13:28 | CP.PCM.PN ---
Subjective - Date & Time of Evaluation Date of Evaluation: 01/01/17 Time of Evaluation: 13:26 - Subjective Subjective: seen and examined, events noted progressive ams worsening renal function, renal us unremarkable, no proteinuria/hematuria. low complements, temo neg, hep B neg. HepC ab +,pending viral load vancomycin ?trough was high 3 days ago. Pt currntly on tygecil. uop recorded good amount Objective - Vital Signs/Intake and Output Vital Signs (last 24 hours): Temp Pulse Resp BP Pulse Ox 98.4 F 83 8 L 156/100 H 98 01/01/17 09:30 01/01/17 12:03 01/01/17 09:30 01/01/17 12:03 01/01/17 09:30 Intake and Output: 01/01/17 01/01/17 06:59 18:59 Intake Total 1360 Output Total 1300 400 Balance 60 -400 - Medications Medications: Current Medications Baclofen (Lioresal) 20 mg PO BID [facility] Last Admin: 01/01/17 10:56 Dose: Not Given Enoxaparin Sodium (Lovenox) 50 mg SC Q12H [facility] Last Admin: 01/01/17 10:51 Dose: 50 mg Escitalopram Oxalate (Lexapro) 10 mg PO DAILY [facility] Last Admin: 01/01/17 10:55 Dose: Not Given Famotidine (Pepcid) 20 mg PO DAILY [facility] Last Admin: 01/01/17 10:56 Dose: Not Given Ferrous Sulfate (Feosol) 325 mg PO TID [facility] Last Admin: 01/01/17 10:55 Dose: Not Given Tigecycline 50 mg/ Sodium (Chloride) 100 mls @ 100 mls/hr IV Q12H [facility] Last Admin: 01/01/17 03:26 Dose: 100 mls/hr Dextrose/Sodium Chloride (Dextrose 5%/0.45% Ns 1000 Ml) 1,000 mls @ 100 mls/hr IV .Q10H [facility] Last Admin: 01/01/17 00:02 Dose: 100 mls/hr Insulin Human Regular (Novolin R) 0 unit SC ACHS [facility] PRN Reason: Protocol Last Admin: 01/01/17 11:47 Dose: Not Given Ondansetron HCl (Zofran Inj) 4 mg IVP Q6H [facility] Last Admin: 01/01/17 13:02 Dose: Not Given Penicillin G Benzathine (Bicillin L-A Inj) 2,400,000 units IM QWK [facility] Stop: 01/01/17 14:46 Last Admin: 12/26/16 09:52 Dose: 2,400,000 units Saccharomyces Boulardii (Florastor) 250 mg PO BID [facility] Last Admin: 01/01/17 10:55 Dose: Not Given - Labs Labs: 01/01/17 07:15 01/01/17 07:15 PT 15.3 SECONDS (9.7-12.2) H 12/27/16 06:55 INR 1.4 12/27/16 06:55 APTT 41 SECONDS (21-34) H 12/27/16 06:55 - Constitutional Appears: Older Than Stated Age, Confused, Chronically Ill - Head Exam Head Exam: NORMAL INSPECTION - Eye Exam Eye Exam: Normal appearance - ENT Exam ENT Exam: Mucous Membranes Moist, Normal Exam - Neck Exam Neck Exam: Normal Inspection - Respiratory Exam Respiratory Exam: Clear to Ausculation Bilateral, NORMAL BREATHING PATTERN - Cardiovascular Exam Cardiovascular Exam: REGULAR RHYTHM - GI/Abdominal Exam GI & Abdominal Exam: Distended, Soft, Normal Bowel Sounds - Extremities Exam Extremities Exam: Normal Inspection Assessment and Plan (1) Acute kidney injury Status: Acute (2) Anemia Status: Acute (3) Diabetes Status: Acute (4) Endocarditis Status: Acute (5) Hep C w/o coma, chronic Status: Acute (6) Syphilis Status: Acute - Assessment and Plan (Free Text) Assessment: -check urine eosinophils, repeat ua. may need to consider renal biopsy. change to bicarb containing iv fluids
[2017-01-01] MEDS: Sodium Bicarbonate 8.4% 75 MEQ in Dextrose 5% In Water 1,000 ML IV SCH (13:53)
[2017-01-01 14:09] LABS: RBC URINE 1 /hpf (0-3); URINE BACTERIA RARE (<OCC); URINE BILIRUBIN NEGATIVE (NEGATIVE); URINE BLOOD NEGATIVE (NEGATIVE); URINE COLOR Yellow (YELLOW); URINE GLUCOSE (UA) NORMAL (Normal); URINE KETONE NEGATIVE (NEGATIVE); URINE LEUKOCYTE ESTERASE TRACE Leu/uL (Negative); URINE PROTEIN NEGATIVE (NEGATIVE); URINE UROBILINOGEN NORMAL mg/dL (0.2-1.0); WBC URINE 5 /hpf (0-5)
[2017-01-02] MEDS: Sodium Bicarbonate 8.4% 75 MEQ in Dextrose 5% In Water 1,000 ML IV SCH ×3 (05:25→21:20)
[2017-01-02] MEDS: (Novolin R) Insulin Human Regular 100 units/ml vial SC SCH ×4 (08:30→21:16)
[2017-01-02] MEDS ORDERED: Petrolatum Oint Foilpak (5 gm) TOP PRN (08:54)
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
[2017-01-02] MEDS: Enoxaparin 60 mg Syringe SC SCH ×2 (09:41→21:16)
[2017-01-02] MEDS: Saccharomyces Boulardi 250 mg Cap PO SCH ×2 (09:42→17:30)
--- NOTE | 2017-01-02 11:16 | CON ---
DATE: 01/02/2017 TIME OF EVALUATION: 6:30 a.m. REASON FOR CONSULTATION: Change in mental status. CHIEF COMPLAINT: The patient was admitted with a history of leg weakness following with workup. The patient did have some chest mass complicated with infectious source. The patient remains in the hospital for multiple medical problems, which include acute kidney injury, anemia, Clostridium difficile positive, dehydration, diabetes, endocarditis, hep C, history of blood report suggestive of syphilis. PERSONAL HISTORY: Not available. ALLERGIES: No known allergies. CURRENT MEDICATIONS: Iron supplement, Lexapro, Lovenox, Novolin, Pepcid,. PHYSICAL EXAMINATION: VITAL SIGNS: Blood pressure 167/86, mean arterial pressure of 113, respiratory rate 16, temperature afebrile. NECK: Supple. No carotid bruit. HEART SOUNDS: Regular. CHEST: Fair air entry. EXTREMITIES: No edema in legs. NEUROLOGIC: The patient was agitated and she was given Ativan this guidance consultant. She is awake. Alert, oriented to person and place. She knows the President. She knows the previous president. She has confusion of naming the month. She follows 1-step to 2-step command. No right and left confusion. Speech slightly dysarthric. CRANIAL NERVES: Responds to visual threat. Pupils reactive to light. No Ar[place]ll Sky pupil. No nystagmus on primary gaze. No facial sensory deficit. No facial asymmetry. Hearing seems to be intact. MOTOR: He moves all 4 extremities against gravity. DEEP TENDON REFLEXES: Biceps, brachioradialis, triceps, knee and ankle all are absent. Plantars are downgoing. SENSORY: Responds to pain symmetrically on both sides. No evidence of Tabes Dorsalis. COORDINATION AND GAIT: Deferred at this time. CONCLUSION: Upon reviewing his history and neurological examination, the patient suffering from episodic bilateral cerebral dysfunction which is probably secondary to partial complex seizures because no documented generalized tonic-clonic activities. This is probably secondary to her abnormal MRI of the brain. The current examination does not show any clear evidence of meningovascular syphilis or Herpez related (patient would be sicker ) The history as well as the current examination not consistent with possible diagnosis of neurosyphilis at present. Encephalopathy is probably due to poly pharmacy (iatrogenic) WORKUP: WBC 5.6, hemoglobin 9.0, hematocrit 26.9, platelet 18.6. Sodium 142, potassium 4.3, chloride 111, BUN 23, creatinine 3.1, GFR 20, glucose 171. Ammonia level 34. Prolactin level 40.4. Urinalysis negative. RPR reactive. FTA negative. Lyme serology positive. TB QuantiFERON negative. HIV nonreactive. Positive for hepatitis. MRI of the brain without contrast has been reviewed by me, showed normal parenchyma with about 3 cm x 2 cm arachnoid cyst at left middle cranial fossa. There is no other space occupying lesion or stroke consistent with vasculitis or large vessel disease. RECOMMENDATIONS: 1. I would like to repeat FTA. 2. Good hydration. 3. Avoid all sedatives. Unwanted medication should be discontinued. 4. Her prolactin level probably high, could be related to hers antiemetic drug. 5. EEG to be done to rule out seizures, probably secondary to the left temporal lobe asymmetry. 6. Psychiatrist follow up to taper off unwanted medication. At this point, the spinal tap is not going to answer her diagnosis. Her RPR is reactive, probably related to false positive. I would like to hold on spinal tap for now. The patient can be treated with appropriate antibiotic as per ID. Luis M Ocampo MD cc: [id number] TT: 01/02/2017 11:16:22 Confirmation # [id number] Dictation # [id number] en [id number]
[2017-01-02 11:19] LABS: BASO # 0.1 K/uL (0.0-0.2); EOS % 0.9 % (0.0-4.0); MEAN PLATELET VOLUME 7.2 fL (7.2-11.7); MONO # 0.9 K/uL (0.0-0.8)
[2017-01-02 11:24] LABS: BASO % 1.3 % (0.0-2.0); EOS # 0.1 K/uL (0.0-0.7); HEMATOCRIT 24.9 % (34.0-47.0); LYMPH # 1.8 K/uL (1.0-4.3); LYMPH % 29.1 % (20.0-40.0); MEAN CELL VOLUME 91.2 fL (81.0-99.0); MEAN CORPUSCULAR HEMOGLOBIN 31.4 pg (27.0-31.0); MEAN CORPUSCULAR HGB CONC 34.4 g/dL (33.0-37.0); MONO % 15.4 % (0.0-10.0); NRBC % 0.3 % (0.0-2.0); RED CELL DISTRIBUTION WIDTH 18.7 % (11.5-14.5)
[2017-01-02 11:31] LABS: POTASSIUM 3.6 mmol/L (3.6-5.2)
[2017-01-02 11:33] LABS: BILIRUBIN,TOTAL 0.9 mg/dL (0.2-1.3)
[2017-01-02 11:34] LABS: ALB/GLOB RATIO 0.4 (1.0-2.1); CALCIUM 7.6 mg/dl (8.6-10.4); TOTAL PROTEIN 7.5 g/dL (6.3-8.3)
[2017-01-02] MEDS: Vitamins A & D Oint UD Foilpak TOP SCH ×3 (13:00→20:00)
[2017-01-02] MEDS: Penicillin G Potassium 2.5 MU in Dextrose 5% In Water 50 ML IVPB SCH ×3 (13:34→21:15)
--- NOTE | 2017-01-02 15:22 | CP.PCM.PN ---
Subjective - Date & Time of Evaluation Date of Evaluation: 01/02/17 Time of Evaluation: 07:00 - Subjective Subjective: lethargic/ arousable slightly less confused No fever IV rx in progress would not add empiric rx for HSV without LP exam Objective - Vital Signs/Intake and Output Vital Signs (last 24 hours): Temp Pulse Resp BP Pulse Ox 98.1 F 94 H 20 180/96 H 95 01/02/17 07:33 01/02/17 08:36 01/02/17 07:33 01/02/17 07:33 01/02/17 07:33 Intake and Output: 01/02/17 01/02/17 06:59 18:59 Intake Total 700 590 Output Total 650 1300 Balance 50 -710 - Medications Medications: Current Medications Baclofen (Lioresal) 10 mg PO BID [facility] Emollient Ointment (Vaseline Oint) 0 gm TOP Q1H PRN PRN Reason: Dry skin Enoxaparin Sodium (Lovenox) 50 mg SC Q12H [facility] Last Admin: 01/02/17 09:41 Dose: 50 mg Escitalopram Oxalate (Lexapro) 10 mg PO DAILY [facility] Last Admin: 01/02/17 09:42 Dose: 10 mg Famotidine (Pepcid) 20 mg PO DAILY [facility] Last Admin: 01/02/17 09:42 Dose: 20 mg Ferrous Sulfate (Feosol) 325 mg PO TID [facility] Last Admin: 01/02/17 13:30 Dose: 325 mg Tigecycline 50 mg/ Sodium (Chloride) 100 mls @ 100 mls/hr IV Q12H [facility] Last Admin: 01/02/17 04:00 Dose: 100 mls/hr Sodium Bicarbonate 75 meq/ (Dextrose) 1,075 mls @ 70 mls/hr IV .[id number] [facility] Last Admin: 01/02/17 06:34 Dose: 70 mls/hr Penicillin G Potassium 2.5 mu/ (Dextrose) 50 mls @ 100 mls/hr IVPB Q4H [facility] Stop: 01/12/17 13:01 Last Admin: 01/02/17 13:34 Dose: 100 mls/hr Insulin Human Regular (Novolin R) 0 unit SC ACHS [facility] PRN Reason: Protocol Last Admin: 01/02/17 12:30 Dose: Not Given Ondansetron HCl (Zofran Inj) 4 mg IVP Q6H [facility] Last Admin: 01/02/17 12:36 Dose: Not Given Saccharomyces Boulardii (Florastor) 250 mg PO BID [facility] Last Admin: 01/02/17 09:42 Dose: 250 mg Vitamin A (Vitamin A & D Oint Ud Foilpak) 0 ea TOP Q4 [facility] Last Admin: 01/02/17 13:00 Dose: 1 ea - Labs Labs: 01/02/17 11:13 01/02/17 11:13 PT 15.3 SECONDS (9.7-12.2) H 12/27/16 06:55 INR 1.4 12/27/16 06:55 APTT 41 SECONDS (21-34) H 12/27/16 06:55 - Constitutional Appears: Non-toxic, Chronically Ill - Head Exam Head Exam: NORMOCEPHALIC - Eye Exam Eye Exam: PERRL. absent: Scleral icterus - ENT Exam ENT Exam: Mucous Membranes Dry - Neck Exam Neck Exam: absent: Lymphadenopathy - Respiratory Exam Respiratory Exam: Decreased Breath Sounds - Cardiovascular Exam Cardiovascular Exam: REGULAR RHYTHM, +S1, +S2 - GI/Abdominal Exam GI & Abdominal Exam: Distended, Soft. absent: Tenderness - Rectal Exam Rectal Exam: Deferred - Exam Exam: NORMAL INSPECTION - Extremities Exam Extremities Exam: absent: Calf Tenderness, Pedal Edema - Back Exam Back Exam: absent: CVA tenderness (L), CVA tenderness (R) - Neurological Exam Neurological Exam: Alert, Awake, Oriented x3 Assessment and Plan (1) Dehydration Status: Acute (2) Leg pain, bilateral Status: Acute (3) MRSA (methicillin resistant Staphylococcus aureus) septicemia Status: Acute
--- NOTE | 2017-01-02 18:21 | CP.PCM.PN ---
Subjective - Date & Time of Evaluation Date of Evaluation: 01/02/17 Time of Evaluation: 18:18 - Subjective Subjective: worsening renal function, renal us unremarkable, no proteinuria/hematuria. low complements, temo neg, hep B neg. HepC ab +,pending viral load vancomycin ?trough was high 3 days ago. Pt currntly on tygecil. uop recorded good amount pt appears lethargic and confused dry mouth Objective - Vital Signs/Intake and Output Vital Signs (last 24 hours): Temp Pulse Resp BP Pulse Ox 98.1 F 89 20 142/81 95 01/02/17 07:33 01/02/17 17:20 01/02/17 07:33 01/02/17 17:28 01/02/17 07:33 Intake and Output: 01/02/17 01/02/17 06:59 18:59 Intake Total 700 590 Output Total 650 1300 Balance 50 -710 - Medications Medications: Current Medications Baclofen (Lioresal) 10 mg PO BID [facility] Last Admin: 01/02/17 17:30 Dose: 10 mg Emollient Ointment (Vaseline Oint) 0 gm TOP Q1H PRN PRN Reason: Dry skin Enoxaparin Sodium (Lovenox) 50 mg SC Q12H [facility] Last Admin: 01/02/17 09:41 Dose: 50 mg Escitalopram Oxalate (Lexapro) 10 mg PO DAILY [facility] Last Admin: 01/02/17 09:42 Dose: 10 mg Famotidine (Pepcid) 20 mg PO DAILY [facility] Last Admin: 01/02/17 09:42 Dose: 20 mg Ferrous Sulfate (Feosol) 325 mg PO TID [facility] Last Admin: 01/02/17 17:30 Dose: 325 mg Tigecycline 50 mg/ Sodium (Chloride) 100 mls @ 100 mls/hr IV Q12H [facility] Last Admin: 01/02/17 16:00 Dose: 100 mls/hr Sodium Bicarbonate 75 meq/ (Dextrose) 1,075 mls @ 70 mls/hr IV .[id number] [facility] Last Admin: 01/02/17 06:34 Dose: 70 mls/hr Penicillin G Potassium 2.5 mu/ (Dextrose) 50 mls @ 100 mls/hr IVPB Q4H [facility] Stop: 01/12/17 13:01 Last Admin: 01/02/17 17:34 Dose: 100 mls/hr Insulin Human Regular (Novolin R) 0 unit SC ACHS [facility] PRN Reason: Protocol Last Admin: 01/02/17 17:26 Dose: Not Given Ondansetron HCl (Zofran Inj) 4 mg IVP Q6H [facility] Last Admin: 01/02/17 17:37 Dose: 4 mg Saccharomyces Boulardii (Florastor) 250 mg PO BID [facility] Last Admin: 01/02/17 17:30 Dose: 250 mg Vitamin A (Vitamin A & D Oint Ud Foilpak) 0 ea TOP Q4 [facility] Last Admin: 01/02/17 17:30 Dose: 1 ea - Labs Labs: 01/02/17 11:13 01/02/17 11:13 PT 15.3 SECONDS (9.7-12.2) H 12/27/16 06:55 INR 1.4 12/27/16 06:55 APTT 41 SECONDS (21-34) H 12/27/16 06:55 - Constitutional Appears: Non-toxic, No Acute Distress, Confused, Cachectic, Chronically Ill - Eye Exam Eye Exam: Normal appearance - ENT Exam ENT Exam: Mucous Membranes Dry (crusted) - Neck Exam Neck Exam: Normal Inspection - Respiratory Exam Respiratory Exam: Clear to Ausculation Bilateral, NORMAL BREATHING PATTERN - Cardiovascular Exam Cardiovascular Exam: REGULAR RHYTHM, RRR - GI/Abdominal Exam GI & Abdominal Exam: Distended, Soft, Normal Bowel Sounds - Extremities Exam Extremities Exam: Normal Inspection - Neurological Exam Neurological Exam: Altered Assessment and Plan (1) Acute kidney injury Status: Acute (2) Anemia Status: Acute (3) Diabetes Status: Acute (4) Endocarditis Status: Acute (5) Hep C w/o coma, chronic Status: Acute (6) Syphilis Status: Acute - Assessment and Plan (Free Text) Assessment: renal function stabilizing maintain iv fluids LP pending ua negative w/o proteinuria or hematuria. Likely cause of dann - atn
[2017-01-03] MEDS: Vitamins A & D Oint UD Foilpak TOP SCH ×6 (00:05→20:00)
[2017-01-03] MEDS: Penicillin G Potassium 2.5 MU in Dextrose 5% In Water 50 ML IVPB SCH ×6 (00:36→21:41)
[2017-01-03 06:27] LABS: BASO # 0.1 K/uL (0.0-0.2); BASO % 1.1 % (0.0-2.0); EOS # 0.1 K/uL (0.0-0.7); EOS % 1.4 % (0.0-4.0); HEMATOCRIT 22.4 % (34.0-47.0); LYMPH # 1.8 K/uL (1.0-4.3); LYMPH % 31.8 % (20.0-40.0); MEAN CORPUSCULAR HEMOGLOBIN 31.5 pg (27.0-31.0); MEAN CORPUSCULAR HGB CONC 34.6 g/dL (33.0-37.0); MEAN PLATELET VOLUME 7.3 fL (7.2-11.7); MONO % 17.6 % (0.0-10.0); RED CELL DISTRIBUTION WIDTH 18.3 % (11.5-14.5); WHITE BLOOD COUNT 5.7 K/uL (4.8-10.8)
[2017-01-03 06:39] LABS: POTASSIUM 3.5 mmol/L (3.6-5.2)
[2017-01-03 06:42] LABS: ALB/GLOB RATIO 0.4 (1.0-2.1); BILIRUBIN,TOTAL 0.9 mg/dL (0.2-1.3); CALCIUM 7.2 mg/dl (8.6-10.4); TOTAL PROTEIN 7.4 g/dL (6.3-8.3)
--- NOTE | 2017-01-03 07:28 | CP.PCM.PN ---
Subjective - Date & Time of Evaluation Date of Evaluation: 01/03/17 Time of Evaluation: 04:00 - Subjective Subjective: Was notified that pt was confused and picking at her bandage and that she was bleeding through her bandage and pressure dressing. Dressing was soaked so I proceeded to repack the wound and held pressure for 20 minutes. It had seemed to stop so I applied a new pressure dressing. About 1.5 hours later I was called for the same issue. At this time the dressing had soaked through so I injected 10cc of lidocaine with epi into the wound, held pressure for 15 minutes , and had the nurse assist with a new pressure dressing. During the times I saw the pt she was repeatedly stating she wanted to go home, people were lying to her, and that she wanted to , as well as some non-sensical statements. PGY3 Objective - Vital Signs/Intake and Output Vital Signs (last 24 hours): Temp Pulse Resp BP Pulse Ox 98 F 90 20 181/99 H 96 01/03/17 00:00 01/03/17 00:00 01/03/17 00:00 01/03/17 00:00 01/03/17 00:00 Intake and Output: 01/03/17 01/03/17 06:59 18:59 Intake Total 760 805 Output Total 750 400 Balance 10 405 - Medications Medications: Current Medications Baclofen (Lioresal) 10 mg PO BID [facility] Last Admin: 01/02/17 17:30 Dose: 10 mg Emollient Ointment (Vaseline Oint) 0 gm TOP Q1H PRN PRN Reason: Dry skin Enoxaparin Sodium (Lovenox) 50 mg SC Q12H [facility] Last Admin: 01/02/17 21:16 Dose: 50 mg Escitalopram Oxalate (Lexapro) 10 mg PO DAILY [facility] Last Admin: 01/02/17 09:42 Dose: 10 mg Famotidine (Pepcid) 20 mg PO DAILY [facility] Last Admin: 01/02/17 09:42 Dose: 20 mg Ferrous Sulfate (Feosol) 325 mg PO TID [facility] Last Admin: 01/02/17 17:30 Dose: 325 mg Hydralazine HCl (Apresoline) 10 mg IVP Q6H [facility] Tigecycline 50 mg/ Sodium (Chloride) 100 mls @ 100 mls/hr IV Q12H [facility] Last Admin: 01/03/17 03:53 Dose: 100 mls/hr Sodium Bicarbonate 75 meq/ (Dextrose) 1,075 mls @ 70 mls/hr IV .[id number] [facility] Last Admin: 01/02/17 21:20 Dose: 70 mls/hr Penicillin G Potassium 2.5 mu/ (Dextrose) 50 mls @ 100 mls/hr IVPB Q4H [facility] Stop: 01/12/17 13:01 Last Admin: 01/03/17 05:30 Dose: 100 mls/hr Insulin Human Regular (Novolin R) 0 unit SC ACHS [facility] PRN Reason: Protocol Last Admin: 01/02/17 21:16 Dose: Not Given Ondansetron HCl (Zofran Inj) 4 mg IVP Q6H [facility] Last Admin: 01/03/17 05:10 Dose: 4 mg Pantoprazole Sodium (Protonix Inj) 40 mg IVP DAILY [facility] Saccharomyces Boulardii (Florastor) 250 mg PO BID [facility] Last Admin: 01/02/17 17:30 Dose: 250 mg Vitamin A (Vitamin A & D Oint Ud Foilpak) 0 ea TOP Q4 [facility] Last Admin: 01/03/17 04:11 Dose: 1 ea - Labs Labs: 01/03/17 06:07 01/03/17 06:07 PT 15.3 SECONDS (9.7-12.2) H 12/27/16 06:55 INR 1.4 12/27/16 06:55 APTT 41 SECONDS (21-34) H 12/27/16 06:55
[2017-01-03] MEDS: (Novolin R) Insulin Human Regular 100 units/ml vial SC SCH ×4 (08:01→21:43)
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
[2017-01-03] MEDS: Enoxaparin 60 mg Syringe SC SCH ×2 (10:48→21:37)
[2017-01-03] MEDS: Saccharomyces Boulardi 250 mg Cap PO SCH ×2 (10:53→17:20)
--- NOTE | 2017-01-03 11:38 | CP.PCM.PN ---
Subjective - Date & Time of Evaluation Date of Evaluation: 01/03/17 Time of Evaluation: 11:36 - Subjective Subjective: mental status unchanged, remains lethargic poor oral intake labs noted Objective - Vital Signs/Intake and Output Vital Signs (last 24 hours): Temp Pulse Resp BP Pulse Ox 99.4 F 85 20 149/91 H 93 L 01/03/17 07:00 01/03/17 07:00 01/03/17 07:00 01/03/17 07:00 01/03/17 07:00 Intake and Output: 01/03/17 01/03/17 06:59 18:59 Intake Total 760 805 Output Total 750 400 Balance 10 405 - Medications Medications: Current Medications Baclofen (Lioresal) 10 mg PO BID [facility] Last Admin: 01/03/17 10:53 Dose: 10 mg Emollient Ointment (Vaseline Oint) 0 gm TOP Q1H PRN PRN Reason: Dry skin Last Admin: 01/03/17 08:32 Dose: 1 gm Enoxaparin Sodium (Lovenox) 50 mg SC Q12H [facility] Last Admin: 01/03/17 10:48 Dose: Not Given Escitalopram Oxalate (Lexapro) 10 mg PO DAILY [facility] Last Admin: 01/03/17 10:53 Dose: 10 mg Famotidine (Pepcid) 20 mg PO DAILY [facility] Last Admin: 01/03/17 10:53 Dose: 20 mg Ferrous Sulfate (Feosol) 325 mg PO TID [facility] Last Admin: 01/03/17 10:51 Dose: 325 mg Hydralazine HCl (Apresoline) 10 mg PO QID [facility] Last Admin: 01/03/17 10:52 Dose: 10 mg Tigecycline 50 mg/ Sodium (Chloride) 100 mls @ 100 mls/hr IV Q12H [facility] Last Admin: 01/03/17 03:53 Dose: 100 mls/hr Sodium Bicarbonate 75 meq/ (Dextrose) 1,075 mls @ 70 mls/hr IV .[id number] [facility] Last Admin: 01/02/17 21:20 Dose: 70 mls/hr Penicillin G Potassium 2.5 mu/ (Dextrose) 50 mls @ 100 mls/hr IVPB Q4H [facility] Stop: 01/12/17 13:01 Last Admin: 01/03/17 08:25 Dose: 100 mls/hr Insulin Human Regular (Novolin R) 0 unit SC ACHS [facility] PRN Reason: Protocol Last Admin: 01/03/17 08:01 Dose: Not Given Ondansetron HCl (Zofran Inj) 4 mg IVP Q6H [facility] Last Admin: 01/03/17 11:07 Dose: 4 mg Pantoprazole Sodium (Protonix Inj) 40 mg IVP DAILY [facility] Last Admin: 01/03/17 10:52 Dose: 40 mg Saccharomyces Boulardii (Florastor) 250 mg PO BID [facility] Last Admin: 01/03/17 10:53 Dose: 250 mg Vitamin A (Vitamin A & D Oint Ud Foilpak) 0 ea TOP Q4 [facility] Last Admin: 01/03/17 08:25 Dose: 1 ea - Labs Labs: 01/03/17 06:07 01/03/17 06:07 PT 15.3 SECONDS (9.7-12.2) H 12/27/16 06:55 INR 1.4 12/27/16 06:55 APTT 41 SECONDS (21-34) H 12/27/16 06:55 - Constitutional Appears: No Acute Distress, Confused, Chronically Ill - Head Exam Head Exam: NORMAL INSPECTION - Eye Exam Eye Exam: Normal appearance - ENT Exam ENT Exam: Mucous Membranes Moist, Normal Exam - Neck Exam Neck Exam: Normal Inspection - Respiratory Exam Respiratory Exam: Clear to Ausculation Bilateral, NORMAL BREATHING PATTERN - Cardiovascular Exam Cardiovascular Exam: REGULAR RHYTHM, RRR - GI/Abdominal Exam GI & Abdominal Exam: Distended, Soft, Normal Bowel Sounds - Back Exam Back Exam: NORMAL INSPECTION - Psychiatric Exam Psychiatric exam: Flat Affect Assessment and Plan (1) Acute kidney injury Status: Acute (2) Anemia Status: Acute (3) Diabetes Status: Acute (4) Endocarditis Status: Acute (5) Hep C w/o coma, chronic Status: Acute (6) Syphilis Status: Acute - Assessment and Plan (Free Text) Assessment: renal function stabilizing maintain iv fluids LP pending ua negative w/o proteinuria or hematuria. Likely cause of dann - atn hep C positive, treatment per primary team outpt
[2017-01-03 12:09] LABS: HEMATOCRIT 22.8 % (34.0-47.0); MEAN CELL VOLUME 90.4 fL (81.0-99.0); MEAN CORPUSCULAR HEMOGLOBIN 30.4 pg (27.0-31.0); MEAN CORPUSCULAR HGB CONC 33.6 g/dL (33.0-37.0); RED CELL DISTRIBUTION WIDTH 18.4 % (11.5-14.5)
--- NOTE | 2017-01-03 15:35 | CP.PCM.CON ---
History of Present Illness - History of Present Illness History of Present Illness: Came to see the patient. patient remained disorganized and noncooperative. She remained partially mute and appeared delirious. Will come again other time when pt will be more cooperative. Past Patient History - Infectious Disease Hx of Infectious Diseases: None - Past Medical History & Family History Past Medical History?: Yes - Past Social History Smoking Status: Never Smoked - CARDIAC Hx Hypertension: Yes - PULMONARY Hx Respiratory Disorders: No Hx Asthma: No Hx Bronchitis: No Hx Chronic Obstructive Pulmonary Disease (COPD): No Hx Emphysema: No Hx Lung Cancer: No Hx Pneumonia: No Hx Pulmonary Edema: No Hx Pulmonary Embolism: No Hx Respiratory Aspiration: No Hx Respiratory Tract Infection: No Hx Sleep Apnea: No Hx Tuberculosis: No - NEUROLOGICAL Hx Neurological Disorder: No Hx Alzheimer's Disease: No HX Cerebrovascular Accident: No Hx Dementia: No Hx Dizziness: No Hx Meningitis: No Hx Migraine: No Hx Multiple Sclerosis: No Hx Paralysis: No Hx Parkinson's Disease: No Hx Seizures: Yes (Epilepsy) Hx Syncope: No Hx Transient Ischemic Attacks (TIA): No Hx Vertigo: No - HEENT Hx HEENT Problems: No Hx Blind: No Hx Cataracts: No Hx Deafness: No Hx Difficulty Chewing: No Hx Epistaxis: No Hx Glaucoma: No Hx Macular Degeneration: No Hx Sinusitis: No - RENAL Hx Chronic Kidney Disease: No Hx Dialysis: No Hx Kidney Stones: No Hx Neurogenic Bladder: No Hx Pyelonephritis: No Hx Renal (Kidney) Cancer: No Hx Renal Failure: No - ENDOCRINE/METABOLIC Hx Diabetes Mellitus Type 1: Yes - HEMATOLOGICAL/ONCOLOGICAL Hx Blood Disorders: No Hx AIDS: No Hx Anemia: No Hx Blood Transfusions: No Hx Blood Transfusion Reaction: No Hx Bruising: No Hx Cancer: No Hx Chemotherapy: No Hx Cirrhosis: No Hx Gum Bleeding: No Hx Hemophilia: No Hx Hepatitis A: No Hx Hepatitis B: No Hx Hepatitis C: No Hx Human Immunodeficiency Virus (HIV): No Hx Leukemia: No Hx Metastesis: No Hx Shingles: No Hx Sickle Cell Disease: No Hx Unexplained Bleeding: No Hx von Willebrand's Disease: No - INTEGUMENTARY Hx Dermatological Problems: No Hx Basil Cell: No Hx Rg: No Hx Cellulitis: No Hx Eczema: No Hx Melanoma: No Hx Psoriasis: No Hx Squamous Cell: No - MUSCULOSKELETAL/RHEUMATOLOGICAL Hx Falls: Yes - GASTROINTESTINAL Hx Gastrointestinal Disorders: No Hx Bowel Surgery: No Hx Clostridium Difficile: No Hx Colitis: No Hx Colostomy: No Hx Constipation: No Hx Crohn's Disease: No Hx Diarrhea: No Hx Diverticulitis: No Hx Esophageal Varices: No Hx Fatty Liver Disease: No Hx Gall Bladder Disease: No Hx Gastritis: No Hx Gastroesophageal Reflux: No Hx Hemorrhoids: No Hx Ileostomy: No Hx Irritable Bowel: No Hx Liver Failure: No Hx Nausea: No Hx Pancreatitis: No HX Swallowing Problems: No Hx Ulcer: No Hx Vomiting: No - GENITOURINARY/GYNECOLOGICAL Hx Genitourinary Disorders: No Hx Bladder Cancer: No Hx Bladder Stone: No Hx Cervical Cancer: No Hx Hematuria: No Hx Incontinence: No Hx Ovarian Cancer: No Hx Postmenopausal Bleeding: No Hx Reproductive Disorders: No Hx Sexually Transmitted Disorders: No Hx Uterine Cancer: No Hx Urinary Tract Infection: No - PSYCHIATRIC Hx Substance Use: No - SURGICAL HISTORY Hx Surgeries: No - ANESTHESIA Hx Anesthesia: Yes Hx Anesthesia Reactions: No Hx Malignant Hyperthermia: No Has any member of the family had a problem w/ anesthesia?: No Meds Allergies/Adverse Reactions: Allergies Allergy/AdvReac Type Severity Reaction Status Date / Time No Known Allergies Allergy Verified 12/12/16 12:26 - Medications Medications: Current Medications Baclofen (Lioresal) 10 mg PO BID [facility] Last Admin: 01/03/17 10:53 Dose: 10 mg Emollient Ointment (Vaseline Oint) 0 gm TOP Q1H PRN PRN Reason: Dry skin Last Admin: 01/03/17 08:32 Dose: 1 gm Enoxaparin Sodium (Lovenox) 50 mg SC Q12H [facility] Last Admin: 01/03/17 10:48 Dose: Not Given Escitalopram Oxalate (Lexapro) 10 mg PO DAILY [facility] Last Admin: 01/03/17 10:53 Dose: 10 mg Famotidine (Pepcid) 20 mg PO DAILY [facility] Last Admin: 01/03/17 10:53 Dose: 20 mg Ferrous Sulfate (Feosol) 325 mg PO TID [facility] Last Admin: 01/03/17 14:44 Dose: 325 mg Hydralazine HCl (Apresoline) 10 mg PO QID [facility] Last Admin: 01/03/17 14:48 Dose: 10 mg Tigecycline 50 mg/ Sodium (Chloride) 100 mls @ 100 mls/hr IV Q12H [facility] Last Admin: 01/03/17 03:53 Dose: 100 mls/hr Sodium Bicarbonate 75 meq/ (Dextrose) 1,075 mls @ 70 mls/hr IV .[id number] [facility] Last Admin: 01/02/17 21:20 Dose: 70 mls/hr Penicillin G Potassium 2.5 mu/ (Dextrose) 50 mls @ 100 mls/hr IVPB Q4H [facility] Stop: 01/12/17 13:01 Last Admin: 01/03/17 13:42 Dose: 100 mls/hr Insulin Human Regular (Novolin R) 0 unit SC ACHS [facility] PRN Reason: Protocol Last Admin: 01/03/17 12:08 Dose: Not Given Ondansetron HCl (Zofran Inj) 4 mg IVP Q6H [facility] Last Admin: 01/03/17 11:07 Dose: 4 mg Pantoprazole Sodium (Protonix Inj) 40 mg IVP DAILY [facility] Last Admin: 01/03/17 10:52 Dose: 40 mg Saccharomyces Boulardii (Florastor) 250 mg PO BID [facility] Last Admin: 01/03/17 10:53 Dose: 250 mg Vitamin A (Vitamin A & D Oint Ud Foilpak) 0 ea TOP Q4 [facility] Last Admin: 01/03/17 13:45 Dose: 1 ea Results - Vital Signs Recent Vital Signs: Last Vital Signs Temp 99.4 F 01/03/17 07:00 Pulse 85 01/03/17 08:00 Resp 20 01/03/17 07:00 BP 149/91 H 01/03/17 07:00 Pulse Ox 93 L 01/03/17 07:00 - Labs Result Diagrams: 01/03/17 12:05 01/03/17 06:07 Labs: Laboratory Results - last 24 hr 01/02/17 01/02/17 01/02/17 07:13 16:33 21:47 WBC RBC Hgb Hct MCV MCH MCHC RDW Plt Count MPV Neut % (Auto) Lymph % (Auto) [place] % (Auto) Eos % (Auto) Baso % (Auto) Neut # Lymph # [place] # Eos # Baso # Sodium Potassium Chloride Carbon Dioxide Anion Gap BUN Creatinine Est GFR ( Amer) Est GFR (Non-Af Amer) POC Glucose (mg/dL) 158 H 168 H 186 H Random Glucose Calcium Total Bilirubin AST ALT Alkaline Phosphatase Ammonia Total Creatine Kinase Total Protein Albumin Globulin Albumin/Globulin Ratio Blood Type Antibody Screen 01/03/17 01/03/17 01/03/17 06:07 07:13 08:19 WBC 5.7 RBC 2.46 L Hgb 7.7 L Hct 22.4 L MCV 91.0 MCH 31.5 H MCHC 34.6 RDW 18.3 H Plt Count 121 L MPV 7.3 Neut % (Auto) 48.1 L Lymph % (Auto) 31.8 [place] % (Auto) 17.6 H Eos % (Auto) 1.4 Baso % (Auto) 1.1 Neut # 2.8 Lymph # 1.8 [place] # 1.0 H Eos # 0.1 Baso # 0.1 Sodium 139 Potassium 3.5 L Chloride 104 Carbon Dioxide 21 L Anion Gap 18 BUN 26 H Creatinine 2.9 H Est GFR ( Amer) 22 Est GFR (Non-Af Amer) 18 POC Glucose (mg/dL) 174 H Random Glucose 152 H Calcium 7.2 L Total Bilirubin 0.9 AST 24 ALT 13 Alkaline Phosphatase 68 Ammonia 31 Total Creatine Kinase 52 Total Protein 7.4 Albumin 2.3 L Globulin 5.2 H Albumin/Globulin Ratio 0.4 L Blood Type Antibody Screen 01/03/17 01/03/17 11:43 12:05 WBC 5.0 RBC 2.52 L Hgb 7.7 L Hct 22.8 L MCV 90.4 MCH 30.4 MCHC 33.6 RDW 18.4 H Plt Count 106 L MPV 7.0 L Neut % (Auto) Lymph % (Auto) [place] % (Auto) Eos % (Auto) Baso % (Auto) Neut # Lymph # [place] # Eos # Baso # Sodium Potassium Chloride Carbon Dioxide Anion Gap BUN Creatinine Est GFR ( Amer) Est GFR (Non-Af Amer) POC Glucose (mg/dL) 157 H Random Glucose Calcium Total Bilirubin AST ALT Alkaline Phosphatase Ammonia Total Creatine Kinase Total Protein Albumin Globulin Albumin/Globulin Ratio Blood Type O POSITIVE Antibody Screen Negative
[2017-01-03 18:18] LABS: RAPID PLASMA REAGIN REACTIVE (NONREACTIVE)
[2017-01-03] MEDS: Sodium Bicarbonate 8.4% 75 MEQ in Dextrose 5% In Water 1,000 ML IV SCH (20:02)
[2017-01-03] MEDS ORDERED: Aluminum Hydroxide/Magnesium Hydroxide Susp (30 mL) PO ONE (20:15)
--- NOTE | 2017-01-03 22:13 | EEG ---
DATE: 01/03/2017 This is a 16-channel electroencephalogram of awake and confused adult. During the study, photic stim ulation was performed. Hyperventilation was not performed. The resting electroencephalogram consists of diffuse 20-30 microvolt delta activities superimposed wi th 5-6 Hz theta activities seen in bilateral cortical leads. There are recurrent brief 3-4 seconds p aroxysmal polyphasic activities seen in bilateral cortical leads, followed with generalized slow acti vities consistent with electrographic seizures. The photic stimulation did not evoke driving respons e noted at 2-20 Hz. IMPRESSION: This is abnormal electroencephalogram because of persistent slowing superimposed with recurrent episo de of polyphasic paroxysmal activities suggestive of epileptiform discharges. Please correlate the f inding with the neurological and radiological studies. Luis M Ocampo MD cc: [id number] TT: 01/03/2017 22:13:21 Confirmation # [id number] Dictation # [id number]
[2017-01-03] MEDS: levETIRAcetam 500 MG in Sodium Chloride 0.9% 100 ML IVPB SCH (22:55)
[2017-01-04] MEDS: Vitamins A & D Oint UD Foilpak TOP SCH ×6 (00:20→20:00)
[2017-01-04] MEDS: Penicillin G Potassium 2.5 MU in Dextrose 5% In Water 50 ML IVPB SCH ×6 (00:37→21:54)
[2017-01-04] MEDS: Sodium Bicarbonate 8.4% 75 MEQ in Dextrose 5% In Water 1,000 ML IV SCH (03:30)
[2017-01-04] MEDS: (Novolin R) Insulin Human Regular 100 units/ml vial SC SCH ×4 (07:33→22:12)
--- NOTE | 2017-01-04 08:08 | PN ---
DATE: 01/04/2017 NEUROLOGICAL PROBLEM: Change in mental status. Abnormal blood workup. PHYSICAL EXAMINATION: VITAL SIGNS: Blood pressure 157/86, mean arterial pressure of 109, respiratory rate 16, temperature afebrile. NEUROLOGIC: The patient is quiet, awake, responds to questions. Speech is intact. Moves all 4 extremities. The patient seems to be improved from mental status point of view. WORKUP: EEG shows rhythmic polyphasic discharges noted in bilateral cortical leads suggestive of epileptiform discharges. Her FTA is positive. I have started Keppra 500 mg IV. If the patient can take p.o., that can be switched to 500 mg twice a day. I agree with penicillin G. On reviewing her history, her presentation of initial weakness - all related to probably the seizures. 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 This could be post-traumatic insult to the temporal lobe, probably giving partial seizures periodically, which was not worked up and which was not documented earlier. 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 The patient has been taking multiple medications which can give her sedation as well as some bring down the seizure threshold that include SSRI and diazepam groups including neuroleptic drugs. If it is not wanted, that should be discontinued at this point. Continue hydration. Continue antibiotic as she has been getting it. Still, I would like to hold on spinal tap because of 2 processes going on. However, the blood workup consistent with syphilis probably not manifesting with meningovascular syphilis at this point. Continue Keppra and penicillin G at this point. Luis M Ocampo MD cc: [id number] TT: 01/04/2017 08:08:16 Confirmation # [id number] Dictation # [id number] isadora HERNANDEZ
[2017-01-04 08:28] LABS: BASO # 0.1 K/uL (0.0-0.2); BASO % 1.4 % (0.0-2.0); EOS # 0.1 K/uL (0.0-0.7); EOS % 2.4 % (0.0-4.0); HEMATOCRIT 23.8 % (34.0-47.0); LYMPH # 1.7 K/uL (1.0-4.3); LYMPH % 43.3 % (20.0-40.0); MEAN CELL VOLUME 91.3 fL (81.0-99.0); MEAN CORPUSCULAR HEMOGLOBIN 31.6 pg (27.0-31.0); MEAN CORPUSCULAR HGB CONC 34.6 g/dL (33.0-37.0); MEAN PLATELET VOLUME 7.5 fL (7.2-11.7); MONO # 0.7 K/uL (0.0-0.8); MONO % 18.8 % (0.0-10.0); NRBC % 0.1 % (0.0-2.0); RED CELL DISTRIBUTION WIDTH 18.2 % (11.5-14.5)
[2017-01-04 08:53] LABS: POTASSIUM 3.1 mmol/L (3.6-5.2)
[2017-01-04 08:55] LABS: ALB/GLOB RATIO 0.5 (1.0-2.1); BILIRUBIN,TOTAL 0.8 mg/dL (0.2-1.3); TOTAL PROTEIN 7.8 g/dL (6.3-8.3)
[2017-01-04 08:56] LABS: CALCIUM 7.3 mg/dl (8.6-10.4); MAGNESIUM 1.6 mg/dL (1.6-2.3)
[2017-01-04] MEDS: levETIRAcetam 500 MG in Sodium Chloride 0.9% 100 ML IVPB SCH ×2 (09:25→21:52)
[2017-01-04] MEDS: Saccharomyces Boulardi 250 mg Cap PO SCH (09:28)
[2017-01-04] MEDS ORDERED: Potassium Chl 40 mEq in D5-1/2 1,000 ML IV SCH (10:30)
[2017-01-04] MEDS ORDERED: Potassium Chloride 20 mEq 100 ML IVPB ONE ×2 (11:00→13:00)
[2017-01-04 11:25] LABS: RBC URINE 1 /hpf (0-3); URINE BACTERIA RARE (<OCC); URINE BILIRUBIN NEGATIVE (NEGATIVE); URINE BLOOD NEGATIVE (NEGATIVE); URINE COLOR Yellow (YELLOW); URINE GLUCOSE (UA) NORMAL (Normal); URINE KETONE NEGATIVE (NEGATIVE); URINE LEUKOCYTE ESTERASE NEG Leu/uL (Negative); URINE PROTEIN NEGATIVE (NEGATIVE); URINE UROBILINOGEN NORMAL mg/dL (0.2-1.0); WBC URINE 3 /hpf (0-5)
--- NOTE | 2017-01-04 12:17 | CP.PCM.PN ---
Subjective - Date & Time of Evaluation Date of Evaluation: 01/04/17 Time of Evaluation: 12:16 - Subjective Subjective: seen and examined lethargic sleeping comfortably per sitter, pt was crying in pain earlier, abdominal pain. ultrasound ordered and pending at this time low grade fever noted Objective - Vital Signs/Intake and Output Vital Signs (last 24 hours): Temp Pulse Resp BP Pulse Ox 98.0 F 88 20 157/86 H 95 01/04/17 05:15 01/04/17 08:00 01/04/17 05:15 01/04/17 05:15 01/04/17 05:15 Intake and Output: 01/04/17 01/04/17 06:59 18:59 Intake Total 1500 Output Total 1150 Balance 350 - Medications Medications: Current Medications Acetaminophen (Tylenol 325mg Tab) 650 mg PO Q6 PRN PRN Reason: Fever >100.4 F Last Admin: 01/04/17 00:18 Dose: 650 mg Baclofen (Lioresal) 10 mg PO BID [facility] Last Admin: 01/04/17 09:28 Dose: 10 mg Emollient Ointment (Vaseline Oint) 0 gm TOP Q1H PRN PRN Reason: Dry skin Last Admin: 01/03/17 08:32 Dose: 1 gm Escitalopram Oxalate (Lexapro) 10 mg PO DAILY [facility] Last Admin: 01/04/17 09:28 Dose: 10 mg Famotidine (Pepcid) 20 mg PO DAILY [facility] Last Admin: 01/04/17 09:28 Dose: 20 mg Ferrous Sulfate (Feosol) 325 mg PO TID [facility] Last Admin: 01/04/17 09:28 Dose: 325 mg Haloperidol (Haldol) 5 mg PO Q2H PRN PRN Reason: agitation, max 4x/24h Hydralazine HCl (Apresoline) 10 mg PO QID [facility] Last Admin: 01/04/17 09:28 Dose: 10 mg Tigecycline 50 mg/ Sodium (Chloride) 100 mls @ 100 mls/hr IV Q12H [facility] Last Admin: 01/04/17 04:13 Dose: 100 mls/hr Sodium Bicarbonate 75 meq/ (Dextrose) 1,075 mls @ 70 mls/hr IV .[id number] [facility] Last Admin: 01/04/17 03:30 Dose: Not Given Penicillin G Potassium 2.5 mu/ (Dextrose) 50 mls @ 100 mls/hr IVPB Q4H [facility] Stop: 01/12/17 13:01 Last Admin: 01/04/17 08:00 Dose: 100 mls/hr Levetiracetam 500 mg/ Sodium (Chloride) 105 mls @ 420 mls/hr IVPB Q12H [facility] Last Admin: 01/04/17 09:25 Dose: 420 mls/hr Potassium Chloride (Potassium Chloride 20 Meq/100 Ml) 100 mls @ 50 mls/hr IVPB ONCE ONE Stop: 01/04/17 12:59 Last Admin: 01/04/17 10:36 Dose: 50 mls/hr Potassium Chloride (Potassium Chloride 20 Meq/100 Ml) 100 mls @ 50 mls/hr IVPB ONCE ONE Stop: 01/04/17 14:59 Insulin Human Regular (Novolin R) 0 unit SC ACHS [facility] PRN Reason: Protocol Last Admin: 01/04/17 11:22 Dose: Not Given Ondansetron HCl (Zofran Inj) 4 mg IVP Q6H [facility] Last Admin: 01/04/17 11:27 Dose: 4 mg Pantoprazole Sodium (Protonix Inj) 40 mg IVP DAILY [facility] Last Admin: 01/04/17 09:28 Dose: 40 mg Saccharomyces Boulardii (Florastor) 250 mg PO BID [facility] Last Admin: 01/04/17 09:28 Dose: 250 mg Vitamin A (Vitamin A & D Oint Ud Foilpak) 0 ea TOP Q4 [facility] Last Admin: 01/04/17 11:28 Dose: 1 ea - Labs Labs: 01/04/17 08:15 01/04/17 08:15 PT 15.3 SECONDS (9.7-12.2) H 12/27/16 06:55 INR 1.4 12/27/16 06:55 APTT 41 SECONDS (21-34) H 12/27/16 06:55 - Constitutional Appears: Non-toxic, No Acute Distress, Chronically Ill - Head Exam Head Exam: NORMAL INSPECTION - Eye Exam Eye Exam: Normal appearance - ENT Exam ENT Exam: Mucous Membranes Moist, Normal Exam - Neck Exam Neck Exam: Normal Inspection - Respiratory Exam Respiratory Exam: Decreased Breath Sounds, NORMAL BREATHING PATTERN - Cardiovascular Exam Cardiovascular Exam: REGULAR RHYTHM, RRR - GI/Abdominal Exam GI & Abdominal Exam: Distended, Soft, Tenderness (diffuse) - Extremities Exam Extremities Exam: Normal Inspection Assessment and Plan (1) Acute kidney injury Status: Acute (2) Anemia Status: Acute (3) Diabetes Status: Acute (4) Endocarditis Status: Acute (5) Hep C w/o coma, chronic Status: Acute (6) Syphilis Status: Acute - Assessment and Plan (Free Text) Assessment: renal function stabilizing maintain iv fluids LP pending ua negative w/o proteinuria or hematuria. Likely cause of dann - atn hep C positive, treatment per primary team outpt work up of abdominal pain pending
--- NOTE | 2017-01-04 12:40 | CP.PCM.CON ---
History of Present Illness - History of Present Illness History of Present Illness: CC: Occult GI bleed HPI: GI Service consult requested for this 36 year old woman found to have anemia and occult blood in the stool. She has been in thehospital for 3 weeks and had B12, Folate, and iron studies done, consistent with anemia of chronic disease. At some point 2 weeks ago she had Colitis on CT scan and stool C Difficile toxin was positive. Since then she has 3 negative C Difficile studies , though she does have lose BMs, without overt bleeding. Hepatitis C positive genotype 1a, less than a million units also detected. Past Patient History - Infectious Disease Hx of Infectious Diseases: None - Past Medical History & Family History Past Medical History?: Yes - Past Social History Smoking Status: Never Smoked - CARDIAC Hx Hypertension: Yes - PULMONARY Hx Respiratory Disorders: No Hx Asthma: No Hx Bronchitis: No Hx Chronic Obstructive Pulmonary Disease (COPD): No Hx Emphysema: No Hx Lung Cancer: No Hx Pneumonia: No Hx Pulmonary Edema: No Hx Pulmonary Embolism: No Hx Respiratory Aspiration: No Hx Respiratory Tract Infection: No Hx Sleep Apnea: No Hx Tuberculosis: No - NEUROLOGICAL Hx Neurological Disorder: No Hx Alzheimer's Disease: No HX Cerebrovascular Accident: No Hx Dementia: No Hx Dizziness: No Hx Meningitis: No Hx Migraine: No Hx Multiple Sclerosis: No Hx Paralysis: No Hx Parkinson's Disease: No Hx Seizures: Yes (Epilepsy) Hx Syncope: No Hx Transient Ischemic Attacks (TIA): No Hx Vertigo: No - HEENT Hx HEENT Problems: No Hx Blind: No Hx Cataracts: No Hx Deafness: No Hx Difficulty Chewing: No Hx Epistaxis: No Hx Glaucoma: No Hx Macular Degeneration: No Hx Sinusitis: No - RENAL Hx Chronic Kidney Disease: No Hx Dialysis: No Hx Kidney Stones: No Hx Neurogenic Bladder: No Hx Pyelonephritis: No Hx Renal (Kidney) Cancer: No Hx Renal Failure: No - ENDOCRINE/METABOLIC Hx Diabetes Mellitus Type 1: Yes - HEMATOLOGICAL/ONCOLOGICAL Hx Blood Disorders: No Hx AIDS: No Hx Anemia: No Hx Blood Transfusions: No Hx Blood Transfusion Reaction: No Hx Bruising: No Hx Cancer: No Hx Chemotherapy: No Hx Cirrhosis: No Hx Gum Bleeding: No Hx Hemophilia: No Hx Hepatitis A: No Hx Hepatitis B: No Hx Hepatitis C: No Hx Human Immunodeficiency Virus (HIV): No Hx Leukemia: No Hx Metastesis: No Hx Shingles: No Hx Sickle Cell Disease: No Hx Unexplained Bleeding: No Hx von Willebrand's Disease: No - INTEGUMENTARY Hx Dermatological Problems: No Hx Basil Cell: No Hx Rg: No Hx Cellulitis: No Hx Eczema: No Hx Melanoma: No Hx Psoriasis: No Hx Squamous Cell: No - MUSCULOSKELETAL/RHEUMATOLOGICAL Hx Falls: Yes - GASTROINTESTINAL Hx Gastrointestinal Disorders: No Hx Bowel Surgery: No Hx Clostridium Difficile: No Hx Colitis: No Hx Colostomy: No Hx Constipation: No Hx Crohn's Disease: No Hx Diarrhea: No Hx Diverticulitis: No Hx Esophageal Varices: No Hx Fatty Liver Disease: No Hx Gall Bladder Disease: No Hx Gastritis: No Hx Gastroesophageal Reflux: No Hx Hemorrhoids: No Hx Ileostomy: No Hx Irritable Bowel: No Hx Liver Failure: No Hx Nausea: No Hx Pancreatitis: No HX Swallowing Problems: No Hx Ulcer: No Hx Vomiting: No - GENITOURINARY/GYNECOLOGICAL Hx Genitourinary Disorders: No Hx Bladder Cancer: No Hx Bladder Stone: No Hx Cervical Cancer: No Hx Hematuria: No Hx Incontinence: No Hx Ovarian Cancer: No Hx Postmenopausal Bleeding: No Hx Reproductive Disorders: No Hx Sexually Transmitted Disorders: No Hx Uterine Cancer: No Hx Urinary Tract Infection: No - PSYCHIATRIC Hx Substance Use: No - SURGICAL HISTORY Hx Surgeries: No - ANESTHESIA Hx Anesthesia: Yes Hx Anesthesia Reactions: No Hx Malignant Hyperthermia: No Has any member of the family had a problem w/ anesthesia?: No Meds Allergies/Adverse Reactions: Allergies Allergy/AdvReac Type Severity Reaction Status Date / Time No Known Allergies Allergy Verified 12/12/16 12:26 - Medications Medications: Current Medications Acetaminophen (Tylenol 325mg Tab) 650 mg PO Q6 PRN PRN Reason: Fever >100.4 F Last Admin: 01/04/17 00:18 Dose: 650 mg Baclofen (Lioresal) 10 mg PO BID [facility] Last Admin: 01/04/17 09:28 Dose: 10 mg Emollient Ointment (Vaseline Oint) 0 gm TOP Q1H PRN PRN Reason: Dry skin Last Admin: 01/03/17 08:32 Dose: 1 gm Escitalopram Oxalate (Lexapro) 10 mg PO DAILY [facility] Last Admin: 01/04/17 09:28 Dose: 10 mg Ferrous Sulfate (Feosol) 325 mg PO TID [facility] Last Admin: 01/04/17 09:28 Dose: 325 mg Haloperidol (Haldol) 5 mg PO Q2H PRN PRN Reason: agitation, max 4x/24h Hydralazine HCl (Apresoline) 10 mg PO QID [facility] Last Admin: 01/04/17 09:28 Dose: 10 mg Tigecycline 50 mg/ Sodium (Chloride) 100 mls @ 100 mls/hr IV Q12H [facility] Last Admin: 01/04/17 04:13 Dose: 100 mls/hr Sodium Bicarbonate 75 meq/ (Dextrose) 1,075 mls @ 70 mls/hr IV .[id number] [facility] Last Admin: 01/04/17 03:30 Dose: Not Given Penicillin G Potassium 2.5 mu/ (Dextrose) 50 mls @ 100 mls/hr IVPB Q4H [facility] Stop: 01/12/17 13:01 Last Admin: 01/04/17 08:00 Dose: 100 mls/hr Levetiracetam 500 mg/ Sodium (Chloride) 105 mls @ 420 mls/hr IVPB Q12H [facility] Last Admin: 01/04/17 09:25 Dose: 420 mls/hr Potassium Chloride (Potassium Chloride 20 Meq/100 Ml) 100 mls @ 50 mls/hr IVPB ONCE ONE Stop: 01/04/17 12:59 Last Admin: 01/04/17 10:36 Dose: 50 mls/hr Potassium Chloride (Potassium Chloride 20 Meq/100 Ml) 100 mls @ 50 mls/hr IVPB ONCE ONE Stop: 01/04/17 14:59 Insulin Human Regular (Novolin R) 0 unit SC ACHS [facility] PRN Reason: Protocol Last Admin: 01/04/17 11:22 Dose: Not Given Ondansetron HCl (Zofran Inj) 4 mg IVP Q6H [facility] Last Admin: 01/04/17 11:27 Dose: 4 mg Pantoprazole Sodium (Protonix Inj) 40 mg IVP DAILY [facility] Last Admin: 01/04/17 09:28 Dose: 40 mg Vitamin A (Vitamin A & D Oint Ud Foilpak) 0 ea TOP Q4 [facility] Last Admin: 01/04/17 11:28 Dose: 1 ea Results - Vital Signs Recent Vital Signs: Last Vital Signs Temp 98.0 F 01/04/17 05:15 Pulse 88 01/04/17 08:00 Resp 20 01/04/17 05:15 BP 157/86 H 01/04/17 05:15 Pulse Ox 95 01/04/17 05:15 - Labs Result Diagrams: 01/04/17 08:15 01/04/17 08:15 Labs: Laboratory Results - last 24 hr 01/02/17 01/03/17 01/03/17 11:13 06:07 12:05 WBC RBC Hgb Hct MCV MCH MCHC RDW Plt Count MPV Neut % (Auto) Lymph % (Auto) [place] % (Auto) Eos % (Auto) Baso % (Auto) Neut # Lymph # [place] # Eos # Baso # Sodium Potassium Chloride Carbon Dioxide Anion Gap BUN Creatinine Est GFR ( Amer) Est GFR (Non-Af Amer) POC Glucose (mg/dL) Random Glucose Calcium Phosphorus Magnesium Total Bilirubin AST ALT Alkaline Phosphatase Total Protein Albumin Globulin Albumin/Globulin Ratio Urine Color Urine Clarity Urine pH Ur Specific [place] Urine Protein Urine Glucose (UA) Urine Ketones Urine Blood Urine Nitrate Urine Bilirubin Urine Urobilinogen Ur Leukocyte Esterase Urine WBC (Auto) Urine RBC (Auto) Urine Bacteria Stool Occult Blood RPR Titer 1:4 H RPR Reactive H T.pallidum Ab (FTA-ABS) Reactive H Blood Type O POSITIVE Antibody Screen Negative 01/03/17 01/03/17 01/04/17 16:18 21:24 07:15 WBC RBC Hgb Hct MCV MCH MCHC RDW Plt Count MPV Neut % (Auto) Lymph % (Auto) [place] % (Auto) Eos % (Auto) Baso % (Auto) Neut # Lymph # [place] # Eos # Baso # Sodium Potassium Chloride Carbon Dioxide Anion Gap BUN Creatinine Est GFR ( Amer) Est GFR (Non-Af Amer) POC Glucose (mg/dL) 161 H 136 H 145 H Random Glucose Calcium Phosphorus Magnesium Total Bilirubin AST ALT Alkaline Phosphatase Total Protein Albumin Globulin Albumin/Globulin Ratio Urine Color Urine Clarity Urine pH Ur Specific [place] Urine Protein Urine Glucose (UA) Urine Ketones Urine Blood Urine Nitrate Urine Bilirubin Urine Urobilinogen Ur Leukocyte Esterase Urine WBC (Auto) Urine RBC (Auto) Urine Bacteria Stool Occult Blood RPR Titer RPR T.pallidum Ab (FTA-ABS) Blood Type Antibody Screen 01/04/17 01/04/17 01/04/17 08:15 08:37 11:12 WBC 4.0 L RBC 2.61 L Hgb 8.2 L Hct 23.8 L MCV 91.3 MCH 31.6 H MCHC 34.6 RDW 18.2 H Plt Count 97 L MPV 7.5 Neut % (Auto) 34.1 L Lymph % (Auto) 43.3 H [place] % (Auto) 18.8 H Eos % (Auto) 2.4 Baso % (Auto) 1.4 Neut # 1.4 L Lymph # 1.7 [place] # 0.7 Eos # 0.1 Baso # 0.1 Sodium 137 Potassium 3.1 L Chloride 100 Carbon Dioxide 22 Anion Gap 18 BUN 27 H Creatinine 2.8 H Est GFR ( Amer) 23 Est GFR (Non-Af Amer) 19 POC Glucose (mg/dL) Random Glucose 149 H Calcium 7.3 L Phosphorus 4.0 Magnesium 1.6 Total Bilirubin 0.8 AST 27 ALT 9 D Alkaline Phosphatase 69 Total Protein 7.8 Albumin 2.4 L Globulin 5.3 H Albumin/Globulin Ratio 0.5 L Urine Color Yellow Urine Clarity Clear Urine pH 5.0 Ur Specific [place] 1.011 Urine Protein Negative Urine Glucose (UA) Normal Urine Ketones Negative Urine Blood Negative Urine Nitrate Negative Urine Bilirubin Negative Urine Urobilinogen Normal Ur Leukocyte Esterase Neg Urine WBC (Auto) 3 Urine RBC (Auto) 1 Urine Bacteria Rare Stool Occult Blood Positive H RPR Titer RPR T.pallidum Ab (FTA-ABS) Blood Type Antibody Screen
--- NOTE | 2017-01-04 12:49 | PCM.PYCHPN ---
Psychiatric Progress Note - Psychiatric Progress Note Patient seen today, length of contact: 16 min Patient Chief Complaint: "Too much pain" Problems Identified/Issues Discussed: Pt seen. Chart reviewed. Translation by staff nurse. She is not depressed but somewhat delirious. As per staff and dr Schuler who saw her yesterday, she was worse yesterday. 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 Her attention and memory are low. She was agitated earlier but not aggressive No SI or HI Medication Change: Yes (prn meds) Medical Record Reviewed: Yes Mental Status Examination - Cognitive Function Orientation: Person, Place, Situation, Time (not fully in all spheres) Memory: Impaired Attention: Poor Concentration: Poor Association: Loose Fund of Knowledge: Poor - Mood Mood: Anxious - Affect Affect: Constricted - Speech Speech: Slurred - Formal Thought Process Formal Thought Process: Loosening of associations - Suicidal Ideation Suicidal Ideation: No - Homicidal Ideation Homicidal Ideation: No Goal/Treatment Plan - Goal/Treatment Plan Need for Continued Stay: Severe functional impairment, Other (medical w/u) Progress Toward Problem(s) and Goals/Treatment Plan: Lexapro for depression continues prn haldol for agitation treat underlying cause of delirium. Gabapentin for anxiety Monitor sxs Support and psychoeducation Refer to outpt clinic at [facility]
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
[2017-01-04] MEDS: Vancomycin 125 MG/5 ML SOLN (ORAL/RECTAL) PO SCH ×3 (13:45→21:39)
--- NOTE | 2017-01-04 14:22 | RAD ---
PROCEDURE: Radiographs of the Lumbar Spine. HISTORY: Acute abdominal pain COMPARISON: No prior. FINDINGS: BONES: Normal alignment. No listhesis. No definite fracture. (Please note that a lateral image was not obtained. Closed DISC SPACES: Unremarkable. OTHER FINDINGS: Few air-filled loops of small bowel noted. IMPRESSION: Unremarkable radiographs of the lumbar spine. Although no definite evidence of obstruction, given patient's acute abdominal pain, CT of the abdomen pelvis should be considered.
--- NOTE | 2017-01-04 15:40 | CP.PCM.PN ---
Subjective - Date & Time of Evaluation Date of Evaluation: 01/04/17 Time of Evaluation: 07:00 - Subjective Subjective: awake alert responsive c/o abd pain answers appropriate denies fever chest pain s/p MRSA bacteremia/ sepsis / endocarditis cultures now negative LP not done as requested RPR + treated with Benzathine PCN ( needs 3 weekly injections ) Objective - Vital Signs/Intake and Output Vital Signs (last 24 hours): Temp Pulse Resp BP Pulse Ox 98.0 F 88 20 157/86 H 95 01/04/17 05:15 01/04/17 08:00 01/04/17 05:15 01/04/17 05:15 01/04/17 05:15 Intake and Output: 01/04/17 01/04/17 06:59 18:59 Intake Total 1500 Output Total 1150 Balance 350 - Medications Medications: Current Medications Acetaminophen (Tylenol 325mg Tab) 650 mg PO Q6 PRN PRN Reason: Fever >100.4 F Last Admin: 01/04/17 00:18 Dose: 650 mg Acetaminophen (Tylenol 325mg Tab) 975 mg PO Q6H PRN PRN Reason: Pain, moderate (4-7) Acetaminophen (Tylenol 325 Mg Supp) 325 mg DC Q6 PRN PRN Reason: Pain, Mild (1-3) Baclofen (Lioresal) 10 mg PO BID [facility] Last Admin: 01/04/17 09:28 Dose: 10 mg Dicyclomine HCl (Bentyl) 10 mg PO QID [facility] Last Admin: 01/04/17 14:20 Dose: Not Given Emollient Ointment (Vaseline Oint) 0 gm TOP Q1H PRN PRN Reason: Dry skin Last Admin: 01/03/17 08:32 Dose: 1 gm Escitalopram Oxalate (Lexapro) 10 mg PO DAILY [facility] Last Admin: 01/04/17 09:28 Dose: 10 mg Ferrous Sulfate (Feosol) 325 mg PO TID [facility] Last Admin: 01/04/17 13:45 Dose: 325 mg Haloperidol (Haldol) 5 mg PO Q2H PRN PRN Reason: agitation, max 4x/24h Hydralazine HCl (Apresoline) 10 mg PO QID [facility] Last Admin: 01/04/17 13:45 Dose: 10 mg Tigecycline 50 mg/ Sodium (Chloride) 100 mls @ 100 mls/hr IV Q12H [facility] Last Admin: 01/04/17 04:13 Dose: 100 mls/hr Penicillin G Potassium 2.5 mu/ (Dextrose) 50 mls @ 100 mls/hr IVPB Q4H [facility] Stop: 01/12/17 13:01 Last Admin: 01/04/17 13:44 Dose: 100 mls/hr Levetiracetam 500 mg/ Sodium (Chloride) 105 mls @ 420 mls/hr IVPB Q12H [facility] Last Admin: 01/04/17 09:25 Dose: 420 mls/hr Insulin Human Regular (Novolin R) 0 unit SC ACHS [facility] PRN Reason: Protocol Last Admin: 01/04/17 11:22 Dose: Not Given Ondansetron HCl (Zofran Inj) 4 mg IVP Q6H [facility] Last Admin: 01/04/17 11:27 Dose: 4 mg Pantoprazole Sodium (Protonix Inj) 40 mg IVP DAILY [facility] Last Admin: 01/04/17 09:28 Dose: 40 mg Vancomycin HCl (Vancocin (Oral Or Rectal Use)) 125 mg PO QID [facility] Last Admin: 01/04/17 13:45 Dose: 125 mg Vitamin A (Vitamin A & D Oint Ud Foilpak) 0 ea TOP Q4 [facility] Last Admin: 01/04/17 11:28 Dose: 1 ea - Labs Labs: 01/04/17 08:15 01/04/17 08:15 PT 15.3 SECONDS (9.7-12.2) H 12/27/16 06:55 INR 1.4 12/27/16 06:55 APTT 41 SECONDS (21-34) H 12/27/16 06:55 - Constitutional Appears: Non-toxic, Chronically Ill - Head Exam Head Exam: NORMOCEPHALIC - Eye Exam Eye Exam: PERRL. absent: Scleral icterus - ENT Exam ENT Exam: Mucous Membranes Dry - Neck Exam Neck Exam: absent: Thyromegaly - Respiratory Exam Respiratory Exam: Decreased Breath Sounds - Cardiovascular Exam Cardiovascular Exam: REGULAR RHYTHM, +S1, +S2 - GI/Abdominal Exam GI & Abdominal Exam: Distended, Soft. absent: Tenderness - Rectal Exam Rectal Exam: Deferred - Exam Exam: NORMAL INSPECTION - Extremities Exam Extremities Exam: absent: Calf Tenderness, Pedal Edema - Neurological Exam Neurological Exam: Alert, Awake, Oriented x3 Neuro motor strength exam: Left Upper Extremity: 4, Right Upper Extremity: 4, Left Lower Extremity: 4, Right Lower Extremity: 4 - Psychiatric Exam Psychiatric exam: Normal Mood - Skin Skin Exam: Dry Assessment and Plan (1) Dehydration Status: Acute (2) Leg pain, bilateral Status: Acute (3) MRSA (methicillin resistant Staphylococcus aureus) septicemia Status: Acute - Assessment and Plan (Free Text) Assessment: ams not likely sheela to tygacil ok to switch to cubicin
--- NOTE | 2017-01-04 15:43 | CP.PCM.PN ---
Subjective - Date & Time of Evaluation Date of Evaluation: 01/04/17 Time of Evaluation: 09:00 - Subjective Subjective: afebrile on IV PCN will d/c tygacil add Cubicin for MRSA await LYME PCR await Neuro re-eval for LP Objective - Vital Signs/Intake and Output Vital Signs (last 24 hours): Temp Pulse Resp BP Pulse Ox 98.0 F 88 20 157/86 H 95 01/04/17 05:15 01/04/17 08:00 01/04/17 05:15 01/04/17 05:15 01/04/17 05:15 Intake and Output: 01/04/17 01/04/17 06:59 18:59 Intake Total 1500 Output Total 1150 Balance 350 - Medications Medications: Current Medications Acetaminophen (Tylenol 325mg Tab) 650 mg PO Q6 PRN PRN Reason: Fever >100.4 F Last Admin: 01/04/17 00:18 Dose: 650 mg Acetaminophen (Tylenol 325mg Tab) 975 mg PO Q6H PRN PRN Reason: Pain, moderate (4-7) Acetaminophen (Tylenol 325 Mg Supp) 325 mg SD Q6 PRN PRN Reason: Pain, Mild (1-3) Baclofen (Lioresal) 10 mg PO BID [facility] Last Admin: 01/04/17 09:28 Dose: 10 mg Dicyclomine HCl (Bentyl) 10 mg PO QID [facility] Last Admin: 01/04/17 14:20 Dose: Not Given Emollient Ointment (Vaseline Oint) 0 gm TOP Q1H PRN PRN Reason: Dry skin Last Admin: 01/03/17 08:32 Dose: 1 gm Escitalopram Oxalate (Lexapro) 10 mg PO DAILY [facility] Last Admin: 01/04/17 09:28 Dose: 10 mg Ferrous Sulfate (Feosol) 325 mg PO TID [facility] Last Admin: 01/04/17 13:45 Dose: 325 mg Haloperidol (Haldol) 5 mg PO Q2H PRN PRN Reason: agitation, max 4x/24h Hydralazine HCl (Apresoline) 10 mg PO QID [facility] Last Admin: 01/04/17 13:45 Dose: 10 mg Tigecycline 50 mg/ Sodium (Chloride) 100 mls @ 100 mls/hr IV Q12H [facility] Last Admin: 01/04/17 04:13 Dose: 100 mls/hr Penicillin G Potassium 2.5 mu/ (Dextrose) 50 mls @ 100 mls/hr IVPB Q4H [facility] Stop: 01/12/17 13:01 Last Admin: 01/04/17 13:44 Dose: 100 mls/hr Levetiracetam 500 mg/ Sodium (Chloride) 105 mls @ 420 mls/hr IVPB Q12H [facility] Last Admin: 01/04/17 09:25 Dose: 420 mls/hr Insulin Human Regular (Novolin R) 0 unit SC ACHS [facility] PRN Reason: Protocol Last Admin: 01/04/17 11:22 Dose: Not Given Ondansetron HCl (Zofran Inj) 4 mg IVP Q6H [facility] Last Admin: 01/04/17 11:27 Dose: 4 mg Pantoprazole Sodium (Protonix Inj) 40 mg IVP DAILY [facility] Last Admin: 01/04/17 09:28 Dose: 40 mg Vancomycin HCl (Vancocin (Oral Or Rectal Use)) 125 mg PO QID [facility] Last Admin: 01/04/17 13:45 Dose: 125 mg Vitamin A (Vitamin A & D Oint Ud Foilpak) 0 ea TOP Q4 [facility] Last Admin: 01/04/17 11:28 Dose: 1 ea - Labs Labs: 01/04/17 08:15 01/04/17 08:15 PT 15.3 SECONDS (9.7-12.2) H 12/27/16 06:55 INR 1.4 12/27/16 06:55 APTT 41 SECONDS (21-34) H 12/27/16 06:55 Assessment and Plan (1) Dehydration Status: Acute (2) Leg pain, bilateral Status: Acute (3) MRSA (methicillin resistant Staphylococcus aureus) septicemia Status: Acute
[2017-01-05] MEDS: Penicillin G Potassium 2.5 MU in Dextrose 5% In Water 50 ML IVPB SCH ×6 (00:39→21:00)
[2017-01-05] MEDS: Vitamins A & D Oint UD Foilpak TOP SCH ×6 (00:39→22:20)
[2017-01-05 07:36] LABS: CHLORIDE 101 mmol/L (98-107); SODIUM 136 mmol/L (132-148)
[2017-01-05 07:38] LABS: ALB/GLOB RATIO 0.5 (1.0-2.1); ALKALINE PHOSPHATASE 60 U/L (38-126); AST/SGOT 65 U/L (14-36); BASO % 1.2 % (0.0-2.0); BILIRUBIN,TOTAL 1.5 mg/dL (0.2-1.3); CARBON DIOXIDE 25 mmol/L (22-30); EOS % 0.6 % (0.0-4.0); GFR AFRICAN-AMERICAN 26; HEMATOCRIT 20.9 % (34.0-47.0); LYMPH # 1.4 K/uL (1.0-4.3); LYMPH % 38.9 % (20.0-40.0); MEAN CORPUSCULAR HEMOGLOBIN 31.9 pg (27.0-31.0); MEAN CORPUSCULAR HGB CONC 34.7 g/dL (33.0-37.0); MEAN PLATELET VOLUME 8.3 fL (7.2-11.7); MONO # 0.5 K/uL (0.0-0.8); MONO % 13.6 % (0.0-10.0); NRBC % 0.1 % (0.0-2.0); POTASSIUM 5.4 mmol/L (3.6-5.2); RED CELL DISTRIBUTION WIDTH 18.5 % (11.5-14.5); TOTAL PROTEIN 7.9 g/dL (6.3-8.3); WHITE BLOOD COUNT 3.6 K/uL (4.8-10.8)
[2017-01-05 07:39] LABS: ALT/SGPT < 6 U/L (9-52); BLOOD UREA NITROGEN 29 mg/dL (7-17); CALCIUM 7.1 mg/dl (8.6-10.4); GLUCOSE,RANDOM 108 mg/dL (65-105); MAGNESIUM 1.6 mg/dL (1.6-2.3); PHOSPHOROUS 4.8 mg/dL (2.5-4.5)
[2017-01-05] MEDS: (Novolin R) Insulin Human Regular 100 units/ml vial SC SCH ×4 (08:00→22:05)
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
--- NOTE | 2017-01-05 09:04 | CP.PCM.CON ---
History of Present Illness - History of Present Illness History of Present Illness: CC: GI service consult for anemia and occult blood in stool HPI: GI service consult requested for this 36 year old woman admitted 3 weeks ago with myopathy, found to have MRSA bacteremia, Abscess on chest wall, now with progressively worsening anemia and occult blood in the stool. Patient had CDiff on admission with CT also showing Colitis. Subsequently patient has 4 negative CDiff samples. Also treated for RPR positivity. Found to have Hepatitis C antibody, genotype 1a, less than 1 million viral load, normal LFTs, never treated and patient unaware of this. She continues to have loose nonbloody BMs, with occult blood in stool yesterday. Patient notes lower abdominal pain. HIV antibody is negative, and Iron indices are consistent with anemia of chronic disease, B12 and Folate levels are normal. Review of Systems - Constitutional Constitutional: Anorexia, Malaise. absent: Fever - Gastrointestinal Gastrointestinal: Abdominal Pain, Loose Stools. absent: Hematemesis, Hematochezia, Melena, Nausea, Vomiting - Neurological Neurological: Weakness - Psychiatric Psychiatric: Hallucinations, Mood Swings Past Patient History - Infectious Disease Hx of Infectious Diseases: None - Past Medical History & Family History Past Medical History?: Yes - Past Social History Smoking Status: Never Smoked - CARDIAC Hx Hypertension: Yes - PULMONARY Hx Respiratory Disorders: No Hx Asthma: No Hx Bronchitis: No Hx Chronic Obstructive Pulmonary Disease (COPD): No Hx Emphysema: No Hx Lung Cancer: No Hx Pneumonia: No Hx Pulmonary Edema: No Hx Pulmonary Embolism: No Hx Respiratory Aspiration: No Hx Respiratory Tract Infection: No Hx Sleep Apnea: No Hx Tuberculosis: No - NEUROLOGICAL Hx Neurological Disorder: No Hx Alzheimer's Disease: No HX Cerebrovascular Accident: No Hx Dementia: No Hx Dizziness: No Hx Meningitis: No Hx Migraine: No Hx Multiple Sclerosis: No Hx Paralysis: No Hx Parkinson's Disease: No Hx Seizures: Yes (Epilepsy) Hx Syncope: No Hx Transient Ischemic Attacks (TIA): No Hx Vertigo: No - HEENT Hx HEENT Problems: No Hx Blind: No Hx Cataracts: No Hx Deafness: No Hx Difficulty Chewing: No Hx Epistaxis: No Hx Glaucoma: No Hx Macular Degeneration: No Hx Sinusitis: No - RENAL Hx Chronic Kidney Disease: No Hx Dialysis: No Hx Kidney Stones: No Hx Neurogenic Bladder: No Hx Pyelonephritis: No Hx Renal (Kidney) Cancer: No Hx Renal Failure: No - ENDOCRINE/METABOLIC Hx Diabetes Mellitus Type 1: Yes - HEMATOLOGICAL/ONCOLOGICAL Hx Blood Disorders: No Hx AIDS: No Hx Anemia: No Hx Blood Transfusions: No Hx Blood Transfusion Reaction: No Hx Bruising: No Hx Cancer: No Hx Chemotherapy: No Hx Cirrhosis: No Hx Gum Bleeding: No Hx Hemophilia: No Hx Hepatitis A: No Hx Hepatitis B: No Hx Hepatitis C: No Hx Human Immunodeficiency Virus (HIV): No Hx Leukemia: No Hx Metastesis: No Hx Shingles: No Hx Sickle Cell Disease: No Hx Unexplained Bleeding: No Hx von Willebrand's Disease: No - INTEGUMENTARY Hx Dermatological Problems: No Hx Basil Cell: No Hx Rg: No Hx Cellulitis: No Hx Eczema: No Hx Melanoma: No Hx Psoriasis: No Hx Squamous Cell: No - MUSCULOSKELETAL/RHEUMATOLOGICAL Hx Falls: Yes - GASTROINTESTINAL Hx Gastrointestinal Disorders: No Hx Bowel Surgery: No Hx Clostridium Difficile: No Hx Colitis: No Hx Colostomy: No Hx Constipation: No Hx Crohn's Disease: No Hx Diarrhea: No Hx Diverticulitis: No Hx Esophageal Varices: No Hx Fatty Liver Disease: No Hx Gall Bladder Disease: No Hx Gastritis: No Hx Gastroesophageal Reflux: No Hx Hemorrhoids: No Hx Ileostomy: No Hx Irritable Bowel: No Hx Liver Failure: No Hx Nausea: No Hx Pancreatitis: No HX Swallowing Problems: No Hx Ulcer: No Hx Vomiting: No - GENITOURINARY/GYNECOLOGICAL Hx Genitourinary Disorders: No Hx Bladder Cancer: No Hx Bladder Stone: No Hx Cervical Cancer: No Hx Hematuria: No Hx Incontinence: No Hx Ovarian Cancer: No Hx Postmenopausal Bleeding: No Hx Reproductive Disorders: No Hx Sexually Transmitted Disorders: No Hx Uterine Cancer: No Hx Urinary Tract Infection: No - PSYCHIATRIC Hx Substance Use: No - SURGICAL HISTORY Hx Surgeries: No - ANESTHESIA Hx Anesthesia: Yes Hx Anesthesia Reactions: No Hx Malignant Hyperthermia: No Has any member of the family had a problem w/ anesthesia?: No Meds Allergies/Adverse Reactions: Allergies Allergy/AdvReac Type Severity Reaction Status Date / Time No Known Allergies Allergy Verified 12/12/16 12:26 - Medications Medications: Current Medications Acetaminophen (Tylenol 325mg Tab) 650 mg PO Q6 PRN PRN Reason: Fever >100.4 F Last Admin: 01/04/17 00:18 Dose: 650 mg Acetaminophen (Tylenol 325mg Tab) 975 mg PO Q6H PRN PRN Reason: Pain, moderate (4-7) Acetaminophen (Tylenol 325 Mg Supp) 325 mg SD Q6 PRN PRN Reason: Pain, Mild (1-3) Baclofen (Lioresal) 10 mg PO BID [facility] Last Admin: 01/04/17 23:04 Dose: 10 mg Dicyclomine HCl (Bentyl) 10 mg PO QID [facility] Last Admin: 01/04/17 21:38 Dose: 10 mg Emollient Ointment (Vaseline Oint) 0 gm TOP Q1H PRN PRN Reason: Dry skin Last Admin: 01/03/17 08:32 Dose: 1 gm Escitalopram Oxalate (Lexapro) 10 mg PO DAILY [facility] Last Admin: 01/04/17 09:28 Dose: 10 mg Ferrous Sulfate (Feosol) 325 mg PO TID [facility] Last Admin: 01/04/17 18:00 Dose: 325 mg Haloperidol (Haldol) 5 mg PO Q2H PRN PRN Reason: agitation, max 4x/24h Hydralazine HCl (Apresoline) 10 mg PO QID [facility] Last Admin: 01/04/17 21:38 Dose: 10 mg Penicillin G Potassium 2.5 mu/ (Dextrose) 50 mls @ 100 mls/hr IVPB Q4H [facility] Stop: 01/12/17 13:01 Last Admin: 01/05/17 05:20 Dose: 100 mls/hr Levetiracetam 500 mg/ Sodium (Chloride) 105 mls @ 420 mls/hr IVPB Q12H [facility] Last Admin: 01/04/17 21:52 Dose: 420 mls/hr Daptomycin 350 mg/ Sodium (Chloride) 100 mls @ 100 mls/hr IV QOD@1800 [facility] Stop: 01/09/17 18:01 Last Admin: 01/04/17 19:00 Dose: 100 mls/hr Insulin Human Regular (Novolin R) 0 unit SC ACHS [facility] PRN Reason: Protocol Last Admin: 01/04/17 22:12 Dose: Not Given Ondansetron HCl (Zofran Inj) 4 mg IVP Q6H [facility] Last Admin: 01/05/17 05:25 Dose: 4 mg Pantoprazole Sodium (Protonix Inj) 40 mg IVP DAILY [facility] Last Admin: 01/04/17 09:28 Dose: 40 mg Vancomycin HCl (Vancocin (Oral Or Rectal Use)) 125 mg PO QID [facility] Last Admin: 01/04/17 21:39 Dose: 125 mg Vitamin A (Vitamin A & D Oint Ud Foilpak) 0 ea TOP Q4 [facility] Last Admin: 01/05/17 07:13 Dose: 1 ea Physical Exam - Constitutional Appears: Unkempt, Chronically Ill - Head Exam Head Exam: NORMOCEPHALIC - Eye Exam Eye Exam: absent: Scleral icterus Additional comments: pale conjunctivae - Neck Exam Neck exam: Positive for: Normal Inspection - Respiratory Exam Respiratory Exam: NORMAL BREATHING PATTERN - Cardiovascular Exam Cardiovascular Exam: REGULAR RHYTHM - GI/Abdominal Exam GI & Abdominal Exam: Normal Bowel Sounds, Soft. absent: Distended, Guarding, Mass, Rebound, Tenderness - Rectal Exam Rectal Exam: Deferred - Neurological Exam Neurological exam: Alert, Oriented x3 - Psychiatric Exam Psychiatric exam: Flat Affect Results - Vital Signs Recent Vital Signs: Last Vital Signs Temp 98.0 F 01/04/17 05:15 Pulse 88 01/05/17 01:34 Resp 20 01/04/17 05:15 BP 157/86 H 01/04/17 05:15 Pulse Ox 95 01/04/17 05:15 - Labs Result Diagrams: 01/05/17 07:10 01/05/17 07:10 Labs: Laboratory Results - last 24 hr 01/03/17 01/04/17 01/04/17 06:07 08:15 11:12 WBC RBC Hgb Hct MCV MCH MCHC RDW Plt Count MPV Neut % (Auto) Lymph % (Auto) [place] % (Auto) Eos % (Auto) Baso % (Auto) Neut # Lymph # Emmet # Eos # Baso # Sodium Potassium Chloride Carbon Dioxide 22 Anion Gap 18 BUN 27 H Creatinine 2.8 H Est GFR ( Amer) 23 Est GFR (Non-Af Amer) 19 POC Glucose (mg/dL) Random Glucose 149 H Calcium 7.3 L Phosphorus 4.0 Magnesium 1.6 Total Bilirubin 0.8 AST 27 ALT 9 D Alkaline Phosphatase 69 C-React Prot High Sens Total Protein 7.8 Albumin Globulin 5.3 H Albumin/Globulin Ratio 0.5 L Procalcitonin 0.25 Urine Color Yellow Urine Clarity Clear Urine pH 5.0 Ur Specific [place] 1.011 Urine Protein Negative Urine Glucose (UA) Normal Urine Ketones Negative Urine Blood Negative Urine Nitrate Negative Urine Bilirubin Negative Urine Urobilinogen Normal Ur Leukocyte Esterase Neg Urine WBC (Auto) 3 Urine RBC (Auto) 1 Urine Bacteria Rare T.pallidum Ab (FTA-ABS) Reactive H C. difficile Ag & Toxin 01/04/17 01/04/17 01/04/17 11:20 12:54 16:43 WBC RBC Hgb Hct MCV MCH MCHC RDW Plt Count MPV Neut % (Auto) Lymph % (Auto) Emm[place] % (Auto) Eos % (Auto) Baso % (Auto) Neut # Lymph # [place] # Eos # Baso # Sodium Potassium Chloride Carbon Dioxide Anion Gap BUN Creatinine Est GFR ( Amer) Est GFR (Non-Af Amer) POC Glucose (mg/dL) 155 H 135 H Random Glucose Calcium Phosphorus Magnesium Total Bilirubin AST ALT Alkaline Phosphatase C-React Prot High Sens Total Protein Albumin Globulin Albumin/Globulin Ratio Procalcitonin Urine Color Urine Clarity Urine pH Ur Specific [place] Urine Protein Urine Glucose (UA) Urine Ketones Urine Blood Urine Nitrate Urine Bilirubin Urine Urobilinogen Ur Leukocyte Esterase Urine WBC (Auto) Urine RBC (Auto) Urine Bacteria T.pallidum Ab (FTA-ABS) C. difficile Ag & Toxin Negative 01/04/17 01/05/17 21:09 07:10 WBC 3.6 L RBC 2.27 L Hgb 7.2 L Hct 20.9 L MCV 92.0 MCH 31.9 H MCHC 34.7 RDW 18.5 H Plt Count 89 L MPV 8.3 Neut % (Auto) 45.7 L Lymph % (Auto) 38.9 Emmet % (Auto) 13.6 H Eos % (Auto) 0.6 Baso % (Auto) 1.2 Neut # 1.6 L Lymph # 1.4 Emmet # 0.5 Eos # 0.0 Baso # 0.0 Sodium 136 Potassium 5.4 H Chloride 101 Carbon Dioxide 25 Anion Gap 16 BUN 29 H Creatinine 2.5 H Est GFR ( Amer) 26 Est GFR (Non-Af Amer) 22 POC Glucose (mg/dL) 126 H Random Glucose 108 H Calcium 7.1 L Phosphorus 4.8 H Magnesium 1.6 Total Bilirubin 1.5 H AST 65 H D ALT < 6 L D Alkaline Phosphatase 60 C-React Prot High Sens 5.95 H Total Protein 7.9 Albumin 2.5 L Globulin 5.4 H Albumin/Globulin Ratio 0.5 L Procalcitonin Urine Color Urine Clarity Urine pH Ur Specific [place] Urine Protein Urine Glucose (UA) Urine Ketones Urine Blood Urine Nitrate Urine Bilirubin Urine Urobilinogen Ur Leukocyte Esterase Urine WBC (Auto) Urine RBC (Auto) Urine Bacteria T.pallidum Ab (FTA-ABS) C. difficile Ag & Toxin Assessment & Plan (1) Acute kidney injury Assessment and Plan: Worsening. Recommend Renal follow up Status: Acute (2) Anemia Assessment and Plan: Labs consistent with anemia of chronic disease, however, patient now has pancytopenia and worsening anemia- Most likely this is drug induced (maybe Hydralazine?) Stool OB positive likely from underlying Colitis, but she has no visible bleeding and this degree of cute drop in hemoglobin is not from occult GI bleeding but rather from a hematologic process, possibly hemolysis. Recommend: hEMATOLOGY cONSULT. Status: Chronic (3) C. difficile colitis Assessment and Plan: Treated for CDiff on this admission yet diarrhea persists, and CDiff toxin now negative x 3. Unlikely to be CDiff at this point, and will look for other causes. Rec: Empiric trial of PO Vanco, look for parasites and bacterial causes of colitis. May need Colonoscopy- will monitor. Status: Suspected (4) Diabetes Status: Chronic (5) Hep C w/o coma, chronic Assessment and Plan: Outpatient treatment recommended once acute illness resolves. Status: Chronic (6) MRSA (methicillin resistant Staphylococcus aureus) septicemia Assessment and Plan: Defer management to ID Status: Acute (7) Syphilis Assessment and Plan: Defer management to ID Status: Acute
--- NOTE | 2017-01-05 09:46 | CP.PCM.PN ---
Subjective - Date & Time of Evaluation Date of Evaluation: 01/05/17 Time of Evaluation: 09:42 - Subjective Subjective: pt seen and examined in bed, lethargic on asking questions, does not answer no family at bedside ROS - unable to obtian as patient lethargic Objective - Vital Signs/Intake and Output Vital Signs (last 24 hours): Temp Pulse Resp BP Pulse Ox 98 F 81 20 158/90 H 95 01/05/17 08:00 01/05/17 08:00 01/05/17 08:00 01/05/17 08:00 01/05/17 08:00 Intake and Output: 01/05/17 01/05/17 06:59 18:59 Output Total 1375 Balance -1375 - Medications Medications: Current Medications Acetaminophen (Tylenol 325mg Tab) 650 mg PO Q6 PRN PRN Reason: Fever >100.4 F Last Admin: 01/04/17 00:18 Dose: 650 mg Acetaminophen (Tylenol 325mg Tab) 975 mg PO Q6H PRN PRN Reason: Pain, moderate (4-7) Acetaminophen (Tylenol 325 Mg Supp) 325 mg CO Q6 PRN PRN Reason: Pain, Mild (1-3) Baclofen (Lioresal) 10 mg PO BID [facility] Last Admin: 01/04/17 23:04 Dose: 10 mg Dicyclomine HCl (Bentyl) 10 mg PO QID [facility] Last Admin: 01/04/17 21:38 Dose: 10 mg Emollient Ointment (Vaseline Oint) 0 gm TOP Q1H PRN PRN Reason: Dry skin Last Admin: 01/03/17 08:32 Dose: 1 gm Escitalopram Oxalate (Lexapro) 10 mg PO DAILY [facility] Last Admin: 01/04/17 09:28 Dose: 10 mg Ferrous Sulfate (Feosol) 325 mg PO TID [facility] Last Admin: 01/04/17 18:00 Dose: 325 mg Haloperidol (Haldol) 5 mg PO Q2H PRN PRN Reason: agitation, max 4x/24h Hydralazine HCl (Apresoline) 10 mg PO QID [facility] Last Admin: 01/04/17 21:38 Dose: 10 mg Penicillin G Potassium 2.5 mu/ (Dextrose) 50 mls @ 100 mls/hr IVPB Q4H [facility] Stop: 01/12/17 13:01 Last Admin: 01/05/17 05:20 Dose: 100 mls/hr Levetiracetam 500 mg/ Sodium (Chloride) 105 mls @ 420 mls/hr IVPB Q12H [facility] Last Admin: 01/04/17 21:52 Dose: 420 mls/hr Daptomycin 350 mg/ Sodium (Chloride) 100 mls @ 100 mls/hr IV QOD@1800 [facility] Stop: 01/09/17 18:01 Last Admin: 01/04/17 19:00 Dose: 100 mls/hr Insulin Human Regular (Novolin R) 0 unit SC ACHS [facility] PRN Reason: Protocol Last Admin: 01/04/17 22:12 Dose: Not Given Ondansetron HCl (Zofran Inj) 4 mg IVP Q6H [facility] Last Admin: 01/05/17 05:25 Dose: 4 mg Pantoprazole Sodium (Protonix Inj) 40 mg IVP DAILY [facility] Last Admin: 01/04/17 09:28 Dose: 40 mg Vancomycin HCl (Vancocin (Oral Or Rectal Use)) 125 mg PO QID [facility] Last Admin: 01/04/17 21:39 Dose: 125 mg Vitamin A (Vitamin A & D Oint Ud Foilpak) 0 ea TOP Q4 [facility] Last Admin: 01/05/17 07:13 Dose: 1 ea - Labs Labs: 01/05/17 07:10 01/05/17 07:10 PT 15.3 SECONDS (9.7-12.2) H 12/27/16 06:55 INR 1.4 12/27/16 06:55 APTT 41 SECONDS (21-34) H 12/27/16 06:55 - Constitutional Appears: Non-toxic, No Acute Distress - Head Exam Head Exam: ATRAUMATIC, NORMOCEPHALIC - Eye Exam Eye Exam: EOMI, PERRL - ENT Exam ENT Exam: Mucous Membranes Moist - Respiratory Exam Respiratory Exam: Clear to Ausculation Bilateral, NORMAL BREATHING PATTERN. absent: Rhonchi, Wheezes - Cardiovascular Exam Cardiovascular Exam: REGULAR RHYTHM, +S1, +S2 - GI/Abdominal Exam GI & Abdominal Exam: Soft. absent: Tenderness - Neurological Exam Neurological Exam: absent: Alert, Oriented x3 - Skin Skin Exam: Dry, Intact. absent: Rash Assessment and Plan (1) Acute kidney injury Status: Acute (2) Endocarditis Status: Acute (3) Syphilis Status: Acute (4) Anemia Status: Chronic (5) Diabetes Status: Chronic (6) Hep C w/o coma, chronic Status: Chronic - Assessment and Plan (Free Text) Plan: LOYDA resolving, Cr trending down maintain low rate iv fluids as poor po intake Abx as per ID daily labs
[2017-01-05 10:07] LABS: RETIC% 1.6 % (0.5-1.5)
[2017-01-05] MEDS: levETIRAcetam 500 MG in Sodium Chloride 0.9% 100 ML IVPB SCH ×2 (10:31→22:07)
[2017-01-05] MEDS: Vancomycin 125 MG/5 ML SOLN (ORAL/RECTAL) PO SCH ×4 (10:37→22:09)
[2017-01-05 10:55] LABS: BASO % 1.2 % (0.0-2.0); EOS % 0.8 % (0.0-4.0); LYMPH # 1.2 K/uL (1.0-4.3); WHITE BLOOD COUNT 2.9 K/uL (4.8-10.8)
[2017-01-05 11:01] LABS: HEMATOCRIT 18.8 % (34.0-47.0); LYMPH % 41.3 % (20.0-40.0); MEAN CELL VOLUME 92.5 fL (81.0-99.0); MEAN CORPUSCULAR HEMOGLOBIN 31.8 pg (27.0-31.0); MEAN CORPUSCULAR HGB CONC 34.4 g/dL (33.0-37.0); MEAN PLATELET VOLUME 8.6 fL (7.2-11.7); MONO # 0.4 K/uL (0.0-0.8); MONO % 15.1 % (0.0-10.0); NRBC % 0.2 % (0.0-2.0); RED CELL DISTRIBUTION WIDTH 18.1 % (11.5-14.5)
[2017-01-05 11:03] LABS: POTASSIUM 3.9 mmol/L (3.6-5.2)
[2017-01-05 11:04] LABS: ALB/GLOB RATIO 0.4 (1.0-2.1); BILIRUBIN,DIRECT 0.9 mg/dL (0.0-0.4); CALCIUM 6.2 mg/dl (8.6-10.4); MAGNESIUM 1.4 mg/dL (1.6-2.3); PHOSPHOROUS 4.1 mg/dL (2.5-4.5); TOTAL PROTEIN 6.5 g/dL (6.3-8.3)
[2017-01-05 14:43] LABS: FOLATE 17.7 ng/mL
[2017-01-05 18:19] LABS: INR 1.7
--- NOTE | 2017-01-05 20:53 | CP.PCM.CON ---
History of Present Illness - History of Present Illness History of Present Illness: 36 year old female currently being treated for endocarditis, bacteremia, RPR positivity, possible PE s/p lovenox, with pancytopenia. The patient is currently confused and I am unable to obtain a history from the patient. The patient was admitted with a normal WBC and platelet count. Her hgb was slightly diminished at 11 on admission. Fecal occult blood test is positive and creatinine has trended upwards. Past medical, surgical, family, social history cannot be obtained from the patient. Allergies: Per documentation NK[facility] Review of systems cannot be obtained Past Patient History - Infectious Disease Hx of Infectious Diseases: None - Past Medical History & Family History Past Medical History?: Yes - Past Social History Smoking Status: Never Smoked - CARDIAC Hx Hypertension: Yes - PULMONARY Hx Respiratory Disorders: No Hx Asthma: No Hx Bronchitis: No Hx Chronic Obstructive Pulmonary Disease (COPD): No Hx Emphysema: No Hx Lung Cancer: No Hx Pneumonia: No Hx Pulmonary Edema: No Hx Pulmonary Embolism: No Hx Respiratory Aspiration: No Hx Respiratory Tract Infection: No Hx Sleep Apnea: No Hx Tuberculosis: No - NEUROLOGICAL Hx Neurological Disorder: No Hx Alzheimer's Disease: No HX Cerebrovascular Accident: No Hx Dementia: No Hx Dizziness: No Hx Meningitis: No Hx Migraine: No Hx Multiple Sclerosis: No Hx Paralysis: No Hx Parkinson's Disease: No Hx Seizures: Yes (Epilepsy) Hx Syncope: No Hx Transient Ischemic Attacks (TIA): No Hx Vertigo: No - HEENT Hx HEENT Problems: No Hx Blind: No Hx Cataracts: No Hx Deafness: No Hx Difficulty Chewing: No Hx Epistaxis: No Hx Glaucoma: No Hx Macular Degeneration: No Hx Sinusitis: No - RENAL Hx Chronic Kidney Disease: No Hx Dialysis: No Hx Kidney Stones: No Hx Neurogenic Bladder: No Hx Pyelonephritis: No Hx Renal (Kidney) Cancer: No Hx Renal Failure: No - ENDOCRINE/METABOLIC Hx Diabetes Mellitus Type 1: Yes - HEMATOLOGICAL/ONCOLOGICAL Hx Blood Disorders: No Hx AIDS: No Hx Anemia: No Hx Blood Transfusions: No Hx Blood Transfusion Reaction: No Hx Bruising: No Hx Cancer: No Hx Chemotherapy: No Hx Cirrhosis: No Hx Gum Bleeding: No Hx Hemophilia: No Hx Hepatitis A: No Hx Hepatitis B: No Hx Hepatitis C: No Hx Human Immunodeficiency Virus (HIV): No Hx Leukemia: No Hx Metastesis: No Hx Shingles: No Hx Sickle Cell Disease: No Hx Unexplained Bleeding: No Hx von Willebrand's Disease: No - INTEGUMENTARY Hx Dermatological Problems: No Hx Basil Cell: No Hx Rg: No Hx Cellulitis: No Hx Eczema: No Hx Melanoma: No Hx Psoriasis: No Hx Squamous Cell: No - MUSCULOSKELETAL/RHEUMATOLOGICAL Hx Falls: Yes - GASTROINTESTINAL Hx Gastrointestinal Disorders: No Hx Bowel Surgery: No Hx Clostridium Difficile: No Hx Colitis: No Hx Colostomy: No Hx Constipation: No Hx Crohn's Disease: No Hx Diarrhea: No Hx Diverticulitis: No Hx Esophageal Varices: No Hx Fatty Liver Disease: No Hx Gall Bladder Disease: No Hx Gastritis: No Hx Gastroesophageal Reflux: No Hx Hemorrhoids: No Hx Ileostomy: No Hx Irritable Bowel: No Hx Liver Failure: No Hx Nausea: No Hx Pancreatitis: No HX Swallowing Problems: No Hx Ulcer: No Hx Vomiting: No - GENITOURINARY/GYNECOLOGICAL Hx Genitourinary Disorders: No Hx Bladder Cancer: No Hx Bladder Stone: No Hx Cervical Cancer: No Hx Hematuria: No Hx Incontinence: No Hx Ovarian Cancer: No Hx Postmenopausal Bleeding: No Hx Reproductive Disorders: No Hx Sexually Transmitted Disorders: No Hx Uterine Cancer: No Hx Urinary Tract Infection: No - PSYCHIATRIC Hx Substance Use: No - SURGICAL HISTORY Hx Surgeries: No - ANESTHESIA Hx Anesthesia: Yes Hx Anesthesia Reactions: No Hx Malignant Hyperthermia: No Has any member of the family had a problem w/ anesthesia?: No Meds Allergies/Adverse Reactions: Allergies Allergy/AdvReac Type Severity Reaction Status Date / Time No Known Allergies Allergy Verified 12/12/16 12:26 - Medications Medications: Current Medications Acetaminophen (Tylenol 325mg Tab) 650 mg PO Q6 PRN PRN Reason: Fever >100.4 F Last Admin: 01/04/17 00:18 Dose: 650 mg Acetaminophen (Tylenol 325mg Tab) 975 mg PO Q6H PRN PRN Reason: Pain, moderate (4-7) Acetaminophen (Tylenol 325 Mg Supp) 325 mg OH Q6 PRN PRN Reason: Pain, Mild (1-3) Baclofen (Lioresal) 10 mg PO BID [facility] Last Admin: 01/05/17 17:33 Dose: 10 mg Dicyclomine HCl (Bentyl) 10 mg PO QID [facility] Last Admin: 01/05/17 17:34 Dose: 10 mg Emollient Ointment (Vaseline Oint) 0 gm TOP Q1H PRN PRN Reason: Dry skin Last Admin: 01/03/17 08:32 Dose: 1 gm Escitalopram Oxalate (Lexapro) 10 mg PO DAILY [facility] Last Admin: 01/05/17 10:38 Dose: 10 mg Ferrous Sulfate (Feosol) 325 mg PO TID [facility] Last Admin: 01/05/17 17:34 Dose: 325 mg Haloperidol (Haldol) 5 mg PO Q2H PRN PRN Reason: agitation, max 4x/24h Hydralazine HCl (Apresoline) 10 mg PO QID [facility] Last Admin: 01/05/17 17:34 Dose: 10 mg Penicillin G Potassium 2.5 mu/ (Dextrose) 50 mls @ 100 mls/hr IVPB Q4H [facility] Stop: 01/12/17 13:01 Last Admin: 01/05/17 15:11 Dose: 100 mls/hr Levetiracetam 500 mg/ Sodium (Chloride) 105 mls @ 420 mls/hr IVPB Q12H [facility] Last Admin: 01/05/17 10:31 Dose: 420 mls/hr Daptomycin 350 mg/ Sodium (Chloride) 100 mls @ 100 mls/hr IV QOD@1800 [facility] Stop: 01/09/17 18:01 Last Admin: 01/04/17 19:00 Dose: 100 mls/hr Insulin Human Regular (Novolin R) 0 unit SC ACHS [facility] PRN Reason: Protocol Last Admin: 01/05/17 16:30 Dose: Not Given Ondansetron HCl (Zofran Inj) 4 mg IVP Q6H [facility] Last Admin: 01/05/17 12:00 Dose: Not Given Pantoprazole Sodium (Protonix Inj) 40 mg IVP DAILY [facility] Last Admin: 01/05/17 10:37 Dose: 40 mg Vancomycin HCl (Vancocin (Oral Or Rectal Use)) 125 mg PO QID [facility] Last Admin: 01/05/17 17:34 Dose: 125 mg Vitamin A (Vitamin A & D Oint Ud Foilpak) 0 ea TOP Q4 [facility] Last Admin: 01/05/17 16:00 Dose: 1 ea Physical Exam - Head Exam Head Exam: ATRAUMATIC - Eye Exam Eye Exam: Normal appearance - ENT Exam ENT Exam: Mucous Membranes Dry - Respiratory Exam Respiratory Exam: NORMAL BREATHING PATTERN - Cardiovascular Exam Cardiovascular Exam: +S1, +S2 - GI/Abdominal Exam GI & Abdominal Exam: Normal Bowel Sounds - Extremities Exam Extremities exam: Positive for: normal inspection - Neurological Exam Neurological exam: Altered - Psychiatric Exam Psychiatric exam: Agitated - Skin Skin Exam: Warm Results - Vital Signs Recent Vital Signs: Last Vital Signs Temp 98.3 F 01/05/17 18:21 Pulse 86 01/05/17 18:21 Resp 20 01/05/17 18:21 BP 147/93 H 01/05/17 18:21 Pulse Ox 95 01/05/17 08:00 - Labs Result Diagrams: 01/05/17 10:47 01/05/17 10:46 Labs: Laboratory Results - last 24 hr 01/04/17 01/04/17 01/05/17 15:00 21:09 07:10 WBC 3.6 L RBC 2.27 L Hgb 7.2 L Hct 20.9 L MCV 92.0 MCH 31.9 H MCHC 34.7 RDW 18.5 H Plt Count 89 L MPV 8.3 Neut % (Auto) 45.7 L Lymph % (Auto) 38.9 Giles % (Auto) 13.6 H Eos % (Auto) 0.6 Baso % (Auto) 1.2 Neut # 1.6 L Lymph # 1.4 Giles # 0.5 Eos # 0.0 Baso # 0.0 Differential Comment ESR 110 H Retic Count 1.6 H PT INR APTT Sodium 136 Potassium 5.4 H Chloride 101 Carbon Dioxide 25 Anion Gap 16 BUN 29 H Creatinine 2.5 H Est GFR ( Amer) 26 Est GFR (Non-Af Amer) 22 POC Glucose (mg/dL) 126 H Random Glucose 108 H Calcium 7.1 L Phosphorus 4.8 H Magnesium 1.6 Ferritin Total Bilirubin 1.5 H Direct Bilirubin AST 65 H D ALT < 6 L D Alkaline Phosphatase 60 Lactate Dehydrogenase C-React Prot High Sens 5.95 H Total Protein 7.9 Albumin 2.5 L Globulin 5.4 H Albumin/Globulin Ratio 0.5 L Vitamin B12 Folate Stool Occult Blood Positive H Blood Type Antibody Screen 01/05/17 01/05/17 01/05/17 07:31 10:46 10:47 WBC 2.9 L RBC 2.03 L Hgb 6.5 L* Hct 18.8 L MCV 92.5 MCH 31.8 H MCHC 34.4 RDW 18.1 H Plt Count 86 L MPV 8.6 Neut % (Auto) 41.6 L Lymph % (Auto) 41.3 H Giles % (Auto) 15.1 H Eos % (Auto) 0.8 Baso % (Auto) 1.2 Neut # 1.2 L Lymph # 1.2 Giles # 0.4 Eos # 0.0 Baso # 0.0 Differential Comment ESR Retic Count PT INR APTT Sodium 139 Potassium 3.9 Chloride 106 Carbon Dioxide 21 L Anion Gap 16 BUN 24 H Creatinine 2.2 H Est GFR ( Amer) 30 Est GFR (Non-Af Amer) 25 POC Glucose (mg/dL) 118 H Random Glucose 94 Calcium 6.2 L Phosphorus 4.1 Magnesium 1.4 L Ferritin Total Bilirubin 1.0 Direct Bilirubin 0.9 H AST 42 H D ALT 9 D Alkaline Phosphatase 47 Lactate Dehydrogenase 655 H C-React Prot High Sens Total Protein 6.5 Albumin 1.9 L D Globulin 4.5 H Albumin/Globulin Ratio 0.4 L Vitamin B12 Folate Stool Occult Blood Blood Type Antibody Screen 01/05/17 01/05/17 01/05/17 11:29 13:18 15:03 WBC RBC Hgb Hct MCV MCH MCHC RDW Plt Count MPV Neut % (Auto) Lymph % (Auto) Giles % (Auto) Eos % (Auto) Baso % (Auto) Neut # Lymph # Giles # Eos # Baso # Differential Comment ESR Retic Count PT INR APTT Sodium Potassium Chloride Carbon Dioxide Anion Gap BUN Creatinine Est GFR ( Amer) Est GFR (Non-Af Amer) POC Glucose (mg/dL) 136 H Random Glucose Calcium Phosphorus Magnesium Ferritin 250.0 Total Bilirubin Direct Bilirubin AST ALT Alkaline Phosphatase Lactate Dehydrogenase C-React Prot High Sens Total Protein Albumin Globulin Albumin/Globulin Ratio Vitamin B12 288 Folate 17.7 Stool Occult Blood Blood Type O POSITIVE Antibody Screen Negative 01/05/17 01/05/17 16:33 17:55 WBC RBC Hgb Hct MCV MCH MCHC RDW Plt Count MPV Neut % (Auto) Lymph % (Auto) Giles % (Auto) Eos % (Auto) Baso % (Auto) Neut # Lymph # Giles # Eos # Baso # Differential Comment ESR Retic Count PT 18.8 H INR 1.7 APTT 44 H Sodium Potassium Chloride Carbon Dioxide Anion Gap BUN Creatinine Est GFR ( Amer) Est GFR (Non-Af Amer) POC Glucose (mg/dL) 121 H Random Glucose Calcium Phosphorus Magnesium Ferritin Total Bilirubin Direct Bilirubin AST ALT Alkaline Phosphatase Lactate Dehydrogenase C-React Prot High Sens Total Protein Albumin Globulin Albumin/Globulin Ratio Vitamin B12 Folate Stool Occult Blood Blood Type Antibody Screen Assessment & Plan (1) Pancytopenia Assessment and Plan: multifactorial polypharmacy anemia of chronic disease, anemia of renal failure agree with transfusion support for now agree with ruling out HIT; heparin Ab sent and lovenox discontinued recommend discontinuing non essential medication if possible will review peripheral smear, no evidence of hemolysis Status: Acute (2) Coagulopathy Assessment and Plan: rule out DIC; check fibrinogen likely nutritional Thank you for this interesting consult. Status: Acute
[2017-01-06] MEDS: Vitamins A & D Oint UD Foilpak TOP SCH ×6 (00:05→20:00)
[2017-01-06] MEDS: levETIRAcetam 500 MG in Sodium Chloride 0.9% 100 ML IVPB SCH ×3 (00:53→22:33)
[2017-01-06 00:59] LABS: HSV 2 DNA Not Detected (Not Detected); SPECIMEN SOURCE Serum (())
[2017-01-06] MEDS: Penicillin G Potassium 2.5 MU in Dextrose 5% In Water 50 ML IVPB SCH ×6 (01:18→21:23)
[2017-01-06 06:56] LABS: POTASSIUM 2.9 mmol/L (3.6-5.2)
[2017-01-06 06:59] LABS: ALB/GLOB RATIO 0.5 (1.0-2.1); BILIRUBIN,TOTAL 1.2 mg/dL (0.2-1.3); CALCIUM 7.3 mg/dl (8.6-10.4); PHOSPHOROUS 4.3 mg/dL (2.5-4.5); TOTAL PROTEIN 7.6 g/dL (6.3-8.3)
[2017-01-06 07:00] LABS: MAGNESIUM 1.5 mg/dL (1.6-2.3)
[2017-01-06 07:04] LABS: BASO % 1.3 % (0.0-2.0); EOS # 0.1 K/uL (0.0-0.7); EOS % 3.7 % (0.0-4.0); HEMATOCRIT 28.7 % (34.0-47.0); LYMPH # 1.2 K/uL (1.0-4.3); LYMPH % 35.4 % (20.0-40.0); MEAN CELL VOLUME 90.5 fL (81.0-99.0); MEAN CORPUSCULAR HGB CONC 35.3 g/dL (33.0-37.0); MEAN PLATELET VOLUME 7.6 fL (7.2-11.7); MONO # 0.5 K/uL (0.0-0.8); MONO % 13.9 % (0.0-10.0); NRBC % 0.2 % (0.0-2.0); RED CELL DISTRIBUTION WIDTH 17.6 % (11.5-14.5); WHITE BLOOD COUNT 3.3 K/uL (4.8-10.8)
[2017-01-06] MEDS ORDERED: Potassium Chloride 20 mEq ER Tab PO STA (07:48)
[2017-01-06] MEDS ORDERED: Potassium Chloride 20 mEq ER Tab PO ONE (07:48)
[2017-01-06] MEDS: (Novolin R) Insulin Human Regular 100 units/ml vial SC SCH ×4 (08:18→22:35)
[2017-01-06] MEDS ORDERED: Potassium Chloride 20 MEQ in Dextrose 5%/0.9% NS 1,000 ML IV ONE (09:00)
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
[2017-01-06] MEDS: Saccharomyces Boulardi 250 mg Cap PO SCH ×2 (11:01→18:28)
[2017-01-06] MEDS: Vancomycin 125 MG/5 ML SOLN (ORAL/RECTAL) PO SCH ×4 (11:04→21:24)
[2017-01-06 14:49] LABS: HEPARIN-IND PLATELET AB Negative (Negative); RESULT Negative (Negative)
--- NOTE | 2017-01-06 14:54 | CP.PCM.PN ---
Subjective - Date & Time of Evaluation Date of Evaluation: 01/06/17 Time of Evaluation: 08:00 - Subjective Subjective: appears withdrawn and depressed answers questions appropro=iately denies fever or chills no Chest Pain or SOB + abd discomfort and diarrhea On Dapto for MRSA sepsis/ bacteremia/ endocarditis IV PCN for ? neurosyphilis LP not done dr Gaviria on board for thrombocytopenia because of Hep C/ abd pain / renal issues would consider GI eval - ? hepato renal syndrome Objective - Vital Signs/Intake and Output Vital Signs (last 24 hours): Temp Pulse Resp BP Pulse Ox 97.0 F L 81 20 148/93 H 96 01/06/17 08:28 01/06/17 08:28 01/06/17 08:28 01/06/17 08:28 01/06/17 08:28 Intake and Output: 01/06/17 01/06/17 06:59 18:59 Intake Total Output Total Balance - Medications Medications: Current Medications Acetaminophen (Tylenol 325mg Tab) 650 mg PO Q6 PRN PRN Reason: Fever >100.4 F Last Admin: 01/04/17 00:18 Dose: 650 mg Acetaminophen (Tylenol 325mg Tab) 975 mg PO Q6H PRN PRN Reason: Pain, moderate (4-7) Acetaminophen (Tylenol 325 Mg Supp) 325 mg [place] Q6 PRN PRN Reason: Pain, Mild (1-3) Baclofen (Lioresal) 10 mg PO BID [facility] Last Admin: 01/06/17 11:03 Dose: 10 mg Dicyclomine HCl (Bentyl) 10 mg PO QID [facility] Last Admin: 01/05/17 22:08 Dose: 10 mg Emollient Ointment (Vaseline Oint) 0 gm TOP Q1H PRN PRN Reason: Dry skin Last Admin: 01/03/17 08:32 Dose: 1 gm Escitalopram Oxalate (Lexapro) 10 mg PO DAILY [facility] Last Admin: 01/06/17 11:02 Dose: 10 mg Ferrous Sulfate (Feosol) 325 mg PO TID [facility] Last Admin: 01/06/17 13:52 Dose: 325 mg Haloperidol (Haldol) 5 mg PO Q2H PRN PRN Reason: agitation, max 4x/24h Penicillin G Potassium 2.5 mu/ (Dextrose) 50 mls @ 100 mls/hr IVPB Q4H [facility] Stop: 01/12/17 13:01 Last Admin: 01/06/17 13:53 Dose: 100 mls/hr Levetiracetam 500 mg/ Sodium (Chloride) 105 mls @ 420 mls/hr IVPB Q12H [facility] Last Admin: 01/06/17 11:44 Dose: 420 mls/hr Daptomycin 350 mg/ Sodium (Chloride) 100 mls @ 100 mls/hr IV QOD@1800 [facility] Stop: 01/09/17 18:01 Last Admin: 01/04/17 19:00 Dose: 100 mls/hr Potassium Chloride 20 meq/ (Dextrose/Sodium Chloride) 1,010 mls @ 80 mls/hr IV .[id number] ONE Stop: 01/06/17 21:37 Last Admin: 01/06/17 12:09 Dose: 80 mls/hr Insulin Human Regular (Novolin R) 0 unit SC ACHS [facility] PRN Reason: Protocol Last Admin: 01/06/17 12:10 Dose: Not Given Ondansetron HCl (Zofran Inj) 4 mg IVP Q6H [facility] Last Admin: 01/06/17 12:12 Dose: 4 mg Pantoprazole Sodium (Protonix Inj) 40 mg IVP DAILY [facility] Last Admin: 01/06/17 11:01 Dose: 40 mg Saccharomyces Boulardii (Florastor) 250 mg PO BID [facility] Last Admin: 01/06/17 11:01 Dose: 250 mg Vancomycin HCl (Vancocin (Oral Or Rectal Use)) 125 mg PO QID [facility] Last Admin: 01/06/17 13:52 Dose: 125 mg Vitamin A (Vitamin A & D Oint Ud Foilpak) 0 ea TOP Q4 [facility] Last Admin: 01/06/17 12:10 Dose: 1 ea - Labs Labs: 01/06/17 06:39 01/06/17 06:39 PT 18.8 SECONDS (9.7-12.2) H 01/05/17 17:55 INR 1.7 01/05/17 17:55 APTT 44 SECONDS (21-34) H 01/05/17 17:55 - Constitutional Appears: Non-toxic, Chronically Ill - Head Exam Head Exam: NORMOCEPHALIC - Eye Exam Eye Exam: absent: Scleral icterus - ENT Exam ENT Exam: Mucous Membranes Dry, Normal External Ear Exam - Neck Exam Neck Exam: absent: Lymphadenopathy - Respiratory Exam Respiratory Exam: Decreased Breath Sounds, Clear to Ausculation Bilateral - Cardiovascular Exam Cardiovascular Exam: REGULAR RHYTHM, +S1, +S2 - GI/Abdominal Exam GI & Abdominal Exam: Distended, Soft. absent: Tenderness Assessment and Plan (1) Dehydration Status: Acute (2) Leg pain, bilateral Status: Acute (3) MRSA (methicillin resistant Staphylococcus aureus) septicemia Status: Acute (4) Hepatitis C Status: Acute
--- NOTE | 2017-01-07 00:14 | CP.PCM.PN ---
Subjective - Date & Time of Evaluation Date of Evaluation: 01/06/17 Time of Evaluation: 15:00 - Subjective Subjective: Appears fatigued, slow to respond Objective - Vital Signs/Intake and Output Vital Signs (last 24 hours): Temp Pulse Resp BP Pulse Ox 98.0 F 72 20 150/96 H 97 01/06/17 18:48 01/06/17 18:48 01/06/17 18:48 01/06/17 18:48 01/06/17 18:48 Intake and Output: 01/06/17 01/07/17 18:59 06:59 Intake Total 940 Output Total 900 700 Balance 40 -700 - Medications Medications: Current Medications Acetaminophen (Tylenol 325mg Tab) 650 mg PO Q6 PRN PRN Reason: Fever >100.4 F Last Admin: 01/04/17 00:18 Dose: 650 mg Acetaminophen (Tylenol 325mg Tab) 975 mg PO Q6H PRN PRN Reason: Pain, moderate (4-7) Acetaminophen (Tylenol 325 Mg Supp) 325 mg [place] Q6 PRN PRN Reason: Pain, Mild (1-3) Baclofen (Lioresal) 10 mg PO BID [facility] Last Admin: 01/06/17 18:29 Dose: 10 mg Dicyclomine HCl (Bentyl) 10 mg PO QID [facility] Last Admin: 01/05/17 22:08 Dose: 10 mg Emollient Ointment (Vaseline Oint) 0 gm TOP Q1H PRN PRN Reason: Dry skin Last Admin: 01/03/17 08:32 Dose: 1 gm Escitalopram Oxalate (Lexapro) 10 mg PO DAILY [facility] Last Admin: 01/06/17 11:02 Dose: 10 mg Ferrous Sulfate (Feosol) 325 mg PO TID [facility] Last Admin: 01/06/17 18:29 Dose: 325 mg Haloperidol (Haldol) 5 mg PO Q2H PRN PRN Reason: agitation, max 4x/24h Penicillin G Potassium 2.5 mu/ (Dextrose) 50 mls @ 100 mls/hr IVPB Q4H [facility] Stop: 01/12/17 13:01 Last Admin: 01/06/17 21:23 Dose: 100 mls/hr Levetiracetam 500 mg/ Sodium (Chloride) 105 mls @ 420 mls/hr IVPB Q12H [facility] Last Admin: 01/06/17 22:33 Dose: 420 mls/hr Daptomycin 350 mg/ Sodium (Chloride) 100 mls @ 100 mls/hr IV QOD@1800 [facility] Stop: 01/09/17 18:01 Last Admin: 01/06/17 18:27 Dose: 100 mls/hr Insulin Human Regular (Novolin R) 0 unit SC ACHS [facility] PRN Reason: Protocol Last Admin: 01/06/17 22:35 Dose: Not Given Ondansetron HCl (Zofran Inj) 4 mg IVP Q6H [facility] Last Admin: 01/06/17 16:44 Dose: 4 mg Pantoprazole Sodium (Protonix Inj) 40 mg IVP DAILY [facility] Last Admin: 01/06/17 11:01 Dose: 40 mg Saccharomyces Boulardii (Florastor) 250 mg PO BID [facility] Last Admin: 01/06/17 18:28 Dose: 250 mg Vancomycin HCl (Vancocin (Oral Or Rectal Use)) 125 mg PO QID [facility] Last Admin: 01/06/17 21:24 Dose: 125 mg Vitamin A (Vitamin A & D Oint Ud Foilpak) 0 ea TOP Q4 [facility] Last Admin: 01/06/17 20:00 Dose: 1 ea - Labs Labs: 01/06/17 06:39 01/06/17 06:39 PT 18.8 SECONDS (9.7-12.2) H 01/05/17 17:55 INR 1.7 01/05/17 17:55 APTT 44 SECONDS (21-34) H 01/05/17 17:55 - Head Exam Head Exam: ATRAUMATIC - Eye Exam Eye Exam: Normal appearance - ENT Exam ENT Exam: Mucous Membranes Dry - Respiratory Exam Respiratory Exam: NORMAL BREATHING PATTERN - Cardiovascular Exam Cardiovascular Exam: +S1, +S2 - GI/Abdominal Exam GI & Abdominal Exam: Normal Bowel Sounds - Extremities Exam Extremities Exam: Normal Inspection Assessment and Plan (1) Pancytopenia Assessment & Plan: s/p PRBC transfusion polypharmacy low platelet with low fibrinogen consistent with DIC; ?synthetic liver problem Status: Acute (2) Coagulopathy Assessment & Plan: DIC cont. treatment of underlying medical problems Status: Acute
[2017-01-07] MEDS: Vitamins A & D Oint UD Foilpak TOP SCH ×6 (00:23→21:00)
[2017-01-07] MEDS: Penicillin G Potassium 2.5 MU in Dextrose 5% In Water 50 ML IVPB SCH ×6 (01:21→21:35)
[2017-01-07 08:15] LABS: EOS # 0.1 K/uL (0.0-0.7); EOS % 2.7 % (0.0-4.0); HEMATOCRIT 27.6 % (34.0-47.0); LYMPH # 1.3 K/uL (1.0-4.3); LYMPH % 37.6 % (20.0-40.0); MEAN CELL VOLUME 91.2 fL (81.0-99.0); MEAN CORPUSCULAR HEMOGLOBIN 31.8 pg (27.0-31.0); MEAN CORPUSCULAR HGB CONC 34.9 g/dL (33.0-37.0); MEAN PLATELET VOLUME 7.9 fL (7.2-11.7); MONO # 0.5 K/uL (0.0-0.8); MONO % 13.5 % (0.0-10.0); NRBC % 0.5 % (0.0-2.0); RED CELL DISTRIBUTION WIDTH 17.6 % (11.5-14.5); WHITE BLOOD COUNT 3.5 K/uL (4.8-10.8)
[2017-01-07 08:28] LABS: POTASSIUM 3.3 mmol/L (3.6-5.2)
[2017-01-07 08:30] LABS: ALB/GLOB RATIO 0.5 (1.0-2.1); BILIRUBIN,TOTAL 0.7 mg/dL (0.2-1.3); TOTAL PROTEIN 7.5 g/dL (6.3-8.3)
[2017-01-07 08:31] LABS: CALCIUM 7.3 mg/dl (8.6-10.4); MAGNESIUM 1.8 mg/dL (1.6-2.3); PHOSPHOROUS 3.3 mg/dL (2.5-4.5)
[2017-01-07] MEDS: (Novolin R) Insulin Human Regular 100 units/ml vial SC SCH ×4 (09:20→22:01)
[2017-01-07] MEDS ORDERED: Potassium Chloride 20 mEq ER Tab PO STA (09:29)
[2017-01-07] MEDS: Saccharomyces Boulardi 250 mg Cap PO SCH ×2 (09:57→17:43)
[2017-01-07] MEDS: Vancomycin 125 MG/5 ML SOLN (ORAL/RECTAL) PO SCH ×4 (10:05→21:35)
--- NOTE | 2017-01-07 11:07 | CP.PCM.PN ---
Subjective - Date & Time of Evaluation Date of Evaluation: 01/07/17 Time of Evaluation: 11:04 - Subjective Subjective: Awake, does not converse much. UO =2200ml/24 hrs- improving Creat trending down- 2.2 now Remains on IV ABs; IV fluids stopped- oral intake fair No other complaints Objective - Vital Signs/Intake and Output Vital Signs (last 24 hours): Temp Pulse Resp BP Pulse Ox 98.0 F 72 20 150/96 H 97 01/06/17 18:48 01/06/17 18:48 01/06/17 18:48 01/06/17 18:48 01/06/17 18:48 Intake and Output: 01/07/17 01/07/17 06:59 18:59 Intake Total 760 Output Total 1400 Balance -640 - Medications Medications: Current Medications Acetaminophen (Tylenol 325mg Tab) 650 mg PO Q6 PRN PRN Reason: Fever >100.4 F Last Admin: 01/04/17 00:18 Dose: 650 mg Acetaminophen (Tylenol 325mg Tab) 975 mg PO Q6H PRN PRN Reason: Pain, moderate (4-7) Acetaminophen (Tylenol 325 Mg Supp) 325 mg [place] Q6 PRN PRN Reason: Pain, Mild (1-3) Baclofen (Lioresal) 10 mg PO BID [facility] Last Admin: 01/07/17 10:06 Dose: 10 mg Dicyclomine HCl (Bentyl) 10 mg PO QID [facility] Last Admin: 01/05/17 22:08 Dose: 10 mg Emollient Ointment (Vaseline Oint) 0 gm TOP Q1H PRN PRN Reason: Dry skin Last Admin: 01/03/17 08:32 Dose: 1 gm Escitalopram Oxalate (Lexapro) 10 mg PO DAILY [facility] Last Admin: 01/07/17 09:58 Dose: 10 mg Ferrous Sulfate (Feosol) 325 mg PO TID [facility] Last Admin: 01/07/17 09:58 Dose: 325 mg Haloperidol (Haldol) 5 mg PO Q2H PRN PRN Reason: agitation, max 4x/24h Penicillin G Potassium 2.5 mu/ (Dextrose) 50 mls @ 100 mls/hr IVPB Q4H [facility] Stop: 01/12/17 13:01 Last Admin: 01/07/17 09:57 Dose: 100 mls/hr Levetiracetam 500 mg/ Sodium (Chloride) 105 mls @ 420 mls/hr IVPB Q12H [facility] Last Admin: 01/06/17 22:33 Dose: 420 mls/hr Daptomycin 350 mg/ Sodium (Chloride) 100 mls @ 100 mls/hr IV QOD@1800 [facility] Stop: 01/09/17 18:01 Last Admin: 01/06/17 18:27 Dose: 100 mls/hr Insulin Human Regular (Novolin R) 0 unit SC ACHS [facility] PRN Reason: Protocol Last Admin: 01/07/17 09:20 Dose: Not Given Ondansetron HCl (Zofran Inj) 4 mg IVP Q6H [facility] Last Admin: 01/07/17 05:50 Dose: 4 mg Pantoprazole Sodium (Protonix Inj) 40 mg IVP DAILY [facility] Last Admin: 01/07/17 09:59 Dose: 40 mg Saccharomyces Boulardii (Florastor) 250 mg PO BID [facility] Last Admin: 01/07/17 09:57 Dose: 250 mg Vancomycin HCl (Vancocin (Oral Or Rectal Use)) 125 mg PO QID [facility] Last Admin: 01/07/17 10:05 Dose: 125 mg Vitamin A (Vitamin A & D Oint Ud Foilpak) 0 ea TOP Q4 [facility] Last Admin: 01/07/17 09:58 Dose: 1 ea - Labs Labs: 01/07/17 07:15 01/07/17 07:15 PT 18.8 SECONDS (9.7-12.2) H 01/05/17 17:55 INR 1.7 01/05/17 17:55 APTT 44 SECONDS (21-34) H 01/05/17 17:55 - Constitutional Appears: No Acute Distress, Chronically Ill - Head Exam Head Exam: ATRAUMATIC, NORMAL INSPECTION - Eye Exam Eye Exam: EOMI, Normal appearance - Neck Exam Neck Exam: Normal Inspection, Tenderness - Respiratory Exam Respiratory Exam: Clear to Ausculation Bilateral, NORMAL BREATHING PATTERN - Cardiovascular Exam Cardiovascular Exam: REGULAR RHYTHM, +S1 - GI/Abdominal Exam GI & Abdominal Exam: Soft, Tenderness - Extremities Exam Extremities Exam: Normal Inspection, Tenderness - Neurological Exam Neurological Exam: Alert, CN II-XII Intact - Skin Skin Exam: Dry, Warm Assessment and Plan (1) Acute kidney injury Status: Acute (2) C. difficile colitis Status: Suspected (3) Diabetes Status: Chronic (4) Endocarditis Status: Acute (5) Syphilis Status: Acute (6) C. difficile enteritis Status: Acute - Assessment and Plan (Free Text) Plan: Continue to monitor renal status/lytes If creat does not improve- replace IVFs again
[2017-01-07] MEDS: levETIRAcetam 500 MG in Sodium Chloride 0.9% 100 ML IVPB SCH ×2 (11:41→22:00)
--- NOTE | 2017-01-07 16:32 | CP.PCM.PN ---
Subjective - Date & Time of Evaluation Date of Evaluation: 01/07/17 Time of Evaluation: 16:29 - Subjective Subjective: CC: abdominal pain Loose BMs, lower abdominal discomfort. Bentyl was stopped by another physician. Will tentatively schedule Colonoscopy Wed Discussed with RN. Objective - Vital Signs/Intake and Output Vital Signs (last 24 hours): Temp Pulse Resp BP Pulse Ox 98.0 F 72 20 150/96 H 97 01/06/17 18:48 01/06/17 18:48 01/06/17 18:48 01/06/17 18:48 01/06/17 18:48 Intake and Output: 01/07/17 01/07/17 06:59 18:59 Intake Total 760 350 Output Total 1400 1000 Balance -640 -650 - Medications Medications: Current Medications Acetaminophen (Tylenol 325mg Tab) 650 mg PO Q6 PRN PRN Reason: Fever >100.4 F Last Admin: 01/04/17 00:18 Dose: 650 mg Acetaminophen (Tylenol 325mg Tab) 975 mg PO Q6H PRN PRN Reason: Pain, moderate (4-7) Acetaminophen (Tylenol 325 Mg Supp) 325 mg [place] Q6 PRN PRN Reason: Pain, Mild (1-3) Last Admin: 01/07/17 16:21 Dose: 325 mg Baclofen (Lioresal) 10 mg PO BID [facility] Last Admin: 01/07/17 10:06 Dose: 10 mg Dicyclomine HCl (Bentyl) 10 mg PO QID [facility] Last Admin: 01/05/17 22:08 Dose: 10 mg Emollient Ointment (Vaseline Oint) 0 gm TOP Q1H PRN PRN Reason: Dry skin Last Admin: 01/03/17 08:32 Dose: 1 gm Escitalopram Oxalate (Lexapro) 10 mg PO DAILY [facility] Last Admin: 01/07/17 09:58 Dose: 10 mg Ferrous Sulfate (Feosol) 325 mg PO TID [facility] Last Admin: 01/07/17 14:17 Dose: 325 mg Haloperidol (Haldol) 5 mg PO Q2H PRN PRN Reason: agitation, max 4x/24h Penicillin G Potassium 2.5 mu/ (Dextrose) 50 mls @ 100 mls/hr IVPB Q4H [facility] Stop: 01/12/17 13:01 Last Admin: 03/13/17 16:23 Dose: 100 mls/hr Levetiracetam 500 mg/ Sodium (Chloride) 105 mls @ 420 mls/hr IVPB Q12H [facility] Last Admin: 01/07/17 11:41 Dose: 420 mls/hr Daptomycin 350 mg/ Sodium (Chloride) 100 mls @ 100 mls/hr IV QOD@1800 [facility] Stop: 01/09/17 18:01 Last Admin: 01/06/17 18:27 Dose: 100 mls/hr Insulin Human Regular (Novolin R) 0 unit SC ACHS [facility] PRN Reason: Protocol Last Admin: 01/07/17 12:20 Dose: Not Given Ondansetron HCl (Zofran Inj) 4 mg IVP Q6H [facility] Last Admin: 01/07/17 12:58 Dose: 4 mg Pantoprazole Sodium (Protonix Inj) 40 mg IVP DAILY [facility] Last Admin: 01/07/17 09:59 Dose: 40 mg Saccharomyces Boulardii (Florastor) 250 mg PO BID [facility] Last Admin: 01/07/17 09:57 Dose: 250 mg Vancomycin HCl (Vancocin (Oral Or Rectal Use)) 125 mg PO QID [facility] Last Admin: 01/07/17 14:17 Dose: 125 mg Vitamin A (Vitamin A & D Oint Ud Foilpak) 0 ea TOP Q4 [facility] Last Admin: 01/07/17 16:21 Dose: 1 ea - Labs Labs: 01/07/17 07:15 01/07/17 07:15 PT 18.8 SECONDS (9.7-12.2) H 01/05/17 17:55 INR 1.7 01/05/17 17:55 APTT 44 SECONDS (21-34) H 01/05/17 17:55 - Constitutional Appears: No Acute Distress, Chronically Ill - Head Exam Head Exam: NORMOCEPHALIC - Eye Exam Eye Exam: absent: Scleral icterus - Respiratory Exam Respiratory Exam: NORMAL BREATHING PATTERN - Cardiovascular Exam Cardiovascular Exam: REGULAR RHYTHM - GI/Abdominal Exam GI & Abdominal Exam: Soft. absent: Distended, Guarding, Tenderness, Rebound Assessment and Plan (1) Acute kidney injury Status: Acute (2) Anemia Status: Chronic (3) C. difficile colitis Assessment & Plan: Persistent diarrhea, colitis undiagnosed cause, lower abdominal pain- Recommend Colonoscopy Status: Suspected (4) Diabetes Status: Chronic (5) Hep C w/o coma, chronic Status: Chronic (6) MRSA (methicillin resistant Staphylococcus aureus) septicemia Status: Acute (7) Syphilis Status: Acute
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
[2017-01-07 18:44] LABS: UFH SRA RESULT Negative (Negative)
[2017-01-08] MEDS: Vitamins A & D Oint UD Foilpak TOP SCH ×6 (00:16→21:13)
[2017-01-08] MEDS: Penicillin G Potassium 2.5 MU in Dextrose 5% In Water 50 ML IVPB SCH ×6 (01:05→22:04)
[2017-01-08 07:14] LABS: BASO % 0.9 % (0.0-2.0); EOS % 0.9 % (0.0-4.0); HEMATOCRIT 26.6 % (34.0-47.0); LYMPH # 1.6 K/uL (1.0-4.3); LYMPH % 38.7 % (20.0-40.0); MEAN CELL VOLUME 92.6 fL (81.0-99.0); MEAN CORPUSCULAR HEMOGLOBIN 31.3 pg (27.0-31.0); MEAN CORPUSCULAR HGB CONC 33.8 g/dL (33.0-37.0); MEAN PLATELET VOLUME 8.2 fL (7.2-11.7); MONO # 0.5 K/uL (0.0-0.8); MONO % 12.3 % (0.0-10.0); NRBC % 0.1 % (0.0-2.0); RED CELL DISTRIBUTION WIDTH 18.1 % (11.5-14.5); WHITE BLOOD COUNT 4.1 K/uL (4.8-10.8)
[2017-01-08 07:19] LABS: POTASSIUM 3.9 mmol/L (3.6-5.2)
[2017-01-08 07:22] LABS: ALB/GLOB RATIO 0.5 (1.0-2.1); BILIRUBIN,TOTAL 1.1 mg/dL (0.2-1.3); TOTAL PROTEIN 7.3 g/dL (6.3-8.3)
[2017-01-08 07:23] LABS: CALCIUM 6.6 mg/dl (8.6-10.4); MAGNESIUM 1.5 mg/dL (1.6-2.3); PHOSPHOROUS 2.9 mg/dL (2.5-4.5)
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
[2017-01-08] MEDS: (Novolin R) Insulin Human Regular 100 units/ml vial SC SCH ×4 (07:59→21:12)
[2017-01-08] MEDS: Saccharomyces Boulardi 250 mg Cap PO SCH ×2 (10:04→17:01)
[2017-01-08] MEDS: Vancomycin 125 MG/5 ML SOLN (ORAL/RECTAL) PO SCH ×4 (10:06→21:12)
[2017-01-08] MEDS: levETIRAcetam 500 MG in Sodium Chloride 0.9% 100 ML IVPB SCH ×2 (10:49→21:10)
--- NOTE | 2017-01-08 15:55 | CP.PCM.PN ---
Subjective - Date & Time of Evaluation Date of Evaluation: 01/07/17 Time of Evaluation: 19:40 - Subjective Subjective: Mental status appears improved, answers appropriately Objective - Vital Signs/Intake and Output Vital Signs (last 24 hours): Temp Pulse Resp BP Pulse Ox 99.5 F 78 20 159/88 H 94 L 01/08/17 06:02 01/08/17 06:02 01/08/17 06:02 01/08/17 06:02 01/08/17 06:02 Intake and Output: 01/08/17 01/08/17 06:59 18:59 Intake Total 750 150 Output Total 2000 600 Balance -1250 -450 - Medications Medications: Current Medications Acetaminophen (Tylenol 325mg Tab) 650 mg PO Q6 PRN PRN Reason: Fever >100.4 F Last Admin: 01/04/17 00:18 Dose: 650 mg Acetaminophen (Tylenol 325mg Tab) 975 mg PO Q6H PRN PRN Reason: Pain, moderate (4-7) Acetaminophen (Tylenol 325 Mg Supp) 325 mg [place] Q6 PRN PRN Reason: Pain, Mild (1-3) Last Admin: 01/07/17 16:21 Dose: 325 mg Baclofen (Lioresal) 10 mg PO BID [facility] Last Admin: 01/08/17 10:50 Dose: 10 mg Dicyclomine HCl (Bentyl) 10 mg PO QID [facility] Last Admin: 01/05/17 22:08 Dose: 10 mg Emollient Ointment (Vaseline Oint) 0 gm TOP Q1H PRN PRN Reason: Dry skin Last Admin: 01/03/17 08:32 Dose: 1 gm Escitalopram Oxalate (Lexapro) 10 mg PO DAILY [facility] Last Admin: 01/08/17 10:04 Dose: 10 mg Haloperidol (Haldol) 5 mg PO Q2H PRN PRN Reason: agitation, max 4x/24h Levetiracetam 500 mg/ Sodium (Chloride) 105 mls @ 420 mls/hr IVPB Q12H [facility] Last Admin: 01/08/17 10:49 Dose: 420 mls/hr Daptomycin 350 mg/ Sodium (Chloride) 100 mls @ 100 mls/hr IV QOD@1800 [facility] Stop: 01/09/17 18:01 Last Admin: 01/06/17 18:27 Dose: 100 mls/hr Insulin Human Regular (Novolin R) 0 unit SC ACHS [facility] PRN Reason: Protocol Last Admin: 01/08/17 13:44 Dose: Not Given Magnesium Citrate (Citrate Of Mag) 300 ml PO ONCE ONE Stop: 01/08/17 18:01 Ondansetron HCl (Zofran Inj) 4 mg IVP Q6H [facility] Last Admin: 01/08/17 13:50 Dose: 4 mg Pantoprazole Sodium (Protonix Inj) 40 mg IVP DAILY [facility] Last Admin: 01/08/17 10:01 Dose: 40 mg Saccharomyces Boulardii (Florastor) 250 mg PO BID [facility] Last Admin: 01/08/17 10:04 Dose: 250 mg Vancomycin HCl (Vancocin (Oral Or Rectal Use)) 125 mg PO QID [facility] Last Admin: 01/08/17 13:52 Dose: 125 mg Vitamin A (Vitamin A & D Oint Ud Foilpak) 0 ea TOP Q4 [facility] Last Admin: 01/08/17 13:50 Dose: 1 ea - Labs Labs: 01/08/17 06:59 01/08/17 06:59 PT 18.8 SECONDS (9.7-12.2) H 01/05/17 17:55 INR 1.7 01/05/17 17:55 APTT 44 SECONDS (21-34) H 01/05/17 17:55 - Head Exam Head Exam: ATRAUMATIC - Eye Exam Eye Exam: Normal appearance - ENT Exam ENT Exam: Mucous Membranes Dry - Respiratory Exam Respiratory Exam: NORMAL BREATHING PATTERN - Cardiovascular Exam Cardiovascular Exam: +S1, +S2 - GI/Abdominal Exam GI & Abdominal Exam: Normal Bowel Sounds Assessment and Plan (1) Pancytopenia Assessment & Plan: polypharmacy ?med induced HIT w/u negative splenomegaly anemia of chronic disease, renal disease, FOBT thrombocytopenia from infection DIC transfusion support PRN will consider procrit to decrease transfusion dependence Status: Acute (2) Coagulopathy Assessment & Plan: DIC treatment of underlying infections Status: Acute
[2017-01-08] MEDS ORDERED: Magnesium Citrate Oral SOL (300 ml) PO ONE (18:00)
[2017-01-09] MEDS: Penicillin G Potassium 2.5 MU in Dextrose 5% In Water 50 ML IVPB SCH ×6 (01:45→22:32)
[2017-01-09] MEDS: Vitamins A & D Oint UD Foilpak TOP SCH ×6 (04:00→22:33)
[2017-01-09 07:24] LABS: BASO % 1.2 % (0.0-2.0); EOS # 0.2 K/uL (0.0-0.7); EOS % 5.5 % (0.0-4.0); HEMATOCRIT 28.3 % (34.0-47.0); LYMPH # 1.5 K/uL (1.0-4.3); LYMPH % 45.7 % (20.0-40.0); MEAN CELL VOLUME 91.5 fL (81.0-99.0); MEAN CORPUSCULAR HEMOGLOBIN 31.7 pg (27.0-31.0); MEAN CORPUSCULAR HGB CONC 34.7 g/dL (33.0-37.0); MEAN PLATELET VOLUME 7.8 fL (7.2-11.7); MONO # 0.4 K/uL (0.0-0.8); MONO % 12.3 % (0.0-10.0); NRBC % 0.3 % (0.0-2.0); RED CELL DISTRIBUTION WIDTH 17.4 % (11.5-14.5); WHITE BLOOD COUNT 3.2 K/uL (4.8-10.8)
[2017-01-09 07:36] LABS: INR 1.5
[2017-01-09 07:39] LABS: POTASSIUM 3.1 mmol/L (3.6-5.2)
[2017-01-09 07:41] LABS: ALB/GLOB RATIO 0.5 (1.0-2.1); BILIRUBIN,TOTAL 0.8 mg/dL (0.2-1.3); TOTAL PROTEIN 7.7 g/dL (6.3-8.3)
[2017-01-09 07:42] LABS: CALCIUM 7.6 mg/dl (8.6-10.4); MAGNESIUM 1.6 mg/dL (1.6-2.3); PHOSPHOROUS 3.6 mg/dL (2.5-4.5)
[2017-01-09] MEDS ORDERED: Dextrose 50% SYRINGE Inj (50 ml) IV STA ×2 (08:21)
[2017-01-09] MEDS: Saccharomyces Boulardi 250 mg Cap PO SCH ×2 (10:32→17:49)
[2017-01-09] MEDS: (Novolin R) Insulin Human Regular 100 units/ml vial SC SCH ×4 (10:33→22:32)
[2017-01-09] MEDS: Vancomycin 125 MG/5 ML SOLN (ORAL/RECTAL) PO SCH ×4 (10:37→22:33)
[2017-01-09] MEDS ORDERED: Propofol 10 mg/ml Inj (20 ML) ONE (11:09)
[2017-01-09] MEDS ORDERED: Lactated Ringer's 500 ML IV ONE ×2 (11:18)
--- NOTE | 2017-01-09 13:09 | CP.PCM.PN ---
Subjective - Date & Time of Evaluation Date of Evaluation: 01/09/17 Time of Evaluation: 13:06 - Subjective Subjective: poorly interactive mandujano in good u/o appetite is fair Objective - Vital Signs/Intake and Output Vital Signs (last 24 hours): Temp Pulse Resp BP Pulse Ox 97.4 F L 59 L 15 152/90 H 97 01/09/17 12:08 01/09/17 12:08 01/09/17 12:08 01/09/17 12:08 01/09/17 12:08 Intake and Output: 01/09/17 01/09/17 06:59 18:59 Intake Total 1030 0 Output Total 1600 250 Balance -570 -250 - Medications Medications: Current Medications Acetaminophen (Tylenol 325mg Tab) 650 mg PO Q6 PRN PRN Reason: Fever >100.4 F Last Admin: 01/04/17 00:18 Dose: 650 mg Acetaminophen (Tylenol 325mg Tab) 975 mg PO Q6H PRN PRN Reason: Pain, moderate (4-7) Acetaminophen (Tylenol 325 Mg Supp) 325 mg [place] Q6 PRN PRN Reason: Pain, Mild (1-3) Last Admin: 01/07/17 16:21 Dose: 325 mg Baclofen (Lioresal) 10 mg PO BID [facility] Last Admin: 01/09/17 10:33 Dose: Not Given Dicyclomine HCl (Bentyl) 10 mg PO QID [facility] Last Admin: 01/05/17 22:08 Dose: 10 mg Emollient Ointment (Vaseline Oint) 0 gm TOP Q1H PRN PRN Reason: Dry skin Last Admin: 01/03/17 08:32 Dose: 1 gm Escitalopram Oxalate (Lexapro) 10 mg PO DAILY [facility] Last Admin: 01/08/17 10:04 Dose: 10 mg Haloperidol (Haldol) 5 mg PO Q2H PRN PRN Reason: agitation, max 4x/24h Levetiracetam 500 mg/ Sodium (Chloride) 105 mls @ 420 mls/hr IVPB Q12H [facility] Last Admin: 01/08/17 21:10 Dose: 420 mls/hr Daptomycin 350 mg/ Sodium (Chloride) 100 mls @ 100 mls/hr IV QOD@1800 [facility] Stop: 01/09/17 18:01 Last Admin: 01/08/17 17:46 Dose: 100 mls/hr Penicillin G Potassium 2.5 mu/ (Dextrose) 50 mls @ 100 mls/hr IVPB Q4H [facility] Last Admin: 01/09/17 10:36 Dose: Not Given Lactated Ringer's (Lactated Ringer's) 1,000 mls @ 100 mls/hr IV .Q10H [facility] Insulin Human Regular (Novolin R) 0 unit SC ACHS [facility] PRN Reason: Protocol Last Admin: 01/09/17 10:33 Dose: Not Given Ondansetron HCl (Zofran Inj) 4 mg IVP Q6H [facility] Last Admin: 01/09/17 05:20 Dose: 4 mg Pantoprazole Sodium (Protonix Inj) 40 mg IVP DAILY [facility] Last Admin: 01/09/17 10:36 Dose: Not Given Saccharomyces Boulardii (Florastor) 250 mg PO BID [facility] Last Admin: 01/09/17 10:32 Dose: Not Given Spironolactone (Aldactone) 25 mg PO BID [facility] Vancomycin HCl (Vancocin (Oral Or Rectal Use)) 125 mg PO QID [facility] Last Admin: 01/09/17 10:37 Dose: Not Given Vitamin A (Vitamin A & D Oint Ud Foilpak) 0 ea TOP Q4 [facility] Last Admin: 01/09/17 10:38 Dose: Not Given - Labs Labs: 01/09/17 07:00 01/09/17 07:00 PT 17.3 SECONDS (9.7-12.2) H 01/09/17 07:00 INR 1.5 01/09/17 07:00 APTT 38 SECONDS (21-34) H 01/09/17 07:00 - Constitutional Appears: Confused, Chronically Ill - Eye Exam Eye Exam: EOMI - ENT Exam ENT Exam: Mucous Membranes Moist - Neck Exam Neck Exam: Full ROM - Respiratory Exam Respiratory Exam: Clear to Ausculation Bilateral. absent: Accessory Muscle Use - Cardiovascular Exam Cardiovascular Exam: REGULAR RHYTHM. absent: Rubs - GI/Abdominal Exam GI & Abdominal Exam: Soft. absent: Tenderness - Extremities Exam Extremities Exam: absent: Pedal Edema - Neurological Exam Neurological Exam: Awake. absent: Oriented x3 Assessment and Plan - Assessment and Plan (Free Text) Assessment: dann,improving low K, check magnesium, urine K, start aldactone continue ab for endocarditis
[2017-01-09] MEDS ORDERED: Potassium Chloride 20 mEq 100 ML IVPB ONE (13:11)
--- NOTE | 2017-01-09 13:12 | CP.PCM.PN ---
Subjective - Date & Time of Evaluation Date of Evaluation: 01/09/17 Time of Evaluation: 13:04 Objective - Vital Signs/Intake and Output Vital Signs (last 24 hours): Temp Pulse Resp BP Pulse Ox 97.4 F L 59 L 15 152/90 H 97 01/09/17 12:08 01/09/17 12:08 01/09/17 12:08 01/09/17 12:08 01/09/17 12:08 Intake and Output: 01/09/17 01/09/17 06:59 18:59 Intake Total 1030 0 Output Total 1600 250 Balance -570 -250 - Medications Medications: Current Medications Acetaminophen (Tylenol 325mg Tab) 650 mg PO Q6 PRN PRN Reason: Fever >100.4 F Last Admin: 01/04/17 00:18 Dose: 650 mg Acetaminophen (Tylenol 325mg Tab) 975 mg PO Q6H PRN PRN Reason: Pain, moderate (4-7) Acetaminophen (Tylenol 325 Mg Supp) 325 mg NC Q6 PRN PRN Reason: Pain, Mild (1-3) Last Admin: 01/07/17 16:21 Dose: 325 mg Baclofen (Lioresal) 10 mg PO BID [facility] Last Admin: 01/09/17 10:33 Dose: Not Given Dicyclomine HCl (Bentyl) 10 mg PO QID [facility] Last Admin: 01/05/17 22:08 Dose: 10 mg Emollient Ointment (Vaseline Oint) 0 gm TOP Q1H PRN PRN Reason: Dry skin Last Admin: 01/03/17 08:32 Dose: 1 gm Escitalopram Oxalate (Lexapro) 10 mg PO DAILY [facility] Last Admin: 01/08/17 10:04 Dose: 10 mg Haloperidol (Haldol) 5 mg PO Q2H PRN PRN Reason: agitation, max 4x/24h Levetiracetam 500 mg/ Sodium (Chloride) 105 mls @ 420 mls/hr IVPB Q12H [facility] Last Admin: 01/08/17 21:10 Dose: 420 mls/hr Daptomycin 350 mg/ Sodium (Chloride) 100 mls @ 100 mls/hr IV QOD@1800 [facility] Stop: 01/09/17 18:01 Last Admin: 01/08/17 17:46 Dose: 100 mls/hr Penicillin G Potassium 2.5 mu/ (Dextrose) 50 mls @ 100 mls/hr IVPB Q4H [facility] Last Admin: 01/09/17 10:36 Dose: Not Given Lactated Ringer's (Lactated Ringer's) 1,000 mls @ 100 mls/hr IV .Q10H [facility] Insulin Human Regular (Novolin R) 0 unit SC ACHS [facility] PRN Reason: Protocol Last Admin: 01/09/17 10:33 Dose: Not Given Ondansetron HCl (Zofran Inj) 4 mg IVP Q6H [facility] Last Admin: 01/09/17 05:20 Dose: 4 mg Pantoprazole Sodium (Protonix Inj) 40 mg IVP DAILY [facility] Last Admin: 01/09/17 10:36 Dose: Not Given Saccharomyces Boulardii (Florastor) 250 mg PO BID [facility] Last Admin: 01/09/17 10:32 Dose: Not Given Spironolactone (Aldactone) 25 mg PO BID [facility] Vancomycin HCl (Vancocin (Oral Or Rectal Use)) 125 mg PO QID [facility] Last Admin: 01/09/17 10:37 Dose: Not Given Vitamin A (Vitamin A & D Oint Ud Foilpak) 0 ea TOP Q4 [facility] Last Admin: 01/09/17 10:38 Dose: Not Given - Labs Labs: 01/09/17 07:00 01/09/17 07:00 PT 17.3 SECONDS (9.7-12.2) H 01/09/17 07:00 INR 1.5 01/09/17 07:00 APTT 38 SECONDS (21-34) H 01/09/17 07:00
--- NOTE | 2017-01-09 14:04 | PCM.PYCHPN ---
Psychiatric Progress Note - Psychiatric Progress Note Patient seen today, length of contact: 15 min Patient Chief Complaint: "better" Problems Identified/Issues Discussed: Pt seen. Chart reviewed. case discussed Doing better Calmer. Denies SI, HI Not confused or delirious. Seemed much better than last time - she agreed too. She smiles now Support given Medication Change: No Medical Record Reviewed: Yes Mental Status Examination - Cognitive Function Orientation: Person, Place, Situation, Time (not fully in all spheres) Memory: Impaired Attention: WNL Concentration: WNL Association: WNL Fund of Knowledge: Poor - Mood Mood: Anxious - Affect Affect: Constricted - Speech Speech: Appropriate, Slurred, Soft - Formal Thought Process Formal Thought Process: No Impairment - Suicidal Ideation Suicidal Ideation: No - Homicidal Ideation Homicidal Ideation: No Goal/Treatment Plan - Goal/Treatment Plan Need for Continued Stay: Severe functional impairment, Other (medical w/u) Progress Toward Problem(s) and Goals/Treatment Plan: Continue current meds refer to [facility] upon d/c D/c 1:1 for now. But monitor closely Support Psych will sign off now. Pls contact as needed
[2017-01-09] MEDS: levETIRAcetam 500 MG in Sodium Chloride 0.9% 100 ML IVPB SCH ×2 (14:35→21:52)
[2017-01-09 17:08] VITALS: RESP 20
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
[2017-01-09] MEDS ORDERED: Potassium Chloride 20 mEq ER Tab PO STA (17:42)
--- NOTE | 2017-01-09 21:33 | NM ---
EXAM: NM Lung Perfusion and Ventilation Scan. CLINICAL HISTORY: 36 years old, female; Screening exam; Other screening; Additional info: Rule out pe TECHNIQUE: Nuclear Medicine ventilation and perfusion images of the lungs were obtained in multiple projections following inhalation of Xenon-133 gas and injection of Tc99m MAA. COMPARISON: CT - CHEST,ABD,PEL W/IV PO CONTRAST 12/25/2016 7:39:30 PM FINDINGS: Ventilation: No moderate or large ventilation defects. Perfusion: Several small peripheral perfusion defects and/or artifact. IMPRESSION: Indeterminate/intermediate probability for pulmonary embolism. Suggest CTA.
[2017-01-10] MEDS: Vitamins A & D Oint UD Foilpak TOP SCH ×6 (00:02→21:00)
[2017-01-10] MEDS: Penicillin G Potassium 2.5 MU in Dextrose 5% In Water 50 ML IVPB SCH ×6 (02:01→22:41)
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
[2017-01-10 07:29] LABS: BASO % 1.2 % (0.0-2.0); EOS # 0.2 K/uL (0.0-0.7); EOS % 6.2 % (0.0-4.0); HEMATOCRIT 28.4 % (34.0-47.0); LYMPH # 1.5 K/uL (1.0-4.3); LYMPH % 49.1 % (20.0-40.0); MEAN CELL VOLUME 90.6 fL (81.0-99.0); MEAN CORPUSCULAR HEMOGLOBIN 31.7 pg (27.0-31.0); MEAN PLATELET VOLUME 7.9 fL (7.2-11.7); MONO # 0.4 K/uL (0.0-0.8); MONO % 12.6 % (0.0-10.0); RED CELL DISTRIBUTION WIDTH 17.7 % (11.5-14.5)
[2017-01-10 07:43] LABS: POTASSIUM 3.9 mmol/L (3.6-5.2)
[2017-01-10 07:46] LABS: ALB/GLOB RATIO 0.5 (1.0-2.1); BILIRUBIN,TOTAL 0.8 mg/dL (0.2-1.3); PHOSPHOROUS 3.5 mg/dL (2.5-4.5)
[2017-01-10 07:47] LABS: CALCIUM 7.7 mg/dl (8.6-10.4); MAGNESIUM 1.4 mg/dL (1.6-2.3)
[2017-01-10] MEDS: Lactated Ringer's 1,000 ML IV SCH (08:10)
[2017-01-10] MEDS: (Novolin R) Insulin Human Regular 100 units/ml vial SC SCH ×4 (08:12→22:42)
[2017-01-10] MEDS: Saccharomyces Boulardi 250 mg Cap PO SCH ×2 (09:47→17:02)
[2017-01-10] MEDS: levETIRAcetam 500 MG in Sodium Chloride 0.9% 100 ML IVPB SCH ×2 (09:50→22:41)
[2017-01-10] MEDS: Vancomycin 125 MG/5 ML SOLN (ORAL/RECTAL) PO SCH ×4 (09:55→22:41)
--- NOTE | 2017-01-10 09:55 | CP.PCM.PN ---
Subjective - Date & Time of Evaluation Date of Evaluation: 01/10/17 Time of Evaluation: 09:53 - Subjective Subjective: Still lethargic but more responsive BP high- aldactone just added Renal function has stabilized Likely has CKD 3 Mag low- will replete Objective - Vital Signs/Intake and Output Vital Signs (last 24 hours): Temp Pulse Resp BP Pulse Ox 97.6 F 70 20 148/94 H 96 01/10/17 07:22 01/10/17 07:22 01/10/17 07:22 01/10/17 07:22 01/10/17 07:22 Intake and Output: 01/10/17 01/10/17 06:59 18:59 Intake Total 850 Output Total 1450 Balance -600 - Medications Medications: Current Medications Acetaminophen (Tylenol 325mg Tab) 650 mg PO Q6 PRN PRN Reason: Fever >100.4 F Last Admin: 01/04/17 00:18 Dose: 650 mg Acetaminophen (Tylenol 325mg Tab) 975 mg PO Q6H PRN PRN Reason: Pain, moderate (4-7) Acetaminophen (Tylenol 325 Mg Supp) 325 mg [place] Q6 PRN PRN Reason: Pain, Mild (1-3) Last Admin: 01/07/17 16:21 Dose: 325 mg Amlodipine Besylate (Norvasc) 5 mg PO DAILY [facility] Baclofen (Lioresal) 10 mg PO BID [facility] Last Admin: 01/09/17 17:50 Dose: 10 mg Dicyclomine HCl (Bentyl) 10 mg PO QID [facility] Last Admin: 01/05/17 22:08 Dose: 10 mg Emollient Ointment (Vaseline Oint) 0 gm TOP Q1H PRN PRN Reason: Dry skin Last Admin: 01/03/17 08:32 Dose: 1 gm Escitalopram Oxalate (Lexapro) 10 mg PO DAILY [facility] Last Admin: 01/09/17 13:05 Dose: 10 mg Haloperidol (Haldol) 5 mg PO Q2H PRN PRN Reason: agitation, max 4x/24h Levetiracetam 500 mg/ Sodium (Chloride) 105 mls @ 420 mls/hr IVPB Q12H [facility] Last Admin: 01/09/17 21:52 Dose: 420 mls/hr Penicillin G Potassium 2.5 mu/ (Dextrose) 50 mls @ 100 mls/hr IVPB Q4H [facility] Last Admin: 01/10/17 06:05 Dose: 100 mls/hr Lactated Ringer's (Lactated Ringer's) 1,000 mls @ 100 mls/hr IV .Q10H [facility] Last Admin: 01/10/17 08:10 Dose: Not Given Magnesium Sulfate/Dextrose (Magnesium Sulfate 1 Gm/100 Ml D5w) 100 mls @ 200 mls/hr IVPB Q30M [facility] Stop: 01/10/17 10:14 Insulin Human Regular (Novolin R) 0 unit SC ACHS [facility] PRN Reason: Protocol Last Admin: 01/10/17 08:12 Dose: Not Given Ondansetron HCl (Zofran Inj) 4 mg IVP Q6H [facility] Last Admin: 01/10/17 05:51 Dose: 4 mg Pantoprazole Sodium (Protonix Inj) 40 mg IVP DAILY [facility] Last Admin: 01/09/17 10:36 Dose: Not Given Saccharomyces Boulardii (Florastor) 250 mg PO BID [facility] Last Admin: 01/09/17 17:49 Dose: 250 mg Spironolactone (Aldactone) 25 mg PO BID [facility] Last Admin: 01/09/17 17:49 Dose: 25 mg Vancomycin HCl (Vancocin (Oral Or Rectal Use)) 125 mg PO QID [facility] Last Admin: 01/09/17 22:33 Dose: 125 mg Vitamin A (Vitamin A & D Oint Ud Foilpak) 0 ea TOP Q4 [facility] Last Admin: 01/10/17 08:11 Dose: Not Given - Labs Labs: 01/10/17 07:13 01/10/17 07:13 PT 17.3 SECONDS (9.7-12.2) H 01/09/17 07:00 INR 1.5 01/09/17 07:00 APTT 38 SECONDS (21-34) H 01/09/17 07:00 - Constitutional Appears: No Acute Distress, Chronically Ill - Head Exam Head Exam: ATRAUMATIC, NORMAL INSPECTION - Eye Exam Eye Exam: EOMI, Normal appearance - Neck Exam Neck Exam: Normal Inspection. absent: Tenderness - Respiratory Exam Respiratory Exam: Clear to Ausculation Bilateral, NORMAL BREATHING PATTERN - Cardiovascular Exam Cardiovascular Exam: REGULAR RHYTHM, +S1 - GI/Abdominal Exam GI & Abdominal Exam: Soft. absent: Tenderness - Extremities Exam Extremities Exam: Normal Inspection. absent: Tenderness - Neurological Exam Neurological Exam: Awake, CN II-XII Intact - Skin Skin Exam: Dry, Warm Assessment and Plan (1) Acute kidney injury Status: Acute (2) C. difficile colitis Status: Suspected (3) Diabetes Status: Chronic (4) Endocarditis Status: Acute (5) Syphilis Status: Acute - Assessment and Plan (Free Text) Plan: Replete mag Monitor renal function, HTN
[2017-01-10] MEDS: Magnesium Oxide 400 mg Tab UD PO SCH ×2 (10:39→17:07)
--- NOTE | 2017-01-10 11:23 | CP.PCM.PN ---
Subjective - Date & Time of Evaluation Date of Evaluation: 01/10/17 Time of Evaluation: 11:20 - Subjective Subjective: F/U diarrrhea. Pt reports less diarrhea. Eating better. Denies abdom pain, fever, chills, CP, SOB, GARCIA, cough, RB., melena Objective - Vital Signs/Intake and Output Vital Signs (last 24 hours): Temp Pulse Resp BP Pulse Ox 97.6 F 70 20 148/94 H 96 01/10/17 07:22 01/10/17 07:22 01/10/17 07:22 01/10/17 07:22 01/10/17 07:22 Intake and Output: 01/10/17 01/10/17 06:59 18:59 Intake Total 850 Output Total 1450 Balance -600 - Medications Medications: Current Medications Acetaminophen (Tylenol 325mg Tab) 650 mg PO Q6 PRN PRN Reason: Fever >100.4 F Last Admin: 01/04/17 00:18 Dose: 650 mg Acetaminophen (Tylenol 325mg Tab) 975 mg PO Q6H PRN PRN Reason: Pain, moderate (4-7) Acetaminophen (Tylenol 325 Mg Supp) 325 mg [place] Q6 PRN PRN Reason: Pain, Mild (1-3) Last Admin: 01/07/17 16:21 Dose: 325 mg Amlodipine Besylate (Norvasc) 5 mg PO DAILY [facility] Last Admin: 01/10/17 09:48 Dose: 5 mg Baclofen (Lioresal) 5 mg PO BID [facility] Dicyclomine HCl (Bentyl) 10 mg PO QID [facility] Last Admin: 01/05/17 22:08 Dose: 10 mg Emollient Ointment (Vaseline Oint) 0 gm TOP Q1H PRN PRN Reason: Dry skin Last Admin: 01/03/17 08:32 Dose: 1 gm Escitalopram Oxalate (Lexapro) 10 mg PO DAILY [facility] Last Admin: 01/10/17 09:47 Dose: 10 mg Haloperidol (Haldol) 5 mg PO Q2H PRN PRN Reason: agitation, max 4x/24h Levetiracetam 500 mg/ Sodium (Chloride) 105 mls @ 420 mls/hr IVPB Q12H [facility] Last Admin: 01/10/17 09:50 Dose: 420 mls/hr Penicillin G Potassium 2.5 mu/ (Dextrose) 50 mls @ 100 mls/hr IVPB Q4H [facility] Last Admin: 01/10/17 10:02 Dose: 100 mls/hr Lactated Ringer's (Lactated Ringer's) 1,000 mls @ 100 mls/hr IV .Q10H [facility] Last Admin: 01/10/17 08:10 Dose: Not Given Insulin Human Regular (Novolin R) 0 unit SC ACHS [facility] PRN Reason: Protocol Last Admin: 01/10/17 08:12 Dose: Not Given Magnesium Oxide (Mag-Ox) 400 mg PO BID [facility] Last Admin: 01/10/17 10:39 Dose: 400 mg Ondansetron HCl (Zofran Inj) 4 mg IVP Q6H [facility] Last Admin: 01/10/17 05:51 Dose: 4 mg Pantoprazole Sodium (Protonix Inj) 40 mg IVP DAILY [facility] Last Admin: 01/10/17 09:47 Dose: 40 mg Saccharomyces Boulardii (Florastor) 250 mg PO BID [facility] Last Admin: 01/10/17 09:47 Dose: 250 mg Spironolactone (Aldactone) 25 mg PO BID [facility] Last Admin: 01/10/17 09:47 Dose: 25 mg Vancomycin HCl (Vancocin (Oral Or Rectal Use)) 125 mg PO QID [facility] Last Admin: 01/10/17 09:55 Dose: 125 mg Vitamin A (Vitamin A & D Oint Ud Foilpak) 0 ea TOP Q4 [facility] Last Admin: 01/10/17 08:11 Dose: Not Given - Labs Labs: 01/10/17 07:13 01/10/17 07:13 PT 17.3 SECONDS (9.7-12.2) H 01/09/17 07:00 INR 1.5 01/09/17 07:00 APTT 38 SECONDS (21-34) H 01/09/17 07:00 - Constitutional Appears: Non-toxic - Neck Exam Neck Exam: Full ROM - Respiratory Exam Respiratory Exam: Clear to Ausculation Bilateral - Cardiovascular Exam Cardiovascular Exam: RRR - GI/Abdominal Exam GI & Abdominal Exam: Soft, Normal Bowel Sounds. absent: Tenderness - Extremities Exam Extremities Exam: absent: Calf Tenderness - Neurological Exam Neurological Exam: Alert, Awake Assessment and Plan (1) Acute kidney injury Status: Acute (2) C. difficile enteritis Assessment & Plan: colonscopy- sl colitis. Check biopsies. check stool tests. Status: Acute (3) Hepatitis C Assessment & Plan: cirrhosis Status: Acute (4) MRSA (methicillin resistant Staphylococcus aureus) septicemia Status: Acute (5) Pancytopenia Status: Acute (6) Anemia Status: Chronic (7) Diabetes Status: Chronic (8) Colitis Assessment & Plan: Check colon biopsies. Stool tests neg so far. Status: Acute
[2017-01-10 11:25] LABS: RBC URINE 1 /hpf (0-3); URINE BACTERIA RARE (<OCC); URINE BILIRUBIN NEGATIVE (NEGATIVE); URINE BLOOD NEGATIVE (NEGATIVE); URINE COLOR Yellow (YELLOW); URINE GLUCOSE (UA) NORMAL (Normal); URINE KETONE NEGATIVE (NEGATIVE); URINE LEUKOCYTE ESTERASE NEG Leu/uL (Negative); URINE PROTEIN NEGATIVE (NEGATIVE); URINE UROBILINOGEN NORMAL mg/dL (0.2-1.0); WBC URINE 2 /hpf (0-5)
[2017-01-10] MEDS: Baclofen 5 mg Tab PO SCH (17:06)
--- NOTE | 2017-01-10 20:02 | CP.PCM.PN ---
Subjective - Date & Time of Evaluation Date of Evaluation: 01/10/17 Time of Evaluation: 17:00 - Subjective Subjective: Mental status improved, answers questions denies shortness of breath and chest pain US venous duplex shows superficial vein thrombosis V/Q indeterminate Objective - Vital Signs/Intake and Output Vital Signs (last 24 hours): Temp Pulse Resp BP Pulse Ox 97.9 F 73 20 135/89 96 01/10/17 15:20 01/10/17 15:20 01/10/17 15:20 01/10/17 15:20 01/10/17 15:20 Intake and Output: 01/10/17 01/11/17 18:59 06:59 Intake Total 760 Output Total 600 Balance 160 - Medications Medications: Current Medications Acetaminophen (Tylenol 325mg Tab) 650 mg PO Q6 PRN PRN Reason: Fever >100.4 F Last Admin: 01/04/17 00:18 Dose: 650 mg Acetaminophen (Tylenol 325mg Tab) 975 mg PO Q6H PRN PRN Reason: Pain, moderate (4-7) Acetaminophen (Tylenol 325 Mg Supp) 325 mg VT Q6 PRN PRN Reason: Pain, Mild (1-3) Last Admin: 01/07/17 16:21 Dose: 325 mg Amlodipine Besylate (Norvasc) 5 mg PO DAILY [facility] Last Admin: 01/10/17 09:48 Dose: 5 mg Baclofen (Lioresal) 5 mg PO BID [facility] Last Admin: 01/10/17 17:06 Dose: 5 mg Dicyclomine HCl (Bentyl) 10 mg PO QID [facility] Last Admin: 01/05/17 22:08 Dose: 10 mg Emollient Ointment (Vaseline Oint) 0 gm TOP Q1H PRN PRN Reason: Dry skin Last Admin: 01/03/17 08:32 Dose: 1 gm Escitalopram Oxalate (Lexapro) 10 mg PO DAILY [facility] Last Admin: 01/10/17 09:47 Dose: 10 mg Haloperidol (Haldol) 5 mg PO Q2H PRN PRN Reason: agitation, max 4x/24h Heparin Sodium (Porcine) (Heparin) 5,000 units SC Q8 [facility] Last Admin: 01/10/17 13:40 Dose: 5,000 units Levetiracetam 500 mg/ Sodium (Chloride) 105 mls @ 420 mls/hr IVPB Q12H [facility] Last Admin: 01/10/17 09:50 Dose: 420 mls/hr Penicillin G Potassium 2.5 mu/ (Dextrose) 50 mls @ 100 mls/hr IVPB Q4H [facility] Last Admin: 01/10/17 17:04 Dose: 100 mls/hr Lactated Ringer's (Lactated Ringer's) 1,000 mls @ 100 mls/hr IV .Q10H [facility] Last Admin: 01/10/17 08:10 Dose: Not Given Insulin Human Regular (Novolin R) 0 unit SC ACHS [facility] PRN Reason: Protocol Last Admin: 01/10/17 16:45 Dose: Not Given Magnesium Oxide (Mag-Ox) 400 mg PO BID [facility] Last Admin: 01/10/17 17:07 Dose: 400 mg Ondansetron HCl (Zofran Inj) 4 mg IVP Q6H [facility] Last Admin: 01/10/17 16:56 Dose: 4 mg Pantoprazole Sodium (Protonix Inj) 40 mg IVP DAILY [facility] Last Admin: 01/10/17 09:47 Dose: 40 mg Saccharomyces Boulardii (Florastor) 250 mg PO BID [facility] Last Admin: 01/10/17 17:02 Dose: 250 mg Spironolactone (Aldactone) 25 mg PO BID [facility] Last Admin: 01/10/17 17:02 Dose: 25 mg Vancomycin HCl (Vancocin (Oral Or Rectal Use)) 125 mg PO QID [facility] Last Admin: 01/10/17 17:04 Dose: 125 mg Vitamin A (Vitamin A & D Oint Ud Foilpak) 0 ea TOP Q4 [facility] Last Admin: 01/10/17 16:57 Dose: 1 ea - Labs Labs: 01/10/17 07:13 01/10/17 07:13 PT 17.3 SECONDS (9.7-12.2) H 01/09/17 07:00 INR 1.5 01/09/17 07:00 APTT 38 SECONDS (21-34) H 01/09/17 07:00 - Head Exam Head Exam: ATRAUMATIC - Eye Exam Eye Exam: Normal appearance - ENT Exam ENT Exam: Mucous Membranes Dry - Respiratory Exam Respiratory Exam: NORMAL BREATHING PATTERN - Cardiovascular Exam Cardiovascular Exam: +S1, +S2 - GI/Abdominal Exam GI & Abdominal Exam: Normal Bowel Sounds - Extremities Exam Extremities Exam: Normal Inspection Assessment and Plan (1) D-dimer, elevated Assessment & Plan: V/Q indeterminate and unable to perform CTA due to renal failure US ultrasound shows superficial vein thrombus recommend checking LE venous duplex clinically does not appear to have PE would not recommend therapeutic anticoagulation for now unless clinical/ diagnostic testing is more indicative of PE Status: Acute (2) Pancytopenia Assessment & Plan: counts improved polypharmacy ?med induced HIT w/u negative splenomegaly anemia of chronic disease, renal disease, FOBT positive thrombocytopenia from infection DIC transfusion support PRN will consider procrit to decrease transfusion dependence Status: Acute (3) Coagulopathy Assessment & Plan: DIC plt improving, will repeat fibrinogen Status: Acute
[2017-01-11] MEDS: Vitamins A & D Oint UD Foilpak TOP SCH ×6 (00:10→20:00)
[2017-01-11] MEDS: Penicillin G Potassium 2.5 MU in Dextrose 5% In Water 50 ML IVPB SCH ×7 (02:03→22:03)
[2017-01-11] MEDS: Lactated Ringer's 1,000 ML IV SCH (03:30)
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
[2017-01-11 07:27] LABS: BASO % 1.2 % (0.0-2.0); EOS # 0.2 K/uL (0.0-0.7); EOS % 5.9 % (0.0-4.0); HEMATOCRIT 29.2 % (34.0-47.0); LYMPH # 1.8 K/uL (1.0-4.3); LYMPH % 51.4 % (20.0-40.0); MEAN CELL VOLUME 91.4 fL (81.0-99.0); MEAN CORPUSCULAR HEMOGLOBIN 30.8 pg (27.0-31.0); MEAN CORPUSCULAR HGB CONC 33.7 g/dL (33.0-37.0); MEAN PLATELET VOLUME 7.5 fL (7.2-11.7); MONO # 0.4 K/uL (0.0-0.8); MONO % 11.3 % (0.0-10.0); NRBC % 0.2 % (0.0-2.0); WHITE BLOOD COUNT 3.6 K/uL (4.8-10.8)
[2017-01-11 07:31] LABS: POTASSIUM 3.9 mmol/L (3.6-5.2)
[2017-01-11 07:33] LABS: ALB/GLOB RATIO 0.5 (1.0-2.1); BILIRUBIN,TOTAL 0.8 mg/dL (0.2-1.3); PHOSPHOROUS 3.4 mg/dL (2.5-4.5); TOTAL PROTEIN 8.3 g/dL (6.3-8.3)
[2017-01-11 07:34] LABS: CALCIUM 7.8 mg/dl (8.6-10.4); MAGNESIUM 1.7 mg/dL (1.6-2.3)
[2017-01-11] MEDS: (Novolin R) Insulin Human Regular 100 units/ml vial SC SCH ×4 (07:55→22:03)
[2017-01-11 08:20] VITALS: O2SAT 96
--- NOTE | 2017-01-11 08:34 | VASCLAB ---
PROCEDURE: Lower Extremity Venous Duplex Exam. HISTORY: Leg swelling PRIORS: None. TECHNIQUE: Bilateral common femoral, femoral, popliteal and posterior tibial, peroneal and great saphenous veins were evaluated. Flow was assessed with color Doppler, compressibility, assessment of phasic flow and augmentation response. Report prepared by CARMEN Islas, RVT FINDINGS: RIGHT: 1. Common Femoral Vein: 1.1. Compressibility - Fully compressible: Thrombus - None : Flow - Phasic: Augmentation -Normal: Reflux - None. 2. Femoral Vein: 2.1. Compressibility - Fully compressible: Thrombus - None : Flow - Phasic: Augmentation -Normal: Reflux - None. 3. Popliteal Vein: 3.1. Compressibility - Fully compressible: Thrombus - None : Flow - Phasic: Augmentation -Normal: Reflux - None. 4. Posterior Tibial Vein: 4.1. Compressibility - Fully compressible: Thrombus - None: Flow - Phasic: Augmentation -Normal: Reflux - None. 5. Peroneal Vein: 5.1. Compressibility - Fully compressible: Thrombus - None: Flow - Phasic: Augmentation -Normal: Reflux - None. 6. Great Saphenous Vein: 6.1. Compressibility - Fully compressible: Thrombus - None: Flow - Phasic: Augmentation - Normal: Reflux - None. LEFT: 1. Common Femoral Vein: 1.1. Compressibility - Fully compressible: Thrombus - None: Flow - Phasic: Augmentation -Normal: Reflux - None. 2. Femoral Vein: 2.1. Compressibility - Fully compressible: Thrombus - None: Flow - Phasic: Augmentation -Normal: Reflux - None. 3. Popliteal Vein: 3.1. Compressibility - Fully compressible: Thrombus - None : Flow - Phasic: Augmentation -Normal: Reflux - None. 4. Posterior Tibial Vein: 4.1. Compressibility - Fully compressible: Thrombus - None: Flow - Phasic: Augmentation -Normal: Reflux - None. 5. Peroneal Vein: 5.1. Compressibility - Fully compressible: Thrombus - None: Flow - Phasic: Augmentation -Normal: Reflux - None. 6. Great Saphenous Vein: 6.1. Compressibility - Fully compressible: Thrombus - None: Flow - Phasic: Augmentation - Normal: Reflux - None. OTHER FINDINGS: Right: None significant. Left: None significant. IMPRESSION: Right: No evidence of deep or superficial vein thrombosis of the right lower extremity. Normal valve function noted of the right side. Left: No evidence of deep or superficial vein thrombosis of the left lower extremity. Normal valve function noted of the left side.
[2017-01-11] MEDS: Saccharomyces Boulardi 250 mg Cap PO SCH ×3 (10:22→18:56)
[2017-01-11] MEDS: Magnesium Oxide 400 mg Tab UD PO SCH ×3 (10:24→18:57)
[2017-01-11] MEDS: Baclofen 5 mg Tab PO SCH ×3 (10:48→18:57)
[2017-01-11] MEDS: Vancomycin 125 MG/5 ML SOLN (ORAL/RECTAL) PO SCH ×5 (10:49→22:04)
[2017-01-11] MEDS: levETIRAcetam 500 MG in Sodium Chloride 0.9% 100 ML IVPB SCH ×2 (10:53→22:02)
--- NOTE | 2017-01-11 14:06 | CP.PCM.PN ---
Subjective - Date & Time of Evaluation Date of Evaluation: 01/11/17 Time of Evaluation: 14:03 - Subjective Subjective: Feels better; more alert UO excellent- mandujano out as well Creat stabilizing- now 1.7 BP controlled No N, V, GARCIA, chills, diarhea, dysuria No new complaints Objective - Vital Signs/Intake and Output Vital Signs (last 24 hours): Temp Pulse Resp BP Pulse Ox 97.4 F L 70 20 105/68 96 01/11/17 08:18 01/11/17 08:18 01/11/17 08:18 01/11/17 08:18 01/11/17 08:18 Intake and Output: 01/11/17 01/11/17 06:59 18:59 Intake Total 915 Output Total 550 Balance 365 - Medications Medications: Current Medications Acetaminophen (Tylenol 325mg Tab) 650 mg PO Q6 PRN PRN Reason: Fever >100.4 F Last Admin: 01/04/17 00:18 Dose: 650 mg Acetaminophen (Tylenol 325mg Tab) 975 mg PO Q6H PRN PRN Reason: Pain, moderate (4-7) Acetaminophen (Tylenol 325 Mg Supp) 325 mg [place] Q6 PRN PRN Reason: Pain, Mild (1-3) Last Admin: 01/07/17 16:21 Dose: 325 mg Amlodipine Besylate (Norvasc) [address] [facility] Last Admin: 01/11/17 10:23 Dose: 5 mg Baclofen (Lioresal) [address] [facility] Last Admin: 01/11/17 10:48 Dose: 5 mg Dicyclomine HCl (Bentyl) [address] [facility] Last Admin: 01/05/17 22:08 Dose: 10 mg Emollient Ointment (Vaseline Oint) 0 gm TOP Q1H PRN PRN Reason: Dry skin Last Admin: 01/03/17 08:32 Dose: 1 gm Escitalopram Oxalate (Lexapro) [address] [facility] Last Admin: 01/11/17 10:22 Dose: 10 mg Haloperidol (Haldol) 5 mg PO Q2H PRN PRN Reason: agitation, max 4x/24h Heparin Sodium (Porcine) (Heparin) 5,[address] [facility] Last Admin: 01/11/17 13:51 Dose: 5,000 units Levetiracetam 500 mg/ Sodium (Chloride) 105 mls @ 420 mls/hr IVPB Q12H [facility] Last Admin: 01/11/17 10:53 Dose: 420 mls/hr Penicillin G Potassium 2.5 mu/ (Dextrose) 50 mls @ 100 mls/hr IVPB Q4H [facility] Last Admin: 01/11/17 13:48 Dose: 100 mls/hr Daptomycin 350 mg/ Sodium (Chloride) 100 mls @ 100 mls/hr IV QOD@1800 [facility] Stop: 02/15/17 18:01 Insulin Human Regular (Novolin R) [address] [facility] PRN Reason: Protocol Last Admin: 01/11/17 12:20 Dose: Not Given Magnesium Oxide (Mag-Ox) [address] [facility] Last Admin: 01/11/17 10:24 Dose: 400 mg Ondansetron HCl (Zofran Inj) [address] [facility] Last Admin: 01/11/17 13:46 Dose: Not Given Pantoprazole Sodium (Protonix Inj) [address] [facility] Last Admin: 01/11/17 10:23 Dose: 40 mg Saccharomyces Boulardii (Florastor) [address] [facility] Last Admin: 01/11/17 10:22 Dose: 250 mg Spironolactone (Aldactone) [address] [facility] Last Admin: 01/11/17 10:22 Dose: 25 mg Vancomycin HCl (Vancocin (Oral Or Rectal Use)) [address] [facility] Last Admin: 01/11/17 13:46 Dose: 125 mg Vitamin A (Vitamin A & D Oint Ud Foilpak) [address] [facility] Last Admin: 01/11/17 13:45 Dose: 1 ea - Labs Labs: 01/11/17 07:11 01/11/17 07:11 PT 17.3 SECONDS (9.7-12.2) H 01/09/17 07:00 INR 1.5 01/09/17 07:00 APTT 38 SECONDS (21-34) H 01/09/17 07:00 - Constitutional Appears: No Acute Distress, Chronically Ill - Head Exam Head Exam: ATRAUMATIC, NORMAL INSPECTION - Eye Exam Eye Exam: EOMI, Normal appearance - Neck Exam Neck Exam: Normal Inspection. absent: Tenderness - Respiratory Exam Respiratory Exam: Clear to Ausculation Bilateral, NORMAL BREATHING PATTERN - Cardiovascular Exam Cardiovascular Exam: REGULAR RHYTHM, +S1 - GI/Abdominal Exam GI & Abdominal Exam: Soft. absent: Tenderness - Extremities Exam Extremities Exam: Normal Inspection. absent: Tenderness - Neurological Exam Neurological Exam: Awake, CN II-XII Intact - Skin Skin Exam: Dry, Warm Assessment and Plan (1) Acute kidney injury Status: Acute (2) C. difficile colitis Status: Suspected (3) Diabetes Status: Chronic (4) Endocarditis Status: Acute (5) Syphilis Status: Acute - Assessment and Plan (Free Text) Plan: Continue same meds Monitor lytes, renal function, BP
[2017-01-11 17:04] VITALS: BP 122/78; PULSE 72; TEMP 98
== END 2017-01-11 23:15 | disposition left against medical advice (07) | DRG 853 ==
LOC: C.ER 12:02 → OBSVTOIN 17:00 → C.9E 17:00 → C.5T 19:03 → C.3T 12-21 22:28
PROVIDERS: ADMIT Hospitalist; ATTEND Hospitalist
PROC: 02HV33Z Insertion of Infusion Device into Superior Vena Cava, Percutaneous Approach (ICD-10-PCS; principal; 2016-12-17)
PROC: B548ZZA Ultrasonography of Superior Vena Cava, Guidance (ICD-10-PCS; 2016-12-17)
PROC: 0W980ZZ Drainage of Chest Wall, Open Approach (ICD-10-PCS; 2016-12-27)
PROC: 02HV33Z Insertion of Infusion Device into Superior Vena Cava, Percutaneous Approach (ICD-10-PCS; 2016-12-28)
PROC: B548ZZA Ultrasonography of Superior Vena Cava, Guidance (ICD-10-PCS; 2016-12-28)
PROC: 0D9K8ZZ Drainage of Ascending Colon, Via Natural or Artificial Opening Endoscopic (ICD-10-PCS; 2017-01-09)
PROC: 0D9K8ZX Drainage of Ascending Colon, Via Natural or Artificial Opening Endoscopic, Diagnostic (ICD-10-PCS; 2017-01-09)
PROC: 0D9K8ZX Drainage of Ascending Colon, Via Natural or Artificial Opening Endoscopic, Diagnostic (ICD-10-PCS; 2017-01-09)
DX: A41.02 Sepsis due to Methicillin resistant Staphylococcus aureus (principal); G93.40 Encephalopathy, unspecified; D61.818 Other pancytopenia; A04.7 Enterocolitis due to Clostridium difficile; N17.9 Acute kidney failure, unspecified; D68.9 Coagulation defect, unspecified; A69.20 Lyme disease, unspecified; N18.3 Chronic kidney disease, stage 3 (moderate); I38 Endocarditis, valve unspecified; F32.2 Major depressive disorder, single episode, severe without psychotic features; I82.621 Acute embolism and thrombosis of deep veins of right upper extremity; E87.1 Hypo-osmolality and hyponatremia; L02.213 Cutaneous abscess of chest wall; W00.0XXA Fall on same level due to ice and snow, initial encounter; I27.2 Other secondary pulmonary hypertension; A53.0 Latent syphilis, unspecified as early or late; E83.42 Hypomagnesemia; B18.2 Chronic viral hepatitis C; D50.9 Iron deficiency anemia, unspecified; D63.8 Anemia in other chronic diseases classified elsewhere; E86.0 Dehydration; F41.9 Anxiety disorder, unspecified; K64.8 Other hemorrhoids; I12.9 Hypertensive chronic kidney disease with stage 1 through stage 4 chronic kidney disease, or unspecified chronic kidney disease; E11.22 Type 2 diabetes mellitus with diabetic chronic kidney disease; Z79.4 Long term (current) use of insulin; E87.6 Hypokalemia; F11.21 Opioid dependence, in remission; S20.211A Contusion of right front wall of thorax, initial encounter; Z68.23 Body mass index [BMI] 23.0-23.9, adult